=== PATIENT | female | born 1950 | race Caucasian/White ===

== ENCOUNTER → 2017-07-25 09:20 | Outpatient (CLI) | payer MEDICARE, SELFPAY ==
--- NOTE | 2017-07-25 | PATH_ITS ---
[facility] Accession Number: [id number] . 01 Material submitted: . LEFT BREAST . 01 Clinical history: . MASS 8 O'CLOCK 5CM FROM NIPPLE . 02 Diagnosis: Left Breast, Mass at 8 o'clock, 5 cm from Nipple, Core Needle Biopsies: Benign breast tissue with fibrocystic-type changes, including fibrosis, apocrine metaplasia, microcysts, and usual ductal hyperplasia. Microcalcifications not identified. Additional levels were examined. Negatived for atypical hyperplasia, in situ or invasive carcinoma. V/07/26/2017 . 02 Electronically signed: . Stephanie Buenrostro MD, Pathologist NPI- [id number] . 01 Gross description: . Received one formalin-filled container labeled with the patient's name and designated left breast mass 8 o'clock, 5 cm from nipple. The specimen is received with plastic filter in container, sample loose in container, and consists of multiple pieces of soft tissue and clotted blood, which aggregate to 1.0 x 1.0 x 0.3 cm. The specimen is filtered, wrapped and entirely submitted in one cassette. Collection date 07/25/2017. Collection time 10:25 a.m., per containers. Total fixation time 12 hours up to 24. ([id number]) /[facility] . 02 Pathologist provided ICD-10: N60.12 . 02 CPT . 263640 Performed at: 01 [facility] [address] [place] [address], [place], [place] [id number] MD Bernabe Goode MD Phone: [phone] [facility]formed [facility]: [facility] [place] [address] [address], [place] [id number] MD Henok Hickey MD Phone: [phone]
--- NOTE | 2017-07-25 | DI.MG.S_ITS ---
UNILATERAL LEFT DIGITAL DIAGNOSTIC MAMMOGRAM POST-NEEDLE BIOPSY: 07/25/2017 CLINICAL: Post clip placement. Comparison is made to exams dated: 12/24/2016 mammogram, 01/19/2016 mammogram, and 09/19/2014 mammogram - [facility]. The tissue of the left breast is heterogeneously dense. This may lower the sensitivity of mammography. There is a marker clip in the appropriate position in the left breast at 8 o'clock anterior depth. This marker clip placement is at biopsy site. IMPRESSION: POST PROCEDURE MAMMOGRAM FOR MARKER PLACEMENT There was a successful marker clip placement in the left breast anterior depth. This exam was interpreted at Station ID: [id number]. NOTE: For mammograms, a report in lay terms will be sent to the patient. Approximately 15% of breast malignancies will not be visualized mammographically. In the management of a palpable breast mass, a negative mammogram must not discourage biopsy of a clinically suspicious lesion. Electronically Signed By: Waylon wilkerson/:07/25/2017 12:15:58 ACR BI-RADS Category Post-procedure mammogram for marker placement
--- NOTE | 2017-07-25 09:26 | DI.US.S_ITS ---
ULTRASOUND GUIDED BIOPSY LEFT BREAST USING VACUUM DEVICE WITH MARKING DEVICE INSERTED AND POST DIGITAL MAMMOGRAPHIC AND ULTRASOUND IMAGIN07/25/2017 CLINICAL: Left breast mass. PATIENT CONSENT: Risks (minor bleeding, infection, vasovagal reaction and repeat procedure), benefits and alternatives were explained to the patient and written informed consent was obtained. Correlation is made to exams dated: 06/23/2017 ultrasound, [facility]24[facility]2016 [facility] An [facility] guided biopsy using real-time ultrasound was performed for the 6 mm lobulated mass located in the left breast at 8 o'clock anterior depth. This was described on the previous ultrasound report. The skin was prepped in the usual manner. Local anesthetic was administered to the access site. A skin kayla was made in the breast. The abnormality was approached from the lateral aspect. A 10 gauge biopsy needle was placed adjacent to the abnormality under ultrasound guidance. Once the needle was documented to be in the correct location, two specimens were obtained using the Mammotome biopsy system. The patient received additional local anesthetic during the procedure. A titanium clip was inserted into the biopsy cavity. Post procedure digital mammographic and ultrasound imaging demonstrates the clip at the targeted area and complete removal of the abnormality. The specimens were sent to the laboratory for pathological analysis. IMPRESSION: ULTRASOUND GUIDED BIOPSY BENIGN Ultrasound guided biopsy of the 6 mm mass in the left breast at 8 o'clock anterior depth was successful. Pathology indicates benign apocrine metaplasia (AM), usual ductal hyperplasia ([facility]), and fibrocystic changes (FC). Pathology results are concordant with mammography and ultrasound findings. Return to annual mammogram screening schedule is recommended. This exam was interpreted at Station ID: [id number]. Waylon wilkerson,ddp/:07/28/2017 11:31:23
== END ==
PROVIDERS: Family Provider Family Medicine; PCP Family Medicine; Visit Provider Family Medicine
DX: N63.20 Unspecified lump in the left breast, unspecified quadrant (principal)
CPT/HCPCS: 19083; 77065; 88305

== ENCOUNTER 2017-08-02 09:41 | Outpatient (CLI) | payer MEDICARE, SELFPAY ==
[2017-08-02] VITALS (12 sets, daily range): BP systolic 77–180; BP diastolic 48–96; PULSE 76–92; RESP 16–18; TEMP 36.8; O2SAT 95–100
--- NOTE | 2017-08-02 09:57 | DI.RAD.S_ITS ---
PROCEDURE: PAIN L/S TRANSFORAMINAL INJECT INDICATIONS: right L4-5 radiculopathy FINDINGS: Fluoroscopic spot filming was performed to verify placement of spinal needles at the right L4-L5 level(s), as labeled on the films. Appropriate location(s) of the needle tip(s) was confirmed by injection of iodinated contrast. Dictated by: Emmanuel Rosales M.D. on 08/02/2017 at 17:16 Approved by: Emmanuel Rosales M.D. on 08/02/2017 at 17:16
--- NOTE | 2017-08-02 10:06 | P.PCN_ITS ---
Procedures Date/Time Date of procedure: 08/02/17 Time of procedure: 10:07 General Procedure description: PREOP DIAGNOSIS 1. FORMAINAL STENOSIS WITH LE SYMPTOMS POST OP DIAGNOSIS 1. FORMAINAL STENOSIS WITH LE SYMPTOMS PROCEDURES 1. FLUOROSCOPICALLY GUIDED CONTRAST CONTROLLED TRANSFORAMINAL EPIDURAL STEROID INJECTION - RIGHT L4/5 TFESI PHYSICIAN: Reuben Guillory INDICATIONS: Moira is referred by Dr. Baig for treatment of Foraminal Stenosis with Right LE Symptoms FINDINGS Foraminal Nerve Root Compression secondary to disc disease and facet hypertrophy DESCRIPTION OF PROCEDURE: Following denial of allergy and review of potential side effects and complications, including, but not necessarily limited to, infection, allergic reaction, local tissue breakdown, stroke, temporary or permanent nerve injury, paralysis, and possible , the patient indicated that the patient understood and agreed to proceed. An informed consent document was signed by the patient, witnessed by a nurse, and placed in the patient's chart. Additionally, other treatment options including medications, modalities, and physical therapy were reviewed with the patient. Per the patient request, IV conscious sedation was administered via 5mg of Versed to patient comfort. The patient's vital signs were monitored throughout the procedure by both the nurse and the physician without significant fluctuation. The patient remained conversant throughout the procedure. In the prone position following sterile prep and drape of the lumbar region, the Right L4/5 posterior neuroforamen was identified fluoroscopically. The skin was anesthetized via a 25-gauge 1.5-inch needle with 1% lidocaine solution. At this point, a 25-gauge 3.5-inch spinal needle was atraumatically introduced and advanced under fluoroscopic guidance through the posterior right L4/5 neuroforamen to approximately the anterior aspect of the canal. Depth was confirmed on lateral view. Following negative aspiration, injection of approximately 1.5 cc of Isovue 200 under live fluoroscopy in the AP view confirmed excellent flow along the nerve root, into the epidural space without vascular or intrathecal uptake observed Radiological data, including multiple fluoroscopic views of the lumbosacral spine, reveal a spinal needle at the right L4/5 posterior neuroforamen. Subsequent views show flow of contrast material flowing superiorly and inferiorly along the nerve root confirming epidural flow. Subsequently, a test dose of 1.5 cc of 1% lidocaine solution was administered and patient was observed for two minutes for signs or symptoms of complications , including abdominal pain, shortness of breath, bilateral upper or lower extremity weakness, nausea and vomiting, prior to steroid injection. At this point, a total of 3 cc or 20 mg of dexamethasone and 80mg Depo Medrol was injected without incident. The patient was then transferred to the recovery area where they were observed for an appropriate time after the injection. The patient reported a VAS score of 7 prior to the procedure and a post-procedure VAS of 0. Total Fluoroscopy Time: 20.9 seconds Total Conscious Sedation Time: 24min POST OP INSTRUCTIONS The patient was provided a Pain Log to continue to record their response to the target-specific procedure prior to follow-up visit with their referring physician. Additionally, specific post-injection care instructions and a contact number to our office were provided if concerns arise regarding possible complications associated with the procedure are suspected. Reuben Guillory DO Complications: none
[2017-08-02] MEDS: MIDAZOLAM 5 MG/5 ML VIAL IV (10:28)
[2017-08-02] MEDS: DEXAMETHASONE 10 MG/ML VIAL 20 MG INJ (10:35)
[2017-08-02] MEDS: BUPIVACAINE 0.25% (PF) 30 ML VIAL INJ (10:35)
[2017-08-02] MEDS: methylPREDNISolone acetate 80 MG/ML VIAL INJ (10:35)
[2017-08-02] MEDS: IOPAMIDOL 15 ML VIAL INJ (10:35)
--- NOTE | 2017-08-02 11:05 | PC.NURSE ---
NOTIFIED OF BP
== END 2017-08-02 12:11 ==
LOC: RAD 09:43
PROVIDERS: PCP Family Medicine; Visit Provider Physical Medicine & Rehabilitation
DX: M47.26 Other spondylosis with radiculopathy, lumbar region (principal); M51.36 Other intervertebral disc degeneration, lumbar region
CPT/HCPCS: 64483; 99152; J1040; J1100; J2250

== ENCOUNTER → 2017-08-31 12:29 | Outpatient (CLI) | payer MEDICARE, SELFPAY ==
--- NOTE | 2017-08-31 12:31 | DI.RAD.S_ITS ---
PROCEDURE: XR ANKLE RT MIN 3V INDICATIONS: R ankle swelling and pain. TECHNIQUE: 3 views of the ankle were acquired. COMPARISON: None. FINDINGS: Bones: A nondisplaced fracture is present through the tip of the lateral malleolus. Ankle mortise is normally aligned. No suspicious bony lesions. Traction spurs are present at the base of the fifth metatarsal and at the Achilles insertion. Soft tissues: Diffuse soft tissue swelling. No tibiotalar joint effusion. Achilles tendon appears normal. IMPRESSION: Nondisplaced fracture lateral malleolus. Soft tissue swelling. Dictated by: Waylon Car M.D. on 08/31/2017 at 13:07 Approved by: Waylon Car M.D. on 08/31/2017 at 13:10
== END ==
PROVIDERS: PCP Family Medicine; Visit Provider Family Medicine
DX: S82.64XA Nondisplaced fracture of lateral malleolus of right fibula, initial encounter for closed fracture (principal); M25.571 Pain in right ankle and joints of right foot; M25.471 Effusion, right ankle
CPT/HCPCS: 73610

== ENCOUNTER 2017-09-28 09:32 | Outpatient (CLI) | payer MEDICARE, SELFPAY ==
[2017-09-28] VITALS (9 sets, daily range): BP systolic 139–183; BP diastolic 65–80; PULSE 77–92; RESP 12–18; TEMP 36.3; O2SAT 96–100
--- NOTE | 2017-09-28 09:35 | DI.RAD.S_ITS ---
PROCEDURE: PAIN L/S TRANSFORAMINAL INJECT INDICATIONS: R L4/5 transforaminal FINDINGS: Fluoroscopic spot filming was performed to verify placement of spinal needles at the L4-5 level(s), as labeled on the films. Appropriate location(s) of the needle tip(s) was confirmed by injection of iodinated contrast. IMPRESSION: Intraoperative imaging for confirmation of injection of the right L4-5 level Dictated by: Waylon Car M.D. on 09/28/2017 at 16:47 Approved by: Waylon Car M.D. on 09/28/2017 at 16:48
--- NOTE | 2017-09-28 10:34 | P.PCN_ITS ---
Procedures Date/Time Date of procedure: 09/28/17 Time of procedure: 10:33 General Procedure description: PREOP DIAGNOSIS 1. FORMAINAL STENOSIS WITH LE SYMPTOMS POST OP DIAGNOSIS 1. FORMAINAL STENOSIS WITH LE SYMPTOMS PROCEDURES 1. FLUOROSCOPICALLY GUIDED CONTRAST CONTROLLED TRANSFORAMINAL EPIDURAL STEROID INJECTION - RIGHT L4/5 TFESI PHYSICIAN: Reuben Guillory DO INDICATIONS: Moira is referred by Dr. Baig for treatment of Foraminal Stenosis with Right LE Symptoms FINDINGS Foraminal Nerve Root Compression secondary to disc disease and facet hypertrophy DESCRIPTION OF PROCEDURE: Following denial of allergy and review of potential side effects and complications, including, but not necessarily limited to, infection, allergic reaction, local tissue breakdown, stroke, temporary or permanent nerve injury, paralysis, and possible , the patient indicated that the patient understood and agreed to proceed. An informed consent document was signed by the patient, witnessed by a nurse, and placed in the patient's chart. Additionally, other treatment options including medications, modalities, and physical therapy were reviewed with the patient. After review of previous anaesthesic history and IV conscious sedation the patient was deemed safe to proceed with todays procedure with IV conscious sedation as ASA class II designation. Safety time-out was performed to confirm patient ID, procedure to be performed and site of procedure. IV sedation was accomplished with a combination of 5mg of Versed was administered by the RN after DO order, titrated to patient comfort during the course of the procedure while the patient remained responsive to all verbal commands In the prone position following sterile prep and drape of the lumbar region, the Right L4/5 posterior neuroforamen was identified fluoroscopically. The skin was anesthetized via a 25-gauge 1.5-inch needle with 1% lidocaine solution. At this point, a 25-gauge 3.5-inch spinal needle was atraumatically introduced and advanced under fluoroscopic guidance through the posterior Right L4/5 neuroforamen to approximately the anterior aspect of the canal. Depth was confirmed on lateral view. Following negative aspiration, injection of approximately 1.5 cc of Isovue 200 under live fluoroscopy in the AP view confirmed excellent flow along the nerve root, into the epidural space without vascular or intrathecal uptake observed Radiological data, including multiple fluoroscopic views of the lumbosacral spine, reveal a spinal needle at the right L4/5 posterior neuroforamen. Subsequent views show flow of contrast material flowing superiorly and inferiorly along the nerve root confirming epidural flow. Subsequently, a test dose of 1.5 cc of 1% lidocaine solution was administered and patient was observed for two minutes for signs or symptoms of complications , including abdominal pain, shortness of breath, bilateral upper or lower extremity weakness, nausea and vomiting, prior to steroid injection. At this point, a total of 4cc or 10mg of dexamethasone and 18mg Betamethasone was injected without incident. The procedure tolerated the procedure well without signs or symptoms of complications prior to transfer to the recovery area continued monitoring without incident.The patient was then transferred to the recovery area where they were observed for an appropriate time after the injection. The patient reported a VAS score of 7 prior to the procedure and a post- procedure VAS of 0. Total Fluoroscopy Time: 20.9 seconds Total Conscious Sedation Time: 24min POST OP INSTRUCTIONS The patient was provided a Pain Log to continue to record their response to the target-specific procedure prior to follow-up visit with their referring physician. Additionally, specific post-injection care instructions and a contact number to our office were provided if concerns arise regarding possible complications associated with the procedure are suspected. Reuben Guillory DO Complications: none
[2017-09-28] MEDS: DEXAMETHASONE 10 MG/ML VIAL 20 MG INJ (10:56)
[2017-09-28] MEDS: BETAMETHASONE 30 MG/5 ML MDV 12 MG INJ (10:56)
[2017-09-28] MEDS: BUPIVACAINE 0.25% (PF) VIAL 2 ML INJ (10:56)
[2017-09-28] MEDS: IOPAMIDOL 15 ML VIAL 3 ML INJ (10:57)
[2017-09-28] MEDS: MIDAZOLAM 5 MG/5 ML VIAL IV (10:57)
== END 2017-09-28 11:57 | disposition home or self-care (01) ==
LOC: RAD 09:35
PROVIDERS: PCP Family Medicine; Visit Provider Physical Medicine & Rehabilitation
DX: M48.061 Spinal stenosis, lumbar region without neurogenic claudication (principal); M51.16 Intervertebral disc disorders with radiculopathy, lumbar region
CPT/HCPCS: 64483; 99152; J0702; J1100; J2250

== ENCOUNTER 2017-10-25 11:15 | Outpatient (CLI) | payer MEDICARE, SELFPAY ==
[2017-10-25] VITALS (13 sets, daily range): BP systolic 114–158; BP diastolic 51–85; PULSE 64–92; RESP 16–20; TEMP 37.1; O2SAT 95–100
--- NOTE | 2017-10-25 | DI.RAD.S_ITS ---
PROCEDURE: PAIN L INTERLAMINAR/CAUDAL INJ INDICATIONS: LUMBAR REGION INTERVERTEBRAL DISC DISPLACEMENT FINDINGS: Fluoroscopic spot filming was performed to verify placement of spinal needles at the L4-5 level(s), as labeled on the films. Appropriate location(s) of the needle tip(s) was confirmed by injection of iodinated contrast. IMPRESSION: Successful posterior interlaminar L4-5 localization for epidural steroid injection. Dictated by: De Celestin M.D. on 10/25/2017 at 14:26 Approved by: De Celestin M.D. on 10/25/2017 at 14:26
[2017-10-25] MEDS: MIDAZOLAM 5 MG/5 ML VIAL IV (12:21)
[2017-10-25] MEDS: BUPIVACAINE 0.25% (PF) VIAL 2 ML INJ (12:31)
[2017-10-25] MEDS: IOPAMIDOL 15 ML VIAL 3 ML INJ (12:31)
[2017-10-25] MEDS: DEXAMETHASONE 10 MG/ML VIAL 20 MG INJ (12:32)
[2017-10-25] MEDS: methylPREDNISolone acetate 80 MG/ML VIAL INJ (12:32)
--- NOTE | 2017-10-25 12:37 | P.PCN_ITS ---
Procedures Date/Time Date of procedure: 10/25/17 Time of procedure: 12:36 General Procedure description: PROVIDER: Reuben Guillory DO Operative Note PREOP DIAGNOSIS 1. HNP WITH RADICULAR FEATURES, 2. MULTILEVEL CENTRAL STENOSIS, POST OP DIAGNOSIS 1. HNP WITH RADICULAR FEATURES, 2. MULTILEVEL CENTRAL STENOSIS PROCEDURES 1. FLUORSCOPICALLY GUIDED CONTRAST CONTROLLED INTERLAMINAR EPIDURAL STEROID INJECTION -L4/5 PHYSICIAN: Reuben Guillory DO INDICATIONs: Moira is referred by for treatment of HNP with R>L LE symptoms. FINDINGS Multilevel Central Spinal Stenosis with Nerve Root Compression DESCRIPTION OF PROCEDURE Fluoroscopically guided, contrast-controlled L4/5 translaminar epidural steroid injection. Following denial of allergy and review of potential side effects and complications, including, but not necessarily limited to, infection, allergic reaction, local tissue breakdown, temporary as well as permanent nerve injury, paralysis, stroke and possible , the patient indicated that the patient understood and agreed to proceed. An informed consent document was signed by the patient, witnessed by a nurse, and placed in the patient's chart. Additionally, other treatment options including modalities, medications, and physical therapy were reviewed with the patient. After review of previous anaesthesic history and IV conscious sedation the patient was deemed safe to proceed with todays procedure with IV conscious sedation as ASA class II designation. Safety time-out was performed to confirm patient ID, procedure to be performed and site of procedure. IV sedation was accomplished with a combination of 3mg was administered by the RN after DO order , titrated to patient comfort during the course of the procedure while the patient remained responsive to all verbal commands In the prone position, following sterile prep and drape of the lumbar region, the L4/5 translaminar space was identified fluoroscopically. The skin was anesthetized via a 25-gauge, 1.5-inch needle with 1% lidocaine solution. At this point, a 22-gauge short bevel spinal needle was atraumatically introduced and advanced under fluoroscopic guidance into the region of the L4/5 translaminar space. Depth was confirmed on lateral view. Radiological data, including multiple fluoroscopic views of the lumbar spine, reveal a spinal needle at the L4/5 translaminar space. Lateral views then show placement of the needle in the epidural space. Subsequent views show contrast material flowing superiorly and inferiorly in the epidural space. No vascular or intrathecal uptake is observed. At this point, using loss of resistance technique with saline and air, the epidural space was entered. This was confirmed following negative aspiration with injection of approximately 1.5 cc of Isovue 200, showing excellent epidural flow without vascular or intrathecal uptake. At this point, 1 cc of 1 % lidocaine solution combined with 3 cc or 20 mg of dexamethasone and 80mg Depo medrol was injected without incident. The patient tolerated the procedure well without signs or symptoms of complications prior to transfer to the recovery area continued monitoring without incident. The patient was then transferred to the recovery area where they were observed for an appropriate period of time after the injection. The patient reported a VAS score of 6 prior to the procedure and a post- procedure VAS of 0. Total Fluoroscopy Time: 11.8 seconds, 8.99 mGy Total Conscious Sedation Time: 24min POST OP INSTRUCTIONS The patient was provided a Pain Log to continue to record their response to the target-specific procedure prior to follow-up visit with their referring physician. Additionally, specific post-injection care instructions and a contact number to our office were provided if concerns arise regarding possible complications associated with the procedure are suspected. Reuben Guillory DO Complications: none
== END 2017-10-25 13:19 ==
LOC: RAD 11:17
PROVIDERS: PCP Family Medicine; Visit Provider Physical Medicine & Rehabilitation
DX: M51.16 Intervertebral disc disorders with radiculopathy, lumbar region (principal); M48.061 Spinal stenosis, lumbar region without neurogenic claudication
CPT/HCPCS: 62323; 99152; J1040; J1100; J2250

== ENCOUNTER → 2018-03-27 11:39 | Outpatient (CLI) | payer MEDICARE, SELFPAY ==
--- NOTE | 2018-03-27 | DI.MG.S_ITS ---
BILATERAL DIGITAL SCREENING MAMMOGRAM 3D/2D WITH CAD: 03/27/2018 CLINICAL: Family history of breast cancer. Comparison is made to exams dated: 07/25/2017 mammogram, 12/24/2016 mammogram, and 01/19/2016 mammogram - [facility]. The tissue of both breasts is heterogeneously dense. This may lower the sensitivity of mammography. Current study was also evaluated with a Computer Aided Detection (CAD) system. There are benign calcifications in both breasts. There also is a benign biopsy clip in the left breast. No significant masses, calcifications, or other findings are seen in either breast. There has been no significant interval change. IMPRESSION: There is no mammographic evidence of malignancy. A 1 year screening mammogram is recommended. This exam was interpreted at Station ID: [id number]. NOTE: For mammograms, a report in lay terms will be sent to the patient. Approximately 15% of breast malignancies will not be visualized mammographically. In the management of a palpable breast mass, a negative mammogram must not discourage biopsy of a clinically suspicious lesion. Electronically Signed By: Rufino brooks/ashley:03/27/2018 12:59:14 letter sent: Normal Exam ACR BI-RADS Category 2: Benign Finding(s) 3342F
== END ==
PROVIDERS: PCP Family Medicine; Visit Provider Family Medicine
DX: Z12.31 Encounter for screening mammogram for malignant neoplasm of breast (principal); Z80.3 Family history of malignant neoplasm of breast
CPT/HCPCS: 77063; 77067

== ENCOUNTER → 2018-04-24 10:53 | Outpatient (CLI) | payer MEDICARE, SELFPAY ==
--- NOTE | 2018-04-24 10:56 | DI.RAD.S_ITS ---
PROCEDURE: XR KNEE RT 3V INDICATIONS: Status post arthroscopy with DJD RIGHT KNEE TECHNIQUE: 3 views of the knee were acquired. COMPARISON: None. FINDINGS: Bones: No fractures or dislocations. No suspicious bony lesions. Moderate patellofemoral compartment marginal spur formation and minor lateral compartment spurring. Moderate, asymmetric lateral compartment patellofemoral joint space loss. Other joint spaces are normally maintained. Soft tissues: No joint effusion. No suspicious soft tissue calcifications. IMPRESSION: Moderate patellofemoral osteoarthritic changes, and minor lateral compartment spurring. Dictated by: Paige Membreno M.D. on 04/24/2018 at 12:46 Approved by: Paige Membreno M.D. on 04/24/2018 at 12:48
--- NOTE | 2018-04-24 10:56 | DI.RAD.S_ITS ---
PROCEDURE: XR KNEE LT 3V INDICATIONS: Status post arthroscopy with DJD LEFT KNEE TECHNIQUE: 3 views of the knee were acquired. COMPARISON: None. FINDINGS: Bones: No fractures or dislocations. Mild to moderate patellofemoral compartment spurring and mild asymmetric lateral patellofemoral compartment joint space loss. Mild medial compartment joint space loss and marginal spur formation. Lateral compartment chondrocalcinosis visible. No suspicious bony lesions. Soft tissues: Trace, probable suprapatellar joint effusion. Dystrophic soft tissue calcification anterior to the intercondylar notch. IMPRESSION: 1. Mild to moderate patellofemoral and medial compartment osteoarthritic changes. 2. Lateral compartment chondrocalcinosis raising possibility of underlying CPPD/pseudogout. Dictated by: Paige Membreno M.D. on 04/24/2018 at 12:48 Approved by: Paige Membreno M.D. on 04/24/2018 at 12:51
== END ==
PROVIDERS: PCP Family Medicine; Visit Provider Physical Medicine & Rehabilitation
DX: M17.0 Bilateral primary osteoarthritis of knee (principal); M11.262 Other chondrocalcinosis, left knee
CPT/HCPCS: 73562

== ENCOUNTER → 2018-06-05 15:02 | Outpatient (CLI) | payer MEDICARE, SELFPAY ==
[2018-06-05 16:03] LABS: Alanine Aminotransferase 31 IU/L (9-52); Albumin 4.8 g/dL (3.5-5.0); Albumin Globulin Ratio 1.9 (1.0-2.8); Alkaline Phosphatase 77 U/L (38-126); Aspartate Aminotransferase 22 IU/L (14-36); BUN Creatinine Ratio 26.3 (6-22); Bilirubin Total 0.5 mg/dL (0.2-1.3); Blood Urea Nitrogen 21 mg/dL (7-17); Calcium 9.6 mg/dL (8.4-10.2); Carbon Dioxide 27 mmol/L (22-32); Chloride 101 mmol/L (98-107); Cholesterol 183 mg/dL (140-199); Estimated Glomerular Filt Rate > 60.0 mL/min (>60); Globulin 2.5 g/dL (1.7-4.1); Glucose 93 mg/dL (80-110); HDL Cholesterol 44 mg/dL (40-60); HEMOLYSIS < 15 (0-50); LDL Cholesterol Calculated 118 mg/dL (<100); Potassium 4.5 mmol/L (3.4-5.1); Sodium 138 mmol/L (137-145); Total Protein 7.3 g/dL (6.3-8.2); Triglycerides 105 mg/dL (35-150)
[2018-06-05 16:16] LABS: Add Manual Diff / Slide Review NO; Basophils Absolute Auto 0 /uL (0-100); Basophils Percent Auto 0.7 % (0-2); Eosinophils Absolute Auto 100 /uL (0-450); Hematocrit 40.1 % (36-46); Hemoglobin 13.3 g/dL (12.0-16.0); Lymphocytes Absolute Auto 1700 /uL (1100-4500); Lymphocytes Percent Auto 33.9 % (25-40); Mean Corpuscular HGB Conc 33.1 % (30-36); Mean Corpuscular Hemoglobin 29.9 PG (26-34); Mean Corpuscular Volume 90.2 fL (80-100); Monocytes Absolute Auto 400 /uL (0-900); Monocytes Percent Auto 8.5 % (3-14); Neutrophils Absolute Auto 2800 /uL (1500-7000); Neutrophils Percent Auto 54.9 % (50-75); Platelet Count 229 X10^3/uL (150-400); Red Blood Cell Count 4.45 X10^6/uL (4.0-5.2); Red Cell Distribution Width 12.9 % (11.6-14.8)
[2018-06-05 16:19] LABS: Free T3, Triiodothyronine Free 3.43 pg/mL (2.77-5.27); Free T4, Direct Thyroxine 1.36 ng/dL (0.78-2.19)
[2018-06-05 16:33] LABS: Thyroid Stimulating Hormone 0.98 uIU/mL (0.47-4.68)
[2018-06-05 16:51] LABS: Vitamin B12 279 pg/mL (239-931)
== END ==
PROVIDERS: PCP Family Medicine; Visit Provider Family Medicine
DX: E03.9 Hypothyroidism, unspecified (principal); F32.9 Major depressive disorder, single episode, unspecified; I10 Essential (primary) hypertension; Z51.81 Encounter for therapeutic drug level monitoring
CPT/HCPCS: 36415; 80053; 80061; 82607; 84439; 84443; 84481; 85025

== ENCOUNTER → 2018-06-16 09:02 | Outpatient (CLI) | payer MEDICARE, SELFPAY ==
--- NOTE | 2018-06-16 09:04 | DI.US.S_ITS ---
PROCEDURE: US THYROID INDICATIONS: HYPOTHYROIDISM TECHNIQUE: Real-time scanning was performed of the thyroid gland, with image documentation. COMPARISON: None. FINDINGS: Right: Thyroid lobe measures 4.6 x 1.3 x 1.4 cm, and is homogeneous in echotexture. Left: Thyroid lobe measures 3.7 x 1.2 x 0.8 cm, and is homogenous in echotexture. Isthmus: 2.0 mm thick. Nodule number: 1 Location: Right mid Size: 0.5 x 0.4 x 0.5 cm. Composition: Solid Echogenicity: Hyperechoic Shape: wider than tall. Margins: Smooth Echogenic foci: None Total points: 3 ACR TI-RADS category: Mildly suspicious IMPRESSION: Mildly suspicious finding on the right thyroid nodule. Recommend continued followup ultrasound as detailed below. ACR TI-RADS definitions and recommendations: TI-RADS 1 (benign): 0 points. FNA not needed. TI-RADS 2 (not suspicious): 2 points. FNA not needed. TI-RADS 3 (mildly suspicious): 3 points. * FNA if 2.5 cm or larger, follow up if 1.5 cm or larger (at 1, 3, and 5 years). TI-RADS 4 (moderately suspicious): 4-6 points. * FNA if 1.5 cm or larger, follow up if 1 cm or larger (at 1, 2, 3, and 5 years). TI-RADS 5 (highly suspicious): 7 points or more. * FNA if 1 cm or larger, follow up if 0.5 cm or larger (every year for 5 years). Dictated by: Jimbo LONG Interpreted: Sarah Tellez MD on 06/16/2018 at 12:58 Approved by: Sarah Tellez M.D. on 06/16/2018 at 16:59
== END ==
PROVIDERS: PCP Family Medicine; Visit Provider Family Medicine
DX: E03.9 Hypothyroidism, unspecified (principal); E04.1 Nontoxic single thyroid nodule
CPT/HCPCS: 76536

== ENCOUNTER → 2019-09-06 09:37 | Outpatient (CLI) | payer MEDICARE, SELFPAY ==
--- NOTE | 2019-09-06 09:39 | DI.MRI.S_ITS ---
PROCEDURE: MR LUMBAR SPINE WO CON INDICATIONS: Low back pain with lower extremity symptoms TECHNIQUE: Noncontrast sagittal T1 spin echo and T2 fast echo, sagittal STIR, axial T1 and T2 fast spin echo through the lumbar spine. In cases with scoliosis, additional coronal T2 fast spin echo may be performed. COMPARISON: [facility], MR, L-SPINE WITHOUT CONTRAST, 02/10/2017, 8:23. [facility], CR, XR LUMBAR SPINE MIN 4V, 09/06/2019, 9:33. FINDINGS: Image quality: Excellent. Alignment and Curvature: There is normal bony alignment. Bone Marrow: Marrow is of normal overall signal. No acute vertebral body compression fractures. Spinal Cord: Conus medullaris terminates at the mid L1 level. Visualized cord demonstrates normal signal and size. Paraspinous Soft Tissues: No paravertebral masses. Multiple calculi within the gallbladder lumen are present. L1-L2: Mild disc height loss and desiccation. Mild diffuse disc bulge. Mild facet and ligamentum flavum hypertrophy. Mild canal stenosis. Mild bilateral foraminal stenosis. No change. L2-L3: Mild disc desiccation and diffuse disc bulge. Mild facet and ligament flavum hypertrophy. Mild canal stenosis. Mild bilateral foraminal stenosis. L3-L4: Mild disc height loss. Moderate disc desiccation. Moderate diffuse disc bulge with superimposed left paracentral protrusion. Mild facet and ligament flavum hypertrophy. Mild epidural lipomatosis. Moderate canal stenosis. Mild bilateral foraminal stenosis. No change. L4-L5: Moderate disc desiccation. Mild disc height loss. Moderate diffuse disc bulge with superimposed broad-based central protrusion. Mild facet and ligamentum flavum hypertrophy. Mild epidural lipomatosis. Moderate canal stenosis. Mild bilateral foraminal stenosis, left greater than right. No change. L5-S1: Moderate disc desiccation. Mild disc height loss. Mild diffuse disc bulge. Mild bilateral facet hypertrophy. Epidural lipomatosis. No significant canal stenosis. Moderate subarticular foraminal stenosis bilaterally. No change. IMPRESSION: 1. Multilevel degenerative disc and facet disease, as well as ligamentum flavum hypertrophy and epidural lipomatosis. 2. Multilevel canal stenoses, worst at L3-L4 and L4-L5, where there are moderate canal stenoses present. 3. Multilevel foraminal stenoses, worst at L5-S1 bilaterally where there are moderate foraminal stenoses present. Dictated by: Tiffany Fernando M.D. on 09/06/2019 at 10:37 Approved by: Tiffany Fernando M.D. on 09/06/2019 at 10:41
--- NOTE | 2019-09-06 09:39 | DI.RAD.S_ITS ---
PROCEDURE: XR LUMBAR SPINE MIN 4V INDICATIONS: Low back pain with lower extremity symptoms TECHNIQUE: 5 views of the lumbar spine were acquired. COMPARISON: None. FINDINGS: Bones: No fracture or focal osseous destruction. Multilevel degenerative endplate sclerosis and spurring. Diffuse facet arthropathy. Straightening of the normal lordotic curvature. Diffuse mild narrowing of all lumbar disc spaces. Trace retrolisthesis of L4-L5. Mild levocurvature noted bilateral hip degeneration. Poorly defined presumed degenerative sclerosis seen in both SI joints. Soft tissues: Overlying bowel gas pattern is normal. No suspicious soft tissue calcifications. Oblique images: No pars defects. IMPRESSION: Multilevel mild lumbar spondylosis and facet disease as detailed above Dictated by: Emmanuel Rosales M.D. on 09/06/2019 at 11:32 Approved by: Emmanuel Rosales M.D. on 09/06/2019 at 11:34
== END ==
PROVIDERS: PCP Family Medicine; Referring Provider Family Medicine; Visit Provider Physical Medicine & Rehabilitation
DX: M51.16 Intervertebral disc disorders with radiculopathy, lumbar region (principal); M51.17 Intervertebral disc disorders with radiculopathy, lumbosacral region; M48.061 Spinal stenosis, lumbar region without neurogenic claudication; M48.07 Spinal stenosis, lumbosacral region; M47.26 Other spondylosis with radiculopathy, lumbar region; M16.0 Bilateral primary osteoarthritis of hip; M21.371 Foot drop, right foot; M54.5 Low back pain; E88.2 Lipomatosis, not elsewhere classified
CPT/HCPCS: 72110; 72148

== ENCOUNTER → 2019-10-13 09:24 | Outpatient (CLI) | payer MEDICARE, SELFPAY ==
[2019-10-14 16:55] LABS: COVID19 Sendout Not Detected (Not Detect)
== END ==
PROVIDERS: PCP Family Medicine; Visit Provider Physician Assistant
DX: Z11.59 Encounter for screening for other viral diseases (principal)
CPT/HCPCS: 87635

== ENCOUNTER 2019-10-16 09:23 | Outpatient (CLI) | payer MEDICARE, SELFPAY ==
[2019-10-16] VITALS (10 sets, daily range): BP systolic 121–183; BP diastolic 67–90; PULSE 81–93; RESP 15–18; TEMP 36.7; O2SAT 96–100
--- NOTE | 2019-10-16 09:27 | DI.RAD.S_ITS ---
PROCEDURE: PAIN L INTERLAMINAR/CAUDAL INJ INDICATIONS: LOW BACK PAIN COMPARISON: [facility], XA, PAIN L INTERLAMINAR/CAUDAL INJ, 10/25/2017, 11:33. FINDINGS: Fluoroscopic spot filming was performed to verify placement of spinal needles at the right L4-L5 transluminal level(s), as labeled on the films. Appropriate location(s) of the needle tip(s) was confirmed by injection of iodinated contrast. IMPRESSION: Access needle the level of the right L4-L5 lamina. Dictated by: Re Madsen MD, PhD on 10/16/2019 at 13:37 Approved by: Re Madsen MD, PhD on 10/16/2019 at 13:38
--- NOTE | 2019-10-16 10:02 | PC.NURSE ---
Patient is A&O able to make needs known. Reviewed green pain log with post injection instructions. Has no other questions or concerns at this time.
[2019-10-16] MEDS: MIDAZOLAM 5 MG/5 ML VIAL IV (10:13)
[2019-10-16] MEDS: fentaNYL 100 MCG/2 ML INJ 50 MCG IV (10:13)
[2019-10-16] MEDS: DEXAMETHASONE 10 MG/ML VIAL 20 MG INJ (10:17)
[2019-10-16] MEDS: IOPAMIDOL 15 ML VIAL 3 ML INJ (10:17)
[2019-10-16] MEDS: BUPIVACAINE 0.25% (PF) VIAL 2 ML INJ (10:17)
[2019-10-16] MEDS: BETAMETHASONE 30 MG/5 ML MDV 6 MG INJ (10:17)
--- NOTE | 2019-10-16 10:28 | P.PCN_ITS ---
Date/Time/Diagnoses Date of procedure: 10/16/19 Time of procedure: 10:28 Pre-procedure diagnosis: 1. HNP WITH RADICULAR FEATURES, 2. MULTILEVEL CENTRAL STENOSIS, Post-procedure diagnosis: same Procedure Notes Procedure: 1. FLUOROSCOPICALLY GUIDED CONTRAST CONTROLLED INTERLAMINAR EPIDURAL STEROID INJECTION -Para Right L4/5 Indications: Moira is referred by Dr. Daly for treatment of Bilateral Foraminal Stenosis R>L LE symptoms. Physician: Reuben Guillory Total Fluoroscopy time (seconds): 5 Total sedation minutes: 10 Complications: none Procedure in detail & Post-procedure care: FINDINGS Multilevel Central Spinal Stenosis with Nerve Root Compression DESCRIPTION OF PROCEDURE Fluoroscopically guided, contrast-controlled L4/5 translaminar epidural steroid injection. Following review of allergy and review of potential side effects and complications, including, but not necessarily limited to, infection, allergic reaction, local tissue breakdown, temporary as well as permanent nerve injury, paralysis, stroke and possible , the patient indicated that the patient understood and agreed to proceed. An informed consent document was signed by the patient, witnessed by a nurse, and placed in the patient's chart. Additionally, other treatment options including modalities, medications, and physical therapy were reviewed with the patient. After review of previous anaesthesic history and IV conscious sedation the patient was deemed safe to proceed with today?s procedure with IV conscious sedation as ASA class II designation. Safety time-out was performed to confirm patient ID, procedure to be performed and site of procedure. IV sedation was accomplished with a combination of 2mg of Versed and 50mcg of Fentanyl was administered by the RN after DO order, titrated to patient comfort during the course of the procedure while the patient remained responsive to all verbal commands In the prone position, following sterile prep and drape of the lumbar region, the L4/5 translaminar space was identified fluoroscopically. The skin was anesthetized via a 25-gauge, 1.5-inch needle with 1% lidocaine solution. At this point, a 22-gauge short bevel spinal needle was atraumatically introduced and advanced under fluoroscopic guidance into the region of the L4/5 translaminar space. Depth was confirmed on lateral view. Radiological data, including multiple fluoroscopic views of the lumbar spine, reveal a spinal needle at the L4/5 translaminar space. Lateral views then show placement of the needle in the epidural space. Subsequent views show contrast material flowing superiorly and inferiorly in the epidural space. No vascular or intrathecal uptake is observed. At this point, using loss of resistance technique with saline and air, the epidural space was entered. This was confirmed following negative aspiration with injection of approximately 1.5cc of Isovue 200, showing excellent epidural flow without vascular or intrathecal uptake. At this point, 1cc of 1% lidocaine solution combined with 3cc or 20mg of dexamethasone and 6mg betamethasone was injected without incident. The patient tolerated the procedure well without signs or symptoms of complications prior to transfer to the recovery area continued monitoring without incident. The patient was then transferred to the recovery area where they were observed for an appropriate period of time after the injection. The patient reported a VAS score of 7 prior to the procedure and a post- procedure VAS of 0. POST OP INSTRUCTIONS The patient was provided a Pain Log to continue to record their response to the target-specific procedure prior to follow-up visit with their referring physician. Additionally, specific post-injection care instructions and a contact number to our office were provided if concerns arise regarding possible complications associated with the procedure are suspected.
--- NOTE | 2019-10-16 11:01 | PC.NURSE ---
Patient d/c steady on feet. Has no questions at this time. Green pain log with instructions sent home with patient.
--- NOTE | 2019-10-16 16:07 | PC.NURSE ---
Tolerated procedure well. Sedation administered by ALICIA Cowart. All other meds given by Dr Guillory. Vitals stable during and immediately post procedure. Report given to ALICIA Pettit for post procedure recovery.
== END 2019-10-16 10:55 | disposition home or self-care (01) ==
LOC: RAD 09:26
PROVIDERS: PCP Family Medicine; Referring Provider Physical Medicine & Rehabilitation; Visit Provider Physical Medicine & Rehabilitation
DX: M51.16 Intervertebral disc disorders with radiculopathy, lumbar region (principal); M48.061 Spinal stenosis, lumbar region without neurogenic claudication
CPT/HCPCS: 62323; 99152; J0702; J1100; J2250; J3010

== ENCOUNTER → 2019-10-26 13:42 | Outpatient (CLI) | payer MEDICARE, SELFPAY ==
--- NOTE | 2019-10-26 13:45 | DI.RAD.S_ITS ---
PROCEDURE: XR ELBOW LT MIN 3V INDICATIONS: Fall, pain/swelling/bruising, proximal forearm TECHNIQUE: 3 views of the elbow were acquired. COMPARISON: None. FINDINGS: Bones: No fractures or dislocations. No suspicious bony lesions. There is slight irregularity at the inferior aspect of the radial head laterally, and a subtle band of increased radiodensity across the radial head neck. The appearance raises concern for minimally impacted fracture. Soft tissues: Slight elbow joint effusion. No suspicious soft tissue calcifications. IMPRESSION: The presence of significant pain after trauma and what appears to be a slight elbow joint effusion is associated with subtle findings of possible radial head/neck junction fracture. The likelihood of fracture in this clinical circumstance is relatively high and for this reason in splinting and follow-up plain films in several days would be recommended versus obtaining MR scanning for most accurate immediate documentation of presence or absence of fracture.. Dictated by: De Celestin M.D. on 10/26/2019 at 14:15 Approved by: De Celestin M.D. on 10/26/2019 at 14:18
--- NOTE | 2019-10-26 13:45 | DI.RAD.S_ITS ---
PROCEDURE: XR KNEE RT 3V INDICATIONS: Fall, pain/swelling/bruising TECHNIQUE: 3 views of the knee were acquired. COMPARISON: [facility], CR, XR KNEE RT 3V, 04/24/2018, 10:59. FINDINGS: Bones: No fractures or dislocations but there is degenerative knee joint osteoarthritis that is minimal at the medial and lateral compartments but moderate at the lateral facet of the patellofemoral joint.. No suspicious bony lesions. Soft tissues: No joint effusion. No suspicious soft tissue calcifications. IMPRESSION: Knee joint osteoarthritis is most pronounced at the patellofemoral joint, lateral facet. Minimal such degeneration is seen at the medial and lateral compartments. No effusion or loose body found. Dictated by: De Celestin M.D. on 10/26/2019 at 14:38 Approved by: De Celestin M.D. on 10/26/2019 at 14:39
--- NOTE | 2019-10-26 13:45 | DI.RAD.S_ITS ---
PROCEDURE: XR FOREARM RT 2V INDICATIONS: Fall, pain/swelling/bruising, proximal forearm TECHNIQUE: 2 views of the forearm were acquired. COMPARISON: None. FINDINGS: Bones: No definite fractures or dislocations but a radial head fracture at the head/neck junction remains suspected. No suspicious bony lesions. Soft tissues: No suspicious soft tissue calcifications or masses. Small anterior elbow joint effusion noted. IMPRESSION: Based on the imaging findings of this study and of the elbow and presence of a small joint effusion anteriorly the likelihood of radial head fracture presence is considered high. MR scanning could accurately established presence or absence of fracture immediately. However, delayed plain films in 3-5 days also likely would suffice. Dictated by: De Celestin M.D. on 10/26/2019 at 14:18 Approved by: De Celestin M.D. on 10/26/2019 at 14:20
== END ==
PROVIDERS: PCP Family Medicine; Referring Provider Physician Assistant; Visit Provider Physician Assistant
DX: S50.12XA Contusion of left forearm, initial encounter (principal); S89.91XA Unspecified injury of right lower leg, initial encounter; M25.422 Effusion, left elbow; M17.11 Unilateral primary osteoarthritis, right knee; W19.XXXA Unspecified fall, initial encounter
CPT/HCPCS: 73080; 73090; 73562

== ENCOUNTER → 2019-12-15 09:14 | Outpatient (CLI) | payer MEDICARE, SELFPAY ==
[2019-12-17 07:52] LABS: COVID19 Sendout Not Detected (Not Detect)
== END ==
PROVIDERS: PCP Family Medicine; Visit Provider Physician Assistant
DX: Z01.812 Encounter for preprocedural laboratory examination (principal)
CPT/HCPCS: 87635

== ENCOUNTER 2019-12-18 07:34 | Outpatient (CLI) | payer MEDICARE, SELFPAY ==
[2019-12-18] VITALS (8 sets, daily range): BP systolic 118–165; BP diastolic 59–78; PULSE 71–81; RESP 11–17; TEMP 36.2; O2SAT 93–99
--- NOTE | 2019-12-18 07:37 | DI.RAD.S_ITS ---
PROCEDURE: PAIN L/S TRANSFORAMINAL INJECT INDICATIONS: SPONDYLOSIS COMPARISON: [facility], , PAIN L/S TRANSFORAMINAL INJECT, 09/28/2017, 10:45. FINDINGS: Fluoroscopic spot filming was performed to verify placement of a spinal needle at the L4-L5 level, as labeled on the films. Appropriate location of the needle tip was confirmed by injection of iodinated contrast. IMPRESSION: Intraprocedural examination within normal limits. Dictated by: Natalio Serrato M.D. on 12/18/2019 at 9:54 Approved by: Natalio Serrato M.D. on 12/18/2019 at 9:55
[2019-12-18] MEDS: MIDAZOLAM 5 MG/5 ML VIAL IV (08:29)
[2019-12-18] MEDS: fentaNYL 100 MCG/2 ML INJ 50 MCG IV (08:29)
[2019-12-18] MEDS: BUPIVACAINE 0.25% (PF) VIAL 2 ML INJ (08:36)
[2019-12-18] MEDS: BETAMETHASONE 30 MG/5 ML MDV 6 MG INJ (08:36)
[2019-12-18] MEDS: IOPAMIDOL 15 ML VIAL 3 ML INJ (08:36)
[2019-12-18] MEDS: DEXAMETHASONE 10 MG/ML VIAL 20 MG INJ (08:36)
--- NOTE | 2019-12-18 08:40 | P.PCN_ITS ---
Date/Time/Diagnoses Date of procedure: 12/18/19 Time of procedure: 08:40 Pre-procedure diagnosis: 1. FORAMINAL STENOSIS WITH LE SYMPTOMS Post-procedure diagnosis: same Procedure Notes Procedure: 1. FLUOROSCOPICALLY GUIDED CONTRAST CONTROLLED TRANSFORAMINAL EPIDURAL STEROID INJECTION - RIGHT L4/5 TFESI Indications: Moira is referred by Dr. Daly for treatment of Foraminal Stenosis with Right LE Symptoms Physician: Reuben Guillory Total Fluoroscopy time (seconds): 15 Total sedation minutes: 8 Complications: none Procedure in detail & Post-procedure care: FINDINGS Foraminal Nerve Root Compression secondary to disc disease and facet hypertrophy DESCRIPTION OF PROCEDURE Following review of allergy and review of potential side effects and complications, including, but not necessarily limited to, infection, allergic reaction, local tissue breakdown, stroke, temporary or permanent nerve injury, paralysis, and possible , the patient indicated that the patient understood and agreed to proceed. An informed consent document was signed by the patient, witnessed by a nurse, and placed in the patient's chart. Additionally, other treatment options including medications, modalities, and physical therapy were reviewed with the patient. After review of previous anaesthesic history and IV conscious sedation the patient was deemed safe to proceed with today?s procedure with IV conscious sedation as ASA class II designation. Safety time-out was performed to confirm patient ID, procedure to be performed and site of procedure. IV sedation was accomplished with a combination of 2mg of Versed and 50mcg of Fentanyl was administered by the RN after DO order, titrated to patient comfort during the course of the procedure while the patient remained responsive to all verbal commands In the prone position following sterile prep and drape of the lumbar region, the Right L4/5 posterior neuroforamen was identified fluoroscopically. The skin was anesthetized via a 25-gauge 1.5-inch needle with 1% lidocaine solution. At this point, a 25-gauge 3.5-inch spinal needle was atraumatically introduced and advanced under fluoroscopic guidance through the posterior Right L4/5 neuroforamen to approximately the anterior aspect of the canal. Depth was confirmed on lateral view. Following negative aspiration, injection of approximately 1.5cc of Isovue 200 under live fluoroscopy in the AP view confirmed excellent flow along the nerve root, into the epidural space without vascular or intrathecal uptake observed Radiological data, including multiple fluoroscopic views of the lumbosacral spine, reveal a spinal needle at the right L4/5 posterior neuroforamen. Subsequent views show flow of contrast material flowing superiorly and inferiorly along the nerve root confirming epidural flow. Subsequently, a test dose of 1.5 cc of 1% lidocaine solution was administered and patient was observed for two minutes for signs or symptoms of complications, including abdominal pain, shortness of breath, bilateral upper or lower extremity weakness, nausea and vomiting, prior to steroid injection. At this point, a total of 3cc or 20mg of dexamethasone and 6mg of betamethasone was injected without incident. The procedure tolerated the procedure well without signs or symptoms of complications prior to transfer to the recovery area continued monitoring without incident. The patient was then transferred to the recovery area where they were observed for an appropriate time after the injection. The patient reported a VAS score of 8 prior to the procedure and a post- procedure VAS of 0. POST OP INSTRUCTIONS The patient was provided a Pain Log to continue to record their response to the target-specific procedure prior to follow-up visit with their referring physician. Additionally, specific post-injection care instructions and a contact number to our office were provided if concerns arise regarding possible complications associated with the procedure are suspected.
== END 2019-12-18 09:21 | disposition home or self-care (01) ==
LOC: RAD 07:35
PROVIDERS: PCP Family Medicine; Referring Provider Physical Medicine & Rehabilitation; Visit Provider Physical Medicine & Rehabilitation
DX: M48.061 Spinal stenosis, lumbar region without neurogenic claudication (principal); M51.16 Intervertebral disc disorders with radiculopathy, lumbar region
CPT/HCPCS: 64483; J0702; J1100; J2250; J3010

== ENCOUNTER 2020-02-25 11:24 | Observation (INO) | payer MEDICARE, SELFPAY ==
[2020-02-25] VITALS (27 sets, daily range): BP systolic 110–159; BP diastolic 56–72; PULSE 77–95; RESP 14–22; TEMP 36.5–36.6; O2SAT 93–98; BMI 25.0
[2020-02-25 12:13] LABS: COVID19 -Nasal RAPID POSITIVE (Negative)
--- NOTE | 2020-02-25 12:22 | ED_ITS ---
HPI - Nausea/Vomiting/Diarrhea <Orly Deshpande PA-C - Last Filed: 02/25/20 17:46> General Chief complaint: Abdominal Pain Stated complaint: not eating,vomiting,not drinking,brown urine Time Seen by Provider: 02/25/20 12:21 Source: patient Mode of arrival: Ambulatory Limitations: no limitations History of Present Illness HPI Narrative: This is a fatigued-appearing 69-year-old woman with a history of chronic back pain, who presents complaining of of chills, nausea, vomiting, inability to keep down food or fluids for 5 days, also complaining of brown looking urine, and diarrhea 5 times a day for the last 5 days. Patient also states that she feels short of breath at times she says ?I really have not been moving around at all because I feel so poorly and my body aches everywhere?. She notes she really has not been anywhere a been around anyone that has been sick or had any exposure she did have a doctors appointment fairly recently. She has not been able to keep down her regular medications due to her severe nausea and vomiting. She says she has been vomiting about 10 times a day. Every time she tries to eat something she has not been able to keep it down. She has had a lot of chills for the last few days but does not thinks that she has had fevers although she has not been checking temperatures at home with an oral thermometer. She is also having much worse back pain than her normal with feels very different than her normal it is in her low back and she thinks is on both sides. Denies abdominal pain, chest pain, cough, fevers or any other symptoms. MD complaint: nausea, vomiting, diarrhea and other (chills, body aches) Onset (ago): day(s) (5) Description of Vomiting: watery Description of Diarrhea: watery Associated Abdominal Pain: No Location of pain: left flank and right flank Severity: moderate Severity scale (1-10): 8 Quality: aching and constant Pain Consistency: constant Relieving factors: none Exacerbating factors: none Associated symptoms: myalgias, fever/chills, headaches, nausea/vomiting and shortness of breath (feels a little short of breath) Related Data Home Medications Medication Instructions Recorded Confirmed [HOMA RED KRILL OIL] 1 cap PO QDAY #0 09/29/16 02/18/20 ascorbic acid (vitamin C) 500 mg PO BID #0 09/29/16 02/18/20 vit C,I-Ji-wrxbc-lutein-zeaxan 1 cap PO BID #0 09/29/16 02/18/20 [PreserVision AREDS-2] cholecalciferol (vitamin D3) 25 1,000 unit PO DAILY 03/22/18 02/18/20 mcg (1,000 unit) capsule biotin 2,500 mcg capsule 2,500 mcg PO DAILY 12/25/18 02/18/20 Previous Rx's Medication Instructions Recorded sertraline 50 mg tablet 75 mg PO QDAY #135 tab 09/12/19 levothyroxine 75 mcg tablet See Rx Instructions .ROUTE 11/14/19 .COMPLEX #90 tab estradiol 1 vaginalrin VAGINAL FOR THREE 11/19/19 MONTHS #1 each oxycodone-acetaminophen 5 mg-325 1 tab PO QID PRN #60 tab 01/25/20 mg tablet spironolactone 25 mg tablet 25 mg PO BID #180 tab 02/08/20 gabapentin 300 mg capsule 300 mg PO BID #180 cap 02/22/20 Allergies Allergy/AdvReac Type Severity Reaction Status Date / Time Sulfa (Sulfonamide Allergy Severe rash/itchin Verified 02/25/20 11:43 Antibiotics) g [SULFA (SULFONAMIDE ANTIBIOTICS)] hydrocodone [HYDROCODONE] AdvReac Intermediate vomiting Verified 02/25/20 11:43 Review of Systems <Orly Deshpande PA-C - Last Filed: 02/25/20 17:46> Review of Systems Narrative: GENERAL: Denies chills, positive for fatigue, negative for malaise, positive for fever, negative for sweats. Positive for generalized body aches HEENT: Denies sinus pain, ear pain, sore throat, difficulty swallowing, dizzines s. RESPIRATORY: Denies dyspnea but sometimes has been feeling short of breath, denies cough, wheezing, hemoptysis, sputum. CARDIOVASCULAR: Denies chest pain, palpitations, orthopnea, edema, GASTROINTESTINAL: Positive for severe nausea, vomiting, inability to keep anything down for for 5 days, negative for abdominal pain, positive for diarrhea 5 times a day for the last 5 days, negative for, constipation, melena. : Denies dysuria, frequency, incontinence, hematuria, urinary retention. MUSCULOSKELETAL: Positive for severe flank pain both sides different than her normal back pain worse on the left, denies weakness, joint pain, or bony pain SKIN: Denies rash, skin lesions, or other NEUROLOGIC: Positive for generalized weakness, intermittent headache, negative for numbness, change in speech, confusion, seizures, incoordination. PSYCHIATRIC: No concerning psychosocial issues. 12 point review of systems is negative except for those stated above ROS Unobtainable: All systems reviewed & are unremarkable except as noted in HPI and below Patient History <Orly Deshpande PA-C - Last Filed: 02/25/20 17:46> Medical History Allergic rhinitis (1955) Chickenpox (Unknown) Chronic back pain (2006) Fall Fibromyalgia (1995) Fractures (Unknown) Hemorrhoids (1974) Herniated nucleus pulposus, L3-4 right Hypertension (Unknown) Hypothyroidism (Unknown) Injury of left lower arm Injury of right knee Measles (Unknown) Mumps (Unknown) Postmenopausal HRT (hormone replacement therapy) Surgical History History of bladder surgery (~1972) Status post hysterectomy Status post knee surgery Family History Father Cancer Grandfather Cancer Grandmother Heart disease Mother Age: 96 Endometrium cancer Colon cancer Heart disease Social History Smoking Status: Never smoker alcohol intake: never Smoking Status: Never smoker alcohol intake frequency: other Substance Use Type: does not use Exam <Orly Deshpande PA-C - Last Filed: 02/25/20 17:46> Narrative Exam Narrative: GENERAL: 69 year old patient appears stated age. Very tired appearing. Well-nourished, well-developed patient, in moderate distress. HEAD: Atraumatic. Normocephalic. EYES: Pupils equal round and reactive. Extraocular motions intact. No scleral icterus. No injection or drainage. ENT: Nose without bleeding, purulent drainage. Throat without erythema, tonsillar hypertrophy or exudate. Airway patent. NECK: Trachea midline. Non tender CARDIOVASCULAR: Regular rate and rhythm without murmurs, gallops, or rubs. RESPIRATORY: Clear to auscultation. Breath sounds equal bilaterally. No wheezes, rales, or rhonchi. GASTROINTESTINAL: Abdomen soft, non-tender, nondistended. EXTREMITIES: No edema or joint tenderness. BACK: She is extremely tender over the left flank. Otherwise Nontender without deformity or crepitance. NEURO: AOx3. SKIN: There is a non edematous macular skin change of her entire posterior flanks over the lumbar region both right and left consistent with livedo reticularis/reticular skin change brown in color. This is not present elsewhere on her body. No other rash or erythema of visible areas Initial Vital Signs Initial Vital Signs: Vital Signs Temperature 97.7 F 02/25/20 11:44 Pulse Rate 95 H 02/25/20 11:44 Respiratory Rate 16 02/25/20 11:44 Blood Pressure 110/56 L 02/25/20 11:44 Pulse Oximetry 95 02/25/20 11:44 <Pedro Jones DO - Last Filed: 02/25/20 19:58> Initial Vital Signs Initial Vital Signs: Vital Signs Temperature 97.7 F 02/25/20 11:44 Pulse Rate 95 H 02/25/20 11:44 Respiratory Rate 16 02/25/20 11:44 Blood Pressure 110/56 L 02/25/20 11:44 Pulse Oximetry 95 02/25/20 11:44 Scores <Orly Deshpande PA-C - Last Filed: 02/25/20 17:46> GCS Ernesto coma scale eye opening: Spontaneous [place] coma scale verbal response: Orientated [place] coma scale motor response: Obey commands [place] coma scale total score: 15 Course <Orly Deshpande PA-C - Last Filed: 02/25/20 17:46> Course Course Narrative: Patient really has not kept any food down for 5 days and fluids have also been a problem for her with her severe nausea and vomiting and with diarrhea. I am concerned that she is severely dehydrated, also concerned that she has a bruising pattern of her low back that is new for her consistent with a livedo reticularis. RN noted this and did discuss this with the attending ordered coags, will wait and see what her labs show at this point however definite concern for severe dehydration although muscle worried about possible organ failure. Treating her with fluids, Zofran and pain medicine. Her biggest complaint is her low back pain. 1252 After discussion with attending physician she does think it is appropriate to get CT chest abdomen pelvis on this patient with a x-ray concerning for pneumonia and severe flank pain with livedo reticularis present. We need to better evaluate what is going on internally. Also advising additional labs, which are ordered based on ED COVID severity algorithm. 1304 Patient's labs are actually returning looking fairly good she does have some slight abnormalities with her coags and her blood counts, slight bump in lipase however at this time and no evidence of organ failure she does have a good kidney function. Still awaiting some labs. 1314 Checked on patient who is back from CT. She is not feeling a whole lot better her back pain is still pretty bad. I have ordered additional pain meds for her and asked that she be back on her fluids. 14:15 Speaking with hospitalist about this patient given lung changes on CT in setting of COVID + inabilty to tolerate PO [address] santiago about this patient she does not feel she meets admission criteria due to her COVID positive status and her lung findings however she notes that she is unable to keep anything down after fluids and antiemetics is this may be another matter. Will work on p.o. challenging the patient, keeping her hydrated and see how she does with food and fluids with additional antiemetics. Will re-consult hospitalist if this she feels these. 1604 Patient has been working on trying to keep fluids down so far she has not vomited although she is only taking small sips. We are going to ambulate her with a pulse ox to evaluate she really has not been up moving around so we really do not know how she does with her oxygen saturations with movement. Handing off care to Dr. Jones who remains on shift in the emergency department. 1740 Orders Ordered: ED Orders 02/25/20 11:00 COVID19 Stat 02/25/20 12:27 XR chest 1V Stat 02/25/20 12:30 Alanine Aminotransferase Stat C-Reactive Protein Quant Stat Complete Blood Count AUTO DIFF Stat Comprehensive Metabolic Panel Stat Ferritin Stat HIV 1 & 2 Ab/Ag 4th Gen Combo Stat Hep C Virus Ab w/Reflex Quant Stat Lactate (Lactic Acid) Stat Lipase Stat Procalcitonin Stat Troponin I Stat 02/25/20 12:42 Urinalysis and Microscopic Stat Urine Culture Stat 02/25/20 12:44 Partial Thromboplastin Time Stat Prothrombin Time INR Stat 02/25/20 13:05 CT chest abd pel w con Stat EKG-12 Lead Stat 02/25/20 13:35 Blood Culture Stat Discontinued Medications Fentanyl (Fentanyl 100 Mcg/2 Ml Inj) 75 mcg 1 mcg/kg (75 mcg) IV NOW ONE Stop: 02/25/20 12:58 Last Admin: 02/25/20 13:12 Dose: 75 mcg Documented by: RUPESH Hydromorphone HCl (Hydromorphone 1 Mg Inj) 1 mg IV NOW ONE Stop: 02/25/20 14:17 Last Admin: 02/25/20 14:22 Dose: 1 mg Documented by: RUPESH Hydromorphone HCl (Hydromorphone 1 Mg Inj) 1 mg IV NOW ONE Stop: 02/25/20 19:30 Last Admin: 02/25/20 19:37 Dose: 1 mg Documented by: RUPESH Sodium Chloride (Normal Saline 0.9%) 1,000 mls @ 1,000 mls/hr IV BOLUS ONE Stop: 02/25/20 13:21 Last Infusion: 02/25/20 16:43 Dose: 0 mls/hr Documented by: Admin: 02/25/20 13:12 Dose: 1,000 mls/hr Documented by: RUPESH Sodium Chloride (Normal Saline 0.9%) 500 mls @ 1,000 mls/hr IV BOLUS ONE Stop: 02/25/20 16:34 Last Infusion: 02/25/20 17:11 Dose: 0 mls/hr Documented by: Admin: 02/25/20 16:35 Dose: 1,000 mls/hr Documented by: RUPESH Ondansetron HCl (Ondansetron 4 Mg/2 Ml Inj) 4 mg IV NOW ONE Stop: 02/25/20 12:23 Last Admin: 02/25/20 13:12 Dose: 4 mg Documented by: RUPESH Ondansetron HCl (Ondansetron 4 Mg/2 Ml Inj) 4 mg IV NOW ONE Stop: 02/25/20 16:05 Last Admin: 02/25/20 16:35 Dose: 4 mg Documented by: RUPESH Ondansetron HCl (Ondansetron 4 Mg/2 Ml Inj) 4 mg IV NOW ONE Stop: 02/25/20 19:30 Last Admin: 02/25/20 19:37 Dose: 4 mg Documented by: RUPESH Vital Signs Vital signs: Vital Signs - 8 hr 02/25/20 13:50 02/25/20 14:01 02/25/20 14:02 Pulse Rate 92 H 89 84 Pulse Rate [Orthostatic Lying] Pulse Rate [Orthostatic Sitting] Pulse Rate [Orthostatic Standing] Respiratory Rate Blood Pressure 152/68 H Blood Pressure [Orthostatic Lying] Blood Pressure [Orthostatic Sitting] Blood Pressure [Orthostatic Standing] Pulse Oximetry 96 98 98 02/25/20 14:30 02/25/20 15:00 02/25/20 15:30 Pulse Rate 83 86 80 Pulse Rate [Orthostatic Lying] Pulse Rate [Orthostatic Sitting] Pulse Rate [Orthostatic Standing] Respiratory Rate Blood Pressure 136/62 146/65 H 134/61 Blood Pressure [Orthostatic Lying] Blood Pressure [Orthostatic Sitting] Blood Pressure [Orthostatic Standing] Pulse Oximetry 95 97 94 02/25/20 16:00 02/25/20 16:30 02/25/20 17:00 Pulse Rate 81 79 78 Pulse Rate [Orthostatic Lying] Pulse Rate [Orthostatic Sitting] Pulse Rate [Orthostatic Standing] Respiratory Rate Blood Pressure 135/64 135/62 147/63 H Blood Pressure [Orthostatic Lying] Blood Pressure [Orthostatic Sitting] Blood Pressure [Orthostatic Standing] Pulse Oximetry 95 96 97 02/25/20 17:30 02/25/20 18:00 02/25/20 18:45 Pulse Rate 82 80 77 Pulse Rate [Orthostatic Lying] Pulse Rate [Orthostatic Sitting] Pulse Rate [Orthostatic Standing] Respiratory Rate 14 14 16 Blood Pressure 151/67 H 149/65 H 136/62 Blood Pressure [Orthostatic Lying] Blood Pressure [Orthostatic Sitting] Blood Pressure [Orthostatic Standing] Pulse Oximetry 98 97 97 02/25/20 18:47 02/25/20 18:48 02/25/20 18:49 Pulse Rate 83 86 93 H Pulse Rate [Orthostatic Lying] Pulse Rate [Orthostatic Sitting] Pulse Rate [Orthostatic Standing] Respiratory Rate 22 22 14 Blood Pressure 124/59 L 123/56 L 113/56 L Blood Pressure [Orthostatic Lying] Blood Pressure [Orthostatic Sitting] Blood Pressure [Orthostatic Standing] Pulse Oximetry 96 98 97 02/25/20 18:54 02/25/20 19:00 02/25/20 19:01 Pulse Rate 89 83 83 Pulse Rate [Orthostatic Lying] Pulse Rate [Orthostatic Sitting] Pulse Rate [Orthostatic Standing] Respiratory Rate 22 17 14 Blood Pressure 138/64 151/67 H Blood Pressure [Orthostatic Lying] Blood Pressure [Orthostatic Sitting] Blood Pressure [Orthostatic Standing] Pulse Oximetry 94 95 97 02/25/20 19:33 Pulse Rate 94 H Pulse Rate [Orthostatic Lying] 78 Pulse Rate [Orthostatic Sitting] 83 Pulse Rate [Orthostatic Standing] 94 H Respiratory Rate 21 Blood Pressure Blood Pressure [Orthostatic Lying] 136/62 Blood Pressure [Orthostatic Sitting] 124/59 L Blood Pressure [Orthostatic Standing] 113/56 L Pulse Oximetry 93 <Pedro Jones, - Last Filed: 02/25/20 19:58> Orders Ordered: ED Orders 02/25/20 11:00 COVID19 Stat 02/25/20 12:27 XR chest 1V Stat 02/25/20 12:30 Alanine Aminotransferase Stat C-Reactive Protein Quant Stat Complete Blood Count AUTO DIFF Stat Comprehensive Metabolic Panel Stat Ferritin Stat HIV 1 & 2 Ab/Ag 4th Gen Combo Stat Hep C Virus Ab w/Reflex Quant Stat Lactate (Lactic Acid) Stat Lipase Stat Procalcitonin Stat Troponin I Stat 02/25/20 12:42 Urinalysis and Microscopic Stat Urine Culture Stat 02/25/20 12:44 Partial Thromboplastin Time Stat Prothrombin Time INR Stat 02/25/20 13:05 CT chest abd pel w con Stat EKG-12 Lead Stat 02/25/20 13:35 Blood Culture Stat Discontinued Medications Fentanyl (Fentanyl 100 Mcg/2 Ml Inj) 75 mcg 1 mcg/kg (75 mcg) IV NOW ONE Stop: 02/25/20 12:58 Last Admin: 02/25/20 13:12 Dose: 75 mcg Documented by: RUPESH Hydromorphone HCl (Hydromorphone 1 Mg Inj) 1 mg IV NOW ONE Stop: 02/25/20 14:17 Last Admin: 02/25/20 14:22 Dose: 1 mg Documented by: ZGELEYN Hydromorphone HCl (Hydromorphone 1 Mg Inj) 1 mg IV NOW ONE Stop: 02/25/20 19:30 Last Admin: 02/25/20 19:37 Dose: 1 mg Documented by: RUPESH Sodium Chloride (Normal Saline 0.9%) 1,000 mls @ 1,000 mls/hr IV BOLUS ONE Stop: 02/25/20 13:21 Last Infusion: 02/25/20 16:43 Dose: 0 mls/hr Documented by: Admin: 02/25/20 13:12 Dose: 1,000 mls/hr Documented by: RUPESH Sodium Chloride (Normal Saline 0.9%) 500 mls @ 1,000 mls/hr IV BOLUS ONE Stop: 02/25/20 16:34 Last Infusion: 02/25/20 17:11 Dose: 0 mls/hr Documented by: Admin: 02/25/20 16:35 Dose: 1,000 mls/hr Documented by: RUPESH Ondansetron HCl (Ondansetron 4 Mg/2 Ml Inj) 4 mg IV NOW ONE Stop: 02/25/20 12:23 Last Admin: 02/25/20 13:12 Dose: 4 mg Documented by: RUPESH Ondansetron HCl (Ondansetron 4 Mg/2 Ml Inj) 4 mg IV NOW ONE Stop: 02/25/20 16:05 Last Admin: 02/25/20 16:35 Dose: 4 mg Documented by: RUPESH Ondansetron HCl (Ondansetron 4 Mg/2 Ml Inj) 4 mg IV NOW ONE Stop: 02/25/20 19:30 Last Admin: 02/25/20 19:37 Dose: 4 mg Documented by: RUPESH Vital Signs Vital signs: Vital Signs - 8 hr 02/25/20 13:50 02/25/20 14:01 02/25/20 14:02 Pulse Rate 92 H 89 84 Pulse Rate [Orthostatic Lying] Pulse Rate [Orthostatic Sitting] Pulse Rate [Orthostatic Standing] Respiratory Rate Blood Pressure 152/68 H Blood Pressure [Orthostatic Lying] Blood Pressure [Orthostatic Sitting] Blood Pressure [Orthostatic Standing] Pulse Oximetry 96 98 98 02/25/20 14:30 02/25/20 15:00 02/25/20 15:30 Pulse Rate 83 86 80 Pulse Rate [Orthostatic Lying] Pulse Rate [Orthostatic Sitting] Pulse Rate [Orthostatic Standing] Respiratory Rate Blood Pressure 136/62 146/65 H 134/61 Blood Pressure [Orthostatic Lying] Blood Pressure [Orthostatic Sitting] Blood Pressure [Orthostatic Standing] Pulse Oximetry 95 97 94 02/25/20 16:00 02/25/20 16:30 02/25/20 17:00 Pulse Rate 81 79 78 Pulse Rate [Orthostatic Lying] Pulse Rate [Orthostatic Sitting] Pulse Rate [Orthostatic Standing] Respiratory Rate Blood Pressure 135/64 135/62 147/63 H Blood Pressure [Orthostatic Lying] Blood Pressure [Orthostatic Sitting] Blood Pressure [Orthostatic Standing] Pulse Oximetry 95 96 97 02/25/20 17:30 02/25/20 18:00 02/25/20 18:45 Pulse Rate 82 80 77 Pulse Rate [Orthostatic Lying] Pulse Rate [Orthostatic Sitting] Pulse Rate [Orthostatic Standing] Respiratory Rate 14 14 16 Blood Pressure 151/67 H 149/65 H 136/62 Blood Pressure [Orthostatic Lying] Blood Pressure [Orthostatic Sitting] Blood Pressure [Orthostatic Standing] Pulse Oximetry 98 97 97 02/25/20 18:47 02/25/20 18:48 02/25/20 18:49 Pulse Rate 83 86 93 H Pulse Rate [Orthostatic Lying] Pulse Rate [Orthostatic Sitting] Pulse Rate [Orthostatic Standing] Respiratory Rate 22 22 14 Blood Pressure 124/59 L 123/56 L 113/56 L Blood Pressure [Orthostatic Lying] Blood Pressure [Orthostatic Sitting] Blood Pressure [Orthostatic Standing] Pulse Oximetry 96 98 97 02/25/20 18:54 02/25/20 19:00 02/25/20 19:01 Pulse Rate 89 83 83 Pulse Rate [Orthostatic Lying] Pulse Rate [Orthostatic Sitting] Pulse Rate [Orthostatic Standing] Respiratory Rate 22 17 14 Blood Pressure 138/64 151/67 H Blood Pressure [Orthostatic Lying] Blood Pressure [Orthostatic Sitting] Blood Pressure [Orthostatic Standing] Pulse Oximetry 94 95 97 02/25/20 19:33 Pulse Rate 94 H Pulse Rate [Orthostatic Lying] 78 Pulse Rate [Orthostatic Sitting] 83 Pulse Rate [Orthostatic Standing] 94 H Respiratory Rate 21 Blood Pressure Blood Pressure [Orthostatic Lying] 136/62 Blood Pressure [Orthostatic Sitting] 124/59 L Blood Pressure [Orthostatic Standing] 113/56 L Pulse Oximetry 93 MDM - Nausea/Vomiting/Diarrhea <Orly Deshpande PA-C - Last Filed: 02/25/20 17:46> Differential Diagnosis Differential diagnosis: Likely dehydration and other (COVID pneumonia, nausea, vomiting, diarrhea, livedo reticularis, back pain, flank pain) Medical Records Attestation: I reviewed the patient's medical records. Lab Data Attestation: I reviewed the patient's lab results. Result diagrams: 02/25/20 12:30 02/25/20 12:30 Labs: Lab Results 02/25/20 02/25/20 02/25/20 Range/Units 11:00 12:30 12:30 WBC 6.3 (4.5-11.0) X10^3/uL RBC 4.31 (4.0-5.2) X10^6/uL Hgb 12.8 (12.0-16.0) g/dL Hct 37.9 (36-46) % MCV 87.9 (80-100) fL MCH 29.8 (26-34) PG MCHC 33.9 (30-36) % RDW 12.7 (11.6-14.8) % Plt Count 257 (150-400) X10^3/uL Neut % (Auto) 65.3 (50-75) % Lymph % (Auto) 19.6 L (25-40) % Dougherty % (Auto) 14.5 H (3-14) % Eos % (Auto) 0.3 L (2-4) % Baso % (Auto) 0.3 (0-2) % Neut # (Auto) 4100 (8457-2897) /uL Lymph # (Auto) 1200 (4187-0801) /uL Dougherty # (Auto) 900 (0-900) /uL Eos # (Auto) 0 (0-450) /uL Baso # (Auto) 0 (0-100) /uL PT (10.1-12.7) SECONDS INR (0.9-1.3) APTT (26.4-36.2) SECONDS Sodium 136 L (137-145) mmol/L Potassium 3.9 (3.4-5.1) mmol/L Chloride 100 (98-107) mmol/L Carbon Dioxide 28 (22-32) mmol/L BUN 18 H (7-17) mg/dL Creatinine 0.68 (0.52-1.04) mg/dL Estimated GFR > 60.0 (>60) mL/min BUN/Creatinine Ratio 26.5 H (6-22) Glucose 125 H (80-110) mg/dL Lactate (0.7-2.1) mmol/L Calcium 9.2 (8.4-10.2) mg/dL Ferritin (11-264) ng/mL Total Bilirubin 0.6 (0.2-1.3) mg/dL AST 25 (14-36) IU/L ALT 22 (<35) IU/L Alkaline Phosphatase 73 (38-126) U/L Troponin I (0.01-0.034) ng/mL C-Reactive Protein (<1.0) mg/dL Total Protein 7.3 (6.3-8.2) g/dL Albumin 4.2 (3.5-5.0) g/dL Globulin 3.1 (1.7-4.1) g/dL Albumin/Globulin Ratio 1.4 (1.0-2.8) Lipase 310 H (23-300) U/L Procalcitonin (<0.5) ng/mL Urine Color Urine Appearance Urine pH (4.5-8.0) Ur Specific [place] (1.000-1.035) Urine Protein (Negative) Urine Glucose (UA) (Negative) g/dL Urine Ketones (NEGATIVE) Urine Occult Blood (Negative) Urine Nitrate (Negative) Urine Bilirubin (NEGATIVE) Urine Urobilinogen (0.2) E.U./dL Ur Leukocyte Esterase (NEGATIVE) Urine RBC (0-5/HPF) Urine WBC (0-5/HPF) Ur Squamous Epith Cells (0-5/HPF) Amorphous Sediment Urine Bacteria (None) Urine Mucus (Negative) Ur Culture Indicated? COVID-19 PCR Positive H (Negative) Hepatitis C Antibody (NEGATIVE) s/c HIV 1&2 Ab/P24 Ag 4thGn (NEGATIVE) 02/25/20 02/25/20 02/25/20 Range/Units 12:30 12:30 12:30 WBC (4.5-11.0) X10^3/uL RBC (4.0-5.2) X10^6/uL Hgb (12.0-16.0) g/dL Hct (36-46) % MCV (80-100) fL MCH (26-34) PG MCHC (30-36) % RDW (11.6-14.8) % Plt Count (150-400) X10^3/uL Neut % (Auto) (50-75) % Lymph % (Auto) (25-40) % Dougherty % (Auto) (3-14) % Eos % (Auto) (2-4) % Baso % (Auto) (0-2) % Neut # (Auto) (6671-5484) /uL Lymph # (Auto) (2398-8247) /uL Dougherty # (Auto) (0-900) /uL Eos # (Auto) (0-450) /uL Baso # (Auto) (0-100) /uL PT (10.1-12.7) SECONDS INR (0.9-1.3) APTT (26.4-36.2) SECONDS Sodium (137-145) mmol/L Potassium (3.4-5.1) mmol/L Chloride (98-107) mmol/L Carbon Dioxide (22-32) mmol/L BUN (7-17) mg/dL Creatinine (0.52-1.04) mg/dL Estimated GFR (>60) mL/min BUN/Creatinine Ratio (6-22) Glucose (80-110) mg/dL Lactate 1.1 (0.7-2.1) mmol/L Calcium (8.4-10.2) mg/dL Ferritin (11-264) ng/mL Total Bilirubin (0.2-1.3) mg/dL AST (14-36) IU/L ALT (<35) IU/L Alkaline Phosphatase (38-126) U/L Troponin I (0.01-0.034) ng/mL C-Reactive Protein 6.9 H (<1.0) mg/dL Total Protein (6.3-8.2) g/dL Albumin (3.5-5.0) g/dL Globulin (1.7-4.1) g/dL Albumin/Globulin Ratio (1.0-2.8) Lipase (23-300) U/L Procalcitonin 0.05 (<0.5) ng/mL Urine Color Urine Appearance Urine pH (4.5-8.0) Ur Specific [place] (1.000-1.035) Urine Protein (Negative) Urine Glucose (UA) (Negative) g/dL Urine Ketones (NEGATIVE) Urine Occult Blood (Negative) Urine Nitrate (Negative) Urine Bilirubin (NEGATIVE) Urine Urobilinogen (0.2) E.U./dL Ur Leukocyte Esterase (NEGATIVE) Urine RBC (0-5/HPF) Urine WBC (0-5/HPF) Ur Squamous Epith Cells (0-5/HPF) Amorphous Sediment Urine Bacteria (None) Urine Mucus (Negative) Ur Culture Indicated? COVID-19 PCR (Negative) Hepatitis C Antibody (NEGATIVE) s/c HIV 1&2 Ab/P24 Ag 4thGn (NEGATIVE) 02/25/20 02/25/20 02/25/20 Range/Units 12:30 12:30 12:30 WBC (4.5-11.0) X10^3/uL RBC (4.0-5.2) X10^6/uL Hgb (12.0-16.0) g/dL Hct (36-46) % MCV (80-100) fL MCH (26-34) PG MCHC (30-36) % RDW (11.6-14.8) % Plt Count (150-400) X10^3/uL Neut % (Auto) (50-75) % Lymph % (Auto) (25-40) % Dougherty % (Auto) (3-14) % Eos % (Auto) (2-4) % Baso % (Auto) (0-2) % Neut # (Auto) (2817-9906) /uL Lymph # (Auto) (4992-3307) /uL Dougherty # (Auto) (0-900) /uL Eos # (Auto) (0-450) /uL Baso # (Auto) (0-100) /uL PT (10.1-12.7) SECONDS INR (0.9-1.3) APTT (26.4-36.2) SECONDS Sodium (137-145) mmol/L Potassium (3.4-5.1) mmol/L Chloride (98-107) mmol/L Carbon Dioxide (22-32) mmol/L BUN (7-17) mg/dL Creatinine (0.52-1.04) mg/dL Estimated GFR (>60) mL/min BUN/Creatinine Ratio (6-22) Glucose (80-110) mg/dL Lactate (0.7-2.1) mmol/L Calcium (8.4-10.2) mg/dL Ferritin 351 H (11-264) ng/mL Total Bilirubin (0.2-1.3) mg/dL AST (14-36) IU/L ALT 23 (<35) IU/L Alkaline Phosphatase (38-126) U/L Troponin I < 0.012 (0.01-0.034) ng/mL C-Reactive Protein (<1.0) mg/dL Total Protein (6.3-8.2) g/dL Albumin (3.5-5.0) g/dL Globulin (1.7-4.1) g/dL Albumin/Globulin Ratio (1.0-2.8) Lipase (23-300) U/L Procalcitonin (<0.5) ng/mL Urine Color Urine Appearance Urine pH (4.5-8.0) Ur Specific [place] (1.000-1.035) Urine Protein (Negative) Urine Glucose (UA) (Negative) g/dL Urine Ketones (NEGATIVE) Urine Occult Blood (Negative) Urine Nitrate (Negative) Urine Bilirubin (NEGATIVE) Urine Urobilinogen (0.2) E.U./dL Ur Leukocyte Esterase (NEGATIVE) Urine RBC (0-5/HPF) Urine WBC (0-5/HPF) Ur Squamous Epith Cells (0-5/HPF) Amorphous Sediment Urine Bacteria (None) Urine Mucus (Negative) Ur Culture Indicated? COVID-19 PCR (Negative) Hepatitis C Antibody Negative (NEGATIVE) s/c HIV 1&2 Ab/P24 Ag 4thGn Negative (NEGATIVE) 02/25/20 02/25/20 Range/Units 12:42 12:44 WBC (4.5-11.0) X10^3/uL RBC (4.0-5.2) X10^6/uL Hgb (12.0-16.0) g/dL Hct (36-46) % MCV (80-100) fL MCH (26-34) PG MCHC (30-36) % RDW (11.6-14.8) % Plt Count (150-400) X10^3/uL Neut % (Auto) (50-75) % Lymph % (Auto) (25-40) % Dougherty % (Auto) (3-14) % Eos % (Auto) (2-4) % Baso % (Auto) (0-2) % Neut # (Auto) (5654-4474) /uL Lymph # (Auto) (6122-0270) /uL Dougherty # (Auto) (0-900) /uL Eos # (Auto) (0-450) /uL Baso # (Auto) (0-100) /uL PT 13.8 H (10.1-12.7) SECONDS INR 1.2 (0.9-1.3) APTT 36 (26.4-36.2) SECONDS Sodium (137-145) mmol/L Potassium (3.4-5.1) mmol/L Chloride (98-107) mmol/L Carbon Dioxide (22-32) mmol/L BUN (7-17) mg/dL Creatinine (0.52-1.04) mg/dL Estimated GFR (>60) mL/min BUN/Creatinine Ratio (6-22) Glucose (80-110) mg/dL Lactate (0.7-2.1) mmol/L Calcium (8.4-10.2) mg/dL Ferritin (11-264) ng/mL Total Bilirubin (0.2-1.3) mg/dL AST (14-36) IU/L ALT (<35) IU/L Alkaline Phosphatase (38-126) U/L Troponin I (0.01-0.034) ng/mL C-Reactive Protein (<1.0) mg/dL Total Protein (6.3-8.2) g/dL Albumin (3.5-5.0) g/dL Globulin (1.7-4.1) g/dL Albumin/Globulin Ratio (1.0-2.8) Lipase (23-300) U/L Procalcitonin (<0.5) ng/mL Urine Color Yellow Urine Appearance Clear Urine pH 5.5 (4.5-8.0) Ur Specific [place] 1.025 (1.000-1.035) Urine Protein 1+ H (Negative) Urine Glucose (UA) Negative (Negative) g/dL Urine Ketones Negative (NEGATIVE) Urine Occult Blood 1+ H (Negative) Urine Nitrate Negative (Negative) Urine Bilirubin Negative (NEGATIVE) Urine Urobilinogen 0.2 (0.2) E.U./dL Ur Leukocyte Esterase Negative (NEGATIVE) Urine RBC 1-5/hpf (0-5/HPF) Urine WBC 5-10/hpf H (0-5/HPF) Ur Squamous Epith Cells 1-5 /hpf (0-5/HPF) Amorphous Sediment 1+ Urine Bacteria Many (>30) H (None) Urine Mucus 1+ H (Negative) Ur Culture Indicated? Specimen cultured COVID-19 PCR (Negative) Hepatitis C Antibody (NEGATIVE) s/c HIV 1&2 Ab/P24 Ag 4thGn (NEGATIVE) Urine Dip Bedside Urine Glucose Negative Bedside Urine Bilirubin - Negative Bedside Urine Ketone - Negative Urine Specific [place] 1.030 Bedside Urine Occult Blood +/- Bedside Urine pH 6.0 Bedside Urine Protein + 30 Bedside Urine Urobilinogen - Negative Bedside Urine Nitrite - Negative Bedside Urine Leukocytes - Negative Esterase Imaging Data Chest x-ray: Attestation: I personally reviewed and interpreted this imaging study as follows: Radiologist's Impression: [address] [id number] ReportSigned Patient: Moira Mann EMR#: [id number]: 1950cct:[id number]/Sex: 69 / FDate of Service: 02/25/20Loc: EDAccession Number: [id number] Procedure: XR chest 1V Ordering Provider: Orly Deshpande P.A-C PROCEDURE: XR CHEST 1V INDICATIONS: COVID + TECHNIQUE: One view of the chest was acquired. COMPARISON: [facility], , XR CHEST 2VW, 11/22/2016, 15:11. FINDINGS: Surgical changes and devices: None. Lungs and pleura: Subtle patchy opacities noted in the left lung base which could represent pneumonia or atelectasis No pleural effusions or pneumothorax. Mediastinum: Mediastinal contours appear normal. Heart size is normal. Bones and chest wall: No suspicious bony lesions. Overlying soft tissues appear unremarkable. IMPRESSION: Left basilar pneumonia versus atelectasis. Dictated by: Re Madsen MD, PhD on 02/25/2020 at 12:53 Approved by: Re Madsen MD, PhD on 02/25/2020 at 12:54 <Pedro Jones, DO - Last Filed: 02/25/20 19:58> Lab Data Labs: Lab Results 02/25/20 02/25/20 02/25/20 Range/Units 11:00 12:30 12:30 WBC 6.3 (4.5-11.0) X10^3/uL RBC 4.31 (4.0-5.2) X10^6/uL Hgb 12.8 (12.0-16.0) g/dL Hct 37.9 (36-46) % MCV 87.9 (80-100) fL MCH 29.8 (26-34) PG MCHC 33.9 (30-36) % RDW 12.7 (11.6-14.8) % Plt Count 257 (150-400) X10^3/uL Neut % (Auto) 65.3 (50-75) % Lymph % (Auto) 19.6 L (25-40) % Dougherty % (Auto) 14.5 H (3-14) % Eos % (Auto) 0.3 L (2-4) % Baso % (Auto) 0.3 (0-2) % Neut # (Auto) 4100 (3396-9758) /uL Lymph # (Auto) 1200 (5731-1949) /uL Dougherty # (Auto) 900 (0-900) /uL Eos # (Auto) 0 (0-450) /uL Baso # (Auto) 0 (0-100) /uL PT (10.1-12.7) SECONDS INR (0.9-1.3) APTT (26.4-36.2) SECONDS Sodium 136 L (137-145) mmol/L Potassium 3.9 (3.4-5.1) mmol/L Chloride 100 (98-107) mmol/L Carbon Dioxide 28 (22-32) mmol/L BUN 18 H (7-17) mg/dL Creatinine 0.68 (0.52-1.04) mg/dL Estimated GFR > 60.0 (>60) mL/min BUN/Creatinine Ratio 26.5 H (6-22) Glucose 125 H (80-110) mg/dL Lactate (0.7-2.1) mmol/L Calcium 9.2 (8.4-10.2) mg/dL Ferritin (11-264) ng/mL Total Bilirubin 0.6 (0.2-1.3) mg/dL AST 25 (14-36) IU/L ALT 22 (<35) IU/L Alkaline Phosphatase 73 (38-126) U/L Troponin I (0.01-0.034) ng/mL C-Reactive Protein (<1.0) mg/dL Total Protein 7.3 (6.3-8.2) g/dL Albumin 4.2 (3.5-5.0) g/dL Globulin 3.1 (1.7-4.1) g/dL Albumin/Globulin Ratio 1.4 (1.0-2.8) Lipase 310 H (23-300) U/L Procalcitonin (<0.5) ng/mL Urine Color Urine Appearance Urine pH (4.5-8.0) Ur Specific [place] (1.000-1.035) Urine Protein (Negative) Urine Glucose (UA) (Negative) g/dL Urine Ketones (NEGATIVE) Urine Occult Blood (Negative) Urine Nitrate (Negative) Urine Bilirubin (NEGATIVE) Urine Urobilinogen (0.2) E.U./dL Ur Leukocyte Esterase (NEGATIVE) Urine RBC (0-5/HPF) Urine WBC (0-5/HPF) Ur Squamous Epith Cells (0-5/HPF) Amorphous Sediment Urine Bacteria (None) Urine Mucus (Negative) Ur Culture Indicated? COVID-19 PCR Positive H (Negative) Hepatitis C Antibody (NEGATIVE) s/c HIV 1&2 Ab/P24 Ag 4thGn (NEGATIVE) 02/25/20 02/25/20 02/25/20 Range/Units 12:30 12:30 12:30 WBC (4.5-11.0) X10^3/uL RBC (4.0-5.2) X10^6/uL Hgb (12.0-16.0) g/dL Hct (36-46) % MCV (80-100) fL MCH (26-34) PG MCHC (30-36) % RDW (11.6-14.8) % Plt Count (150-400) X10^3/uL Neut % (Auto) (50-75) % Lymph % (Auto) (25-40) % [place] % (Auto) (3-14) % Eos % (Auto) (2-4) % Baso % (Auto) (0-2) % Neut # (Auto) (2764-6424) /uL Lymph # (Auto) (8346-9660) /uL [place] # (Auto) (0-900) /uL Eos # (Auto) (0-450) /uL Baso # (Auto) (0-100) /uL PT (10.1-12.7) SECONDS INR (0.9-1.3) APTT (26.4-36.2) SECONDS Sodium (137-145) mmol/L Potassium (3.4-5.1) mmol/L Chloride (98-107) mmol/L Carbon Dioxide (22-32) mmol/L BUN (7-17) mg/dL Creatinine (0.52-1.04) mg/dL Estimated GFR (>60) mL/min BUN/Creatinine Ratio (6-22) Glucose (80-110) mg/dL Lactate 1.1 (0.7-2.1) mmol/L Calcium (8.4-10.2) mg/dL Ferritin (11-264) ng/mL Total Bilirubin (0.2-1.3) mg/dL AST (14-36) IU/L ALT (<35) IU/L Alkaline Phosphatase (38-126) U/L Troponin I (0.01-0.034) ng/mL C-Reactive Protein 6.9 H (<1.0) mg/dL Total Protein (6.3-8.2) g/dL Albumin (3.5-5.0) g/dL Globulin (1.7-4.1) g/dL Albumin/Globulin Ratio (1.0-2.8) Lipase (23-300) U/L Procalcitonin 0.05 (<0.5) ng/mL Urine Color Urine Appearance Urine pH (4.5-8.0) Ur Specific [place] (1.000-1.035) Urine Protein (Negative) Urine Glucose (UA) (Negative) g/dL Urine Ketones (NEGATIVE) Urine Occult Blood (Negative) Urine Nitrate (Negative) Urine Bilirubin (NEGATIVE) Urine Urobilinogen (0.2) E.U./dL Ur Leukocyte Esterase (NEGATIVE) Urine RBC (0-5/HPF) Urine WBC (0-5/HPF) Ur Squamous Epith Cells (0-5/HPF) Amorphous Sediment Urine Bacteria (None) Urine Mucus (Negative) Ur Culture Indicated? COVID-19 PCR (Negative) Hepatitis C Antibody (NEGATIVE) s/c HIV 1&2 Ab/P24 Ag 4thGn (NEGATIVE) 02/25/20 02/25/20 02/25/20 Range/Units 12:30 12:30 12:30 WBC (4.5-11.0) X10^3/uL RBC (4.0-5.2) X10^6/uL Hgb (12.0-16.0) g/dL Hct (36-46) % MCV (80-100) fL MCH (26-34) PG MCHC (30-36) % RDW (11.6-14.8) % Plt Count (150-400) X10^3/uL Neut % (Auto) (50-75) % Lymph % (Auto) (25-40) % Dougherty % (Auto) (3-14) % Eos % (Auto) (2-4) % Baso % (Auto) (0-2) % Neut # (Auto) (2373-7007) /uL Lymph # (Auto) (9019-5337) /uL Dougherty # (Auto) (0-900) /uL Eos # (Auto) (0-450) /uL Baso # (Auto) (0-100) /uL PT (10.1-12.7) SECONDS INR (0.9-1.3) APTT (26.4-36.2) SECONDS Sodium (137-145) mmol/L Potassium (3.4-5.1) mmol/L Chloride (98-107) mmol/L Carbon Dioxide (22-32) mmol/L BUN (7-17) mg/dL Creatinine (0.52-1.04) mg/dL Estimated GFR (>60) mL/min BUN/Creatinine Ratio (6-22) Glucose (80-110) mg/dL Lactate (0.7-2.1) mmol/L Calcium (8.4-10.2) mg/dL Ferritin 351 H (11-264) ng/mL Total Bilirubin (0.2-1.3) mg/dL AST (14-36) IU/L ALT 23 (<35) IU/L Alkaline Phosphatase (38-126) U/L Troponin I < 0.012 (0.01-0.034) ng/mL C-Reactive Protein (<1.0) mg/dL Total Protein (6.3-8.2) g/dL Albumin (3.5-5.0) g/dL Globulin (1.7-4.1) g/dL Albumin/Globulin Ratio (1.0-2.8) Lipase (23-300) U/L Procalcitonin (<0.5) ng/mL Urine Color Urine Appearance Urine pH (4.5-8.0) Ur Specific [place] (1.000-1.035) Urine Protein (Negative) Urine Glucose (UA) (Negative) g/dL Urine Ketones (NEGATIVE) Urine Occult Blood (Negative) Urine Nitrate (Negative) Urine Bilirubin (NEGATIVE) Urine Urobilinogen (0.2) E.U./dL Ur Leukocyte Esterase (NEGATIVE) Urine RBC (0-5/HPF) Urine WBC (0-5/HPF) Ur Squamous Epith Cells (0-5/HPF) Amorphous Sediment Urine Bacteria (None) Urine Mucus (Negative) Ur Culture Indicated? COVID-19 PCR (Negative) Hepatitis C Antibody Negative (NEGATIVE) s/c HIV 1&2 Ab/P24 Ag 4thGn Negative (NEGATIVE) 02/25/20 02/25/20 Range/Units 12:42 12:44 WBC (4.5-11.0) X10^3/uL RBC (4.0-5.2) X10^6/uL Hgb (12.0-16.0) g/dL Hct (36-46) % MCV (80-100) fL MCH (26-34) PG MCHC (30-36) % RDW (11.6-14.8) % Plt Count (150-400) X10^3/uL Neut % (Auto) (50-75) % Lymph % (Auto) (25-40) % [place] % (Auto) (3-14) % Eos % (Auto) (2-4) % Baso % (Auto) (0-2) % Neut # (Auto) (5835-0016) /uL Lymph # (Auto) (1829-2475) /uL [place] # (Auto) (0-900) /uL Eos # (Auto) (0-450) /uL Baso # (Auto) (0-100) /uL PT 13.8 H (10.1-12.7) SECONDS INR 1.2 (0.9-1.3) APTT 36 (26.4-36.2) SECONDS Sodium (137-145) mmol/L Potassium (3.4-5.1) mmol/L Chloride (98-107) mmol/L Carbon Dioxide (22-32) mmol/L BUN (7-17) mg/dL Creatinine (0.52-1.04) mg/dL Estimated GFR (>60) mL/min BUN/Creatinine Ratio (6-22) Glucose (80-110) mg/dL Lactate (0.7-2.1) mmol/L Calcium (8.4-10.2) mg/dL Ferritin (11-264) ng/mL Total Bilirubin (0.2-1.3) mg/dL AST (14-36) IU/L ALT (<35) IU/L Alkaline Phosphatase (38-126) U/L Troponin I (0.01-0.034) ng/mL C-Reactive Protein (<1.0) mg/dL Total Protein (6.3-8.2) g/dL Albumin (3.5-5.0) g/dL Globulin (1.7-4.1) g/dL Albumin/Globulin Ratio (1.0-2.8) Lipase (23-300) U/L Procalcitonin (<0.5) ng/mL Urine Color Yellow Urine Appearance Clear Urine pH 5.5 (4.5-8.0) Ur Specific [place] 1.025 (1.000-1.035) Urine Protein 1+ H (Negative) Urine Glucose (UA) Negative (Negative) g/dL Urine Ketones Negative (NEGATIVE) Urine Occult Blood 1+ H (Negative) Urine Nitrate Negative (Negative) Urine Bilirubin Negative (NEGATIVE) Urine Urobilinogen 0.2 (0.2) E.U./dL Ur Leukocyte Esterase Negative (NEGATIVE) Urine RBC 1-5/hpf (0-5/HPF) Urine WBC 5-10/hpf H (0-5/HPF) Ur Squamous Epith Cells 1-5 /hpf (0-5/HPF) Amorphous Sediment 1+ Urine Bacteria Many (>30) H (None) Urine Mucus 1+ H (Negative) Ur Culture Indicated? Specimen cultured COVID-19 PCR (Negative) Hepatitis C Antibody (NEGATIVE) s/c HIV 1&2 Ab/P24 Ag 4thGn (NEGATIVE) Urine Dip Bedside Urine Glucose Negative Bedside Urine Bilirubin - Negative Bedside Urine Ketone - Negative Urine Specific [place] 1.030 Bedside Urine Occult Blood +/- Bedside Urine pH 6.0 Bedside Urine Protein + 30 Bedside Urine Urobilinogen - Negative Bedside Urine Nitrite - Negative Bedside Urine Leukocytes - Negative Esterase MDM Narrative Medical decision making narrative: Patient feeling ill for the past 5 days. N ewly diagnosed COVID, significant nausea, vomiting, fatigue and increasingly short of breath with exertion. She has not yet requiring supplemental oxygen, however imaging demonstrates ground-glass opacities in her bilateral lungs. She has been given multiple antiemetics and attempts at oral challenge have failed. She will require hospitalization for further evaluation, stabilization of her illness. Discharge Plan Departure Patient Disposition: Admitted as Observation Clinical Impression: COVID-19, Acute dehydration Vomiting Qualifiers: Vomiting type: unspecified Vomiting Intractability: non-intractable Nausea presence: with nausea Qualified Code(s): R11.2 - Nausea with vomiting, unspecified
--- NOTE | 2020-02-25 12:27 | DI.RAD.S_ITS ---
PROCEDURE: XR CHEST 1V INDICATIONS: COVID + TECHNIQUE: One view of the chest was acquired. COMPARISON: [facility], CR, XR CHEST 2VW, 11/22/2016, 15:11. FINDINGS: Surgical changes and devices: None. Lungs and pleura: Subtle patchy opacities noted in the left lung base which could represent pneumonia or atelectasis No pleural effusions or pneumothorax. Mediastinum: Mediastinal contours appear normal. Heart size is normal. Bones and chest wall: No suspicious bony lesions. Overlying soft tissues appear unremarkable. IMPRESSION: Left basilar pneumonia versus atelectasis. Dictated by: Re Madsen MD, PhD on 02/25/2020 at 12:53 Approved by: Re Madsen MD, PhD on 02/25/2020 at 12:54
[2020-02-25 12:44] LABS: Add Manual Diff / Slide Review NO; Basophils Absolute Auto 0 /uL (0-100); Basophils Percent Auto 0.3 % (0-2); Eosinophils Absolute Auto 0 /uL (0-450); Eosinophils Percent Auto 0.3 % (2-4); Hematocrit 37.9 % (36-46); Hemoglobin 12.8 g/dL (12.0-16.0); Lymphocytes Absolute Auto 1200 /uL (1100-4500); Lymphocytes Percent Auto 19.6 % (25-40); Mean Corpuscular HGB Conc 33.9 % (30-36); Mean Corpuscular Hemoglobin 29.8 PG (26-34); Mean Corpuscular Volume 87.9 fL (80-100); Monocytes Absolute Auto 900 /uL (0-900); Monocytes Percent Auto 14.5 % (3-14); Neutrophils Absolute Auto 4100 /uL (1500-7000); Neutrophils Percent Auto 65.3 % (50-75); Platelet Count 257 X10^3/uL (150-400); Red Blood Cell Count 4.31 X10^6/uL (4.0-5.2); Red Cell Distribution Width 12.7 % (11.6-14.8); White Blood Cell Count 6.3 X10^3/uL (4.5-11.0)
[2020-02-25 12:48] LABS: INR 1.2 (0.9-1.3); Prothrombin Time 13.8 SECONDS (10.1-12.7)
[2020-02-25 12:49] LABS: Alanine Aminotransferase 22 IU/L (<35); Albumin 4.2 g/dL (3.5-5.0); Albumin Globulin Ratio 1.4 (1.0-2.8); Alkaline Phosphatase 73 U/L (38-126); Aspartate Aminotransferase 25 IU/L (14-36); BUN Creatinine Ratio 26.5 (6-22); Bilirubin Total 0.6 mg/dL (0.2-1.3); Blood Urea Nitrogen 18 mg/dL (7-17); Calcium 9.2 mg/dL (8.4-10.2); Carbon Dioxide 28 mmol/L (22-32); Chloride 100 mmol/L (98-107); Estimated Glomerular Filt Rate > 60.0 mL/min (>60); Globulin 3.1 g/dL (1.7-4.1); Glucose 125 mg/dL (80-110); HEMOLYSIS 20 (0-50); Lipase 310 U/L (23-300); Potassium 3.9 mmol/L (3.4-5.1); Sodium 136 mmol/L (137-145); Total Protein 7.3 g/dL (6.3-8.2)
[2020-02-25 12:51] LABS: PTT Partial Thromboplastin Tim 36 SECONDS (26.4-36.2)
--- NOTE | 2020-02-25 13:05 | DI.CT.S_ITS ---
PROCEDURE: CT CHEST ABD PEL W CON INDICATIONS: COVId + severe flank pain with livedo reticularis TECHNIQUE: After the administration of intravenous contrast, 5 mm thick sections acquired from the lung apices to the symphysis. 5 mm coronal and sagittal reformats were performed, with additional 7 mm MIP reformats through the lungs. For radiation dose reduction, the following was used: automated exposure control, adjustment of mA and/or kV according to patient size. COMPARISON: [facility], CT, ANGIO CHEST ABDOMEN PELVIS, 09/01/2016, 20:52. FINDINGS: Image quality: Excellent. CHEST: Lungs and pleura: Bilateral foci of nodular, consolidative as well as ground-glass opacities predominantly within the bases. Mediastinum: Heart size is normal. No pericardial effusion. No mediastinal or hilar adenopathy by size criteria. Thoracic aorta and central pulmonary arteries are normal in size. Esophagus is normal in caliber. No hiatal hernia. Chest wall: No axillary or supraclavicular adenopathy by size criteria. Thyroid gland is unremarkable . ABDOMEN: Solid organs: Liver is enlarged with steatosis. Gallbladder demonstrates small luminal stones versus sludge without wall thickening. Biliary system is non dilated. Pancreas enhances normally. Spleen is normal in size and enhancement. No adrenal nodules. Kidneys demonstrate normal size and enhancement, without hydronephrosis. Peritoneum and bowel: Bowel loops demonstrate normal wall thickness and caliber. No free air. Trace cul-de-sac fluid. Scattered mild diverticula without inflammatory change. Nodes and vessels: No retroperitoneal or mesenteric adenopathy by size criteria. Aorta and inferior vena cava are normal in size. Miscellaneous: Fat containing ventral hernia is present. Mild hiatal hernia. PELVIS: Genitourinary: Bladder wall thickness is normal. Miscellaneous: No inguinal hernias or adenopathy. Bones: No suspicious bony lesions. No vertebral body compression fractures. IMPRESSION: 1. Focal consolidative opacities within the lungs as above suggestive of infection or inflammation such as pneumonia. Recommend interval follow up after appropriate therapy to document resolution exclude presence of underlying mass lesion. 2. Diverticulosis. Dictated by: Sarah Tellez M.D. on 02/25/2020 at 14:17 Approved by: Sarah Tellez M.D. on 02/25/2020 at 14:24
[2020-02-25 13:07] LABS: Appearance Urine UA CLEAR; Bilirubin Urine UA NEGATIVE (NEGATIVE); Color Urine UA YELLOW; Glucose Urine UA NEGATIVE (Negative); Ketones Urine UA NEGATIVE (NEGATIVE); Leukocyte Esterase Urine UA NEGATIVE (NEGATIVE); Nitrite Urine UA NEGATIVE (Negative); Occult Blood Urine UA 1+ (Negative); Protein Urine UA 1+ (Negative); Specific Gravity Urine UA 1.025 (1.000-1.035); Urobilinogen Urine UA 0.2 E.U./dL (0.2)
[2020-02-25] MEDS: SODIUM CHLORIDE 0.9% 1,000 ML 1000 ML IV (13:12)
[2020-02-25] MEDS: fentaNYL 100 MCG/2 ML INJ 75 MCG IV (13:12)
[2020-02-25] MEDS: ONDANSETRON 4 MG/2 ML INJ IV ×3 (13:12→19:37)
[2020-02-25 13:15] LABS: pH Urine UA 5.5 (4.5-8.0)
[2020-02-25 13:16] LABS: Amorphous Sediment Urine 1+; Bacteria Urine Many (>30); Culture Indicated Urine Specimen Cultured; Mucus Urine 1+ (Negative); RBC Urine 1-5/HPF (0-5/HPF); Squamous Epithelial Cell Urine 1-5 /HPF (0-5/HPF); WBC Urine 5-10/HPF (0-5/HPF)
[2020-02-25 13:49] LABS: Lactate (Lactic Acid) 1.1 mmol/L (0.7-2.1)
[2020-02-25 13:55] LABS: C-Reactive Protein Quant 6.9 mg/dL (<1.0)
[2020-02-25 14:05] LABS: Troponin I < 0.012 ng/mL (0.01-0.034)
[2020-02-25 14:10] LABS: Procalcitonin 0.05 ng/mL (<0.5)
[2020-02-25] MEDS: HYDROMORPHONE 1 MG INJ IV ×2 (14:22→19:37)
[2020-02-25 14:28] LABS: Ferritin 351 ng/mL (11-264)
[2020-02-25 16:31] LABS: Alanine Aminotransferase 23 IU/L (<35)
[2020-02-25] MEDS: SODIUM CHLORIDE 0.9% 500 ML 1000 ML IV (16:35)
[2020-02-25 17:34] LABS: HIV 1 & 2 Ab/Ag 4th Gen Combo NEGATIVE (NEGATIVE); Hep C Virus Ab w/Reflex Quant NEGATIVE s/c (NEGATIVE)
--- NOTE | 2020-02-25 20:34 | P.HP_ITS ---
History of Present Illness History of Present Illness Date Patient Seen: 02/25/20 Time Patient Seen: 20:47 Chief complaint: not eating,vomiting,not drinking,brown urine Narrative: Ms. Moira Mann is a 69-year-old female with a past medical history significant for hypothyroidism, chronic low back pain with lumbar radiculopathy, footdrop and fibromyalgia who presents to the ER with intractable nausea and vomiting. The patient reports onset of symptoms 5 days ago with nausea vomiting approximately 10 times per day and has been unable to keep anything down since the onset of her symptoms. Additionally reports brown urine and diarrhea about 5 times per day. She reports an occasionally productive cough, subjective shortness of breath at times and body aches differing from her typical fibromyalgia pain and headache since the onset of her symptoms. The patient reports she has been careful with social distancing and using a mask reporting her only recent trip out of the house was to her physician's office last week. The patient otherwise denies subjective fevers chills, reports headache but denies visual changes nasal congestion or sore th roat. She reports no complaints chest pain or palpitations. She says she has been short of breath at times though is not been physically challenged and has had her cough since onset that has been occasionally productive for clear sputum. She denies complaints of abdominal pain and is no longer having diarrhea that she describes as thin and watery. She denies urinary symptoms. She has chronic body aches from fibromyalgia with lumbosacral radiculopathy. She had a versus a footdrop on the right that is chronic. Upon arrival to the ER the patient's temperature 97.7?, heart rate of 98, blood pressure 110/56, respirations 16 saturating 95% on room air. A chest x-ray finds left basilar consolidation versus atelectasis. A CT of the chest abdomen and pelvis finds bilateral focal consolidative opacities as well as ground-glass opacities primarily in the bases and diverticulosis. Twelve lead EKG finds a normal sinus rhythm a rate of 76 with a left axis shift without ectopy ST or T- wave changes. On laboratory analysis he has white count of 6.3 with decreased lymphocyte count at 19.6, hemoglobin 12.8, hematocrit of 37.9 and platelets of 207. She has a PT of 13.8, INR of 1.2 and a PTT of 36. Her lytes are all within normal limits she has a BUN of 18 and creatinine 0.68. Her liver functions reveal total bilirubin of 0.6, AST of 25, ALT of 23 and alkaline phosphatase of 73. She has lipase of 310. Lactate is 1.1, CRP is elevated at 6.9, ferritin mildly elevated at 3 151, troponin is negative at less than 0.012. On urinalysis she has consult treated urine with a specific gravity of 1.025, pH of 5.5, 1+ protein 1+ blood, wbc's and many bacteria. In the ER the patient received fentanyl which the patient has stated was of no benefit, Dilaudid 1 mg x 2 and Zofran 4 mg x 3 long with approximately 1.5 L of normal saline. The patient was ambulated within the emergency department and remained adequately oxygenated. Attempted fluid challenge which the patient immediately became nauseated and vomited. The patient is admitted to the medicine service for intractable nausea vomiting and COVID-19 infection. Patient History Medical History Allergic rhinitis (1955) Chickenpox (Unknown) Chronic back pain (2006) Fall Fibromyalgia (1995) Fractures (Unknown) Hemorrhoids (1974) Herniated nucleus pulposus, L3-4 right Hypertension (Unknown) Hypothyroidism (Unknown) Injury of left lower arm Injury of right knee Measles (Unknown) Mumps (Unknown) Postmenopausal HRT (hormone replacement therapy) Surgical History History of bladder surgery (~1972) Status post hysterectomy Status post knee surgery Family & Social History Family History Father Cancer Grandfather Cancer Grandmother Heart disease Mother Age: 96 Endometrium cancer Colon cancer Heart disease Safety & Behavioral: Feels Safe in Current Yes Environment Tobacco & Substance use: Smoking Status Never smoker alcohol intake never alcohol intake frequency other Substance Use Type does not use Meds Home Medications and Allergies Home Medications Medication Instructions Recorded Confirmed Type PreserVision AREDS-2 1 cap PO BID #0 09/29/16 02/25/20 History [HOMA RED KRILL OIL] 1 cap PO QDAY #0 09/29/16 02/25/20 History ascorbic acid (vitamin C) 500 mg PO BID #0 09/29/16 02/25/20 History cholecalciferol (vitamin D3) 25 1,000 unit PO DAILY 03/22/18 02/25/20 History mcg (1,000 unit) capsule biotin 2,500 mcg capsule 2,500 mcg PO DAILY 12/25/18 02/25/20 History sertraline 50 mg tablet 75 mg PO QDAY #135 tab 09/12/19 02/25/20 Rx levothyroxine 75 mcg tablet See Rx Instructions .ROUTE 11/14/19 02/25/20 Rx .COMPLEX #90 tab estradiol 1 vaginalrin VAGINAL FOR THREE 11/19/19 02/25/20 Rx MONTHS #1 each oxycodone-acetaminophen 5 mg-325 1 tab PO QID PRN #60 tab 01/25/20 02/25/20 Rx mg tablet spironolactone 25 mg tablet 25 mg PO BID #180 tab 02/08/20 02/25/20 Rx gabapentin 300 mg capsule 300 mg PO BID #180 cap 02/22/20 02/25/20 Rx Allergies Allergy/AdvReac Type Severity Reaction Status Date / Time Sulfa (Sulfonamide Allergy Severe rash/itchin Verified 02/25/20 11:43 Antibiotics) g [SULFA (SULFONAMIDE ANTIBIOTICS)] hydrocodone [HYDROCODONE] AdvReac Intermediate vomiting Verified 02/25/20 11:43 Review of Systems Review of Systems ROS: Yes All systems reviewed with the patient and are negative except as otherwise documented Exam Vital Signs (past 8 hours): - 02/25/20 13:50 02/25/20 14:01 02/25/20 14:02 Pulse Rate 92 H 89 84 Pulse Rate [Orthostatic Lying] Pulse Rate [Orthostatic Sitting] Pulse Rate [Orthostatic Standing] Respiratory Rate Blood Pressure 152/68 H Blood Pressure [Orthostatic Lying] Blood Pressure [Orthostatic Sitting] Blood Pressure [Orthostatic Standing] Pulse Oximetry 96 98 98 02/25/20 14:30 02/25/20 15:00 02/25/20 15:30 Pulse Rate 83 86 80 Pulse Rate [Orthostatic Lying] Pulse Rate [Orthostatic Sitting] Pulse Rate [Orthostatic Standing] Respiratory Rate Blood Pressure 136/62 146/65 H 134/61 Blood Pressure [Orthostatic Lying] Blood Pressure [Orthostatic Sitting] Blood Pressure [Orthostatic Standing] Pulse Oximetry 95 97 94 02/25/20 16:00 02/25/20 16:30 02/25/20 17:00 Pulse Rate 81 79 78 Pulse Rate [Orthostatic Lying] Pulse Rate [Orthostatic Sitting] Pulse Rate [Orthostatic Standing] Respiratory Rate Blood Pressure 135/64 135/62 147/63 H Blood Pressure [Orthostatic Lying] Blood Pressure [Orthostatic Sitting] Blood Pressure [Orthostatic Standing] Pulse Oximetry 95 96 97 02/25/20 17:30 02/25/20 18:00 02/25/20 18:45 Pulse Rate 82 80 77 Pulse Rate [Orthostatic Lying] Pulse Rate [Orthostatic Sitting] Pulse Rate [Orthostatic Standing] Respiratory Rate 14 14 16 Blood Pressure 151/67 H 149/65 H 136/62 Blood Pressure [Orthostatic Lying] Blood Pressure [Orthostatic Sitting] Blood Pressure [Orthostatic Standing] Pulse Oximetry 98 97 97 02/25/20 18:47 02/25/20 18:48 02/25/20 18:49 Pulse Rate 83 86 93 H Pulse Rate [Orthostatic Lying] Pulse Rate [Orthostatic Sitting] Pulse Rate [Orthostatic Standing] Respiratory Rate 22 22 14 Blood Pressure 124/59 L 123/56 L 113/56 L Blood Pressure [Orthostatic Lying] Blood Pressure [Orthostatic Sitting] Blood Pressure [Orthostatic Standing] Pulse Oximetry 96 98 97 02/25/20 18:54 02/25/20 19:00 02/25/20 19:01 Pulse Rate 89 83 83 Pulse Rate [Orthostatic Lying] Pulse Rate [Orthostatic Sitting] Pulse Rate [Orthostatic Standing] Respiratory Rate 22 17 14 Blood Pressure 138/64 151/67 H Blood Pressure [Orthostatic Lying] Blood Pressure [Orthostatic Sitting] Blood Pressure [Orthostatic Standing] Pulse Oximetry 94 95 97 02/25/20 19:30 02/25/20 19:33 02/25/20 20:00 Pulse Rate 84 94 H 90 Pulse Rate [Orthostatic Lying] 78 Pulse Rate [Orthostatic Sitting] 83 Pulse Rate [Orthostatic Standing] 94 H Respiratory Rate 18 21 19 Blood Pressure 153/70 H 159/67 H Blood Pressure [Orthostatic Lying] 136/62 Blood Pressure [Orthostatic Sitting] 124/59 L Blood Pressure [Orthostatic Standing] 113/56 L Pulse Oximetry 98 93 95 Oxygen Delivery Method Room Air Narrative Exam Narrative: GENERAL APPEARANCE: well developed, well nourished and ill-appearing. HEENT: Normocephalic, PERRLA, conjunctiva clear, EOMs intact without nystagmus, no rhinorrhea, mucous membranes are moist and pink without lesions or exudate. NECK/THYROID: neck supple, nontender to palpation, no JVD, no carotid bruit, no thyromegaly, trachea midline. LYMPH NODES: no cervical or supraclavicular lymphadenopathy. SKIN: [place], warm and dry, patchy flat reddish brown rash tender to palpation over bilateral low back without blistering. HEART: regular rate and rhythm, S1-S2, no murmur, no rubs or gallops, brisk capillary refill, no edema LUNGS: Breath sounds with scattered fine crackles bilateral bases, no central coarseness, nonproductive dry cough present CHEST: Symmetrical movement, no accessory muscle use, good tidal volume. ABDOMEN: Soft, no distention, no abdominal tenderness, no guarding or perito mayra signs, no organomegaly, no flank or suprapubic tenderness, active bowel tones. BACK: Normal curvature, nontender to palpation, no CVA tenderness on percussion EXTREMITIES: moves all extremities, strength is 5/5 and symmetrical, strong plantar flexion bilaterally week dorsal flexion on the right. NEUROLOGIC: AAO x4, no focal neurologic deficits, cranial nerves II-XII grossly intact, sensation intact to light touch, hearing grossly normal to speech. PSYCH: Good eye contact, linear thought process, cooperative, appropriate with stable behavior Objective Labs Result Diagrams: 02/25/20 12:30 02/25/20 12:30 Labs: Laboratory Results - last 24 hr 02/25/20 02/25/20 02/25/20 11:00 12:30 12:30 WBC 6.3 RBC 4.31 Hgb 12.8 Hct 37.9 MCV 87.9 MCH 29.8 MCHC 33.9 RDW 12.7 Plt Count 257 Neut % (Auto) 65.3 Lymph % (Auto) 19.6 L [place] % (Auto) 14.5 H Eos % (Auto) 0.3 L Baso % (Auto) 0.3 Neut # (Auto) 4100 Lymph # (Auto) 1200 [place] # (Auto) 900 Eos # (Auto) 0 Baso # (Auto) 0 PT INR APTT Sodium 136 L Potassium 3.9 Chloride 100 Carbon Dioxide 28 BUN 18 H Creatinine 0.68 Estimated GFR > 60.0 BUN/Creatinine Ratio 26.5 H Glucose 125 H Lactate Calcium 9.2 Ferritin Total Bilirubin 0.6 AST 25 ALT 22 Alkaline Phosphatase 73 Troponin I C-Reactive Protein Total Protein 7.3 Albumin 4.2 Globulin 3.1 Albumin/Globulin Ratio 1.4 Lipase 310 H Procalcitonin Urine Color Urine Appearance Urine pH Ur Specific [place] Urine Protein Urine Glucose (UA) Urine Ketones Urine Occult Blood Urine Nitrate Urine Bilirubin Urine Urobilinogen Ur Leukocyte Esterase Urine RBC Urine WBC Ur Squamous Epith Cells Amorphous Sediment Urine Bacteria Urine Mucus Ur Culture Indicated? COVID-19 PCR Positive H Hepatitis C Antibody HIV 1&2 Ab/P24 Ag 4thGn 02/25/20 02/25/20 02/25/20 12:30 12:30 12:30 WBC RBC Hgb Hct MCV MCH MCHC RDW Plt Count Neut % (Auto) Lymph % (Auto) [place] % (Auto) Eos % (Auto) Baso % (Auto) Neut # (Auto) Lymph # (Auto) [place] # (Auto) Eos # (Auto) Baso # (Auto) PT INR APTT Sodium Potassium Chloride Carbon Dioxide BUN Creatinine Estimated GFR BUN/Creatinine Ratio Glucose Lactate 1.1 Calcium Ferritin Total Bilirubin AST ALT Alkaline Phosphatase Troponin I C-Reactive Protein 6.9 H Total Protein Albumin Globulin Albumin/Globulin Ratio Lipase Procalcitonin 0.05 Urine Color Urine Appearance Urine pH Ur Specific [place] Urine Protein Urine Glucose (UA) Urine Ketones Urine Occult Blood Urine Nitrate Urine Bilirubin Urine Urobilinogen Ur Leukocyte Esterase Urine RBC Urine WBC Ur Squamous Epith Cells Amorphous Sediment Urine Bacteria Urine Mucus Ur Culture Indicated? COVID-19 PCR Hepatitis C Antibody HIV 1&2 Ab/P24 Ag 4thGn 02/25/20 02/25/20 02/25/20 12:30 12:30 12:30 WBC RBC Hgb Hct MCV MCH MCHC RDW Plt Count Neut % (Auto) Lymph % (Auto) [place] % (Auto) Eos % (Auto) Baso % (Auto) Neut # (Auto) Lymph # (Auto) [place] # (Auto) Eos # (Auto) Baso # (Auto) PT INR APTT Sodium Potassium Chloride Carbon Dioxide BUN Creatinine Estimated GFR BUN/Creatinine Ratio Glucose Lactate Calcium Ferritin 351 H Total Bilirubin AST ALT 23 Alkaline Phosphatase Troponin I < 0.012 C-Reactive Protein Total Protein Albumin Globulin Albumin/Globulin Ratio Lipase Procalcitonin Urine Color Urine Appearance Urine pH Ur Specific [place] Urine Protein Urine Glucose (UA) Urine Ketones Urine Occult Blood Urine Nitrate Urine Bilirubin Urine Urobilinogen Ur Leukocyte Esterase Urine RBC Urine WBC Ur Squamous Epith Cells Amorphous Sediment Urine Bacteria Urine Mucus Ur Culture Indicated? COVID-19 PCR Hepatitis C Antibody Negative HIV 1&2 Ab/P24 Ag 4thGn Negative 02/25/20 02/25/20 12:42 12:44 WBC RBC Hgb Hct MCV MCH MCHC RDW Plt Count Neut % (Auto) Lymph % (Auto) [place] % (Auto) Eos % (Auto) Baso % (Auto) Neut # (Auto) Lymph # (Auto) [place] # (Auto) Eos # (Auto) Baso # (Auto) PT 13.8 H INR 1.2 APTT 36 Sodium Potassium Chloride Carbon Dioxide BUN Creatinine Estimated GFR BUN/Creatinine Ratio Glucose Lactate Calcium Ferritin Total Bilirubin AST ALT Alkaline Phosphatase Troponin I C-Reactive Protein Total Protein Albumin Globulin Albumin/Globulin Ratio Lipase Procalcitonin Urine Color Yellow Urine Appearance Clear Urine pH 5.5 Ur Specific [place] 1.025 Urine Protein 1+ H Urine Glucose (UA) Negative Urine Ketones Negative Urine Occult Blood 1+ H Urine Nitrate Negative Urine Bilirubin Negative Urine Urobilinogen 0.2 Ur Leukocyte Esterase Negative Urine RBC 1-5/hpf Urine WBC 5-10/hpf H Ur Squamous Epith Cells 1-5 /hpf Amorphous Sediment 1+ Urine Bacteria Many (>30) H Urine Mucus 1+ H Ur Culture Indicated? Specimen cultured COVID-19 PCR Hepatitis C Antibody HIV 1&2 Ab/P24 Ag 4thGn Assessment & Plan Assessment & Plan narrative: This is a 69-year-old female patient who presents to the hospital with 5 days of intractable nausea and vomiting and diarrhea. She has had associated headaches body aches and cough over the same period and has tested positive for COVID-19 today. 1. Intractable nausea and vomiting, acute, present on admission, active. -the patient will be NPO except for meds. Depending on patient's symptomology may consider advancing diet to clear liquids tomorrow. -the patient received 3 doses of Zofran 4 mg in 6 hours in the emergency department with continued nausea. A oral fluid challenge was provided in the emergency service with abated nausea vomiting. -Ordered Compazine 10 mg IV every 6 hours as needed. -ordered magnesium level. 2. Acute dehydration, present on admission, active. -the patient does not appear significantly dehydrated with good skin turgor moist mucous membranes. -BUN and creatinine ratio is 26.5. Urine is concentrated at 1.025. -the patient received approximate 1.5 L of IV fluid in the emergency department. Will continue gentle rehydration at 100 cc/hour with normal saline in the setting COVID-19. -patient has been taking spironolactone 25 mg twice daily which is held. 3. COVID-19 infection without hypoxemia or tachypnea, moderate, acute, present on admission, active. -patient reports symptoms consistent with COVID-19 infection with GI symptoms, cough and headache. No wheezing appreciated. -the patient has positive imaging findings of bilateral focal consolidative opa citie, ground-glass opacities predominantly in the bases. She has a mild reduction in lymphocytes at 19.6%, elevation of ferritin at 351 and elevation of CRP at 6.9. -the patient maintains adequate oxygenation common 95% on room air in the emergency department, 96% on room air on admission to the acute care floor. -patient is placed in droplet isolation. -ordered an LDH level and respiratory panel. -requested respiratory therapy to consult. -ordered aspirin 81 mg daily. 4. Chronic lumbar sacral spine pain, chronic, stable -patient with continued chronic pain with radiculopathy and associated footdrop right foot. -will continue gabapentin 300 mg twice daily. Will continue sertraline 50 mg daily. -patient has been taking oxycodone with acetaminophen 5/325 1 tablet every 6 hours as needed. Patient will be NPO and has received Dilaudid with improvement in pain will continue Dilaudid 0.5 to 1 mg IV every 4 hours as needed for pain. -on further investigation the patient has been using a heating pad on her low back and the rash on her back is consistent with a non confluent burn from the device. 5. Hypothyroidism, chronic, stable -Will continue patient's home regimen of levothyroxine 75 mcg daily. VTE prophylaxis: Lovenox IV fluid: Normal saline 100 cc/hour. Diet: NPO. Code status: Full code, the patient designates her Shayan to be her surrogate decision maker. The patient is admitted to the hospital due to the severity of her symptoms, risk for deterioration and adverse events and complexity of treatment plan. The patient is admitted as observation with expected length of stay to be less than 2 midnights. Will re-evaluate in the morning. COVID-19 COVID-19 status: Positive Result date/Date tested (Pos, Neg/Pending): 02/25/20 Scores GCS [place] coma scale eye opening: Spontaneous [place] coma scale verbal response: Orientated [place] coma scale motor response: Obey commands [place] coma scale total score: 15 SOFA PaO2/FIO2: < 400 mmHg Platelets: >= 150 Bilirubin: < 1.2 mg/dL Hypotension: MAP >= 70 mmHg Ernesto Coma Scale: 15 Renal: < 1.2 mg/dL SOFA Score: 1
[2020-02-25 20:47] LABS: Magnesium 2.1 mg/dL (1.6-2.3)
[2020-02-25] MEDS: CEFTRIAXONE 1 GM/50 ML FROZ.PIGGY IV (21:04)
[2020-02-25] MEDS: SODIUM CHLORIDE 0.9% 1,000 ML 100 ML IV (21:04)
[2020-02-25] MEDS: PROCHLORPERAZINE 10 MG/2 ML VIAL IV (21:16)
[2020-02-25 21:57] LABS: Lactate Dehydrogenase 726 U/L (313-618)
[2020-02-25 23:06] LABS: Adenovirus Not Detected (Not Detect); Coronavirus 229E Not Detected (Not Detect); Coronavirus HKU1 Not Detected (Not Detect); Coronavirus NL 63 Not Detected (Not Detect); SARS- CoV-2 Detected (Not Detecte)
[2020-02-25 23:08] LABS: Bordetella pertussis Not Detected (Not Detect); Chlamydophila pneumoniae Not Detected (Not Detect); Coronavirus OC43 Not Detected (Not Detect); Human Metapneumovirus Not Detected (Not Detect); Human Rhinovirus/Enterovirus Not Detected (Not Detect); Influenza A Not Detected (Not Detect); Influenza B Not Detected (Not Detect); Parainfluenza Virus 1 Not Detected (Not Detect); Parainfluenza Virus 2 Not Detected (Not Detect); Parainfluenza Virus 3 Not Detected (Not Detect); Parainfluenza Virus 4 Not Detected (Not Detect); Respiratory Syncytial Virus Not Detected (Not Detect)
--- NOTE | 2020-02-25 23:09 | PC.NURSE ---
Patient admitted from home via ER. Complaints of n/v for multiple days. Says she hasn't taken her meds in about 5 days. COVID positive- droplet precautions as patient is room air, afebrile. A/O x4, spO2 mid 90s on RA. Abrasions on legs from scratching, oddly patterned redness/brown coloring on lower back- possibly due to a heating pad. Able to make needs known, call light at bedside, bed alarm on.
[2020-02-25 23:11] LABS: Mycoplasma pneumoniae Not Detected (Not Detect)
[2020-02-25] MEDS: HYDROMORPHONE 0.5 MG INJ IV (23:46)
[2020-02-26] VITALS (8 sets, daily range): BP systolic 110–144; BP diastolic 61–76; PULSE 88–92; RESP 16–19; TEMP 36.9–37.3; O2SAT 93–97
[2020-02-26] MEDS: PROCHLORPERAZINE 10 MG/2 ML VIAL IV (05:50)
[2020-02-26] MEDS: HYDROMORPHONE 0.5 MG INJ IV (05:50)
[2020-02-26] MEDS: LEVOTHYROXINE 75 MCG TABLET PO (05:50)
[2020-02-26 06:19] LABS: BUN Creatinine Ratio 17.2 (6-22); Blood Urea Nitrogen 10 mg/dL (7-17); Calcium 8.6 mg/dL (8.4-10.2); Carbon Dioxide 32 mmol/L (22-32); Chloride 103 mmol/L (98-107); Estimated Glomerular Filt Rate > 60.0 mL/min (>60); Glucose 101 mg/dL (80-110); HEMOLYSIS < 15 (0-50); Potassium 3.8 mmol/L (3.4-5.1); Sodium 137 mmol/L (137-145)
[2020-02-26 06:22] LABS: Add Manual Diff / Slide Review NO; Basophils Absolute Auto 0 /uL (0-100); Basophils Percent Auto 0.2 % (0-2); Eosinophils Absolute Auto 100 /uL (0-450); Eosinophils Percent Auto 1.6 % (2-4); Hematocrit 36.6 % (36-46); Hemoglobin 12.4 g/dL (12.0-16.0); Lymphocytes Absolute Auto 1200 /uL (1100-4500); Lymphocytes Percent Auto 21.5 % (25-40); Mean Corpuscular HGB Conc 33.8 % (30-36); Mean Corpuscular Hemoglobin 29.8 PG (26-34); Mean Corpuscular Volume 88.1 fL (80-100); Monocytes Absolute Auto 800 /uL (0-900); Monocytes Percent Auto 13.9 % (3-14); Neutrophils Absolute Auto 3700 /uL (1500-7000); Neutrophils Percent Auto 62.8 % (50-75); Platelet Count 251 X10^3/uL (150-400); Red Blood Cell Count 4.15 X10^6/uL (4.0-5.2); Red Cell Distribution Width 12.9 % (11.6-14.8); White Blood Cell Count 5.8 X10^3/uL (4.5-11.0)
[2020-02-26] MEDS: SODIUM CHLORIDE 0.9% 1,000 ML 100 ML IV (08:38)
[2020-02-26] MEDS: ENOXAPARIN 40 MG/0.4 ML SYRINGE SUBCUT (08:38)
--- NOTE | 2020-02-26 10:06 | PC.NURSE ---
Addendum entered by Maritza Estrada R.N. 02/26/20 12:53: Patient up to bathroom, she was able to void. She remains npo as she has been nauseated, except for this shift. She seems to be feeling a bit better with this. She refused all of her po medications as she is affraid that she will throw up. Tried to give them to her twice. She refused. Lying in bed now and comfortable. Original Note: Assess- Patient is quiet and does have some nausea periodically and pain. She was given iv pain medication and anti nausea medication, which has seemed to help patient. Her lung sounds are clear, she has refused her po medications at this time and is resting. She has ivf infusing at 100cc/hr.
[2020-02-26] MEDS: HYDROMORPHONE 1 MG INJ IV (13:13)
[2020-02-26 14:17] LABS: Magnesium 2.1 mg/dL (1.6-2.3)
--- NOTE | 2020-02-26 16:10 | PM.PN.1 ---
Subjective Subjective Date Patient Seen: 02/26/20 Interval history: Moira Mann is a 69-year-old female with a past medical history significant for hypertension, hypothyroidism, chronic low back pain with lumbar radiculopathy and right footdrop with opiate dependence and fibromyalgia who presented to the ED with intractable nausea and vomiting. Patient is resting in bed and appears comfortable. She reports that she feels better than she did last night. She continues to have intermittent nausea but now without vomiting and improved on antiemetics. She also endorses extreme fatigue, dry nonproductive cough, intermittent mild headache and diarrhea that is now resolved. She is somewhat intimidated to try to eat food but have encouraged her to take small infrequent bites of food and slowly advance diet as tolerated. Her smell and taste are intact. She currently denies headache, shortness of breath, chest pain, abdominal pain, nausea, vomiting, fever, chills, dysuria or constipation. She is voiding and eliminating without difficulty. She is up ambulating without assistance. Exam Vital Signs (past 8 hours): - 02/26/20 08:35 02/26/20 11:15 02/26/20 12:05 Temperature 98.9 F 98.8 F Pulse Rate 89 89 88 Respiratory Rate 16 18 16 Blood Pressure 110/61 120/65 Pulse Oximetry 93 93 96 Oxygen Delivery Method Room Air Oxygen Flow Rate 0 Narrative Exam Narrative: General: Older female lying in bed and in no acute distress, appears acutely ill, well-developed, well-nourished, mildly anxious but appropriately interactive. HEENT: Normocephalic, atraumatic. External ears without defect. Pupils equal, round, and reactive to light. Anicteric sclerae, moist conjunctivae, and no lid lag. Oropharynx free of erythema and cobble stoning with moist mucosa. Neck: Supple with full range of motion. No jugular venous distension. No bruits. No lymphadenopathy or thyromegaly. Cardiovascular: Regular rate and rhythm without murmurs, rubs, or gallops appreciated. Pulmonary: Diminished throughout but clear to auscultation bilaterally without crackles, wheezes, or rhonchi. Normal respiratory effort with no use of accessory muscles. Abdomen: Soft, bowel sounds present, nontender, nondistended. No hepatosplenomegaly or masses appreciated. Extremities: No clubbing, cyanosis, or edema. Skin: Normal temperature, turgor, and texture; no rash, ulcers, or subcutaneous nodules appreciated. Neurological: Cranial nerves grossly intact. Psychiatric: Mildly anxious mood and normal affect. Alert and oriented to person, place, and time. Objective Labs Result Diagrams: 02/27/20 06:10 02/27/20 06:10 Labs: Laboratory Results - last 24 hr 02/25/20 02/25/20 02/25/20 12:30 12:30 12:30 WBC RBC Hgb Hct MCV MCH MCHC RDW Plt Count Neut % (Auto) Lymph % (Auto) [place] % (Auto) Eos % (Auto) Baso % (Auto) Neut # (Auto) Lymph # (Auto) [place] # (Auto) Eos # (Auto) Baso # (Auto) Sodium Potassium Chloride Carbon Dioxide BUN Creatinine Estimated GFR BUN/Creatinine Ratio Glucose Calcium Magnesium 2.1 ALT 23 Lactate Dehydrogenase Chlamy pneumoniae PCR Adenovirus (PCR) B.parapertussis DNA PCR Coronavirus OC43 (PCR) Coronavirus HKU1 (PCR) Coronavirus 229E (PCR) COVID-19 PCR Coronavirus NL63 (PCR) Hepatitis C Antibody Negative HIV 1&2 Ab/P24 Ag 4thGn Negative Human Metapneumovir PCR Influenza Type A (PCR) Influenza Type B (PCR) M. pneumoniae (PCR) Parainfluenza 1 (PCR) Parainfluenza 2 (PCR) Parainfluenza 3 (PCR) Parainfluenza 4 (PCR) RSV (PCR) Entero/Rhino (PCR) 02/25/20 02/25/20 02/26/20 12:30 21:46 05:55 WBC 5.8 RBC 4.15 Hgb 12.4 Hct 36.6 MCV 88.1 MCH 29.8 MCHC 33.8 RDW 12.9 Plt Count 251 Neut % (Auto) 62.8 Lymph % (Auto) 21.5 L [place] % (Auto) 13.9 Eos % (Auto) 1.6 L Baso % (Auto) 0.2 Neut # (Auto) 3700 Lymph # (Auto) 1200 [place] # (Auto) 800 Eos # (Auto) 100 Baso # (Auto) 0 Sodium Potassium Chloride Carbon Dioxide BUN Creatinine Estimated GFR BUN/Creatinine Ratio Glucose Calcium Magnesium ALT Lactate Dehydrogenase 726 H Chlamy pneumoniae PCR Not detected Adenovirus (PCR) Not detected B.parapertussis DNA PCR Not detected Coronavirus OC43 (PCR) Not detected Coronavirus HKU1 (PCR) Not detected Coronavirus 229E (PCR) Not detected COVID-19 PCR Detected H Coronavirus NL63 (PCR) Not detected Hepatitis C Antibody HIV 1&2 Ab/P24 Ag 4thGn Human Metapneumovir PCR Not detected Influenza Type A (PCR) Not detected Influenza Type B (PCR) Not detected M. pneumoniae (PCR) Not detected Parainfluenza 1 (PCR) Not detected Parainfluenza 2 (PCR) Not detected Parainfluenza 3 (PCR) Not detected Parainfluenza 4 (PCR) Not detected RSV (PCR) Not detected Entero/Rhino (PCR) Not detected 02/26/20 02/26/20 05:55 05:55 WBC RBC Hgb Hct MCV MCH MCHC RDW Plt Count Neut % (Auto) Lymph % (Auto) [place] % (Auto) Eos % (Auto) Baso % (Auto) Neut # (Auto) Lymph # (Auto) [place] # (Auto) Eos # (Auto) Baso # (Auto) Sodium 137 Potassium 3.8 Chloride 103 Carbon Dioxide 32 BUN 10 Creatinine 0.58 Estimated GFR > 60.0 BUN/Creatinine Ratio 17.2 Glucose 101 Calcium 8.6 Magnesium 2.1 ALT Lactate Dehydrogenase Chlamy pneumoniae PCR Adenovirus (PCR) B.parapertussis DNA PCR Coronavirus OC43 (PCR) Coronavirus HKU1 (PCR) Coronavirus 229E (PCR) COVID-19 PCR Coronavirus NL63 (PCR) Hepatitis C Antibody HIV 1&2 Ab/P24 Ag 4thGn Human Metapneumovir PCR Influenza Type A (PCR) Influenza Type B (PCR) M. pneumoniae (PCR) Parainfluenza 1 (PCR) Parainfluenza 2 (PCR) Parainfluenza 3 (PCR) Parainfluenza 4 (PCR) RSV (PCR) Entero/Rhino (PCR) [facility] Medical History Allergic rhinitis (6) Chickenpox (Unknown) Chronic back pain (2006) Fall Fibromyalgia (1995) Fractures (Unknown) Hemorrhoids (1974) Herniated nucleus pulposus, L3-4 right Hypertension (Unknown) Hypothyroidism (Unknown) Injury of left lower arm Injury of right knee Measles (Unknown) Mumps (Unknown) Postmenopausal HRT (hormone replacement therapy) Surgical History History of bladder surgery (~1972) Status post hysterectomy Status post knee surgery Family History Father Cancer Grandfather Cancer Grandmother Heart disease Mother Age: 96 Endometrium cancer Colon cancer Heart disease Social History household members: spouse Smoking Status: Never smoker alcohol intake: never Assessment & Plan Assessment & Plan narrative: Moira Mann is a 69-year-old female with a past medical history significant for hypertension, hypothyroidism, chronic low back pain with lumbar radiculopathy and right footdrop with opiate dependence and fibromyalgia who presented to the ED with intractable nausea and vomiting. 1. Acute intractable nausea and vomiting with dehydration, present on admission. Improving. -Patient with intractable nausea, vomiting and dehydration x5 days. Patient previously had diarrhea which is now resolved. -Continue symptomatic treatment with Zofran 4 mg in 6 hours and Compazine 10 mg IV every 6 hours as needed for nausea vomiting. -Continued IV fluid hydration till adequately hydrated then discontinued as do not want to precipitate hypoxemic respiratory failure in setting of COVID-19 viral pneumonia as below. -Patient has been NPO. Plan to start advancing diet as tolerated and encourage PO intake of fluids and food. 2. Acute COVID-19 viral pneumonia, present on admission. Active. -Patient reports symptoms consistent with COVID-19 viral pneumonia with GI symptoms as above, dry nonproductive cough, intermittent headache, and extreme fatigue. -COVID-19 positive. Respiratory PCR negative. -CT chest demonstrated bilateral ground-glass opacities predominantly at bases. She has a mild reduction in lymphocytes at 19.6%, -Inflammatory markers elevated with: LDH 726, ferritin 351, and CRP 6.9. -Continue respiratory therapy evaluation and treatment. May use supplemental oxygen as necessary to maintain oxygen saturations 88-92%. Patient not requiring oxygen with SpO2 mid to high 90s on room air. -Continue pulmonary toilet with Acapella and incentive spirometer. Encourage prone positioning. -Continue negative pressure isolation and droplet precautions. 3. Chronic lumbar sacral spine pain with opiate dependence, present on admission. Stable. -Patient with continued chronic low back pain with radiculopathy and associated foot drop of right foot. -Continue home gabapentin 300 mg twice daily and sertraline 75 mg daily. -Continue home oxycodone with acetaminophen 5/325 mg every 6 hours as needed if PO intake tolerated and hydromorphone 0.5 to 1 mg IV every 4 hours as needed for pain if unable to take in PO intake. 4. Hypothyroidism, chronic, present on admission. Stable. -TSH normal at 1.26 -Continue home levothyroxine 75 mcg daily. 5. Hypertension, chronic, present on admission. Stable. -Continue spironolactone 25 mg twice daily. Code status: Full code, the patient designates her Shayan to be her surrogate decision maker. VTE prophylaxis: Lovenox, SCDs Disposition: Patient likely to discharge home the next 1-2 days once able to tolerate PO intake.
--- NOTE | 2020-02-26 16:12 | CM.DANOTE ---
Discharge Planning/Care Management DCP: assessment: brief EMR review. Case received at 1130, EMR reviewed: COVID +/specialized precautions: noted. Pt admitted last night to care of hospitalist team. Payer: Medicare and [employer]. PCP: Jean Claude Daly. Designated advocate: spouse Shayan Mann. DCP team will follow as POC unfolds and assist with d/c issues and options as these become clearer. Admission status: OBS: confirmed by UR ALICIA Kidd. CM Discharge Assessment Start: 02/26/20 16:11 Freq: Status: Active Protocol: Document 02/26/20 16:11 ITV (Rec: 02/26/20 16:12 ITV [id number]) Discharge Planning Assessment Advance Directives? No History Provided By Medical Record Prior Living Arrangements House Household Members spouse Review Status In Process
[2020-02-26] MEDS: KETOROLAC 30 MG/ML VIAL 15 MG IV (16:48)
[2020-02-26] MEDS: ONDANSETRON 4 MG/2 ML INJ IV (17:59)
[2020-02-27] MEDS: SODIUM CHLORIDE 0.9% FLUSH 10 ML IV ×3 (00:10→09:44)
[2020-02-27] MEDS: ONDANSETRON 4 MG/2 ML INJ IV ×2 (00:10→06:33)
[2020-02-27 00:14] VITALS: BP 143/70; PULSE 88; RESP 18; TEMP 36.8; O2SAT 96
[2020-02-27 05:54] VITALS: BP 137/65; PULSE 88; RESP 16; TEMP 36.9; O2SAT 96
[2020-02-27] MEDS: LEVOTHYROXINE 75 MCG TABLET PO (06:33)
[2020-02-27 07:19] LABS: Add Manual Diff / Slide Review NO; Basophils Absolute Auto 0 /uL (0-100); Basophils Percent Auto 0.3 % (0-2); Eosinophils Absolute Auto 100 /uL (0-450); Eosinophils Percent Auto 1.9 % (2-4); Hematocrit 35.3 % (36-46); Hemoglobin 11.8 g/dL (12.0-16.0); Lymphocytes Absolute Auto 1200 /uL (1100-4500); Lymphocytes Percent Auto 27.3 % (25-40); Mean Corpuscular HGB Conc 33.4 % (30-36); Mean Corpuscular Hemoglobin 29.3 PG (26-34); Mean Corpuscular Volume 87.7 fL (80-100); Monocytes Absolute Auto 700 /uL (0-900); Monocytes Percent Auto 16.3 % (3-14); Neutrophils Absolute Auto 2300 /uL (1500-7000); Neutrophils Percent Auto 54.2 % (50-75); Platelet Count 278 X10^3/uL (150-400); Red Blood Cell Count 4.03 X10^6/uL (4.0-5.2); Red Cell Distribution Width 12.6 % (11.6-14.8); White Blood Cell Count 4.3 X10^3/uL (4.5-11.0)
[2020-02-27 07:20] LABS: Alanine Aminotransferase 17 IU/L (<35); Albumin 3.4 g/dL (3.5-5.0); Albumin Globulin Ratio 1.3 (1.0-2.8); Alkaline Phosphatase 70 U/L (38-126); Aspartate Aminotransferase 22 IU/L (14-36); BUN Creatinine Ratio 22.2 (6-22); Bilirubin Total 0.4 mg/dL (0.2-1.3); Blood Urea Nitrogen 12 mg/dL (7-17); Calcium 8.7 mg/dL (8.4-10.2); Carbon Dioxide 32 mmol/L (22-32); Chloride 104 mmol/L (98-107); Estimated Glomerular Filt Rate > 60.0 mL/min (>60); Globulin 2.7 g/dL (1.7-4.1); Glucose 94 mg/dL (80-110); HEMOLYSIS < 15 (0-50); Magnesium 2.1 mg/dL (1.6-2.3); Potassium 3.3 mmol/L (3.4-5.1); Sodium 140 mmol/L (137-145); Total Protein 6.1 g/dL (6.3-8.2)
[2020-02-27 07:30] LABS: Hemoglobin A1C% w Est Avg Glu 5.9 % (4.0-6.0)
[2020-02-27 07:48] LABS: TSH w/ Reflex to FT4 1.26 uIU/mL (0.47-4.68)
[2020-02-27 07:51] VITALS: RESP 16; O2SAT 97
[2020-02-27 08:39] VITALS: BP 139/90; PULSE 84; RESP 16; TEMP 37.2; O2SAT 96
[2020-02-27] MEDS: ENOXAPARIN 40 MG/0.4 ML SYRINGE SUBCUT (09:41)
[2020-02-27] MEDS: ASCORBIC ACID 500 MG TABLET PO (09:42)
[2020-02-27] MEDS: ASPIRIN EC 81 MG TABLET PO (09:42)
[2020-02-27] MEDS: KETOROLAC 30 MG/ML VIAL 15 MG IV (09:42)
[2020-02-27] MEDS: CHOLECALCIFEROL (VITAMIN D3) 1,000 UNIT TABLET 1000 UNIT PO (09:43)
[2020-02-27] MEDS: guaiFENesin ER 600 MG TAB 1200 MG PO (09:43)
[2020-02-27] MEDS: SERTRALINE 50 MG TABLET 75 MG PO (09:44)
[2020-02-27] MEDS: GABAPENTIN 300 MG CAPSULE PO (09:44)
[2020-02-27] MEDS: PROCHLORPERAZINE 10 MG/2 ML VIAL IV (09:50)
--- NOTE | 2020-02-27 11:57 | PM.DS.1 ---
History of Present Illness History of Present Illness Date Patient Seen: 02/25/20 Chief complaint: not eating,vomiting,not drinking,brown urine Narrative: Written by Leo LOPES: Ms. Moira Mann is a 69-year-old female with a past medical history significant for hypothyroidism, chronic low back pain with lumbar radiculopathy, footdrop and fibromyalgia who presents to the ER with intractable nausea and vomiting. The patient reports onset of symptoms 5 days ago with nausea vomiting approximately 10 times per day and has been unable to keep anything down since the onset of her symptoms. Additionally reports brown urine and diarrhea about 5 times per day. She reports an occasionally productive cough, subjective shortness of breath at times and body aches differing from her typical fibromyalgia pain and headache since the onset of her symptoms. The patient reports she has been careful with social distancing and using a mask reporting her only recent trip out of the house was to her physician's office last week. The patient otherwise denies subjective fevers chills, reports headache but denies visual changes nasal congestion or sore throat. She reports no complaints chest pain or palpitations. She says she has been short of breath at times though is not been physically challenged and has had her cough since onset that has been occasionally productive for clear sputum. She denies complaints of abdominal pain and is no longer having diarrhea that she describes as thin and watery. She denies urinary symptoms. She has chronic body aches from fibromyalgia with lumbosacral radiculopathy. She had a versus a footdrop on the right that is chronic. Upon arrival to the ER the patient's temperature 97.7?, heart rate of 98, blood pressure 110/56, respirations 16 saturating 95% on room air. A chest x-ray finds left basilar consolidation versus atelectasis. A CT of the chest abdomen and pelvis finds bilateral focal consolidative opacities as well as ground-glass opacities primarily in the bases and diverticulosis. Twelve lead EKG finds a normal sinus rhythm a rate of 76 with a left axis shift without ectopy ST or T-wave changes. On laboratory analysis he has white count of 6.3 with decreased lymphocyte count at 19.6, hemoglobin 12.8, hematocrit of 37.9 and platelets of 207. She has a PT of 13.8, INR of 1.2 and a PTT of 36. Her lytes are all within normal limits she has a BUN of 18 and creatinine 0.68. Her liver functions reveal total bilirubin of 0.6, AST of 25, ALT of 23 and alkaline phosphatase of 73. She has lipase of 310. Lactate is 1.1, CRP is elevated at 6.9, ferritin mildly elevated at 3 151, troponin is negative at less than 0.012. On urinalysis she has consult treated urine with a specific gravity of 1.025, pH of 5.5, 1+ protein 1+ blood, wbc's and many bacteria. In the ER the patient received fentanyl which the patient has stated was of no benefit, Dilaudid 1 mg x 2 and Zofran 4 mg x 3 long with approximately 1.5 L of normal saline. The patient was ambulated within the emergency department and remained adequately oxygenated. Attempted fluid challenge which the patient immediately became nauseated and vomited. The patient is admitted to the medicine service for intractable nausea vomiting and COVID-19 infection. Discharge Providers Provider Date of admission: 02/25/20 20:00 Discharge Date: 02/27/20 Primary care physician: Jean Claude Daly DO Consults: 02/25/20 20:26 Consult to Discharge Planning Routine Comment: 02/25/20 22:02 Consult to Respiratory Therapy Evaluate & Treat Comment: COVID-19 positive Physician Instructions: Evaluate and treat Discharge provider: Neha Zimmerman DO Summary Hospital Course Discharge Diagnosis: 1. Acute intractable nausea and vomiting with dehydration, present on admission. Resolved. 2. Acute COVID-19 viral pneumonia, present on admission. Improving. 3. Chronic lumbar sacral spine pain with opiate dependence, present on admission. Stable. 4. Hypothyroidism, chronic, present on admission. Stable. 5. Hypertension, chronic, present on admission. Stable. Hospital Course: Moira Mann is a 69-year-old female with a past medical history significant for hypertension, hypothyroidism, chronic low back pain with lumbar radiculopathy and right footdrop with opiate dependence and fibromyalgia who presented to the ED with intractable nausea and vomiting. 1. Acute intractable nausea and vomiting with dehydration, present on admission. Resolved. -Patient with intractable nausea, vomiting and dehydration x5 days. Patient previously had diarrhea which is now resolved. -Continued symptomatic treatment with Zofran 4 mg in 6 hours and Compazine 10 mg IV every 6 hours as needed for nausea vomiting. Patient discharged home with oral Zofran and Compazine. -Continued IV fluid hydration until adequately hydrated then discontinued as did not want to precipitate hypoxemic respiratory failure in setting of COVID-19 viral pneumonia as below. -Patient slowly advanced diet as tolerated and tolerated small sips and bites of food. Continued to encourage intake. 2. Acute COVID-19 viral pneumonia, present on admission. Improving. -Patient reports symptoms consistent with COVID-19 viral pneumonia with GI symptoms as above, dry nonproductive cough, intermittent headache, and extreme fatigue. -COVID-19 positive. Respiratory PCR negative. -CT chest demonstrated bilateral ground-glass opacities predominantly at bases. -Inflammatory markers elevated with: LDH 726, ferritin 351, and CRP 6.9. -Continued respiratory therapy evaluation and treatment. Patient did not require oxygen maintained oxygen saturations mid to high 90s on room air. -Continued pulmonary toilet with Acapella and incentive spirometer. Encouraged prone positioning, however, due to lumbar back pain did not tolerate lying prone much. -Continued negative pressure isolation and droplet precautions. Patient discharged home with instructions self quarantine for 21 days and until symptoms completely resolved. 3. Chronic lumbar sacral spine pain with opiate dependence, present on admission. Stable. -Patient with continued chronic low back pain with radiculopathy and associated foot drop of right foot. -Continued home gabapentin 300 mg twice daily and sertraline 75 mg daily. -Continued home oxycodone with acetaminophen 5/325 mg every 6 hours as needed once tolerated PO intake. 4. Hypothyroidism, chronic, present on admission. Stable. -TSH normal at 1.26 -Continued home levothyroxine 75 mcg daily. 5. Hypertension, chronic, present on admission. Stable. -Continued home spironolactone 25 mg twice daily. Exam Vital Signs (past 8 hours): - 02/27/20 05:54 02/27/20 07:51 02/27/20 08:39 Temperature 98.5 F 98.9 F Pulse Rate 88 84 Respiratory Rate 16 16 16 Blood Pressure 137/65 139/90 Pulse Oximetry 96 97 96 Oxygen Delivery Method Room Air Oxygen Flow Rate 0 Narrative Exam Narrative: General: Older female lying in bed and in no acute distress, appears acutely ill, well-developed, well-nourished, mildly anxious but appropriately interactive. HEENT: Normocephalic, atraumatic. External ears without defect. Pupils equal, round, and reactive to light. Anicteric sclerae, moist conjunctivae, and no lid lag. Oropharynx free of erythema and cobble stoning with moist mucosa. Neck: Supple with full range of motion. No jugular venous distension. No bruits. No lymphadenopathy or thyromegaly. Cardiovascular: Regular rate and rhythm without murmurs, rubs, or gallops appreciated. Pulmonary: Diminished throughout but clear to auscultation bilaterally without crackles, wheezes, or rhonchi. Normal respiratory effort with no use of accessory muscles. Abdomen: Soft, bowel sounds present, nontender, nondistended. No hepatosplenomegaly or masses appreciated. Extremities: No clubbing, cyanosis, or edema. Skin: Normal temperature, turgor, and texture; no rash, ulcers, or subcutaneous nodules appreciated. Neurological: Cranial nerves grossly intact. Psychiatric: Mildly anxious mood and normal affect. Alert and oriented to person, place, and time. Objective Labs Result Diagrams: 02/27/20 06:10 02/27/20 06:10 Labs: Laboratory Results - last 24 hr 02/26/20 02/27/20 02/27/20 05:55 05:00 06:10 WBC RBC Hgb Hct MCV MCH MCHC RDW Plt Count Neut % (Auto) Lymph % (Auto) [place] % (Auto) Eos % (Auto) Baso % (Auto) Neut # (Auto) Lymph # (Auto) [place] # (Auto) Eos # (Auto) Baso # (Auto) Sodium Potassium Chloride Carbon Dioxide BUN Creatinine Estimated GFR BUN/Creatinine Ratio Glucose Hemoglobin A1c 5.9 Calcium Magnesium 2.1 Total Bilirubin AST ALT Alkaline Phosphatase Total Protein Albumin Globulin Albumin/Globulin Ratio TSH 1.26 02/27/20 02/27/20 06:10 06:10 WBC 4.3 L RBC 4.03 Hgb 11.8 L Hct 35.3 L MCV 87.7 MCH 29.3 MCHC 33.4 RDW 12.6 Plt Count 278 Neut % (Auto) 54.2 Lymph % (Auto) 27.3 [place] % (Auto) 16.3 H Eos % (Auto) 1.9 L Baso % (Auto) 0.3 Neut # (Auto) 2300 Lymph # (Auto) 1200 [place] # (Auto) 700 Eos # (Auto) 100 Baso # (Auto) 0 Sodium 140 Potassium 3.3 L Chloride 104 Carbon Dioxide 32 BUN 12 Creatinine 0.54 Estimated GFR > 60.0 BUN/Creatinine Ratio 22.2 H Glucose 94 Hemoglobin A1c Calcium 8.7 Magnesium 2.1 Total Bilirubin 0.4 AST 22 ALT 17 Alkaline Phosphatase 70 Total Protein 6.1 L Albumin 3.4 L Globulin 2.7 Albumin/Globulin Ratio 1.3 TSH [facility] Medical History Allergic rhinitis (1955) Chickenpox (Unknown) Chronic back pain (2006) Fall Fibromyalgia (1995) Fractures (Unknown) Hemorrhoids (1974) Herniated nucleus pulposus, L3-4 right Hypertension (Unknown) Hypothyroidism (Unknown) Injury of left lower arm Injury of right knee Measles (Unknown) Mumps (Unknown) Postmenopausal HRT (hormone replacement therapy) Surgical History History of bladder surgery (~1972) Status post hysterectomy Status post knee surgery Family History Father Cancer Grandfather Cancer Grandmother Heart disease Mother Age: 96 Endometrium cancer Colon cancer Heart disease Social History household members: spouse Smoking Status: Never smoker alcohol intake: never Discharge Plan Discharge Plan Patient Disposition: Home Provider Discharge Comment: You are being discharged home. You have COVID 19 viral pneumonia and GI symptoms associated with nausea, vomiting and diarrhea. You have been prescribed Zofran 4 mg every 4-6 hours and Compazine 10 mg every 8 hours as needed for nausea and vomiting. Try to take small sips of fluid and small bites of food frequently throughout the day. Please take it easy and try to get plenty of rest and do not overdo activity. Please use good hygiene and wash hands frequently and cover cough. Please keep common areas sanitized and wiped down. Please wash bedding and clothing with detergent and hot water and dry on high heat. If you develop worsening shortness of breath or recurrent severe nausea, vomiting and diarrhea and cannot keep any food down for several days please seek medical attention immediately. You may visit www.CDC.gov for information regarding COVID-19. You should remain in self isolation/quarantine at home (you may isolate away from your if you want to be extra cautious) for 21 days from onset of symptoms 02/19-03/12 and until symptoms completely resolved. Discharge orders & Medications Prescriptions: New ondansetron 4 mg tablet,disintegrating 4 mg PO Q4-6H PRN (Reason: nausea and vomiting) Qty: 10 RF: 0 prochlorperazine maleate [Compazine] 10 mg tablet 10 mg PO Q8H PRN (Reason: nausea and vomiting) Qty: 10 RF: 0 Continued cholecalciferol (vitamin D3) 1,000 unit capsule 1,000 unit PO DAILY RF: 0 ascorbic acid (vitamin C) 500 MG tablet 500 mg PO BID Qty: 0 RF: 0 PreserVision AREDS-2 1 EACH capsule 1 cap PO BID Qty: 0 RF: 0 [[place] KRILL OIL] 1 cap PO QDAY Qty: 0 RF: 0 sertraline [Zoloft] 50 mg tablet 75 mg PO QDAY Qty: 135 RF: 1 levothyroxine 75 mcg tablet See Rx Instructions .ROUTE .COMPLEX Qty: 90 RF: 1 spironolactone [Aldactone] 25 mg tablet 25 mg PO BID Qty: 180 RF: 2 gabapentin 300 mg capsule 300 mg PO BID Qty: 180 RF: 1 biotin 2,500 mcg capsule 2,500 mcg PO DAILY RF: 0 Estring 2 mg (7.5 mcg /24 hour) ring 1 vaginalrin Vaginal FOR THREE MONTHS Qty: 1 RF: 3 oxycodone-acetaminophen [Percocet] 5-325 mg tablet 1 tab PO QID PRN (Reason: pain) Qty: 60 RF: 0 Follow up/Referrals: Jean Claude Daly, [Primary Care Provider] - Diet/Activity/Treatments Diet: Diet as Tolerated Activity: Activity as tolerated Visit Report/Discharge Packet Instructions: DI for Dehydration -- Adult, DI for COVID-19 (Suspected or Confirmed ), Coronavirus Disease 2019, How to Care for Someone with COVID-19 Discharge Data Primary Care Provider: Jean Claude Daly Attending Provider: Leo Kc
[2020-02-27 12:39] VITALS: BP 130/70; PULSE 83; RESP 16; TEMP 37; O2SAT 93
--- NOTE | 2020-02-27 14:11 | CM.IDA ---
69 yo female admitted observation w/worsening symptoms of COVID-19; DC today according to Dr Zimmerman, home w/spouse and self quarantine. Patient states she is nervous about spouse getting COVID.. otherwise states n oconcerns re: DC. No CONTOUR SANDER need identified. Will remain available in case DC needs or concerns arise. JW
--- NOTE | 2020-02-27 14:34 | PC.NURSE ---
Discharge: Pt feels ready to d/c home. Feels better today, stronger on her feet. No use of O2 and sat is 94% on RA, denies any sob. Only concern for her has been the nausea, she does think part of this might be due to not eating, and she did get a general tray for lunch and tolerated the food w/out problems. Rx has been esent and she is aware. Reviewed d/c packet. Questions answered. Pt d/c home via auto w/family.
--- NOTE | 2020-03-04 19:10 | PC.NURSE ---
Late Entry; Rocephin infusion initiated 21:04, complete at 21:35.
== END 2020-02-27 14:05 | disposition home or self-care (01) ==
LOC: ED 19:53 → AC 20:02
PROVIDERS: Emergency Medicine; Internal Medicine; Student in an Organized Health Care Education/Training Program; Admitting Provider Nurse Practitioner Adult Health; Emergency Provider Emergency Medicine; PCP Family Medicine; Referring Provider Emergency Medicine; Visit Provider Nurse Practitioner Adult Health
DX: U07.1 COVID-19 (principal); R19.7 Diarrhea, unspecified; R11.2 Nausea with vomiting, unspecified; E86.0 Dehydration; E03.9 Hypothyroidism, unspecified; I10 Essential (primary) hypertension; G89.29 Other chronic pain; M54.5 Low back pain; M54.16 Radiculopathy, lumbar region; F11.20 Opioid dependence, uncomplicated; M21.371 Foot drop, right foot; M79.7 Fibromyalgia
CPT/HCPCS: 36415; 71045; 71260; 74177; 80048; 80053; 81001; 81003; 82728; 83036; 83605; 83615; 83690; 83735; 84145; 84443; 84460; 84484; 85025; 85610; 85730; 86140; 86803; 87040; 87086; 87389; 87633; 87635; 93005; 94668; 94762; 96361; 96365; 96372; 96375; 96376; 99283; 99284; G0378; J0780; J1170; J1650; J1885; J2405; J3010

== ENCOUNTER → 2020-05-20 10:07 | Outpatient (CLI) | payer MEDICARE, SELFPAY ==
[2020-02-25 20:34] VITALS: BMI 25.0
[2020-05-20 10:43] LABS: Add Manual Diff / Slide Review NO; Basophils Absolute Auto 0 /uL (0-100); Basophils Percent Auto 0.7 % (0-2); Eosinophils Absolute Auto 200 /uL (0-450); Eosinophils Percent Auto 3.9 % (2-4); Hematocrit 42.7 % (36-46); Hemoglobin 14.2 g/dL (12.0-16.0); Lymphocytes Absolute Auto 2000 /uL (1100-4500); Lymphocytes Percent Auto 34.9 % (25-40); Mean Corpuscular HGB Conc 33.1 % (30-36); Mean Corpuscular Hemoglobin 29.5 PG (26-34); Monocytes Absolute Auto 600 /uL (0-900); Monocytes Percent Auto 10.6 % (3-14); Neutrophils Absolute Auto 2900 /uL (1500-7000); Neutrophils Percent Auto 49.9 % (50-75); Platelet Count 256 X10^3/uL (150-400); Red Blood Cell Count 4.81 X10^6/uL (4.0-5.2); Red Cell Distribution Width 14.3 % (11.6-14.8); White Blood Cell Count 5.7 X10^3/uL (4.5-11.0)
[2020-05-20 11:04] LABS: Alanine Aminotransferase 19 IU/L (<35); Albumin 4.8 g/dL (3.5-5.0); Albumin Globulin Ratio 1.7 (1.0-2.8); Alkaline Phosphatase 99 U/L (38-126); Aspartate Aminotransferase 24 IU/L (14-36); BUN Creatinine Ratio 22.2 (6-22); Bilirubin Total 0.4 mg/dL (0.2-1.3); Blood Urea Nitrogen 20 mg/dL (7-17); Calcium 9.9 mg/dL (8.4-10.2); Carbon Dioxide 31 mmol/L (22-32); Chloride 101 mmol/L (98-107); Estimated Glomerular Filt Rate > 60.0 mL/min (>60); Globulin 2.9 g/dL (1.7-4.1); Glucose 120 mg/dL (80-110); HEMOLYSIS < 15 (0-50); Potassium 4.4 mmol/L (3.4-5.1); Sodium 140 mmol/L (137-145); Total Protein 7.7 g/dL (6.3-8.2)
[2020-05-20 11:32] LABS: TSH w/ Reflex to FT4 0.25 uIU/mL (0.47-4.68)
[2020-05-20 11:58] LABS: Free T4, Direct Thyroxine 1.24 ng/dL (0.78-2.19)
== END ==
PROVIDERS: PCP Family Medicine; Referring Provider Family Medicine; Visit Provider Family Medicine
DX: E03.9 Hypothyroidism, unspecified (principal); I10 Essential (primary) hypertension
CPT/HCPCS: 36415; 80053; 84439; 84443; 85025

== ENCOUNTER 2020-09-01 12:00 | Outpatient (RCR) | payer MEDICARE, SELFPAY ==
[2020-02-25 20:34] VITALS: BMI 25.0
--- NOTE | 2020-07-03 12:45 | PT.OPPOC ---
Physical, Occupational & Speech Therapy At [facility] Current Diagnoses Foot drop, unspecified foot (07/03/20) Spinal stenosis, lumbar region with neurogenic claudication (07/03/20) Muscle weakness (generalized) (07/03/20) Postlaminectomy syndrome, not elsewhere classified (07/03/20) Visit Care Team Role Provider Type Jean Claude Daly DO Family Provider Physician Primary Care Provider Specialty: Family Practice Address: [address] [place] [address], [phone] Email: [email or web address] Archie Robertson MD Attending Provider Non-Staff Referring Provider Specialty: Neurosurgery Address: [address] [place] [address], [phone] Email: Plan Of Care PT-OP-T Assessment and Plan Start: 07/03/20 15:50 Freq: Status: Active Protocol: Document 07/03/20 12:00 DCW (Rec: 07/04/20 09:45 DCW [id number]) Physical Therapy Assessment Rehab Potential Rehabilitation Potential Good Evaluation Complexity Number of Personal Factors/Comorbidities 1-2 Number of Body Systems Impaired 3 Clinical Presentation at Evaluation Stable Impairments Impairments Activity Tolerance,Functional Activities,Functional Mobility ,Gait,ROM,Soft Tissue Mobility ,Strength Goals Three Impairment Pt core strength currently 4-/ 5 Intermediate Goal (LTG) Pt to demonstrate increased core strength to 4+/5 to improve lumbar stability LTG Duration 09/02/20 Two Impairment Pt ambulates with noticeable right foot slap 100% of the time Music Director Goal (LTG) Pt to demonstrate increased right ankle strength >4-/5 to limit foot slap and decrease falls risk related to catching her toes LTG Duration 09/02/20 One Impairment Pt does not have an appropriate home exercise program Short Term Goal (STG) Pt to be independent and compliant with an appropriate HEP STG Duration 08/02/20 Assessment Summary Assessment Pt presents with right ankle weakness, which affects her gait due to foot slap and, as she fatigues, foot drop. This creates an increased falls risk, as she will catch her foot while walking and when ascending stairs. Pt should benefit from skilled therapy focusing on improving her ankle strength, activity tolerance, and gait training to improve foot clearance. Additionally, since she is 2.5 months out from her laminectomy, pt will also benefit from core strengthening in order to help stabilize lumbar spine and improve trunk mobility. Physical Therapy Plan Frequency and Duration Frequency of Treatment 2x/Week Duration of Treatment Two months Plan of Care Start Date 07/03/20 Plan of Care End Date 09/02/20 Therapeutic Interventions Therapeutic Interventions Balance Training,Gait Training ,Home Exercise Program,Manual Therapy,Neuromuscular Re- education,Patient/Caregiver Education,Self-Care/Home Management,Soft Tissue Mobilization,Therapeutic Activities,Therapeutic Exercises Modalities Cold Pack/Ice Massage,Electric Stimulation,Hot Packs, Ultrasound Next Visit Focus/Plan Next Note Type Treatment Note Next Visit Plan Ankle strengthening, core strengthening, gait training, balance training Plan of Care Dates Plan of Care Start Date 07/03/20 Plan of Care End Date 09/02/20 Electronically Signed by: Mauro Rivera, PT 07/04/20 2745 Please Sign and Return: I have reviewed this Plan of Care and certify that the skilled therapy services above are required to meet the patient?s needs. Physician Signature Date Printed Name and Credentials Clinical Instructor Signature Printed Name and Credentials
--- NOTE | 2020-07-03 12:45 | PT.OIE ---
Current Diagnoses Foot drop, unspecified foot (07/03/20) Spinal stenosis, lumbar region with neurogenic claudication (07/03/20) Muscle weakness (generalized) (07/03/20) Postlaminectomy syndrome, not elsewhere classified (07/03/20) Past Medical History (Last Updated 05/20/20 @ 10:09 by Jean Claude Daly DO) Allergic rhinitis (1955) Chickenpox (Unknown) Chronic back pain (2006) Fall Fibromyalgia (1995) Fractures (Unknown) Hemorrhoids (1974) Herniated nucleus pulposus, L3-4 right Hypertension (Unknown) Hypertension Hypothyroidism (Unknown) Injury of left lower arm Injury of right knee Measles (Unknown) Mumps (Unknown) Postmenopausal HRT (hormone replacement therapy) Past Surgical History (Last Reviewed 03/24/20 @ 09:28 by Reuben Guillory DO) History of bladder surgery (~1972) Status post hysterectomy Status post knee surgery Visit Care Team Role Provider Type Jean Claude Daly DO Family Provider Physician Primary Care Provider Specialty: Family Practice Address: [address] [place] [address], [phone] Email: [email or web address] Archie Robertson MD Attending Provider Non-Staff Referring Provider Specialty: Neurosurgery Address: [address] [place] [address], [phone] Email: Physical Therapy Initial Evaluation PT-OP-A Visit Information Start: 07/03/20 15:50 Freq: Status: Active Protocol: Document 07/03/20 12:00 DCW (Rec: 07/03/20 15:59 DCW [id number]) Out-Patient Physical Therapy Visit Information Visit Information Visit Type Initial Evaluation Visit Start Time 12:00 Visit Stop Time 12:45 Total Visit Minutes 45 Visit Number 1 Number of ORNITHOLOGY TEACHER Visits 0 Evaluation Information Evaluation Date 07/03/20 PT-OP-B Current Condition Start: 07/03/20 15:50 Freq: Status: Active Protocol: Document 07/03/20 12:00 DCW (Rec: 07/03/20 15:59 DCW [id number]) Current Condition History of Current Condition Onset Date Three years Current Complaints Foot drop, low back pain History of Current Condition Pt is a 69 year old female presenting s/p L4-5 Laminectomy on 04/17/20. Pt notes when I don't do much, my back feels great, all the sciatic pain I was having in my left side before surgery is completely gone. Pt's biggest complaint is her right foot drop, which has actually been an issue for her for three years, following my most recent ruptured disc. Pt notes it doesn't seem to have gotten better since surgery, but it also hasn't gotten worse. Pt does admit that she fractured her right ankle one year ago when she stepped in a hole, but feels that if she had not had the ankle weakness /foot drop, she probably would have been able to stabilize herself and not broken any bones. Pt notes she has frequently caught her foot on stairs. Pt's back also bothers her when she does any lifting, or grooming, feeding, or agility training her dogs. Treatment Goals Patient/Caregiver Goals I want to make my foot drop go away, and also get my core strength better to help protect my back. PT-OP-C Subjective Start: 07/03/20 15:50 Freq: Status: Active Protocol: Document 07/03/20 12:00 DCW (Rec: 07/03/20 17:43 DCW [id number]) OP-PT Subjective Patient Comments Patient Comments I have one of those fancy leg braces to help with the drop foot, I hate it, I don't wear it. Patient Questionnaires Oswestry Low Back Index Oswestry Score 22% Oswestry Impairment 20 to 39% Impaired (Score 20- 39) OP-PT Pain Assessment Pain Assessment Grid Paper Pain Assessment Grid Completed Yes Location Bilateral Lower Back Intensity 2 Scale Used Numeric (0 - 10) PT-OP-F Manual Assessment Start: 07/03/20 15:50 Freq: Status: Active Protocol: Document 07/03/20 12:00 DCW (Rec: 07/03/20 17:43 DCW [id number]) Manual Assessments Soft Tissue Assessment Soft Tissue Mobility Assessment Limited paraspinal hypertonia along low back, surgical incision healed well, good scar tissue mobility PT-OP-G Mobility & Gait Start: 07/03/20 15:50 Freq: Status: Active Protocol: Document 07/03/20 12:00 DCW (Rec: 07/03/20 17:50 DCW [id number]) OP Gait Assessment Gait Gait Assistance Required: Independent Able to Maintain Weight Bearing Status Yes During Gait Assistive Devices Assistive Device None Orthotic/Prosthetic Devices or Brace: No Gait Deviations General Gait Pattern Decreased Feet Clearance Factors Limiting Gait Function Factors Limiting Gait Function Decreased Strength Comments Gait Comments Pt ambulated with right foot slap, occasional foot drop, mild external rotation of foot . Pt able to job, no noted toe drag, still noticeable foot slap. Stair Climbing Evaluation Evaluation Level of Assist On Stairs Independent Devices Stair Climbing Assistive Devices None Technique/Endurance Stair Climbing Direction Ascend and Descend Stair Climbing Technique Step Over Step Number of Steps Climbed 4 Stair Climbing Set # Repetitions (reps) 4 PT-OP-M Strength Start: 07/03/20 15:50 Freq: Status: Active Protocol: Document 07/03/20 12:00 DCW (Rec: 07/03/20 17:50 DCW [id number]) Trunk Strength Trunk Manual Muscle Testing Core Stabilization Able to contract TrA on request, unable to hold for extended time, difficulty holding position Hip Strength Hip Manual Muscle Testing Right Flexion (L2) 4+ Good+ Extension (S1) 4+ Good+ Abduction 4 Good Adduction 4 Good External Rotation 5 Normal Internal Rotation 5 Normal Left Flexion (L2) 4 Good Extension (S1) 4+ Good+ Abduction 4 Good Adduction 4 Good External Rotation 5 Normal Internal Rotation 5 Normal Knee Strength Knee Manual Muscle Testing Right Flexion (S2) 5 Normal Extension (L3) 5 Normal Left Flexion (S2) 5 Normal Extension (L3) 5 Normal Ankle/Foot Strength Ankle and Foot Manual Muscle Testing Right Dorsiflexion (L4) 3 Fair Plantarflexion (S1) 5 Normal Inversion 3+ Fair+ Eversion (S1) 3+ Fair+ Left Dorsiflexion (L4) 5 Normal Plantarflexion (S1) 5 Normal Inversion 5 Normal Eversion (S1) 5 Normal PT-OP-Q Treatments Start: 07/03/20 15:50 Freq: Status: Active Protocol: Document 07/03/20 12:00 DCW (Rec: 07/03/20 17:50 DCW [id number]) Therapeutic Exercises Sitting Exercises 1 Sitting Exercise Name Ankle Dorsiflexion Side right Resistance Lv 1 Equipment Used T-band PT-OP-T Assessment and Plan Start: 07/03/20 15:50 Freq: Status: Active Protocol: Document 07/03/20 12:00 DCW (Rec: 07/04/20 09:45 DCW [id number]) Physical Therapy Assessment Rehab Potential Rehabilitation Potential Good Evaluation Complexity Number of Personal Factors/Comorbidities 1-2 Number of Body Systems Impaired 3 Clinical Presentation at Evaluation Stable Impairments Impairments Activity Tolerance,Functional Activities,Functional Mobility ,Gait,ROM,Soft Tissue Mobility ,Strength Goals Three Impairment Pt core strength currently 4-/ 5 Home Appliance Tech Goal (LTG) Pt to demonstrate increased core strength to 4+/5 to improve lumbar stability LTG Duration 09/02/20 Two Impairment Pt ambulates with noticeable right foot slap 100% of the time Penitentiary Goal (LTG) Pt to demonstrate increased right ankle strength >4-/5 to limit foot slap and decrease falls risk related to catching her toes LTG Duration 09/02/20 One Impairment Pt does not have an appropriate home exercise program Short Term Goal (STG) Pt to be independent and compliant with an appropriate HEP STG Duration 08/02/20 Assessment Summary Assessment Pt presents with right ankle weakness, which affects her gait due to foot slap and, as she fatigues, foot drop. This creates an increased falls risk, as she will catch her foot while walking and when ascending stairs. Pt should benefit from skilled therapy focusing on improving her ankle strength, activity tolerance, and gait training to improve foot clearance. Additionally, since she is 2.5 months out from her laminectomy, pt will also benefit from core strengthening in order to help stabilize lumbar spine and improve trunk mobility. Physical Therapy Plan Frequency and Duration Frequency of Treatment 2x/Week Duration of Treatment Two months Plan of Care Start Date 07/03/20 Plan of Care End Date 09/02/20 Therapeutic Interventions Therapeutic Interventions Balance Training,Gait Training ,Home Exercise Program,Manual Therapy,Neuromuscular Re- education,Patient/Caregiver Education,Self-Care/Home Management,Soft Tissue Mobilization,Therapeutic Activities,Therapeutic Exercises Modalities Cold Pack/Ice Massage,Electric Stimulation,Hot Packs, Ultrasound Next Visit Focus/Plan Next Note Type Treatment Note Next Visit Plan Ankle strengthening, core strengthening, gait training, balance training
--- NOTE | 2020-07-11 11:25 | PT.OTN ---
Current Diagnoses Foot drop, unspecified foot (07/11/20) Spinal stenosis, lumbar region with neurogenic claudication (07/11/20) Muscle weakness (generalized) (07/11/20) Postlaminectomy syndrome, not elsewhere classified (07/11/20) Physical Therapy Treatment Note PT-OP-A Visit Information Start: 07/03/20 15:50 Freq: Status: Active Protocol: Document 07/11/20 10:30 SP (Rec: 07/11/20 11:46 SP [id number]) Out-Patient Physical Therapy Visit Information Visit Information Visit Type Treatment Note Visit Start Time 10:30 Visit Stop Time 11:25 Total Visit Minutes 55 Visit Number 2 Number of SHUTTLE SPOTTER Visits 1 Evaluation Information Evaluation Date 07/03/20 PT-OP-B Current Condition Start: 07/03/20 15:50 Freq: Status: Active Protocol: Document 07/03/20 12:00 DCW (Rec: 07/03/20 15:59 DCW [id number]) Current Condition History of Current Condition Onset Date Three years Current Complaints Foot drop, low back pain History of Current Condition Pt is a 69 year old female presenting s/p L4-5 Laminectomy on 04/17/20. Pt notes when I don't do much, my back feels great, all the sciatic pain I was having in my left side before surgery is completely gone. Pt's biggest complaint is her right foot drop, which has actually been an issue for her for three years, following my most recent ruptured disc. Pt notes it doesn't seem to have gotten better since surgery, but it also hasn't gotten worse. Pt does admit that she fractured her right ankle one year ago when she stepped in a hole, but feels that if she had not had the ankle weakness /foot drop, she probably would have been able to stabilize herself and not broken any bones. Pt notes she has frequently caught her foot on stairs. Pt's back also bothers her when she does any lifting , or grooming, feeding, or agility training her dogs. Treatment Goals Patient/Caregiver Goals I want to make my foot drop go away, and also get my core strength better to help protect my back. PT-OP-C Subjective Start: 07/03/20 15:50 Freq: Status: Active Protocol: Document 07/11/20 10:30 SP (Rec: 07/11/20 11:46 SP [id number]) OP-PT Subjective Patient Comments Patient Comments Pt stated in LBP is the worst it has been 7/10 pain today, reported did some sprinting on grass yesterday for dog agility training but maybe why her back is worse today. She said the doctor stated is cleared to do some walk and light jog as tolerated. PT-OP-F Manual Assessment Start: 07/03/20 15:50 Freq: Status: Active Protocol: Document 07/03/20 12:00 DCW (Rec: 07/03/20 17:43 DCW [id number]) Manual Assessments Soft Tissue Assessment Soft Tissue Mobility Assessment Limited paraspinal hypertonia along low back, surgical incision healed well, good scar tissue mobility PT-OP-G Mobility & Gait Start: 07/03/20 15:50 Freq: Status: Active Protocol: Document 07/03/20 12:00 DCW (Rec: 07/03/20 17:50 DCW [id number]) OP Gait Assessment Gait Gait Assistance Required: Independent Able to Maintain Weight Bearing Status Yes During Gait Assistive Devices Assistive Device None Orthotic/Prosthetic Devices or Brace: No Gait Deviations General Gait Pattern Decreased Feet Clearance Factors Limiting Gait Function Factors Limiting Gait Function Decreased Strength Comments Gait Comments Pt ambulated with right foot slap, occasional foot drop, mild external rotation of foot . Pt able to job, no noted toe drag, still noticeable foot slap. Stair Climbing Evaluation Evaluation Level of Assist On Stairs Independent Devices Stair Climbing Assistive Devices None Technique/Endurance Stair Climbing Direction Ascend and Descend Stair Climbing Technique Step Over Step Number of Steps Climbed 4 Stair Climbing Set # Repetitions (reps) 4 PT-OP-M Strength Start: 07/03/20 15:50 Freq: Status: Active Protocol: Document 07/03/20 12:00 DCW (Rec: 07/03/20 17:50 DCW [id number]) Trunk Strength Trunk Manual Muscle Testing Core Stabilization Able to contract TrA on request, unable to hold for extended time, difficulty holding position Hip Strength Hip Manual Muscle Testing Right Flexion (L2) 4+ Good+ Extension (S1) 4+ Good+ Abduction 4 Good Adduction 4 Good External Rotation 5 Normal Internal Rotation 5 Normal Left Flexion (L2) 4 Good Extension (S1) 4+ Good+ Abduction 4 Good Adduction 4 Good External Rotation 5 Normal Internal Rotation 5 Normal Knee Strength Knee Manual Muscle Testing Right Flexion (S2) 5 Normal Extension (L3) 5 Normal Left Flexion (S2) 5 Normal Extension (L3) 5 Normal Ankle/Foot Strength Ankle and Foot Manual Muscle Testing Right Dorsiflexion (L4) 3 Fair Plantarflexion (S1) 5 Normal Inversion 3+ Fair+ Eversion (S1) 3+ Fair+ Left Dorsiflexion (L4) 5 Normal Plantarflexion (S1) 5 Normal Inversion 5 Normal Eversion (S1) 5 Normal PT-OP-Q Treatments Start: 07/03/20 15:50 Freq: Status: Active Protocol: Document 07/11/20 10:30 SP (Rec: 07/11/20 11:46 SP [id number]) Therapeutic Exercises Supine Exercises SKTC Supine Exercise Name opposite LE straight ( added to HEP) Side bilateral Reps/Minutes 30 x2 core march Side bilateral Reps/Minutes x2, ok on R but increased intolerated pain L Comments hold for now posture press Supine Exercise Name BUE press posterior into table (added to HEP) Reps/Minutes 5 sec hold x5 Comments good core facilitation and cues as needed for maintain TA - no pain TA, pelvic tilt trng Supine Exercise Name TA 5 sec hold x10, posterior pelvic tilt pain free range Comments added to HEP Sitting Exercises glut stretch/ Fig 4 Sitting Exercise Name added to HEP Side bilateral Reps/Minutes 30 x3 1 Sitting Exercise Name Ankle Dorsiflexion (review HEP ) Side right Resistance Lv 1 Equipment Used T-band Reps/Minutes 2x10 Other Exercises self STMs Other Exercise Name gluts, paraspinals Equipment Used racquetball on wall Reps/Minutes time to tolerance PT-OP-R Modalities Start: 07/03/20 15:50 Freq: Status: Active Protocol: Document 07/11/20 10:30 SP (Rec: 07/11/20 11:46 SP [id number]) Electric Stimulation Electric Stimulation Colombian stim Body Location R tibialis anterior Duration (Minutes) 10 Frequency 5 on/ 5 off Pulse Rate 50 bps Patient Position Sitting Comments AROM DF PT-OP-T Assessment and Plan Start: 07/03/20 15:50 Freq: Status: Active Protocol: Document 07/11/20 10:30 SP (Rec: 07/11/20 11:46 SP [id number]) Physical Therapy Assessment Goals Three Impairment Pt core strength currently 4-/ 5 Machine Sprayer Goal (LTG) Pt to demonstrate increased core strength to 4+/5 to improve lumbar stability LTG Duration 09/02/20 Two Impairment Pt ambulates with noticeable right foot slap 100% of the time Long-Term Goal (LTG) Pt to demonstrate increased right ankle strength >4-/5 to limit foot slap and decrease falls risk related to catching her toes LTG Duration 09/02/20 One Impairment Pt does not have an appropriate home exercise program Short Term Goal (STG) Pt to be independent and compliant with an appropriate HEP STG Duration 08/02/20 Assessment Summary Assessment Pt tolerated core facilitation trng with initiated TA engagement, pelvic tilts, SKTC stretch supine, seated pirf stretch and review DF Tb. Incorportated Colombian stim to R tibialis anterior muscle facilitation with good tolerance, pt reported muscle tiring, noted improved AROM DF when walking out. Provided hand outs for new HEP initiated today with good understanding. Sent message to schedulers for additional appts to current 2 for further progression. Pt stated my back feels alot better then when came in. SHUTTLE SPOTTER recommended jogging may be to much on the back and as noticed R DF tires quickly and possible compensating in LB to perform activity with verbal understanding. Physical Therapy Plan Frequency and Duration Frequency of Treatment 2x/Week Duration of Treatment Two months Plan of Care Start Date 07/03/20 Plan of Care End Date 09/02/20 Therapeutic Interventions Therapeutic Interventions Balance Training,Gait Training ,Home Exercise Program,Manual Therapy,Neuromuscular Re- education,Patient/Caregiver Education,Self-Care/Home Management,Soft Tissue Mobilization,Therapeutic Activities,Therapeutic Exercises Modalities Cold Pack/Ice Massage,Electric Stimulation,Hot Packs, Ultrasound Next Visit Focus/Plan Next Note Type Treatment Note Next Visit Plan Assess response to HEP initiated see assessment. Next tx: manual if needed for LBP, improved with core facilitation/stretching today. Continue Ankle strengthening, core strengthening, gait training, balance training
--- NOTE | 2020-07-14 15:20 | PT.OTN ---
Current Diagnoses Foot drop, unspecified foot (07/14/20) Spinal stenosis, lumbar region with neurogenic claudication (07/14/20) Muscle weakness (generalized) (07/14/20) Postlaminectomy syndrome, not elsewhere classified (07/14/20) Physical Therapy Treatment Note PT-OP-A Visit Information Start: 07/03/20 15:50 Freq: Status: Active Protocol: Document 07/14/20 14:34 SP (Rec: 07/14/20 15:36 SP [id number]) Out-Patient Physical Therapy Visit Information Visit Information Visit Type Treatment Note Visit Start Time 14:34 Visit Stop Time 15:20 Total Visit Minutes 46 Visit Number 3 Number of PARTICLEBOARD FACTORY WORKER Visits 2 Evaluation Information Evaluation Date 07/03/20 PT-OP-B Current Condition Start: 07/03/20 15:50 Freq: Status: Active Protocol: Document 07/03/20 12:00 DCW (Rec: 07/03/20 15:59 DCW [id number]) Current Condition History of Current Condition Onset Date Three years Current Complaints Foot drop, low back pain History of Current Condition Pt is a 69 year old female presenting s/p L4-5 Laminectomy on 04/17/20. Pt notes when I don't do much, my back feels great, all the sciatic pain I was having in my left side before surgery is completely gone. Pt's biggest complaint is her right foot drop, which has actually been an issue for her for three years, following my most recent ruptured disc. Pt notes it doesn't seem to have gotten better since surgery, but it also hasn't gotten worse. Pt does admit that she fractured her right ankle one year ago when she stepped in a hole, but feels that if she had not had the ankle weakness /foot drop, she probably would have been able to stabilize herself and not broken any bones. Pt notes she has frequently caught her foot on stairs. Pt's back also bothers her when she does any lifting , or grooming, feeding, or agility training her dogs. Treatment Goals Patient/Caregiver Goals I want to make my foot drop go away, and also get my core strength better to help protect my back. PT-OP-C Subjective Start: 07/03/20 15:50 Freq: Status: Active Protocol: Document 07/14/20 14:34 SP (Rec: 07/14/20 15:36 SP [id number]) OP-PT Subjective Patient Comments Patient Comments Pt stated the stretches helped alot last tx and compliant with stretches and ankle strengthening w/ TB. Was able to sit in stadium chairs for 4 hrs yesterday and walked every hr with not much back pain. PT-OP-F Manual Assessment Start: 07/03/20 15:50 Freq: Status: Active Protocol: Document 07/03/20 12:00 DCW (Rec: 07/03/20 17:43 DCW [id number]) Manual Assessments Soft Tissue Assessment Soft Tissue Mobility Assessment Limited paraspinal hypertonia along low back, surgical incision healed well, good scar tissue mobility PT-OP-G Mobility & Gait Start: 07/03/20 15:50 Freq: Status: Active Protocol: Document 07/03/20 12:00 DCW (Rec: 07/03/20 17:50 DCW [id number]) OP Gait Assessment Gait Gait Assistance Required: Independent Able to Maintain Weight Bearing Status Yes During Gait Assistive Devices Assistive Device None Orthotic/Prosthetic Devices or Brace: No Gait Deviations General Gait Pattern Decreased Feet Clearance Factors Limiting Gait Function Factors Limiting Gait Function Decreased Strength Comments Gait Comments Pt ambulated with right foot slap, occasional foot drop, mild external rotation of foot . Pt able to job, no noted toe drag, still noticeable foot slap. Stair Climbing Evaluation Evaluation Level of Assist On Stairs Independent Devices Stair Climbing Assistive Devices None Technique/Endurance Stair Climbing Direction Ascend and Descend Stair Climbing Technique Step Over Step Number of Steps Climbed 4 Stair Climbing Set # Repetitions (reps) 4 PT-OP-M Strength Start: 07/03/20 15:50 Freq: Status: Active Protocol: Document 07/03/20 12:00 DCW (Rec: 07/03/20 17:50 DCW [id number]) Trunk Strength Trunk Manual Muscle Testing Core Stabilization Able to contract TrA on request, unable to hold for extended time, difficulty holding position Hip Strength Hip Manual Muscle Testing Right Flexion (L2) 4+ Good+ Extension (S1) 4+ Good+ Abduction 4 Good Adduction 4 Good External Rotation 5 Normal Internal Rotation 5 Normal Left Flexion (L2) 4 Good Extension (S1) 4+ Good+ Abduction 4 Good Adduction 4 Good External Rotation 5 Normal Internal Rotation 5 Normal Knee Strength Knee Manual Muscle Testing Right Flexion (S2) 5 Normal Extension (L3) 5 Normal Left Flexion (S2) 5 Normal Extension (L3) 5 Normal Ankle/Foot Strength Ankle and Foot Manual Muscle Testing Right Dorsiflexion (L4) 3 Fair Plantarflexion (S1) 5 Normal Inversion 3+ Fair+ Eversion (S1) 3+ Fair+ Left Dorsiflexion (L4) 5 Normal Plantarflexion (S1) 5 Normal Inversion 5 Normal Eversion (S1) 5 Normal PT-OP-Q Treatments Start: 07/03/20 15:50 Freq: Status: Active Protocol: Document 07/14/20 14:34 SP (Rec: 07/14/20 15:36 SP [id number]) Gym Equipment Shuttle Balance red Details WBOS, NBOS Comments 1. wt shift 2. stationary head turns 3. EC- unable Therapeutic Exercises Supine Exercises SKTC Supine Exercise Name opposite LE straight (review HEP) Side bilateral Reps/Minutes 30 x3 posture press Supine Exercise Name BUE press posterior into table (added to HEP) Reps/Minutes 5 sec hold x5 Comments had pain in LS so stopped today, DC continue TA TA, pelvic tilt trng Supine Exercise Name TA 5 sec hold x10, posterior pelvic tilt pain free range Comments review HEP Standing Exercises Eccentric heel toe walking Standing Exercise Name heel toe forward, toe heel backward Reps/Minutes 20 ft x2 laps Comments improved stabilitiy and DF ROM . Neuro Re-Education Treatment Balance Activities araseli stepping Details forward/ side stepping Equipment 6 hurdles Comments CG- 5% A> sBA Cued glut/core facilitation COG over LIMA, space between LEs. PT-OP-R Modalities Start: 07/03/20 15:50 Freq: Status: Active Protocol: Document 07/14/20 14:34 SP (Rec: 07/14/20 15:36 SP [id number]) Electric Stimulation Electric Stimulation Rwandan stim Body Location R tibialis anterior Duration (Minutes) 10 Frequency 5 on/ 5 off Pulse Rate 50 bps Patient Position Sitting Comments AROM DF (beginning of tx) PT-OP-T Assessment and Plan Start: 07/03/20 15:50 Freq: Status: Active Protocol: Document 07/14/20 14:34 SP (Rec: 07/14/20 15:36 SP [id number]) Physical Therapy Assessment Goals Three Impairment Pt core strength currently 4-/ 5 Prospect Manager Goal (LTG) Pt to demonstrate increased core strength to 4+/5 to improve lumbar stability LTG Duration 09/02/20 Two Impairment Pt ambulates with noticeable right foot slap 100% of the time Prospect Manager Goal (LTG) Pt to demonstrate increased right ankle strength >4-/5 to limit foot slap and decrease falls risk related to catching her toes LTG Duration 09/02/20 One Impairment Pt does not have an appropriate home exercise program Short Term Goal (STG) Pt to be independent and compliant with an appropriate HEP 07/14/20: TA engagement, SKTC, fig 4 stretching, ankle TB DF/ EV, heel to walking, hurdlestepping. STG Duration 08/02/20 Assessment Summary Assessment Pt responded well to stretching and TA trng with no LBP. Initiated heel toe/ toe heel walking f/b then carried over to araseli stepping f/side stepping with improved SL stance stability and DF ROM on RLE. Pt challenged with shuttle balance but improved self balance corrections Min> CGA, progress toward stagger and EC future tx's. Physical Therapy Plan Frequency and Duration Frequency of Treatment 2x/Week Duration of Treatment Two months Plan of Care Start Date 07/03/20 Plan of Care End Date 09/02/20 Therapeutic Interventions Therapeutic Interventions Balance Training,Gait Training ,Home Exercise Program,Manual Therapy,Neuromuscular Re- education,Patient/Caregiver Education,Self-Care/Home Management,Soft Tissue Mobilization,Therapeutic Activities,Therapeutic Exercises Modalities Cold Pack/Ice Massage,Electric Stimulation,Hot Packs, Ultrasound Next Visit Focus/Plan Next Note Type Treatment Note Next Visit Plan Assess response to Rw[place]an stim, HEP flexibility, heel toe/ toe heel walking and stepping over objects. Next tx : initiated corner balance NBOS, stagger, tandem for HEP. POC: manual if needed, Ankle strengthening, core strengthening, gait training, balance training
--- NOTE | 2020-07-17 15:16 | PT.OTN ---
Current Diagnoses Foot drop, unspecified foot (07/17/20) Spinal stenosis, lumbar region with neurogenic claudication (07/17/20) Muscle weakness (generalized) (07/17/20) Postlaminectomy syndrome, not elsewhere classified (07/17/20) Physical Therapy Treatment Note PT-OP-A Visit Information Start: 07/03/20 15:50 Freq: Status: Active Protocol: Document 07/17/20 14:30 DCW (Rec: 07/17/20 15:15 DCW [id number]) Out-Patient Physical Therapy Visit Information Visit Information Visit Type Treatment Note Visit Start Time 14:30 Visit Stop Time 15:15 Total Visit Minutes 45 Visit Number 4 Number of SOFT IRON INSPECTOR Visits 0 Evaluation Information Evaluation Date 07/03/20 PT-OP-B Current Condition Start: 07/03/20 15:50 Freq: Status: Active Protocol: Document 07/03/20 12:00 DCW (Rec: 07/03/20 15:59 DCW [id number]) Current Condition History of Current Condition Onset Date Three years Current Complaints Foot drop, low back pain History of Current Condition Pt is a 69 year old female presenting s/p L4-5 Laminectomy on 04/17/20. Pt notes when I don't do much, my back feels great, all the sciatic pain I was having in my left side before surgery is completely gone. Pt's biggest complaint is her right foot drop, which has actually been an issue for her for three years, following my most recent ruptured disc. Pt notes it doesn't seem to have gotten better since surgery, but it also hasn't gotten worse. Pt does admit that she fractured her right ankle one year ago when she stepped in a hole, but feels that if she had not had the ankle weakness /foot drop, she probably would have been able to stabilize herself and not broken any bones. Pt notes she has frequently caught her foot on stairs. Pt's back also bothers her when she does any lifting , or grooming, feeding, or agility training her dogs. Treatment Goals Patient/Caregiver Goals I want to make my foot drop go away, and also get my core strength better to help protect my back. PT-OP-C Subjective Start: 07/03/20 15:50 Freq: Status: Active Protocol: Document 07/17/20 14:30 DCW (Rec: 07/17/20 15:16 DCW [id number]) OP-PT Subjective Patient Comments Patient Comments I was doing my agility class with my dog earlier today, and it seems to be going pretty well. Patient Reported Progress Improving PT-OP-F Manual Assessment Start: 07/03/20 15:50 Freq: Status: Active Protocol: Document 07/03/20 12:00 DCW (Rec: 07/03/20 17:43 DCW [id number]) Manual Assessments Soft Tissue Assessment Soft Tissue Mobility Assessment Limited paraspinal hypertonia along low back, surgical incision healed well, good scar tissue mobility PT-OP-G Mobility & Gait Start: 07/03/20 15:50 Freq: Status: Active Protocol: Document 07/03/20 12:00 DCW (Rec: 07/03/20 17:50 DCW [id number]) OP Gait Assessment Gait Gait Assistance Required: Independent Able to Maintain Weight Bearing Status Yes During Gait Assistive Devices Assistive Device None Orthotic/Prosthetic Devices or Brace: No Gait Deviations General Gait Pattern Decreased Feet Clearance Factors Limiting Gait Function Factors Limiting Gait Function Decreased Strength Comments Gait Comments Pt ambulated with right foot slap, occasional foot drop, mild external rotation of foot . Pt able to job, no noted toe drag, still noticeable foot slap. Stair Climbing Evaluation Evaluation Level of Assist On Stairs Independent Devices Stair Climbing Assistive Devices None Technique/Endurance Stair Climbing Direction Ascend and Descend Stair Climbing Technique Step Over Step Number of Steps Climbed 4 Stair Climbing Set # Repetitions (reps) 4 PT-OP-M Strength Start: 07/03/20 15:50 Freq: Status: Active Protocol: Document 07/03/20 12:00 DCW (Rec: 07/03/20 17:50 DCW [id number]) Trunk Strength Trunk Manual Muscle Testing Core Stabilization Able to contract TrA on request, unable to hold for extended time, difficulty holding position Hip Strength Hip Manual Muscle Testing Right Flexion (L2) 4+ Good+ Extension (S1) 4+ Good+ Abduction 4 Good Adduction 4 Good External Rotation 5 Normal Internal Rotation 5 Normal Left Flexion (L2) 4 Good Extension (S1) 4+ Good+ Abduction 4 Good Adduction 4 Good External Rotation 5 Normal Internal Rotation 5 Normal Knee Strength Knee Manual Muscle Testing Right Flexion (S2) 5 Normal Extension (L3) 5 Normal Left Flexion (S2) 5 Normal Extension (L3) 5 Normal Ankle/Foot Strength Ankle and Foot Manual Muscle Testing Right Dorsiflexion (L4) 3 Fair Plantarflexion (S1) 5 Normal Inversion 3+ Fair+ Eversion (S1) 3+ Fair+ Left Dorsiflexion (L4) 5 Normal Plantarflexion (S1) 5 Normal Inversion 5 Normal Eversion (S1) 5 Normal PT-OP-Q Treatments Start: 07/03/20 15:50 Freq: Status: Active Protocol: Document 07/17/20 14:30 DCW (Rec: 07/17/20 15:15 DCW [id number]) Gym Equipment Shuttle Balance red Details Staggered, NBOS Comments 1. staggered fwd wt shift 2. EO/EC Therapeutic Exercises Supine Exercises core march Supine Exercise Name TA /c Marching Side bilateral Reps/Minutes x10 TA, pelvic tilt trng Supine Exercise Name TA 5 sec hold x10, posterior pelvic tilt pain free range Standing Exercises Calf stretch Standing Exercise Name Gastroc stretch Side bilateral Equipment Used FRANKIE Manual Therapy Treatment Joint Mobilizations 1 Joint R TF Direction Post Grade III Body Position Sitting PT-OP-R Modalities Start: 07/03/20 15:50 Freq: Status: Active Protocol: Document 07/17/20 14:30 DCW (Rec: 07/17/20 15:15 DCW [id number]) Electric Stimulation Electric Stimulation Guinean stim Body Location R tibialis anterior Duration (Minutes) 10 Intensity 43 Frequency 5 on/ 5 off Pulse Rate 50 bps Patient Position Sitting Comments AROM DF PT-OP-T Assessment and Plan Start: 07/03/20 15:50 Freq: Status: Active Protocol: Document 07/17/20 14:30 DCW (Rec: 07/17/20 15:15 DCW [id number]) Physical Therapy Assessment Goals Three Impairment Pt core strength currently 4-/ 5 Rn Wound Care Goal (LTG) Pt to demonstrate increased core strength to 4+/5 to improve lumbar stability LTG Duration 09/02/20 Two Impairment Pt ambulates with noticeable right foot slap 100% of the time Rn Wound Care Goal (LTG) Pt to demonstrate increased right ankle strength >4-/5 to limit foot slap and decrease falls risk related to catching her toes LTG Duration 09/02/20 One Impairment Pt does not have an appropriate home exercise program Short Term Goal (STG) Pt to be independent and compliant with an appropriate HEP 07/14/20: TA engagement, SKTC, fig 4 stretching, ankle TB DF/ EV, heel to walking, hurdlestepping. STG Duration 08/02/20 Assessment Summary Assessment No c/o back pain with any of her therapy activities today, even after attending her agility classes with her dog this morning. Pt seems to respond well to stretching and has some increased R ankle mobility with [place]inean stim to Anterior tib. Physical Therapy Plan Frequency and Duration Frequency of Treatment 2x/Week Duration of Treatment Two months Plan of Care Start Date 07/03/20 Plan of Care End Date 09/02/20 Therapeutic Interventions Therapeutic Interventions Balance Training,Gait Training ,Home Exercise Program,Manual Therapy,Neuromuscular Re- education,Patient/Caregiver Education,Self-Care/Home Management,Soft Tissue Mobilization,Therapeutic Activities,Therapeutic Exercises Modalities Cold Pack/Ice Massage,Electric Stimulation,Hot Packs, Ultrasound Next Visit Focus/Plan Next Note Type Treatment Note Next Visit Plan Assess response to Guinean stim, HEP flexibility, heel toe/ toe heel walking and stepping over objects. Next tx : initiated corner balance NBOS, stagger, tandem for HEP. POC: manual if needed, Ankle strengthening, core strengthening, gait training, balance training
--- NOTE | 2020-07-21 11:47 | PT.OTN ---
Current Diagnoses Foot drop, unspecified foot (07/21/20) Spinal stenosis, lumbar region with neurogenic claudication (07/21/20) Muscle weakness (generalized) (07/21/20) Postlaminectomy syndrome, not elsewhere classified (07/21/20) Physical Therapy Treatment Note PT-OP-A Visit Information Start: 07/03/20 15:50 Freq: Status: Active Protocol: Document 07/21/20 11:04 MA (Rec: 07/21/20 11:47 MA [id number]) Out-Patient Physical Therapy Visit Information Visit Information Visit Type Treatment Note Visit Start Time 11:00 Visit Stop Time 11:42 Total Visit Minutes 42 Visit Number 5 Number of LIFT BUILDER WHOLE Visits 1 PT-OP-B Current Condition Start: 07/03/20 15:50 Freq: Status: Active Protocol: Document 07/03/20 12:00 DCW (Rec: 07/03/20 15:59 DCW [id number]) Current Condition History of Current Condition Onset Date Three years Current Complaints Foot drop, low back pain History of Current Condition Pt is a 69 year old female presenting s/p L4-5 Laminectomy on 04/17/20. Pt notes when I don't do much, my back feels great, all the sciatic pain I was having in my left side before surgery is completely gone. Pt's biggest complaint is her right foot drop, which has actually been an issue for her for three years, following my most recent ruptured disc. Pt notes it doesn't seem to have gotten better since surgery, but it also hasn't gotten worse. Pt does admit that she fractured her right ankle one year ago when she stepped in a hole, but feels that if she had not had the ankle weakness /foot drop, she probably would have been able to stabilize herself and not broken any bones. Pt notes she has frequently caught her foot on stairs. Pt's back also bothers her when she does any lifting , or grooming, feeding, or agility training her dogs. Treatment Goals Patient/Caregiver Goals I want to make my foot drop go away, and also get my core strength better to help protect my back. PT-OP-C Subjective Start: 07/03/20 15:50 Freq: Status: Active Protocol: Document 07/21/20 11:04 MA (Rec: 07/21/20 11:47 MA [id number]) OP-PT Subjective Patient Comments Patient Comments I feel like I am walking better when I consciously think about stepping heel- toe PT-OP-F Manual Assessment Start: 07/03/20 15:50 Freq: Status: Active Protocol: Document 07/03/20 12:00 DCW (Rec: 07/03/20 17:43 DCW [id number]) Manual Assessments Soft Tissue Assessment Soft Tissue Mobility Assessment Limited paraspinal hypertonia along low back, surgical incision healed well, good scar tissue mobility PT-OP-G Mobility & Gait Start: 07/03/20 15:50 Freq: Status: Active Protocol: Document 07/03/20 12:00 DCW (Rec: 07/03/20 17:50 DCW [id number]) OP Gait Assessment Gait Gait Assistance Required: Independent Able to Maintain Weight Bearing Status Yes During Gait Assistive Devices Assistive Device None Orthotic/Prosthetic Devices or Brace: No Gait Deviations General Gait Pattern Decreased Feet Clearance Factors Limiting Gait Function Factors Limiting Gait Function Decreased Strength Comments Gait Comments Pt ambulated with right foot slap, occasional foot drop, mild external rotation of foot . Pt able to job, no noted toe drag, still noticeable foot slap. Stair Climbing Evaluation Evaluation Level of Assist On Stairs Independent Devices Stair Climbing Assistive Devices None Technique/Endurance Stair Climbing Direction Ascend and Descend Stair Climbing Technique Step Over Step Number of Steps Climbed 4 Stair Climbing Set # Repetitions (reps) 4 PT-OP-M Strength Start: 07/03/20 15:50 Freq: Status: Active Protocol: Document 07/03/20 12:00 DCW (Rec: 07/03/20 17:50 DCW [id number]) Trunk Strength Trunk Manual Muscle Testing Core Stabilization Able to contract TrA on request, unable to hold for extended time, difficulty holding position Hip Strength Hip Manual Muscle Testing Right Flexion (L2) 4+ Good+ Extension (S1) 4+ Good+ Abduction 4 Good Adduction 4 Good External Rotation 5 Normal Internal Rotation 5 Normal Left Flexion (L2) 4 Good Extension (S1) 4+ Good+ Abduction 4 Good Adduction 4 Good External Rotation 5 Normal Internal Rotation 5 Normal Knee Strength Knee Manual Muscle Testing Right Flexion (S2) 5 Normal Extension (L3) 5 Normal Left Flexion (S2) 5 Normal Extension (L3) 5 Normal Ankle/Foot Strength Ankle and Foot Manual Muscle Testing Right Dorsiflexion (L4) 3 Fair Plantarflexion (S1) 5 Normal Inversion 3+ Fair+ Eversion (S1) 3+ Fair+ Left Dorsiflexion (L4) 5 Normal Plantarflexion (S1) 5 Normal Inversion 5 Normal Eversion (S1) 5 Normal PT-OP-Q Treatments Start: 07/03/20 15:50 Freq: Status: Active Protocol: Document 07/21/20 11:04 MA (Rec: 07/21/20 11:47 MA [id number]) Gym Equipment Shuttle Balance red Details Staggered, NBOS Comments 1. staggered fwd wt shift 2. EO/EC Therapeutic Exercises Supine Exercises core march Supine Exercise Name TA /c Marching Side bilateral Reps/Minutes x10 TA, pelvic tilt trng Supine Exercise Name TA 5 sec hold x10, posterior pelvic tilt pain free range Standing Exercises Calf stretch Standing Exercise Name Gastroc stretch Side bilateral Equipment Used FRANKIE Comments on stair at end of session for HEP Eccentric heel toe walking Standing Exercise Name heel toe forward, toe heel backward Reps/Minutes 20 ft x2 laps Comments improved stabilitiy and DF ROM . Self-Care/Home Management Treatment Education Patient Education Home Exercise Program Other Education Added to HEP calf stretch on stair at home PT-OP-R Modalities Start: 07/03/20 15:50 Freq: Status: Active Protocol: Document 07/21/20 11:04 MA (Rec: 07/21/20 11:47 MA [id number]) Electric Stimulation Electric Stimulation Malaysian stim Body Location R tibialis anterior Duration (Minutes) 10 Intensity 55 Frequency 10 on/ 10 off Pulse Rate 50 bps Patient Position Sitting Comments AROM DF PT-OP-T Assessment and Plan Start: 07/03/20 15:50 Freq: Status: Active Protocol: Document 07/21/20 11:04 MA (Rec: 07/21/20 11:47 MA [id number]) Physical Therapy Assessment Goals Three Impairment Pt core strength currently 4-/ 5 Vacuum Repairer Goal (LTG) Pt to demonstrate increased core strength to 4+/5 to improve lumbar stability LTG Duration 09/02/20 Two Impairment Pt ambulates with noticeable right foot slap 100% of the time Mcc Goal (LTG) Pt to demonstrate increased right ankle strength >4-/5 to limit foot slap and decrease falls risk related to catching her toes LTG Duration 09/02/20 One Impairment Pt does not have an appropriate home exercise program Short Term Goal (STG) Pt to be independent and compliant with an appropriate HEP 07/14/20: TA engagement, SKTC, fig 4 stretching, ankle TB DF/ EV, heel to walking, hurdlestepping. STG Duration 08/02/20 Assessment Summary Assessment Moira has been having less LBP since starting therapy. She does well with her supine core exercises activating TrA but needs cues to keep using her core during balance work to avoid LBP. Once cued, pt has no pain on shuttle balance. Pt would like to focus on working on improving her DF. Added calf stretch on stair to HEP and continued DF AROM with e-stim. Physical Therapy Plan Frequency and Duration Frequency of Treatment 2x/Week Duration of Treatment Two months Plan of Care Start Date 07/03/20 Plan of Care End Date 09/02/20 Therapeutic Interventions Therapeutic Interventions Balance Training,Gait Training ,Home Exercise Program,Manual Therapy,Neuromuscular Re- education,Patient/Caregiver Education,Self-Care/Home Management,Soft Tissue Mobilization,Therapeutic Activities,Therapeutic Exercises Modalities Cold Pack/Ice Massage,Electric Stimulation,Hot Packs, Ultrasound Next Visit Focus/Plan Next Note Type Treatment Note Next Visit Plan Assess response to Malaysian stim, HEP flexibility, heel toe/ toe heel walking and stepping over objects. Next tx : initiated corner balance NBOS, stagger, tandem for HEP. POC: manual if needed, Ankle strengthening, core strengthening, gait training, balance training
--- NOTE | 2020-07-25 12:02 | PT.OTN ---
Current Diagnoses Foot drop, unspecified foot (07/25/20) Spinal stenosis, lumbar region with neurogenic claudication (07/25/20) Muscle weakness (generalized) (07/25/20) Postlaminectomy syndrome, not elsewhere classified (07/25/20) Physical Therapy Treatment Note PT-OP-A Visit Information Start: 07/03/20 15:50 Freq: Status: Active Protocol: Document 07/25/20 11:17 MA (Rec: 07/25/20 12:02 MA [id number]) Out-Patient Physical Therapy Visit Information Visit Information Visit Type Treatment Note Visit Start Time 11:15 Visit Stop Time 12:00 Total Visit Minutes 45 Visit Number 6 Number of CLOTHES DRIER ASSEMBLER Visits 2 PT-OP-B Current Condition Start: 07/03/20 15:50 Freq: Status: Active Protocol: Document 07/03/20 12:00 DCW (Rec: 07/03/20 15:59 DCW [id number]) Current Condition History of Current Condition Onset Date Three years Current Complaints Foot drop, low back pain History of Current Condition Pt is a 69 year old female presenting s/p L4-5 Laminectomy on 04/17/20. Pt notes when I don't do much, my back feels great, all the sciatic pain I was having in my left side before surgery is completely gone. Pt's biggest complaint is her right foot drop, which has actually been an issue for her for three years, following my most recent ruptured disc. Pt notes it doesn't seem to have gotten better since surgery, but it also hasn't gotten worse. Pt does admit that she fractured her right ankle one year ago when she stepped in a hole, but feels that if she had not had the ankle weakness /foot drop, she probably would have been able to stabilize herself and not broken any bones. Pt notes she has frequently caught her foot on stairs. Pt's back also bothers her when she does any lifting , or grooming, feeding, or agility training her dogs. Treatment Goals Patient/Caregiver Goals I want to make my foot drop go away, and also get my core strength better to help protect my back. PT-OP-C Subjective Start: 07/03/20 15:50 Freq: Status: Active Protocol: Document 07/25/20 11:17 MA (Rec: 07/25/20 12:02 MA [id number]) OP-PT Subjective Patient Comments Patient Comments Pt did a lot this week and her back is bothering her more and she feels like she is slapping her foot more due to fatigue. She feels her foot is getting more numb as well PT-OP-F Manual Assessment Start: 07/03/20 15:50 Freq: Status: Active Protocol: Document 07/03/20 12:00 DCW (Rec: 07/03/20 17:43 DCW [id number]) Manual Assessments Soft Tissue Assessment Soft Tissue Mobility Assessment Limited paraspinal hypertonia along low back, surgical incision healed well, good scar tissue mobility PT-OP-G Mobility & Gait Start: 07/03/20 15:50 Freq: Status: Active Protocol: Document 07/03/20 12:00 DCW (Rec: 07/03/20 17:50 DCW [id number]) OP Gait Assessment Gait Gait Assistance Required: Independent Able to Maintain Weight Bearing Status Yes During Gait Assistive Devices Assistive Device None Orthotic/Prosthetic Devices or Brace: No Gait Deviations General Gait Pattern Decreased Feet Clearance Factors Limiting Gait Function Factors Limiting Gait Function Decreased Strength Comments Gait Comments Pt ambulated with right foot slap, occasional foot drop, mild external rotation of foot . Pt able to job, no noted toe drag, still noticeable foot slap. Stair Climbing Evaluation Evaluation Level of Assist On Stairs Independent Devices Stair Climbing Assistive Devices None Technique/Endurance Stair Climbing Direction Ascend and Descend Stair Climbing Technique Step Over Step Number of Steps Climbed 4 Stair Climbing Set # Repetitions (reps) 4 PT-OP-M Strength Start: 07/03/20 15:50 Freq: Status: Active Protocol: Document 07/03/20 12:00 DCW (Rec: 07/03/20 17:50 DCW [id number]) Trunk Strength Trunk Manual Muscle Testing Core Stabilization Able to contract TrA on request, unable to hold for extended time, difficulty holding position Hip Strength Hip Manual Muscle Testing Right Flexion (L2) 4+ Good+ Extension (S1) 4+ Good+ Abduction 4 Good Adduction 4 Good External Rotation 5 Normal Internal Rotation 5 Normal Left Flexion (L2) 4 Good Extension (S1) 4+ Good+ Abduction 4 Good Adduction 4 Good External Rotation 5 Normal Internal Rotation 5 Normal Knee Strength Knee Manual Muscle Testing Right Flexion (S2) 5 Normal Extension (L3) 5 Normal Left Flexion (S2) 5 Normal Extension (L3) 5 Normal Ankle/Foot Strength Ankle and Foot Manual Muscle Testing Right Dorsiflexion (L4) 3 Fair Plantarflexion (S1) 5 Normal Inversion 3+ Fair+ Eversion (S1) 3+ Fair+ Left Dorsiflexion (L4) 5 Normal Plantarflexion (S1) 5 Normal Inversion 5 Normal Eversion (S1) 5 Normal PT-OP-Q Treatments Start: 07/03/20 15:50 Freq: Status: Active Protocol: Document 07/25/20 11:17 MA (Rec: 07/25/20 12:02 MA [id number]) Therapeutic Exercises Sitting Exercises Stool exercise Sitting Exercise Name rolling stool DF pulling fwd Side bilateral Resistance on carpet Reps/Minutes 2x25 ft Comments cues to keep toes pointing up Standing Exercises DF Side bilateral Reps/Minutes 10 Calf stretch Standing Exercise Name Gastroc stretch Side bilateral Equipment Used FRANKIE Comments on stair at end of session for HEP Eccentric heel toe walking Standing Exercise Name heel toe forward, toe heel backward Reps/Minutes 20 ft x2 laps Comments improved stabilitiy and DF ROM . Neuro Re-Education Treatment Balance Activities Corner balance Reps/Duration 5 min Comments WBOS, NBOS, tandem - Added to HEP PT-OP-R Modalities Start: 07/03/20 15:50 Freq: Status: Active Protocol: Document 07/25/20 11:17 MA (Rec: 07/25/20 12:02 MA [id number]) Electric Stimulation Electric Stimulation Ukrainian stim Body Location R tibialis anterior Duration (Minutes) 10 Intensity 64 Frequency 10 on/ 10 off Pulse Rate 50 bps Patient Position Sitting Comments AROM DF PT-OP-T Assessment and Plan Start: 07/03/20 15:50 Freq: Status: Active Protocol: Document 07/25/20 11:17 MA (Rec: 07/25/20 12:02 MA [id number]) Physical Therapy Assessment Goals Three Impairment Pt core strength currently 4-/ 5 Usp Goal (LTG) Pt to demonstrate increased core strength to 4+/5 to improve lumbar stability LTG Duration 09/02/20 Two Impairment Pt ambulates with noticeable right foot slap 100% of the time Drafter Cartographic Goal (LTG) Pt to demonstrate increased right ankle strength >4-/5 to limit foot slap and decrease falls risk related to catching her toes LTG Duration 09/02/20 One Impairment Pt does not have an appropriate home exercise program Short Term Goal (STG) Pt to be independent and compliant with an appropriate HEP 07/14/20: TA engagement, SKTC, fig 4 stretching, ankle TB DF/ EV, heel to walking, hurdlestepping. STG Duration 08/02/20 Assessment Summary Assessment Moira arrived with decreaesd DF ROM likely due to increased activity this week. Worked on DF pulling fwd while sitting on stool and heel-toe walking, emphasizing keeping toes up. Added DF with rolling chair at home, heel-toe walking, calf stretch on stair, and corner balance to HEP activities. Moira had increased DF ROM with e-stim and could tolerate increased intensity today to 64. Physical Therapy Plan Frequency and Duration Frequency of Treatment 2x/Week Duration of Treatment Two months Plan of Care Start Date 07/03/20 Plan of Care End Date 09/02/20 Therapeutic Interventions Therapeutic Interventions Balance Training,Gait Training ,Home Exercise Program,Manual Therapy,Neuromuscular Re- education,Patient/Caregiver Education,Self-Care/Home Management,Soft Tissue Mobilization,Therapeutic Activities,Therapeutic Exercises Modalities Cold Pack/Ice Massage,Electric Stimulation,Hot Packs, Ultrasound Next Visit Focus/Plan Next Note Type Treatment Note Next Visit Plan Assess response to new HEP- corner balance, heel-toe walking, DF rolling chair pull , and calf stretch. Ukrainian stim, HEP flexibility, heel toe/ toe heel walking and stepping over objects. POC: manual if needed, Ankle strengthening, core strengthening, gait training, balance training
--- NOTE | 2020-07-28 11:35 | PT.OTN ---
Current Diagnoses Foot drop, unspecified foot (07/28/20) Spinal stenosis, lumbar region with neurogenic claudication (07/28/20) Muscle weakness (generalized) (07/28/20) Postlaminectomy syndrome, not elsewhere classified (07/28/20) Physical Therapy Treatment Note PT-OP-A Visit Information Start: 07/03/20 15:50 Freq: Status: Active Protocol: Document 07/28/20 10:46 SP (Rec: 07/28/20 11:48 SP [id number]) Out-Patient Physical Therapy Visit Information Visit Information Visit Type Treatment Note Visit Start Time 10:35 Visit Stop Time 11:35 Total Visit Minutes 60 Visit Number 7 Number of FARM CONSULTANT Visits 3 Evaluation Information Evaluation Date 07/03/20 PT-OP-B Current Condition Start: 07/03/20 15:50 Freq: Status: Active Protocol: Document 07/03/20 12:00 DCW (Rec: 07/03/20 15:59 DCW [id number]) Current Condition History of Current Condition Onset Date Three years Current Complaints Foot drop, low back pain History of Current Condition Pt is a 69 year old female presenting s/p L4-5 Laminectomy on 04/17/20. Pt notes when I don't do much, my back feels great, all the sciatic pain I was having in my left side before surgery is completely gone. Pt's biggest complaint is her right foot drop, which has actually been an issue for her for three years, following my most recent ruptured disc. Pt notes it doesn't seem to have gotten better since surgery, but it also hasn't gotten worse. Pt does admit that she fractured her right ankle one year ago when she stepped in a hole, but feels that if she had not had the ankle weakness /foot drop, she probably would have been able to stabilize herself and not broken any bones. Pt notes she has frequently caught her foot on stairs. Pt's back also bothers her when she does any lifting , or grooming, feeding, or agility training her dogs. Treatment Goals Patient/Caregiver Goals I want to make my foot drop go away, and also get my core strength better to help protect my back. PT-OP-C Subjective Start: 07/03/20 15:50 Freq: Status: Active Protocol: Document 07/28/20 10:46 SP (Rec: 07/28/20 11:48 SP [id number]) OP-PT Subjective Patient Comments Patient Comments Pt stated LB 1-2/10 discomfort . Her DF improved and stated compliant with heel toe walking, is the most challenging ex does. PT-OP-F Manual Assessment Start: 07/03/20 15:50 Freq: Status: Active Protocol: Document 07/03/20 12:00 DCW (Rec: 07/03/20 17:43 DCW [id number]) Manual Assessments Soft Tissue Assessment Soft Tissue Mobility Assessment Limited paraspinal hypertonia along low back, surgical incision healed well, good scar tissue mobility PT-OP-G Mobility & Gait Start: 07/03/20 15:50 Freq: Status: Active Protocol: Document 07/03/20 12:00 DCW (Rec: 07/03/20 17:50 DCW [id number]) OP Gait Assessment Gait Gait Assistance Required: Independent Able to Maintain Weight Bearing Status Yes During Gait Assistive Devices Assistive Device None Orthotic/Prosthetic Devices or Brace: No Gait Deviations General Gait Pattern Decreased Feet Clearance Factors Limiting Gait Function Factors Limiting Gait Function Decreased Strength Comments Gait Comments Pt ambulated with right foot slap, occasional foot drop, mild external rotation of foot . Pt able to job, no noted toe drag, still noticeable foot slap. Stair Climbing Evaluation Evaluation Level of Assist On Stairs Independent Devices Stair Climbing Assistive Devices None Technique/Endurance Stair Climbing Direction Ascend and Descend Stair Climbing Technique Step Over Step Number of Steps Climbed 4 Stair Climbing Set # Repetitions (reps) 4 PT-OP-M Strength Start: 07/03/20 15:50 Freq: Status: Active Protocol: Document 07/03/20 12:00 DCW (Rec: 07/03/20 17:50 DCW [id number]) Trunk Strength Trunk Manual Muscle Testing Core Stabilization Able to contract TrA on request, unable to hold for extended time, difficulty holding position Hip Strength Hip Manual Muscle Testing Right Flexion (L2) 4+ Good+ Extension (S1) 4+ Good+ Abduction 4 Good Adduction 4 Good External Rotation 5 Normal Internal Rotation 5 Normal Left Flexion (L2) 4 Good Extension (S1) 4+ Good+ Abduction 4 Good Adduction 4 Good External Rotation 5 Normal Internal Rotation 5 Normal Knee Strength Knee Manual Muscle Testing Right Flexion (S2) 5 Normal Extension (L3) 5 Normal Left Flexion (S2) 5 Normal Extension (L3) 5 Normal Ankle/Foot Strength Ankle and Foot Manual Muscle Testing Right Dorsiflexion (L4) 3 Fair Plantarflexion (S1) 5 Normal Inversion 3+ Fair+ Eversion (S1) 3+ Fair+ Left Dorsiflexion (L4) 5 Normal Plantarflexion (S1) 5 Normal Inversion 5 Normal Eversion (S1) 5 Normal PT-OP-Q Treatments Start: 07/03/20 15:50 Freq: Status: Active Protocol: Document 07/28/20 10:46 SP (Rec: 07/28/20 11:48 SP [id number]) Gym Equipment Shuttle Balance red Details Staggered, NBOS Comments 1. NBOS & staggered fwd/bkwd wt shift 2. head turns 3.EO/EC Sport Cord green Exercise Details f/b/side stepping Reps/Duration x3-5 reps each direction Comments cued TA facil and COG over [place] slow eccentric control Therapeutic Exercises Supine Exercises core march Supine Exercise Name TA x5 reps single> sequencial DL lift/ lower Side bilateral Reps/Minutes x5 reps sequencial lead each LE Comments occasional cues for slow con/ eccentric lift w/ TA fac TA, pelvic tilt trng Supine Exercise Name TA 5 sec hold x10, posterior pelvic tilt pain free range Standing Exercises Calf stretch Standing Exercise Name Gastroc stretch double leg Side bilateral Equipment Used off 4 step Comments cued COG over [place] not having to told on at firm Eccentric heel toe walking Standing Exercise Name heel toe forward, toe heel backward Reps/Minutes 20 ft x2 laps Comments improved stabilitiy and DF ROM , cued TA soft knee flexion. Neuro Re-Education Treatment Balance Activities Corner balance Details HEP review Reps/Duration 8 min Comments NBOS, Stagger, Tandem 1. stationary balance 2. head turns 3. EC (NBOS and stagger 30 only) araseli stepping Details side stepping Reps/Duration x3 laps Comments cued upright posture, high knee forward w/ DF plantarsurface parallel with floor PT-OP-R Modalities Start: 07/03/20 15:50 Freq: Status: Active Protocol: Document 07/28/20 10:46 SP (Rec: 07/28/20 11:48 SP [id number]) Electric Stimulation Electric Stimulation [place]er stim Body Location R tibialis anterior, peroneus longus Duration (Minutes) 8 Intensity 50 Frequency 5 on/ 5 off Pulse Rate 50 bps Patient Position Sitting Comments AROM DF PT-OP-T Assessment and Plan Start: 07/03/20 15:50 Freq: Status: Active Protocol: Document 07/28/20 10:46 SP (Rec: 07/28/20 11:48 SP [id number]) Physical Therapy Assessment Goals Three Impairment Pt core strength currently 4-/ 5 Retirement Goal (LTG) Pt to demonstrate increased core strength to 4+/5 to improve lumbar stability LTG Duration 09/02/20 Two Impairment Pt ambulates with noticeable right foot slap 100% of the time Retirement Goal (LTG) Pt to demonstrate increased right ankle strength >4-/5 to limit foot slap and decrease falls risk related to catching her toes LTG Duration 09/02/20 One Impairment Pt does not have an appropriate home exercise program Short Term Goal (STG) Pt to be independent and compliant with an appropriate HEP 07/14/20: TA engagement, SKTC, fig 4 stretching, ankle TB DF/ EV, heel to walking, hurdlestepping. STG Duration 08/02/20 Assessment Summary Assessment Tx focused on HEp review while initiating TA facilitation and DF ROM during functional strengthening and balance activities, pt felt and demonstrated more aware of DF motion and ankle stabilitiy post hurdles and sport cord activities. Physical Therapy Plan Frequency and Duration Frequency of Treatment 2x/Week Duration of Treatment Two months Plan of Care Start Date 07/03/20 Plan of Care End Date 09/02/20 Therapeutic Interventions Therapeutic Interventions Balance Training,Gait Training ,Home Exercise Program,Manual Therapy,Neuromuscular Re- education,Patient/Caregiver Education,Self-Care/Home Management,Soft Tissue Mobilization,Therapeutic Activities,Therapeutic Exercises Modalities Cold Pack/Ice Massage,Electric Stimulation,Hot Packs, Ultrasound Next Visit Focus/Plan Next Note Type Treatment Note Next Visit Plan Assess response to HEP review- shuttle bal, corner balance, heel-toe walking, initiated araseli & sport cord LE and TA strengthening, calf stretch and [place]er stim. ended tx POC: manual if needed, Ankle strengthening, core strengthening, gait training, balance training
--- NOTE | 2020-07-28 11:35 | PT.OTN ---
Current Diagnoses Foot drop, unspecified foot (07/28/20) Spinal stenosis, lumbar region with neurogenic claudication (07/28/20) Muscle weakness (generalized) (07/28/20) Postlaminectomy syndrome, not elsewhere classified (07/28/20) Physical Therapy Treatment Note PT-OP-A Visit Information Start: 07/03/20 15:50 Freq: Status: Active Protocol: Document 07/28/20 10:46 SP (Rec: 07/28/20 11:48 SP [id number]) Out-Patient Physical Therapy Visit Information Visit Information Visit Type Treatment Note Visit Start Time 10:35 Visit Stop Time 11:35 Total Visit Minutes 60 Visit Number 7 Number of PREANALYTICS TEAM LEAD Visits 3 Evaluation Information Evaluation Date 07/03/20 PT-OP-B Current Condition Start: 07/03/20 15:50 Freq: Status: Active Protocol: Document 07/03/20 12:00 DCW (Rec: 07/03/20 15:59 DCW [id number]) Current Condition History of Current Condition Onset Date Three years Current Complaints Foot drop, low back pain History of Current Condition Pt is a 69 year old female presenting s/p L4-5 Laminectomy on 04/17/20. Pt notes when I don't do much, my back feels great, all the sciatic pain I was having in my left side before surgery is completely gone. Pt's biggest complaint is her right foot drop, which has actually been an issue for her for three years, following my most recent ruptured disc. Pt notes it doesn't seem to have gotten better since surgery, but it also hasn't gotten worse. Pt does admit that she fractured her right ankle one year ago when she stepped in a hole, but feels that if she had not had the ankle weakness /foot drop, she probably would have been able to stabilize herself and not broken any bones. Pt notes she has frequently caught her foot on stairs. Pt's back also bothers her when she does any lifting , or grooming, feeding, or agility training her dogs. Treatment Goals Patient/Caregiver Goals I want to make my foot drop go away, and also get my core strength better to help protect my back. PT-OP-C Subjective Start: 07/03/20 15:50 Freq: Status: Active Protocol: Document 07/28/20 10:46 SP (Rec: 07/28/20 11:48 SP [id number]) OP-PT Subjective Patient Comments Patient Comments Pt stated LB 1-2/10 discomfort . Her DF improved and stated compliant with heel toe walking, is the most challenging ex does. PT-OP-F Manual Assessment Start: 07/03/20 15:50 Freq: Status: Active Protocol: Document 07/03/20 12:00 DCW (Rec: 07/03/20 17:43 DCW [id number]) Manual Assessments Soft Tissue Assessment Soft Tissue Mobility Assessment Limited paraspinal hypertonia along low back, surgical incision healed well, good scar tissue mobility PT-OP-G Mobility & Gait Start: 07/03/20 15:50 Freq: Status: Active Protocol: Document 07/03/20 12:00 DCW (Rec: 07/03/20 17:50 DCW [id number]) OP Gait Assessment Gait Gait Assistance Required: Independent Able to Maintain Weight Bearing Status Yes During Gait Assistive Devices Assistive Device None Orthotic/Prosthetic Devices or Brace: No Gait Deviations General Gait Pattern Decreased Feet Clearance Factors Limiting Gait Function Factors Limiting Gait Function Decreased Strength Comments Gait Comments Pt ambulated with right foot slap, occasional foot drop, mild external rotation of foot . Pt able to job, no noted toe drag, still noticeable foot slap. Stair Climbing Evaluation Evaluation Level of Assist On Stairs Independent Devices Stair Climbing Assistive Devices None Technique/Endurance Stair Climbing Direction Ascend and Descend Stair Climbing Technique Step Over Step Number of Steps Climbed 4 Stair Climbing Set # Repetitions (reps) 4 PT-OP-M Strength Start: 07/03/20 15:50 Freq: Status: Active Protocol: Document 07/03/20 12:00 DCW (Rec: 07/03/20 17:50 DCW [id number]) Trunk Strength Trunk Manual Muscle Testing Core Stabilization Able to contract TrA on request, unable to hold for extended time, difficulty holding position Hip Strength Hip Manual Muscle Testing Right Flexion (L2) 4+ Good+ Extension (S1) 4+ Good+ Abduction 4 Good Adduction 4 Good External Rotation 5 Normal Internal Rotation 5 Normal Left Flexion (L2) 4 Good Extension (S1) 4+ Good+ Abduction 4 Good Adduction 4 Good External Rotation 5 Normal Internal Rotation 5 Normal Knee Strength Knee Manual Muscle Testing Right Flexion (S2) 5 Normal Extension (L3) 5 Normal Left Flexion (S2) 5 Normal Extension (L3) 5 Normal Ankle/Foot Strength Ankle and Foot Manual Muscle Testing Right Dorsiflexion (L4) 3 Fair Plantarflexion (S1) 5 Normal Inversion 3+ Fair+ Eversion (S1) 3+ Fair+ Left Dorsiflexion (L4) 5 Normal Plantarflexion (S1) 5 Normal Inversion 5 Normal Eversion (S1) 5 Normal PT-OP-Q Treatments Start: 07/03/20 15:50 Freq: Status: Active Protocol: Document 07/28/20 10:46 SP (Rec: 07/28/20 11:48 SP [id number]) Gym Equipment Shuttle Balance red Details Staggered, NBOS Comments 1. NBOS & staggered fwd/bkwd wt shift 2. head turns 3.EO/EC Sport Cord green Exercise Details f/b/side stepping Reps/Duration x3-5 reps each direction Comments cued TA facil and COG over [place] slow eccentric control Therapeutic Exercises Supine Exercises core march Supine Exercise Name TA x5 reps single> sequencial DL lift/ lower Side bilateral Reps/Minutes x5 reps sequencial lead each LE Comments occasional cues for slow con/ eccentric lift w/ TA fac TA, pelvic tilt trng Supine Exercise Name TA 5 sec hold x10, posterior pelvic tilt pain free range Standing Exercises Calf stretch Standing Exercise Name Gastroc stretch double leg Side bilateral Equipment Used off 4 step Comments cued COG over [place] not having to told on at firm Eccentric heel toe walking Standing Exercise Name heel toe forward, toe heel backward Reps/Minutes 20 ft x2 laps Comments improved stabilitiy and DF ROM , cued TA soft knee flexion. Neuro Re-Education Treatment Balance Activities SLS Comments LLE: 8, 23 RLE: 6, 4 Corner balance Details HEP review Reps/Duration 8 min Comments NBOS, Stagger, Tandem 1. stationary balance 2. head turns 3. EC (NBOS and stagger 30 only) araseli stepping Details side stepping Reps/Duration x3 laps Comments cued upright posture, high knee forward w/ DF plantarsurface parallel with floor PT-OP-R Modalities Start: 07/03/20 15:50 Freq: Status: Active Protocol: Document 07/28/20 10:46 SP (Rec: 07/28/20 11:48 SP [id number]) Electric Stimulation Electric Stimulation [place] stim Body Location R tibialis anterior, peroneus longus Duration (Minutes) 8 Intensity 50 Frequency 5 on/ 5 off Pulse Rate 50 bps Patient Position Sitting Comments AROM DF PT-OP-T Assessment and Plan Start: 07/03/20 15:50 Freq: Status: Active Protocol: Document 07/28/20 10:46 SP (Rec: 07/28/20 11:48 SP [id number]) Physical Therapy Assessment Goals Three Impairment Pt core strength currently 4-/ 5 Educational Guidance Counselor Goal (LTG) Pt to demonstrate increased core strength to 4+/5 to improve lumbar stability LTG Duration 09/02/20 Two Impairment Pt ambulates with noticeable right foot slap 100% of the time Jail Goal (LTG) Pt to demonstrate increased right ankle strength >4-/5 to limit foot slap and decrease falls risk related to catching her toes LTG Duration 09/02/20 One Impairment Pt does not have an appropriate home exercise program Short Term Goal (STG) Pt to be independent and compliant with an appropriate HEP 07/14/20: TA engagement, SKTC, fig 4 stretching, ankle TB DF/ EV, heel to walking, hurdlestepping. STG Duration 08/02/20 Assessment Summary Assessment Tx focused on HEp review while initiating TA facilitation and DF ROM during functional strengthening and balance activities, pt felt and demonstrated more aware of DF motion and ankle stabilitiy post hurdles and sport cord activities. Physical Therapy Plan Frequency and Duration Frequency of Treatment 2x/Week Duration of Treatment Two months Plan of Care Start Date 07/03/20 Plan of Care End Date 09/02/20 Therapeutic Interventions Therapeutic Interventions Balance Training,Gait Training ,Home Exercise Program,Manual Therapy,Neuromuscular Re- education,Patient/Caregiver Education,Self-Care/Home Management,Soft Tissue Mobilization,Therapeutic Activities,Therapeutic Exercises Modalities Cold Pack/Ice Massage,Electric Stimulation,Hot Packs, Ultrasound Next Visit Focus/Plan Next Note Type Treatment Note Next Visit Plan Assess response to HEP review- shuttle bal, corner balance, heel-toe walking, initiated araseli & sport cord LE and TA strengthening, calf stretch and [place] stim. ended tx POC: manual if needed, Ankle strengthening, core strengthening, gait training, balance training
--- NOTE | 2020-08-01 12:45 | PT.OTN ---
Current Diagnoses Foot drop, unspecified foot (08/01/20) Spinal stenosis, lumbar region with neurogenic claudication (08/01/20) Muscle weakness (generalized) (08/01/20) Postlaminectomy syndrome, not elsewhere classified (08/01/20) Physical Therapy Treatment Note PT-OP-A Visit Information Start: 07/03/20 15:50 Freq: Status: Active Protocol: Document 08/01/20 12:00 DCW (Rec: 08/01/20 12:45 DCW [id number]) Out-Patient Physical Therapy Visit Information Visit Information Visit Type Treatment Note Visit Start Time 12:00 Visit Stop Time 12:45 Total Visit Minutes 45 Visit Number 8 Number of CHART COMPUTER Visits 0 Evaluation Information Evaluation Date 07/03/20 PT-OP-B Current Condition Start: 07/03/20 15:50 Freq: Status: Active Protocol: Document 07/03/20 12:00 DCW (Rec: 07/03/20 15:59 DCW [id number]) Current Condition History of Current Condition Onset Date Three years Current Complaints Foot drop, low back pain History of Current Condition Pt is a 69 year old female presenting s/p L4-5 Laminectomy on 04/17/20. Pt notes when I don't do much, my back feels great, all the sciatic pain I was having in my left side before surgery is completely gone. Pt's biggest complaint is her right foot drop, which has actually been an issue for her for three years, following my most recent ruptured disc. Pt notes it doesn't seem to have gotten better since surgery, but it also hasn't gotten worse. Pt does admit that she fractured her right ankle one year ago when she stepped in a hole, but feels that if she had not had the ankle weakness /foot drop, she probably would have been able to stabilize herself and not broken any bones. Pt notes she has frequently caught her foot on stairs. Pt's back also bothers her when she does any lifting , or grooming, feeding, or agility training her dogs. Treatment Goals Patient/Caregiver Goals I want to make my foot drop go away, and also get my core strength better to help protect my back. PT-OP-C Subjective Start: 07/03/20 15:50 Freq: Status: Active Protocol: Document 08/01/20 12:00 DCW (Rec: 08/01/20 12:45 DCW [id number]) OP-PT Subjective Patient Comments Patient Comments It's not a good day, my back has been really sore since Tuesday night. PT-OP-F Manual Assessment Start: 07/03/20 15:50 Freq: Status: Active Protocol: Document 07/03/20 12:00 DCW (Rec: 07/03/20 17:43 DCW [id number]) Manual Assessments Soft Tissue Assessment Soft Tissue Mobility Assessment Limited paraspinal hypertonia along low back, surgical incision healed well, good scar tissue mobility PT-OP-G Mobility & Gait Start: 07/03/20 15:50 Freq: Status: Active Protocol: Document 07/03/20 12:00 DCW (Rec: 07/03/20 17:50 DCW [id number]) OP Gait Assessment Gait Gait Assistance Required: Independent Able to Maintain Weight Bearing Status Yes During Gait Assistive Devices Assistive Device None Orthotic/Prosthetic Devices or Brace: No Gait Deviations General Gait Pattern Decreased Feet Clearance Factors Limiting Gait Function Factors Limiting Gait Function Decreased Strength Comments Gait Comments Pt ambulated with right foot slap, occasional foot drop, mild external rotation of foot . Pt able to job, no noted toe drag, still noticeable foot slap. Stair Climbing Evaluation Evaluation Level of Assist On Stairs Independent Devices Stair Climbing Assistive Devices None Technique/Endurance Stair Climbing Direction Ascend and Descend Stair Climbing Technique Step Over Step Number of Steps Climbed 4 Stair Climbing Set # Repetitions (reps) 4 PT-OP-M Strength Start: 07/03/20 15:50 Freq: Status: Active Protocol: Document 07/03/20 12:00 DCW (Rec: 07/03/20 17:50 DCW [id number]) Trunk Strength Trunk Manual Muscle Testing Core Stabilization Able to contract TrA on request, unable to hold for extended time, difficulty holding position Hip Strength Hip Manual Muscle Testing Right Flexion (L2) 4+ Good+ Extension (S1) 4+ Good+ Abduction 4 Good Adduction 4 Good External Rotation 5 Normal Internal Rotation 5 Normal Left Flexion (L2) 4 Good Extension (S1) 4+ Good+ Abduction 4 Good Adduction 4 Good External Rotation 5 Normal Internal Rotation 5 Normal Knee Strength Knee Manual Muscle Testing Right Flexion (S2) 5 Normal Extension (L3) 5 Normal Left Flexion (S2) 5 Normal Extension (L3) 5 Normal Ankle/Foot Strength Ankle and Foot Manual Muscle Testing Right Dorsiflexion (L4) 3 Fair Plantarflexion (S1) 5 Normal Inversion 3+ Fair+ Eversion (S1) 3+ Fair+ Left Dorsiflexion (L4) 5 Normal Plantarflexion (S1) 5 Normal Inversion 5 Normal Eversion (S1) 5 Normal PT-OP-Q Treatments Start: 07/03/20 15:50 Freq: Status: Active Protocol: Document 08/01/20 12:00 DCW (Rec: 08/01/20 12:45 DCW [id number]) Gym Equipment Therapeutic Ball 1 Exercise Details Low Trunk Rotation Ball Size/Color Red - 55 cm Body Position Supine Therapeutic Exercises Supine Exercises TA, pelvic tilt trng Supine Exercise Name TA 5 sec hold x10, posterior pelvic tilt pain free range Sitting Exercises 1 Sitting Exercise Name Ankle Dorsiflexion, Inv, Ev Side right Resistance Lv 2 Equipment Used T-band Reps/Minutes 2x10 Standing Exercises Calf stretch Standing Exercise Name Gastroc stretch Side bilateral Equipment Used FRANKIE Manual Therapy Treatment Joint Mobilizations 1 Joint R TF Direction Post Grade III Body Position Sitting PT-OP-R Modalities Start: 07/03/20 15:50 Freq: Status: Active Protocol: Document 08/01/20 12:00 DCW (Rec: 08/01/20 12:45 DCW [id number]) Electric Stimulation Electric Stimulation [place] stim Body Location R tibialis anterior Duration (Minutes) 10 Intensity 42 Frequency 5 on/5 off Pulse Rate 50 bps Patient Position Sitting Comments AROM DF PT-OP-T Assessment and Plan Start: 07/03/20 15:50 Freq: Status: Active Protocol: Document 08/01/20 12:00 DCW (Rec: 08/01/20 12:45 DCW [id number]) Physical Therapy Assessment Goals Three Impairment Pt core strength currently 4-/ 5 Care Home Goal (LTG) Pt to demonstrate increased core strength to 4+/5 to improve lumbar stability LTG Duration 09/02/20 Two Impairment Pt ambulates with noticeable right foot slap 100% of the time Care Home Goal (LTG) Pt to demonstrate increased right ankle strength >4-/5 to limit foot slap and decrease falls risk related to catching her toes LTG Duration 09/02/20 One Impairment Pt does not have an appropriate home exercise program Short Term Goal (STG) Pt to be independent and compliant with an appropriate HEP 07/14/20: TA engagement, SKTC, fig 4 stretching, ankle TB DF/ EV, heel to walking, hurdlestepping. STG Duration 08/02/20 Assessment Summary Assessment ghter tx session today due to pt's flare-up of low back pain . Pt moving much more gingerly than usual, but tolerated treatment well today. PT is showing improvement in R ankle strength/mobility. Physical Therapy Plan Frequency and Duration Frequency of Treatment 2x/Week Duration of Treatment Two months Plan of Care Start Date 07/03/20 Plan of Care End Date 09/02/20 Therapeutic Interventions Therapeutic Interventions Balance Training,Gait Training ,Home Exercise Program,Manual Therapy,Neuromuscular Re- education,Patient/Caregiver Education,Self-Care/Home Management,Soft Tissue Mobilization,Therapeutic Activities,Therapeutic Exercises Modalities Cold Pack/Ice Massage,Electric Stimulation,Hot Packs, Ultrasound Next Visit Focus/Plan Next Note Type Treatment Note Next Visit Plan Assess response to lightened session d/t LBP- shuttle bal, corner balance, heel-toe walking, initiated araseli & sport cord LE and TA strengthening, calf stretch and [place] stim. ended tx POC: manual if needed, Ankle strengthening, core strengthening, gait training, balance training
--- NOTE | 2020-08-05 08:27 | PT.OTN ---
Current Diagnoses Foot drop, unspecified foot (08/05/20) Spinal stenosis, lumbar region with neurogenic claudication (08/05/20) Muscle weakness (generalized) (08/05/20) Postlaminectomy syndrome, not elsewhere classified (08/05/20) Physical Therapy Treatment Note PT-OP-A Visit Information Start: 07/03/20 15:50 Freq: Status: Active Protocol: Document 08/05/20 07:30 SP (Rec: 08/05/20 09:37 SP [id number]) Out-Patient Physical Therapy Visit Information Visit Information Visit Type Treatment Note Visit Start Time 07:30 Visit Stop Time 08:27 Total Visit Minutes 57 Visit Number 9 Number of BOX CUTTER Visits 1 Evaluation Information Evaluation Date 07/03/20 PT-OP-B Current Condition Start: 07/03/20 15:50 Freq: Status: Active Protocol: Document 07/03/20 12:00 DCW (Rec: 07/03/20 15:59 DCW [id number]) Current Condition History of Current Condition Onset Date Three years Current Complaints Foot drop, low back pain History of Current Condition Pt is a 69 year old female presenting s/p L4-5 Laminectomy on 04/17/20. Pt notes when I don't do much, my back feels great, all the sciatic pain I was having in my left side before surgery is completely gone. Pt's biggest complaint is her right foot drop, which has actually been an issue for her for three years, following my most recent ruptured disc. Pt notes it doesn't seem to have gotten better since surgery, but it also hasn't gotten worse. Pt does admit that she fractured her right ankle one year ago when she stepped in a hole, but feels that if she had not had the ankle weakness /foot drop, she probably would have been able to stabilize herself and not broken any bones. Pt notes she has frequently caught her foot on stairs. Pt's back also bothers her when she does any lifting , or grooming, feeding, or agility training her dogs. Treatment Goals Patient/Caregiver Goals I want to make my foot drop go away, and also get my core strength better to help protect my back. PT-OP-C Subjective Start: 07/03/20 15:50 Freq: Status: Active Protocol: Document 08/05/20 07:30 SP (Rec: 08/05/20 09:37 SP [id number]) OP-PT Subjective Patient Comments Patient Comments It took me through the weekend to recover from back hurting so didn't do my exercises but did do my stretches. PT-OP-F Manual Assessment Start: 07/03/20 15:50 Freq: Status: Active Protocol: Document 07/03/20 12:00 DCW (Rec: 07/03/20 17:43 DCW [id number]) Manual Assessments Soft Tissue Assessment Soft Tissue Mobility Assessment Limited paraspinal hypertonia along low back, surgical incision healed well, good scar tissue mobility PT-OP-G Mobility & Gait Start: 07/03/20 15:50 Freq: Status: Active Protocol: Document 07/03/20 12:00 DCW (Rec: 07/03/20 17:50 DCW [id number]) OP Gait Assessment Gait Gait Assistance Required: Independent Able to Maintain Weight Bearing Status Yes During Gait Assistive Devices Assistive Device None Orthotic/Prosthetic Devices or Brace: No Gait Deviations General Gait Pattern Decreased Feet Clearance Factors Limiting Gait Function Factors Limiting Gait Function Decreased Strength Comments Gait Comments Pt ambulated with right foot slap, occasional foot drop, mild external rotation of foot . Pt able to job, no noted toe drag, still noticeable foot slap. Stair Climbing Evaluation Evaluation Level of Assist On Stairs Independent Devices Stair Climbing Assistive Devices None Technique/Endurance Stair Climbing Direction Ascend and Descend Stair Climbing Technique Step Over Step Number of Steps Climbed 4 Stair Climbing Set # Repetitions (reps) 4 PT-OP-M Strength Start: 07/03/20 15:50 Freq: Status: Active Protocol: Document 07/03/20 12:00 DCW (Rec: 07/03/20 17:50 DCW [id number]) Trunk Strength Trunk Manual Muscle Testing Core Stabilization Able to contract TrA on request, unable to hold for extended time, difficulty holding position Hip Strength Hip Manual Muscle Testing Right Flexion (L2) 4+ Good+ Extension (S1) 4+ Good+ Abduction 4 Good Adduction 4 Good External Rotation 5 Normal Internal Rotation 5 Normal Left Flexion (L2) 4 Good Extension (S1) 4+ Good+ Abduction 4 Good Adduction 4 Good External Rotation 5 Normal Internal Rotation 5 Normal Knee Strength Knee Manual Muscle Testing Right Flexion (S2) 5 Normal Extension (L3) 5 Normal Left Flexion (S2) 5 Normal Extension (L3) 5 Normal Ankle/Foot Strength Ankle and Foot Manual Muscle Testing Right Dorsiflexion (L4) 3 Fair Plantarflexion (S1) 5 Normal Inversion 3+ Fair+ Eversion (S1) 3+ Fair+ Left Dorsiflexion (L4) 5 Normal Plantarflexion (S1) 5 Normal Inversion 5 Normal Eversion (S1) 5 Normal PT-OP-Q Treatments Start: 07/03/20 15:50 Freq: Status: Active Protocol: Document 08/05/20 07:30 SP (Rec: 08/05/20 09:37 SP [id number]) Gym Equipment Therapeutic Ball 1 Exercise Details Low Trunk Rotation Ball Size/Color Red - 55 cm Body Position Supine Comments LEs on tball Therapeutic Exercises Supine Exercises core may Supine Exercise Name modified to single leg lift today due to sequencing DL hurting LB Side bilateral Reps/Minutes 3x5 reps each Comments occasional cues for slow con/ eccentric lift w/ TA fac TA, pelvic tilt trng Supine Exercise Name TA 5 sec hold x10, posterior pelvic tilt pain free range Sitting Exercises glut stretch/ Fig 4 Sitting Exercise Name review HEP Side bilateral Reps/Minutes 30 x3 1 Sitting Exercise Name Ankle Dorsiflexion, Inv, Ev Side right Resistance Lv 2 (leven 3 next tx) Equipment Used T-band Reps/Minutes 2x10 Standing Exercises single leg eccentric calf raise Standing Exercise Name alterate single leg (added to HEP) Resistance AROM Equipment Used bottom step (BHR>1 HR) Reps/Minutes 6 reps R, L x10 Calf stretch Standing Exercise Name Gastroc stretch Side bilateral Equipment Used FRANKIE Eccentric heel toe walking Standing Exercise Name heel toe forward, toe heel backward Reps/Minutes 20 ft x2 laps Comments improved stabilitiy and DF ROM Other Exercises self STMs Other Exercise Name gluts, paraspinals Equipment Used racquetball on wall Reps/Minutes time to tolerance Manual Therapy Treatment Soft Tissue Mobilization STMs Body Location L >R Glut, paraspinals Mobilization Type Strumming Intensity/Depth Moderate Body Position Sidelying Comments manual and instruction self STMs racquetball and or tennis ball at wall with good response. PT-OP-R Modalities Start: 07/03/20 15:50 Freq: Status: Active Protocol: Document 08/05/20 07:30 SP (Rec: 08/05/20 09:37 SP [id number]) Electric Stimulation Electric Stimulation Beninese stim Body Location R tibialis anterior, peroneals Duration (Minutes) 10 Intensity 50 Frequency 5 on/5 off Pulse Rate 50 bps Patient Position Sitting Comments AROM DF PT-OP-T Assessment and Plan Start: 07/03/20 15:50 Freq: Status: Active Protocol: Document 08/05/20 07:30 SP (Rec: 08/05/20 09:37 SP [id number]) Physical Therapy Assessment Goals Three Impairment Pt core strength currently 4-/ 5 Payroll Master Goal (LTG) Pt to demonstrate increased core strength to 4+/5 to improve lumbar stability LTG Duration 09/02/20 Two Impairment Pt ambulates with noticeable right foot slap 100% of the time Payroll Master Goal (LTG) Pt to demonstrate increased right ankle strength >4-/5 to limit foot slap and decrease falls risk related to catching her toes LTG Duration 09/02/20 One Impairment Pt does not have an appropriate home exercise program Short Term Goal (STG) Pt to be independent and compliant with an appropriate HEP 07/14/20: TA engagement, SKTC, fig 4 stretching, ankle TB DF/ EV, heel to walking, hurdlestepping. STG Duration 08/02/20 Assessment Summary Assessment Pt responded well to ther ex, and added eccentric calf raise then carry over to heel toe walking with noted tiring after 10 ft, cued for slow eccentri control. Pt discussed wanting to get a stim unit, suggested if states NMES for muscle reeducation would be more beneficial but can still be used for LBP comfort. Pt demonstrates does have more DF AROM since starting PT although she discussed with physician may not get back full function but wants to try . Pt able to increase resistance to DF/EV/IV today, next tx increase to #3 Tb. Physical Therapy Plan Frequency and Duration Frequency of Treatment 2x/Week Duration of Treatment Two months Plan of Care Start Date 07/03/20 Plan of Care End Date 09/02/20 Therapeutic Interventions Therapeutic Interventions Balance Training,Gait Training ,Home Exercise Program,Manual Therapy,Neuromuscular Re- education,Patient/Caregiver Education,Self-Care/Home Management,Soft Tissue Mobilization,Therapeutic Activities,Therapeutic Exercises Modalities Cold Pack/Ice Massage,Electric Stimulation,Hot Packs, Ultrasound Next Visit Focus/Plan Next Note Type Treatment Note Next Visit Plan Continue POC: Ankle strengthening, core strengthening, gait training, balance training. Beninese stim end tx to DFs.
--- NOTE | 2020-08-07 17:23 | PT.OTN ---
Current Diagnoses Foot drop, unspecified foot (08/07/20) Spinal stenosis, lumbar region with neurogenic claudication (08/07/20) Muscle weakness (generalized) (08/07/20) Postlaminectomy syndrome, not elsewhere classified (08/07/20) Physical Therapy Treatment Note PT-OP-A Visit Information Start: 07/03/20 15:50 Freq: Status: Active Protocol: Document 08/07/20 16:45 DCW (Rec: 08/07/20 17:23 DCW [id number]) Out-Patient Physical Therapy Visit Information Visit Information Visit Type Treatment Note Visit Start Time 16:45 Visit Stop Time 17:30 Total Visit Minutes 10 Visit Number 0 Number of DATA CONVERSION DEVELOPER Visits 0 Evaluation Information Evaluation Date 07/03/20 PT-OP-B Current Condition Start: 07/03/20 15:50 Freq: Status: Active Protocol: Document 07/03/20 12:00 DCW (Rec: 07/03/20 15:59 DCW [id number]) Current Condition History of Current Condition Onset Date Three years Current Complaints Foot drop, low back pain History of Current Condition Pt is a 69 year old female presenting s/p L4-5 Laminectomy on 04/17/20. Pt notes when I don't do much, my back feels great, all the sciatic pain I was having in my left side before surgery is completely gone. Pt's biggest complaint is her right foot drop, which has actually been an issue for her for three years, following my most recent ruptured disc. Pt notes it doesn't seem to have gotten better since surgery, but it also hasn't gotten worse. Pt does admit that she fractured her right ankle one year ago when she stepped in a hole, but feels that if she had not had the ankle weakness /foot drop, she probably would have been able to stabilize herself and not broken any bones. Pt notes she has frequently caught her foot on stairs. Pt's back also bothers her when she does any lifting , or grooming, feeding, or agility training her dogs. Treatment Goals Patient/Caregiver Goals I want to make my foot drop go away, and also get my core strength better to help protect my back. PT-OP-C Subjective Start: 07/03/20 15:50 Freq: Status: Active Protocol: Document 08/07/20 16:45 DCW (Rec: 08/07/20 17:23 DCW [id number]) OP-PT Subjective Patient Comments Patient Comments Pt feeling good today, no continuing back pain. PT-OP-F Manual Assessment Start: 07/03/20 15:50 Freq: Status: Active Protocol: Document 07/03/20 12:00 DCW (Rec: 07/03/20 17:43 DCW [id number]) Manual Assessments Soft Tissue Assessment Soft Tissue Mobility Assessment Limited paraspinal hypertonia along low back, surgical incision healed well, good scar tissue mobility PT-OP-G Mobility & Gait Start: 07/03/20 15:50 Freq: Status: Active Protocol: Document 07/03/20 12:00 DCW (Rec: 07/03/20 17:50 DCW [id number]) OP Gait Assessment Gait Gait Assistance Required: Independent Able to Maintain Weight Bearing Status Yes During Gait Assistive Devices Assistive Device None Orthotic/Prosthetic Devices or Brace: No Gait Deviations General Gait Pattern Decreased Feet Clearance Factors Limiting Gait Function Factors Limiting Gait Function Decreased Strength Comments Gait Comments Pt ambulated with right foot slap, occasional foot drop, mild external rotation of foot . Pt able to job, no noted toe drag, still noticeable foot slap. Stair Climbing Evaluation Evaluation Level of Assist On Stairs Independent Devices Stair Climbing Assistive Devices None Technique/Endurance Stair Climbing Direction Ascend and Descend Stair Climbing Technique Step Over Step Number of Steps Climbed 4 Stair Climbing Set # Repetitions (reps) 4 PT-OP-M Strength Start: 07/03/20 15:50 Freq: Status: Active Protocol: Document 07/03/20 12:00 DCW (Rec: 07/03/20 17:50 DCW [id number]) Trunk Strength Trunk Manual Muscle Testing Core Stabilization Able to contract TrA on request, unable to hold for extended time, difficulty holding position Hip Strength Hip Manual Muscle Testing Right Flexion (L2) 4+ Good+ Extension (S1) 4+ Good+ Abduction 4 Good Adduction 4 Good External Rotation 5 Normal Internal Rotation 5 Normal Left Flexion (L2) 4 Good Extension (S1) 4+ Good+ Abduction 4 Good Adduction 4 Good External Rotation 5 Normal Internal Rotation 5 Normal Knee Strength Knee Manual Muscle Testing Right Flexion (S2) 5 Normal Extension (L3) 5 Normal Left Flexion (S2) 5 Normal Extension (L3) 5 Normal Ankle/Foot Strength Ankle and Foot Manual Muscle Testing Right Dorsiflexion (L4) 3 Fair Plantarflexion (S1) 5 Normal Inversion 3+ Fair+ Eversion (S1) 3+ Fair+ Left Dorsiflexion (L4) 5 Normal Plantarflexion (S1) 5 Normal Inversion 5 Normal Eversion (S1) 5 Normal PT-OP-Q Treatments Start: 07/03/20 15:50 Freq: Status: Active Protocol: Document 08/07/20 16:45 DCW (Rec: 08/07/20 17:23 DCW [id number]) Gym Equipment Shuttle Recovery Bilateral Heel Raises Resistance 50# Shuttle Balance red Details Staggered, NBOS Comments 1. DF/PF Therapeutic Ball 1 Exercise Details Low Trunk Rotation Ball Size/Color Red - 55 cm Body Position Supine Therapeutic Exercises Sitting Exercises 1 Sitting Exercise Name Ankle Dorsiflexion, Inv, Ev Side bilateral Resistance Lv 3 Equipment Used T-band Reps/Minutes 2x10 Standing Exercises Calf stretch Standing Exercise Name Gastroc stretch Side bilateral Equipment Used FRANKIE Manual Therapy Treatment Joint Mobilizations 1 Joint R TF Direction Post Grade III Body Position Sitting PT-OP-R Modalities Start: 07/03/20 15:50 Freq: Status: Active Protocol: Document 08/07/20 16:45 DCW (Rec: 08/07/20 17:23 DCW [id number]) Electric Stimulation Electric Stimulation Libyan stim Body Location R tibialis anterior, peroneals Duration (Minutes) 10 Intensity 46 Frequency 5 on/5 off Pulse Rate 50 bps Patient Position Sitting Comments AROM DF PT-OP-T Assessment and Plan Start: 07/03/20 15:50 Freq: Status: Active Protocol: Document 08/07/20 16:45 DCW (Rec: 08/07/20 17:23 DCW [id number]) Physical Therapy Assessment Goals Three Impairment Pt core strength currently 4-/ 5 Hide Tanner Goal (LTG) Pt to demonstrate increased core strength to 4+/5 to improve lumbar stability LTG Duration 09/02/20 Two Impairment Pt ambulates with noticeable right foot slap 100% of the time Hide Tanner Goal (LTG) Pt to demonstrate increased right ankle strength >4-/5 to limit foot slap and decrease falls risk related to catching her toes LTG Duration 09/02/20 One Impairment Pt does not have an appropriate home exercise program Short Term Goal (STG) Pt to be independent and compliant with an appropriate HEP 07/14/20: TA engagement, SKTC, fig 4 stretching, ankle TB DF/ EV, heel to walking, araseli stepping. STG Duration 08/02/20 Assessment Summary Assessment Pt progressing well overall, feels like she is ready to try an agility trial with her dog for the first time since her surgery Physical Therapy Plan Frequency and Duration Frequency of Treatment 2x/Week Duration of Treatment Two months Plan of Care Start Date 07/03/20 Plan of Care End Date 09/02/20 Therapeutic Interventions Therapeutic Interventions Balance Training,Gait Training ,Home Exercise Program,Manual Therapy,Neuromuscular Re- education,Patient/Caregiver Education,Self-Care/Home Management,Soft Tissue Mobilization,Therapeutic Activities,Therapeutic Exercises Modalities Cold Pack/Ice Massage,Electric Stimulation,Hot Packs, Ultrasound Next Visit Focus/Plan Next Note Type Treatment Note Next Visit Plan Continue POC: Ankle strengthening, core strengthening, gait training, balance training. Libyan stim end tx to DFs.
--- NOTE | 2020-08-11 11:57 | PT.OTN ---
Current Diagnoses Foot drop, unspecified foot (08/11/20) Spinal stenosis, lumbar region with neurogenic claudication (08/11/20) Muscle weakness (generalized) (08/11/20) Postlaminectomy syndrome, not elsewhere classified (08/11/20) Physical Therapy Treatment Note PT-OP-A Visit Information Start: 07/03/20 15:50 Freq: Status: Active Protocol: Document 08/11/20 11:15 DCW (Rec: 08/11/20 11:57 DCW [id number]) Out-Patient Physical Therapy Visit Information Visit Information Visit Type Treatment Note Visit Start Time 11:15 Visit Stop Time 12:00 Total Visit Minutes 45 Visit Number 11 Number of MEDICAL SERVICES COORDINATOR Visits 0 Evaluation Information Evaluation Date 07/03/20 PT-OP-B Current Condition Start: 07/03/20 15:50 Freq: Status: Active Protocol: Document 07/03/20 12:00 DCW (Rec: 07/03/20 15:59 DCW [id number]) Current Condition History of Current Condition Onset Date Three years Current Complaints Foot drop, low back pain History of Current Condition Pt is a 69 year old female presenting s/p L4-5 Laminectomy on 04/17/20. Pt notes when I don't do much, my back feels great, all the sciatic pain I was having in my left side before surgery is completely gone. Pt's biggest complaint is her right foot drop, which has actually been an issue for her for three years, following my most recent ruptured disc. Pt notes it doesn't seem to have gotten better since surgery, but it also hasn't gotten worse. Pt does admit that she fractured her right ankle one year ago when she stepped in a hole, but feels that if she had not had the ankle weakness /foot drop, she probably would have been able to stabilize herself and not broken any bones. Pt notes she has frequently caught her foot on stairs. Pt's back also bothers her when she does any lifting , or grooming, feeding, or agility training her dogs. Treatment Goals Patient/Caregiver Goals I want to make my foot drop go away, and also get my core strength better to help protect my back. PT-OP-C Subjective Start: 07/03/20 15:50 Freq: Status: Active Protocol: Document 08/11/20 11:15 DCW (Rec: 08/11/20 11:57 DCW [id number]) OP-PT Subjective Patient Comments Patient Comments Pt doing well today. PT-OP-F Manual Assessment Start: 07/03/20 15:50 Freq: Status: Active Protocol: Document 07/03/20 12:00 DCW (Rec: 07/03/20 17:43 DCW [id number]) Manual Assessments Soft Tissue Assessment Soft Tissue Mobility Assessment Limited paraspinal hypertonia along low back, surgical incision healed well, good scar tissue mobility PT-OP-G Mobility & Gait Start: 07/03/20 15:50 Freq: Status: Active Protocol: Document 07/03/20 12:00 DCW (Rec: 07/03/20 17:50 DCW [id number]) OP Gait Assessment Gait Gait Assistance Required: Independent Able to Maintain Weight Bearing Status Yes During Gait Assistive Devices Assistive Device None Orthotic/Prosthetic Devices or Brace: No Gait Deviations General Gait Pattern Decreased Feet Clearance Factors Limiting Gait Function Factors Limiting Gait Function Decreased Strength Comments Gait Comments Pt ambulated with right foot slap, occasional foot drop, mild external rotation of foot . Pt able to job, no noted toe drag, still noticeable foot slap. Stair Climbing Evaluation Evaluation Level of Assist On Stairs Independent Devices Stair Climbing Assistive Devices None Technique/Endurance Stair Climbing Direction Ascend and Descend Stair Climbing Technique Step Over Step Number of Steps Climbed 4 Stair Climbing Set # Repetitions (reps) 4 PT-OP-M Strength Start: 07/03/20 15:50 Freq: Status: Active Protocol: Document 07/03/20 12:00 DCW (Rec: 07/03/20 17:50 DCW [id number]) Trunk Strength Trunk Manual Muscle Testing Core Stabilization Able to contract TrA on request, unable to hold for extended time, difficulty holding position Hip Strength Hip Manual Muscle Testing Right Flexion (L2) 4+ Good+ Extension (S1) 4+ Good+ Abduction 4 Good Adduction 4 Good External Rotation 5 Normal Internal Rotation 5 Normal Left Flexion (L2) 4 Good Extension (S1) 4+ Good+ Abduction 4 Good Adduction 4 Good External Rotation 5 Normal Internal Rotation 5 Normal Knee Strength Knee Manual Muscle Testing Right Flexion (S2) 5 Normal Extension (L3) 5 Normal Left Flexion (S2) 5 Normal Extension (L3) 5 Normal Ankle/Foot Strength Ankle and Foot Manual Muscle Testing Right Dorsiflexion (L4) 3 Fair Plantarflexion (S1) 5 Normal Inversion 3+ Fair+ Eversion (S1) 3+ Fair+ Left Dorsiflexion (L4) 5 Normal Plantarflexion (S1) 5 Normal Inversion 5 Normal Eversion (S1) 5 Normal PT-OP-Q Treatments Start: 07/03/20 15:50 Freq: Status: Active Protocol: Document 08/11/20 11:15 DCW (Rec: 08/11/20 11:57 DCW [id number]) Gym Equipment Shuttle Recovery Bilateral Heel Raises Resistance 75# Shuttle Balance red Details DF/PF, Lat Weight shift Therapeutic Ball 1 Exercise Details Low Trunk Rotation Ball Size/Color Blue - 45 cm Body Position Supine Therapeutic Exercises Sitting Exercises 1 Sitting Exercise Name Ankle Dorsiflexion, Inv, Ev Side bilateral Resistance Lv 3 Equipment Used T-band Reps/Minutes 2x10 Standing Exercises Calf stretch Standing Exercise Name Gastroc stretch Side bilateral Equipment Used FRANKIE Manual Therapy Treatment Joint Mobilizations 1 Joint R TF Direction Post Grade III Body Position Sitting PT-OP-R Modalities Start: 07/03/20 15:50 Freq: Status: Active Protocol: Document 08/11/20 11:15 DCW (Rec: 08/11/20 11:57 DCW [id number]) Electric Stimulation Electric Stimulation Zambian stim Body Location R tibialis anterior, peroneals Duration (Minutes) 10 Intensity 53 Frequency 5 on/5 off Pulse Rate 50 bps Patient Position Sitting Comments AROM DF PT-OP-T Assessment and Plan Start: 07/03/20 15:50 Freq: Status: Active Protocol: Document 08/11/20 11:15 DCW (Rec: 08/11/20 11:57 DCW [id number]) Physical Therapy Assessment Goals Three Impairment Pt core strength currently 4-/ 5 Mcc Goal (LTG) Pt to demonstrate increased core strength to 4+/5 to improve lumbar stability LTG Duration 09/02/20 Two Impairment Pt ambulates with noticeable right foot slap 100% of the time Mcc Goal (LTG) Pt to demonstrate increased right ankle strength >4-/5 to limit foot slap and decrease falls risk related to catching her toes LTG Duration 09/02/20 One Impairment Pt does not have an appropriate home exercise program Short Term Goal (STG) Pt to be independent and compliant with an appropriate HEP 5/10/21: TA engagement, SKTC, fig 4 stretching, ankle TB DF/ EV, heel to walking, hurdlestepping. STG Duration 08/02/20 Assessment Summary Assessment Pt tolerated increased resistance well today, showing some increased DF during e- stim. Physical Therapy Plan Frequency and Duration Frequency of Treatment 2x/Week Duration of Treatment Two months Plan of Care Start Date 07/03/20 Plan of Care End Date 09/02/20 Therapeutic Interventions Therapeutic Interventions Balance Training,Gait Training ,Home Exercise Program,Manual Therapy,Neuromuscular Re- education,Patient/Caregiver Education,Self-Care/Home Management,Soft Tissue Mobilization,Therapeutic Activities,Therapeutic Exercises Modalities Cold Pack/Ice Massage,Electric Stimulation,Hot Packs, Ultrasound Next Visit Focus/Plan Next Note Type Treatment Note Next Visit Plan Continue POC: Ankle strengthening, core strengthening, gait training, balance training. [place]ambian stim end tx to DFs.
--- NOTE | 2020-08-14 17:32 | PT.OTN ---
Current Diagnoses Foot drop, unspecified foot (08/14/20) Spinal stenosis, lumbar region with neurogenic claudication (08/14/20) Muscle weakness (generalized) (08/14/20) Postlaminectomy syndrome, not elsewhere classified (08/14/20) Physical Therapy Treatment Note PT-OP-A Visit Information Start: 07/03/20 15:50 Freq: Status: Active Protocol: Document 08/14/20 16:45 DCW (Rec: 08/14/20 17:31 DCW [id number]) Out-Patient Physical Therapy Visit Information Visit Information Visit Type Treatment Note Visit Start Time 16:45 Visit Stop Time 17:30 Total Visit Minutes 45 Visit Number 12 Number of SUPERVISOR OF GUIDANCE AND TESTING Visits 0 Evaluation Information Evaluation Date 07/03/20 PT-OP-B Current Condition Start: 07/03/20 15:50 Freq: Status: Active Protocol: Document 07/03/20 12:00 DCW (Rec: 07/03/20 15:59 DCW [id number]) Current Condition History of Current Condition Onset Date Three years Current Complaints Foot drop, low back pain History of Current Condition Pt is a 69 year old female presenting s/p L4-5 Laminectomy on 04/17/20. Pt notes when I don't do much, my back feels great, all the sciatic pain I was having in my left side before surgery is completely gone. Pt's biggest complaint is her right foot drop, which has actually been an issue for her for three years, following my most recent ruptured disc. Pt notes it doesn't seem to have gotten better since surgery, but it also hasn't gotten worse. Pt does admit that she fractured her right ankle one year ago when she stepped in a hole, but feels that if she had not had the ankle weakness /foot drop, she probably would have been able to stabilize herself and not broken any bones. Pt notes she has frequently caught her foot on stairs. Pt's back also bothers her when she does any lifting , or grooming, feeding, or agility training her dogs. Treatment Goals Patient/Caregiver Goals I want to make my foot drop go away, and also get my core strength better to help protect my back. PT-OP-C Subjective Start: 07/03/20 15:50 Freq: Status: Active Protocol: Document 08/14/20 16:45 DCW (Rec: 08/14/20 17:31 DCW [id number]) OP-PT Subjective Patient Comments Patient Comments Pt reports she was practicing agility drills with her dog earlier today, and sure felt a lot better. PT-OP-F Manual Assessment Start: 07/03/20 15:50 Freq: Status: Active Protocol: Document 07/03/20 12:00 DCW (Rec: 07/03/20 17:43 DCW [id number]) Manual Assessments Soft Tissue Assessment Soft Tissue Mobility Assessment Limited paraspinal hypertonia along low back, surgical incision healed well, good scar tissue mobility PT-OP-G Mobility & Gait Start: 07/03/20 15:50 Freq: Status: Active Protocol: Document 07/03/20 12:00 DCW (Rec: 07/03/20 17:50 DCW [id number]) OP Gait Assessment Gait Gait Assistance Required: Independent Able to Maintain Weight Bearing Status Yes During Gait Assistive Devices Assistive Device None Orthotic/Prosthetic Devices or Brace: No Gait Deviations General Gait Pattern Decreased Feet Clearance Factors Limiting Gait Function Factors Limiting Gait Function Decreased Strength Comments Gait Comments Pt ambulated with right foot slap, occasional foot drop, mild external rotation of foot . Pt able to job, no noted toe drag, still noticeable foot slap. Stair Climbing Evaluation Evaluation Level of Assist On Stairs Independent Devices Stair Climbing Assistive Devices None Technique/Endurance Stair Climbing Direction Ascend and Descend Stair Climbing Technique Step Over Step Number of Steps Climbed 4 Stair Climbing Set # Repetitions (reps) 4 PT-OP-M Strength Start: 07/03/20 15:50 Freq: Status: Active Protocol: Document 07/03/20 12:00 DCW (Rec: 07/03/20 17:50 DCW [id number]) Trunk Strength Trunk Manual Muscle Testing Core Stabilization Able to contract TrA on request, unable to hold for extended time, difficulty holding position Hip Strength Hip Manual Muscle Testing Right Flexion (L2) 4+ Good+ Extension (S1) 4+ Good+ Abduction 4 Good Adduction 4 Good External Rotation 5 Normal Internal Rotation 5 Normal Left Flexion (L2) 4 Good Extension (S1) 4+ Good+ Abduction 4 Good Adduction 4 Good External Rotation 5 Normal Internal Rotation 5 Normal Knee Strength Knee Manual Muscle Testing Right Flexion (S2) 5 Normal Extension (L3) 5 Normal Left Flexion (S2) 5 Normal Extension (L3) 5 Normal Ankle/Foot Strength Ankle and Foot Manual Muscle Testing Right Dorsiflexion (L4) 3 Fair Plantarflexion (S1) 5 Normal Inversion 3+ Fair+ Eversion (S1) 3+ Fair+ Left Dorsiflexion (L4) 5 Normal Plantarflexion (S1) 5 Normal Inversion 5 Normal Eversion (S1) 5 Normal PT-OP-Q Treatments Start: 07/03/20 15:50 Freq: Status: Active Protocol: Document 08/14/20 16:45 DCW (Rec: 08/14/20 17:31 DCW [id number]) Gym Equipment Shuttle Recovery Bilateral Heel Raises Resistance 75# Shuttle Balance red Details DF/PF, Lat Weight shift Therapeutic Ball 1 Exercise Details Low Trunk Rotation Ball Size/Color Blue - 45 cm Body Position Supine Therapeutic Exercises Sitting Exercises 1 Sitting Exercise Name Ankle Dorsiflexion, Inv, Ev Side bilateral Resistance Lv 3 Equipment Used T-band Reps/Minutes 2x10 Standing Exercises Calf stretch Standing Exercise Name Gastroc stretch Side bilateral Equipment Used FRANKIE Manual Therapy Treatment Soft Tissue Mobilization STMs Body Location L >R Glut, paraspinals Mobilization Type Strumming Intensity/Depth Moderate Body Position Sidelying Comments manual and instruction self STMs racquetball and or tennis ball at wall with good response. Joint Mobilizations 1 Joint R TF Direction Post Grade III Body Position Sitting PT-OP-R Modalities Start: 07/03/20 15:50 Freq: Status: Active Protocol: Document 08/11/20 11:15 DCW (Rec: 08/11/20 11:57 DCW [id number]) Electric Stimulation Electric Stimulation Congolese stim Body Location R tibialis anterior, peroneals Duration (Minutes) 10 Intensity 53 Frequency 5 on/5 off Pulse Rate 50 bps Patient Position Sitting Comments AROM DF PT-OP-T Assessment and Plan Start: 07/03/20 15:50 Freq: Status: Active Protocol: Document 08/14/20 16:45 DCW (Rec: 08/14/20 17:31 DCW [id number]) Physical Therapy Assessment Goals Three Impairment Pt core strength currently 4-/ 5 Instrumentation Technician Goal (LTG) Pt to demonstrate increased core strength to 4+/5 to improve lumbar stability LTG Duration 09/02/20 Two Impairment Pt ambulates with noticeable right foot slap 100% of the time Instrumentation Technician Goal (LTG) Pt to demonstrate increased right ankle strength >4-/5 to limit foot slap and decrease falls risk related to catching her toes LTG Duration 09/02/20 One Impairment Pt does not have an appropriate home exercise program Short Term Goal (STG) Pt to be independent and compliant with an appropriate HEP 07/14/20: TA engagement, SKTC, fig 4 stretching, ankle TB DF/ EV, heel to walking, hurdlestepping. STG Duration 08/02/20 Assessment Summary Assessment Pt did well during treatment today, felt significantly looser following STM to left paraspinals. Physical Therapy Plan Frequency and Duration Frequency of Treatment 2x/Week Duration of Treatment Two months Plan of Care Start Date 07/03/20 Plan of Care End Date 09/02/20 Therapeutic Interventions Therapeutic Interventions Balance Training,Gait Training ,Home Exercise Program,Manual Therapy,Neuromuscular Re- education,Patient/Caregiver Education,Self-Care/Home Management,Soft Tissue Mobilization,Therapeutic Activities,Therapeutic Exercises Modalities Cold Pack/Ice Massage,Electric Stimulation,Hot Packs, Ultrasound Next Visit Focus/Plan Next Note Type Treatment Note Next Visit Plan Continue POC: Ankle strengthening, core strengthening, gait training, balance training. Congolese stim end tx to DFs.
--- NOTE | 2020-08-18 12:45 | PT.OTN ---
Current Diagnoses Foot drop, unspecified foot (08/18/20) Spinal stenosis, lumbar region with neurogenic claudication (08/18/20) Muscle weakness (generalized) (08/18/20) Postlaminectomy syndrome, not elsewhere classified (08/18/20) Physical Therapy Treatment Note PT-OP-A Visit Information Start: 07/03/20 15:50 Freq: Status: Active Protocol: Document 08/18/20 11:56 OF (Rec: 08/18/20 12:45 OF [id number]) Out-Patient Physical Therapy Visit Information Visit Information Visit Type Treatment Note Visit Start Time 11:15 Visit Stop Time 11:56 Total Visit Minutes 41 Visit Number 13 Evaluation Information Evaluation Date 07/03/20 PT-OP-B Current Condition Start: 07/03/20 15:50 Freq: Status: Active Protocol: Document 07/03/20 12:00 DCW (Rec: 07/03/20 15:59 DCW [id number]) Current Condition History of Current Condition Onset Date Three years Current Complaints Foot drop, low back pain History of Current Condition Pt is a 69 year old female presenting s/p L4-5 Laminectomy on 04/17/20. Pt notes when I don't do much, my back feels great, all the sciatic pain I was having in my left side before surgery is completely gone. Pt's biggest complaint is her right foot drop, which has actually been an issue for her for three years, following my most recent ruptured disc. Pt notes it doesn't seem to have gotten better since surgery, but it also hasn't gotten worse. Pt does admit that she fractured her right ankle one year ago when she stepped in a hole, but feels that if she had not had the ankle weakness /foot drop, she probably would have been able to stabilize herself and not broken any bones. Pt notes she has frequently caught her foot on stairs. Pt's back also bothers her when she does any lifting , or grooming, feeding, or agility training her dogs. Treatment Goals Patient/Caregiver Goals I want to make my foot drop go away, and also get my core strength better to help protect my back. PT-OP-C Subjective Start: 07/03/20 15:50 Freq: Status: Active Protocol: Document 08/18/20 11:56 OF (Rec: 08/18/20 12:45 OF [id number]) OP-PT Subjective Patient Comments Patient Comments Pt reports she was competing in dog agility this weekend. felt better, but I took an oxy afterwards Patient Reported Progress Improving OP-PT Pain Assessment Pain Assessment Grid Paper Pain Assessment Grid Completed pt denies pain during session PT-OP-F Manual Assessment Start: 07/03/20 15:50 Freq: Status: Active Protocol: Document 07/03/20 12:00 DCW (Rec: 07/03/20 17:43 DCW [id number]) Manual Assessments Soft Tissue Assessment Soft Tissue Mobility Assessment Limited paraspinal hypertonia along low back, surgical incision healed well, good scar tissue mobility PT-OP-G Mobility & Gait Start: 07/03/20 15:50 Freq: Status: Active Protocol: Document 07/03/20 12:00 DCW (Rec: 07/03/20 17:50 DCW [id number]) OP Gait Assessment Gait Gait Assistance Required: Independent Able to Maintain Weight Bearing Status Yes During Gait Assistive Devices Assistive Device None Orthotic/Prosthetic Devices or Brace: No Gait Deviations General Gait Pattern Decreased Feet Clearance Factors Limiting Gait Function Factors Limiting Gait Function Decreased Strength Comments Gait Comments Pt ambulated with right foot slap, occasional foot drop, mild external rotation of foot . Pt able to job, no noted toe drag, still noticeable foot slap. Stair Climbing Evaluation Evaluation Level of Assist On Stairs Independent Devices Stair Climbing Assistive Devices None Technique/Endurance Stair Climbing Direction Ascend and Descend Stair Climbing Technique Step Over Step Number of Steps Climbed 4 Stair Climbing Set # Repetitions (reps) 4 PT-OP-M Strength Start: 07/03/20 15:50 Freq: Status: Active Protocol: Document 07/03/20 12:00 DCW (Rec: 07/03/20 17:50 DCW [id number]) Trunk Strength Trunk Manual Muscle Testing Core Stabilization Able to contract TrA on request, unable to hold for extended time, difficulty holding position Hip Strength Hip Manual Muscle Testing Right Flexion (L2) 4+ Good+ Extension (S1) 4+ Good+ Abduction 4 Good Adduction 4 Good External Rotation 5 Normal Internal Rotation 5 Normal Left Flexion (L2) 4 Good Extension (S1) 4+ Good+ Abduction 4 Good Adduction 4 Good External Rotation 5 Normal Internal Rotation 5 Normal Knee Strength Knee Manual Muscle Testing Right Flexion (S2) 5 Normal Extension (L3) 5 Normal Left Flexion (S2) 5 Normal Extension (L3) 5 Normal Ankle/Foot Strength Ankle and Foot Manual Muscle Testing Right Dorsiflexion (L4) 3 Fair Plantarflexion (S1) 5 Normal Inversion 3+ Fair+ Eversion (S1) 3+ Fair+ Left Dorsiflexion (L4) 5 Normal Plantarflexion (S1) 5 Normal Inversion 5 Normal Eversion (S1) 5 Normal PT-OP-Q Treatments Start: 07/03/20 15:50 Freq: Status: Active Protocol: Document 08/18/20 11:56 OF (Rec: 08/18/20 12:45 OF [id number]) Gym Equipment Shuttle Balance red Details DF/PF, Lat Weight shift Reps/Duration [id number] Therapeutic Ball 1 Exercise Details Low Trunk Rotation Ball Size/Color Blue - 45 cm Body Position Supine Comments cues for keeping hips even Therapeutic Exercises Supine Exercises SKTC Supine Exercise Name opposite LE straight (review HEP) Side bilateral Reps/Minutes 30 x3 TA, pelvic tilt trng Supine Exercise Name TA 5 sec hold x10, posterior pelvic tilt pain free range Reps/Minutes [id number] Sitting Exercises glut stretch/ Fig 4 Sitting Exercise Name review HEP Side bilateral Reps/Minutes 30 x3 Standing Exercises single leg eccentric calf raise Standing Exercise Name alterate single leg (added to HEP) Resistance AROM Equipment Used bottom step (BHR>1 HR) Reps/Minutes 2x10 DF Side bilateral Reps/Minutes 2x10 Calf stretch Standing Exercise Name Gastroc stretch Side bilateral Equipment Used FRANKIE Reps/Minutes [id number] Eccentric heel toe walking Standing Exercise Name heel toe forward, toe heel backward Reps/Minutes 4x20ft Comments improved stabilitiy and DF ROM Neuro Re-Education Treatment Balance Activities SLS Comments LLE: 8, 23 RLE: 6, 4 Self-Care/Home Management Treatment Education Patient Education Body Mechanics,Home Exercise Program,Pain Management PT-OP-R Modalities Start: 07/03/20 15:50 Freq: Status: Active Protocol: Document 08/11/20 11:15 DCW (Rec: 08/11/20 11:57 DCW [id number]) Electric Stimulation Electric Stimulation Ukrainian stim Body Location R tibialis anterior, peroneals Duration (Minutes) 10 Intensity 53 Frequency 5 on/5 off Pulse Rate 50 bps Patient Position Sitting Comments AROM DF PT-OP-T Assessment and Plan Start: 07/03/20 15:50 Freq: Status: Active Protocol: Document 08/18/20 11:56 OF (Rec: 08/18/20 12:45 OF [id number]) Physical Therapy Assessment Rehab Potential Rehabilitation Potential Excellent Evaluation Complexity Number of Personal Factors/Comorbidities 1-2 Number of Body Systems Impaired 1-2 Clinical Presentation at Evaluation Evolving Impairments Impairments Pain,Strength Progress Towards Goals Progress Towards Goals Progressing Toward Goals Assessment Summary Assessment Pt did well during treatment today, felt more stable with standing balance training, cues for proper AAROM to increase L sided DF Physical Therapy Plan Next Visit Focus/Plan Next Note Type Treatment Note Next Visit Plan Continue POC: Ankle strengthening, core strengthening, gait training, balance training. Ukrainian stim end tx to DFs.
--- NOTE | 2020-08-20 16:38 | PT.OTN ---
Current Diagnoses Foot drop, unspecified foot (08/20/20) Spinal stenosis, lumbar region with neurogenic claudication (08/20/20) Muscle weakness (generalized) (08/20/20) Postlaminectomy syndrome, not elsewhere classified (08/20/20) Physical Therapy Treatment Note PT-OP-A Visit Information Start: 07/03/20 15:50 Freq: Status: Active Protocol: Document 08/20/20 16:31 OF (Rec: 08/20/20 16:38 OF [id number]) Out-Patient Physical Therapy Visit Information Visit Information Visit Type Treatment Note Visit Start Time 15:57 Visit Stop Time 16:30 Total Visit Minutes 33 Visit Number 14 Evaluation Information Evaluation Date 07/03/20 PT-OP-B Current Condition Start: 07/03/20 15:50 Freq: Status: Active Protocol: Document 07/03/20 12:00 DCW (Rec: 07/03/20 15:59 DCW [id number]) Current Condition History of Current Condition Onset Date Three years Current Complaints Foot drop, low back pain History of Current Condition Pt is a 69 year old female presenting s/p L4-5 Laminectomy on 04/17/20. Pt notes when I don't do much, my back feels great, all the sciatic pain I was having in my left side before surgery is completely gone. Pt's biggest complaint is her right foot drop, which has actually been an issue for her for three years, following my most recent ruptured disc. Pt notes it doesn't seem to have gotten better since surgery, but it also hasn't gotten worse. Pt does admit that she fractured her right ankle one year ago when she stepped in a hole, but feels that if she had not had the ankle weakness /foot drop, she probably would have been able to stabilize herself and not broken any bones. Pt notes she has frequently caught her foot on stairs. Pt's back also bothers her when she does any lifting , or grooming, feeding, or agility training her dogs. Treatment Goals Patient/Caregiver Goals I want to make my foot drop go away, and also get my core strength better to help protect my back. PT-OP-C Subjective Start: 07/03/20 15:50 Freq: Status: Active Protocol: Document 08/20/20 16:31 OF (Rec: 08/20/20 16:38 OF [id number]) OP-PT Subjective Patient Comments Patient Comments Pt states her back and glutes were sore after last tx Patient Reported Progress Improving OP-PT Pain Assessment Location Bilateral Lower Back Intensity 2 Scale Used Numeric (0 - 10) Description Aching Frequency Frequent Pain Aggravating Factors ADL's,Activity,Exercise Pain Alleviating Factors Exercise,Changing Position PT-OP-F Manual Assessment Start: 07/03/20 15:50 Freq: Status: Active Protocol: Document 07/03/20 12:00 DCW (Rec: 07/03/20 17:43 DCW [id number]) Manual Assessments Soft Tissue Assessment Soft Tissue Mobility Assessment Limited paraspinal hypertonia along low back, surgical incision healed well, good scar tissue mobility PT-OP-G Mobility & Gait Start: 07/03/20 15:50 Freq: Status: Active Protocol: Document 07/03/20 12:00 DCW (Rec: 07/03/20 17:50 DCW [id number]) OP Gait Assessment Gait Gait Assistance Required: Independent Able to Maintain Weight Bearing Status Yes During Gait Assistive Devices Assistive Device None Orthotic/Prosthetic Devices or Brace: No Gait Deviations General Gait Pattern Decreased Feet Clearance Factors Limiting Gait Function Factors Limiting Gait Function Decreased Strength Comments Gait Comments Pt ambulated with right foot slap, occasional foot drop, mild external rotation of foot . Pt able to job, no noted toe drag, still noticeable foot slap. Stair Climbing Evaluation Evaluation Level of Assist On Stairs Independent Devices Stair Climbing Assistive Devices None Technique/Endurance Stair Climbing Direction Ascend and Descend Stair Climbing Technique Step Over Step Number of Steps Climbed 4 Stair Climbing Set # Repetitions (reps) 4 PT-OP-M Strength Start: 07/03/20 15:50 Freq: Status: Active Protocol: Document 07/03/20 12:00 DCW (Rec: 07/03/20 17:50 DCW [id number]) Trunk Strength Trunk Manual Muscle Testing Core Stabilization Able to contract TrA on request, unable to hold for extended time, difficulty holding position Hip Strength Hip Manual Muscle Testing Right Flexion (L2) 4+ Good+ Extension (S1) 4+ Good+ Abduction 4 Good Adduction 4 Good External Rotation 5 Normal Internal Rotation 5 Normal Left Flexion (L2) 4 Good Extension (S1) 4+ Good+ Abduction 4 Good Adduction 4 Good External Rotation 5 Normal Internal Rotation 5 Normal Knee Strength Knee Manual Muscle Testing Right Flexion (S2) 5 Normal Extension (L3) 5 Normal Left Flexion (S2) 5 Normal Extension (L3) 5 Normal Ankle/Foot Strength Ankle and Foot Manual Muscle Testing Right Dorsiflexion (L4) 3 Fair Plantarflexion (S1) 5 Normal Inversion 3+ Fair+ Eversion (S1) 3+ Fair+ Left Dorsiflexion (L4) 5 Normal Plantarflexion (S1) 5 Normal Inversion 5 Normal Eversion (S1) 5 Normal PT-OP-Q Treatments Start: 07/03/20 15:50 Freq: Status: Active Protocol: Document 08/20/20 16:31 OF (Rec: 08/20/20 16:38 OF [id number]) Therapeutic Exercises Sitting Exercises glut stretch/ Fig 4 Sitting Exercise Name review HEP Side bilateral Reps/Minutes 30 x3 1 Sitting Exercise Name Ankle Dorsiflexion, Inv, Ev Side bilateral Resistance bodyweight Equipment Used standing Reps/Minutes 2x10 Standing Exercises single leg eccentric calf raise Standing Exercise Name alterate single leg (added to HEP), dual for steps Resistance AROM Equipment Used bottom step (BHR>1 HR) Reps/Minutes 2x10 DF Side bilateral Reps/Minutes 2x10 Calf stretch Standing Exercise Name Gastroc stretch Side bilateral Equipment Used FRANKIE Reps/Minutes [id number] Gait Training Gait Activity level+steps Description pt requires demo for step through gait, cues for increased pushoff Level of Assistance sba Distance/Duration 150 Comments 4 steps x5 reps, rail, improved foot clearance. 150ft over level surfaces x5 bouts, cues for increased control of foot flat PT-OP-R Modalities Start: 07/03/20 15:50 Freq: Status: Active Protocol: Document 08/11/20 11:15 DCW (Rec: 08/11/20 11:57 DCW [id number]) Electric Stimulation Electric Stimulation Mongolian stim Body Location R tibialis anterior, peroneals Duration (Minutes) 10 Intensity 53 Frequency 5 on/5 off Pulse Rate 50 bps Patient Position Sitting Comments AROM DF PT-OP-T Assessment and Plan Start: 07/03/20 15:50 Freq: Status: Active Protocol: Document 08/20/20 16:31 OF (Rec: 08/20/20 16:38 OF [id number]) Physical Therapy Assessment Rehab Potential Rehabilitation Potential Excellent Evaluation Complexity Number of Personal Factors/Comorbidities 1-2 Number of Body Systems Impaired 1-2 Clinical Presentation at Evaluation Stable Impairments Impairments Gait,Pain,ROM,Strength Progress Towards Goals Progress Towards Goals Progressing Toward Goals Assessment Summary Assessment Pt demonstrates improved control of R LE with balance training and SLS for therex. She has impaired gait pattern and difficulty with stairs. She is improving HEP performance and has less frequent pain despite pain after last visit Physical Therapy Plan Next Visit Focus/Plan Next Note Type Treatment Note Next Visit Plan assess for HEP with dual or single heel lifts/eccentric control, sit to stands for glutes. Pt aware of resting during HEP if back pain returns
--- NOTE | 2020-08-25 13:57 | PT.OTN ---
Current Diagnoses Foot drop, unspecified foot (08/25/20) Spinal stenosis, lumbar region with neurogenic claudication (08/25/20) Muscle weakness (generalized) (08/25/20) Postlaminectomy syndrome, not elsewhere classified (08/25/20) Physical Therapy Treatment Note PT-OP-A Visit Information Start: 07/03/20 15:50 Freq: Status: Active Protocol: Document 08/25/20 13:01 SP (Rec: 08/25/20 15:35 SP [id number]) Out-Patient Physical Therapy Visit Information Visit Information Visit Type Treatment Note Visit Note POC expires 09/02/20, needs PN. Visit Start Time 13:01 Visit Stop Time 13:57 Total Visit Minutes 56 Visit Number 15 Number of BREAKFAST SERVER Visits 1 Evaluation Information Evaluation Date 07/03/20 PT-OP-B Current Condition Start: 07/03/20 15:50 Freq: Status: Active Protocol: Document 07/03/20 12:00 DCW (Rec: 07/03/20 15:59 DCW [id number]) Current Condition History of Current Condition Onset Date Three years Current Complaints Foot drop, low back pain History of Current Condition Pt is a 69 year old female presenting s/p L4-5 Laminectomy on 04/17/20. Pt notes when I don't do much, my back feels great, all the sciatic pain I was having in my left side before surgery is completely gone. Pt's biggest complaint is her right foot drop, which has actually been an issue for her for three years, following my most recent ruptured disc. Pt notes it doesn't seem to have gotten better since surgery, but it also hasn't gotten worse. Pt does admit that she fractured her right ankle one year ago when she stepped in a hole, but feels that if she had not had the ankle weakness /foot drop, she probably would have been able to stabilize herself and not broken any bones. Pt notes she has frequently caught her foot on stairs. Pt's back also bothers her when she does any lifting , or grooming, feeding, or agility training her dogs. Treatment Goals Patient/Caregiver Goals I want to make my foot drop go away, and also get my core strength better to help protect my back. PT-OP-C Subjective Start: 07/03/20 15:50 Freq: Status: Active Protocol: Document 08/25/20 13:01 SP (Rec: 08/25/20 15:35 SP [id number]) OP-PT Subjective Patient Comments Patient Comments Pt stated did fine after last tx and doing well today, nothing to report. Patient Reported Progress Improving PT-OP-F Manual Assessment Start: 07/03/20 15:50 Freq: Status: Active Protocol: Document 07/03/20 12:00 DCW (Rec: 07/03/20 17:43 DCW [id number]) Manual Assessments Soft Tissue Assessment Soft Tissue Mobility Assessment Limited paraspinal hypertonia along low back, surgical incision healed well, good scar tissue mobility PT-OP-G Mobility & Gait Start: 07/03/20 15:50 Freq: Status: Active Protocol: Document 07/03/20 12:00 DCW (Rec: 07/03/20 17:50 DCW [id number]) OP Gait Assessment Gait Gait Assistance Required: Independent Able to Maintain Weight Bearing Status Yes During Gait Assistive Devices Assistive Device None Orthotic/Prosthetic Devices or Brace: No Gait Deviations General Gait Pattern Decreased Feet Clearance Factors Limiting Gait Function Factors Limiting Gait Function Decreased Strength Comments Gait Comments Pt ambulated with right foot slap, occasional foot drop, mild external rotation of foot . Pt able to job, no noted toe drag, still noticeable foot slap. Stair Climbing Evaluation Evaluation Level of Assist On Stairs Independent Devices Stair Climbing Assistive Devices None Technique/Endurance Stair Climbing Direction Ascend and Descend Stair Climbing Technique Step Over Step Number of Steps Climbed 4 Stair Climbing Set # Repetitions (reps) 4 PT-OP-M Strength Start: 07/03/20 15:50 Freq: Status: Active Protocol: Document 07/03/20 12:00 DCW (Rec: 07/03/20 17:50 DCW [id number]) Trunk Strength Trunk Manual Muscle Testing Core Stabilization Able to contract TrA on request, unable to hold for extended time, difficulty holding position Hip Strength Hip Manual Muscle Testing Right Flexion (L2) 4+ Good+ Extension (S1) 4+ Good+ Abduction 4 Good Adduction 4 Good External Rotation 5 Normal Internal Rotation 5 Normal Left Flexion (L2) 4 Good Extension (S1) 4+ Good+ Abduction 4 Good Adduction 4 Good External Rotation 5 Normal Internal Rotation 5 Normal Knee Strength Knee Manual Muscle Testing Right Flexion (S2) 5 Normal Extension (L3) 5 Normal Left Flexion (S2) 5 Normal Extension (L3) 5 Normal Ankle/Foot Strength Ankle and Foot Manual Muscle Testing Right Dorsiflexion (L4) 3 Fair Plantarflexion (S1) 5 Normal Inversion 3+ Fair+ Eversion (S1) 3+ Fair+ Left Dorsiflexion (L4) 5 Normal Plantarflexion (S1) 5 Normal Inversion 5 Normal Eversion (S1) 5 Normal PT-OP-Q Treatments Start: 07/03/20 15:50 Freq: Status: Active Protocol: Document 08/25/20 13:01 SP (Rec: 08/25/20 15:35 SP [id number]) Cardio Equipment Recumbent Bicycle Duration (Minutes) 6 Resistance 4 Seat Position 5 Other 2.41 miles Gym Equipment Shuttle Recovery double squats Resistance 75#>87# Shuttle Recovery Platform Unstable Reps/Time x12, single squats Resistance 2x15 Shuttle Recovery Platform Stable Reps/Time 50# Bilateral Heel Raises Resistance 75# Shuttle Recovery Platform Stable Reps/Time 10 reps Niall, 2x 10 reps SL alternate BLE Shuttle Balance red Details COG over [place]: WBOS, NBOS, stagger Reps/Duration 8 min Comments 1. wt shift 2. stationary 3. head turns 4. EC (8 sec each) Therapeutic Exercises Supine Exercises SKTC Supine Exercise Name opposite LE straight (review HEP) Side bilateral Reps/Minutes 30 x2 core may Supine Exercise Name modified to single leg lift today due to sequencing DL hurting LB Side bilateral Reps/Minutes x10 sequencial before started hurting,then 20 reps single reps eachpainfree Comments occasional cues for slow con/ eccentric lift w/ TA fac TA, pelvic tilt trng Supine Exercise Name TA 5 sec hold x10, posterior pelvic tilt pain free range Reps/Minutes [id number] Standing Exercises Eccentric heel toe walking Standing Exercise Name heel toe forward, toe heel backward Reps/Minutes 6x20ft Comments improved stabilitiy and DF ROM PT-OP-R Modalities Start: 07/03/20 15:50 Freq: Status: Active Protocol: Document 08/25/20 13:01 SP (Rec: 08/25/20 15:35 SP [id number]) Electric Stimulation Electric Stimulation Kitt[place] stim Body Location R tibialis anterior, peroneals Duration (Minutes) 10 Intensity 42 Frequency 5 on/5 off Pulse Rate 50 bps Patient Position Sitting Comments AROM DF PT-OP-T Assessment and Plan Start: 07/03/20 15:50 Freq: Status: Active Protocol: Document 08/25/20 13:01 SP (Rec: 08/25/20 15:35 SP [id number]) Physical Therapy Assessment Goals Three Impairment Pt core strength currently 4-/ 5 Jail Goal (LTG) Pt to demonstrate increased core strength to 4+/5 to improve lumbar stability LTG Duration 09/02/20 Two Impairment Pt ambulates with noticeable right foot slap 100% of the time Jail Goal (LTG) Pt to demonstrate increased right ankle strength >4-/5 to limit foot slap and decrease falls risk related to catching her toes LTG Duration 09/02/20 One Impairment Pt does not have an appropriate home exercise program Short Term Goal (STG) Pt to be independent and compliant with an appropriate HEP 07/14/20: TA engagement, SKTC, fig 4 stretching, ankle TB DF/ EV, heel to walking, hurdlestepping. STG Duration 08/02/20 Assessment Summary Assessment Tx focused on uneven ankle strengthening LEs and balance training. Improvement in SLS heel toe walking forward post ther ex. Pt requested to continue [place] Stim end of tx for DF facilitation. Pt's back pain improved post stretching, core HEP review. Physical Therapy Plan Frequency and Duration Frequency of Treatment 2x/Week Duration of Treatment Two months Plan of Care Start Date 07/03/20 Plan of Care End Date 09/02/20 Therapeutic Interventions Therapeutic Interventions Balance Training,Gait Training ,Home Exercise Program,Manual Therapy,Neuromuscular Re- education,Patient/Caregiver Education,Self-Care/Home Management,Soft Tissue Mobilization,Therapeutic Activities,Therapeutic Exercises Modalities Cold Pack/Ice Massage,Electric Stimulation,Hot Packs, Ultrasound Next Visit Focus/Plan Next Note Type Treatment Note Next Visit Plan Assess for HEP with dual uneven and firm single heel lifts/eccentric control on shuttle recovery. Pt aware of resting, stretching, self STMs using ball roll at wall during HEP if back pain returns
--- NOTE | 2020-08-27 16:40 | PT.OTN ---
Current Diagnoses Foot drop, unspecified foot (08/27/20) Spinal stenosis, lumbar region with neurogenic claudication (08/27/20) Muscle weakness (generalized) (08/27/20) Postlaminectomy syndrome, not elsewhere classified (08/27/20) Physical Therapy Treatment Note PT-OP-A Visit Information Start: 07/03/20 15:50 Freq: Status: Active Protocol: Document 08/27/20 16:00 DCW (Rec: 08/27/20 16:39 DCW [id number]) Out-Patient Physical Therapy Visit Information Visit Information Visit Type Treatment Note Visit Note POC expires 09/02/20, needs PN. Visit Start Time 16:00 Visit Stop Time 16:45 Total Visit Minutes 45 Visit Number 16 Number of RADIOLOGIST Visits 0 Evaluation Information Evaluation Date 07/03/20 PT-OP-B Current Condition Start: 07/03/20 15:50 Freq: Status: Active Protocol: Document 07/03/20 12:00 DCW (Rec: 07/03/20 15:59 DCW [id number]) Current Condition History of Current Condition Onset Date Three years Current Complaints Foot drop, low back pain History of Current Condition Pt is a 69 year old female presenting s/p L4-5 Laminectomy on 04/17/20. Pt notes when I don't do much, my back feels great, all the sciatic pain I was having in my left side before surgery is completely gone. Pt's biggest complaint is her right foot drop, which has actually been an issue for her for three years, following my most recent ruptured disc. Pt notes it doesn't seem to have gotten better since surgery, but it also hasn't gotten worse. Pt does admit that she fractured her right ankle one year ago when she stepped in a hole, but feels that if she had not had the ankle weakness /foot drop, she probably would have been able to stabilize herself and not broken any bones. Pt notes she has frequently caught her foot on stairs. Pt's back also bothers her when she does any lifting , or grooming, feeding, or agility training her dogs. Treatment Goals Patient/Caregiver Goals I want to make my foot drop go away, and also get my core strength better to help protect my back. PT-OP-C Subjective Start: 07/03/20 15:50 Freq: Status: Active Protocol: Document 08/27/20 16:00 DCW (Rec: 08/27/20 16:39 DCW [id number]) OP-PT Subjective Patient Comments Patient Comments I was at a wedding all day over the weekend, and I really didn't have any problems with anything. Patient Reported Progress Same PT-OP-F Manual Assessment Start: 07/03/20 15:50 Freq: Status: Active Protocol: Document 07/03/20 12:00 DCW (Rec: 07/03/20 17:43 DCW [id number]) Manual Assessments Soft Tissue Assessment Soft Tissue Mobility Assessment Limited paraspinal hypertonia along low back, surgical incision healed well, good scar tissue mobility PT-OP-G Mobility & Gait Start: 07/03/20 15:50 Freq: Status: Active Protocol: Document 07/03/20 12:00 DCW (Rec: 07/03/20 17:50 DCW [id number]) OP Gait Assessment Gait Gait Assistance Required: Independent Able to Maintain Weight Bearing Status Yes During Gait Assistive Devices Assistive Device None Orthotic/Prosthetic Devices or Brace: No Gait Deviations General Gait Pattern Decreased Feet Clearance Factors Limiting Gait Function Factors Limiting Gait Function Decreased Strength Comments Gait Comments Pt ambulated with right foot slap, occasional foot drop, mild external rotation of foot . Pt able to job, no noted toe drag, still noticeable foot slap. Stair Climbing Evaluation Evaluation Level of Assist On Stairs Independent Devices Stair Climbing Assistive Devices None Technique/Endurance Stair Climbing Direction Ascend and Descend Stair Climbing Technique Step Over Step Number of Steps Climbed 4 Stair Climbing Set # Repetitions (reps) 4 PT-OP-M Strength Start: 07/03/20 15:50 Freq: Status: Active Protocol: Document 07/03/20 12:00 DCW (Rec: 07/03/20 17:50 DCW [id number]) Trunk Strength Trunk Manual Muscle Testing Core Stabilization Able to contract TrA on request, unable to hold for extended time, difficulty holding position Hip Strength Hip Manual Muscle Testing Right Flexion (L2) 4+ Good+ Extension (S1) 4+ Good+ Abduction 4 Good Adduction 4 Good External Rotation 5 Normal Internal Rotation 5 Normal Left Flexion (L2) 4 Good Extension (S1) 4+ Good+ Abduction 4 Good Adduction 4 Good External Rotation 5 Normal Internal Rotation 5 Normal Knee Strength Knee Manual Muscle Testing Right Flexion (S2) 5 Normal Extension (L3) 5 Normal Left Flexion (S2) 5 Normal Extension (L3) 5 Normal Ankle/Foot Strength Ankle and Foot Manual Muscle Testing Right Dorsiflexion (L4) 3 Fair Plantarflexion (S1) 5 Normal Inversion 3+ Fair+ Eversion (S1) 3+ Fair+ Left Dorsiflexion (L4) 5 Normal Plantarflexion (S1) 5 Normal Inversion 5 Normal Eversion (S1) 5 Normal PT-OP-Q Treatments Start: 07/03/20 15:50 Freq: Status: Active Protocol: Document 08/27/20 16:00 DCW (Rec: 08/27/20 16:39 DCW [id number]) Gym Equipment Shuttle Recovery Bilateral Heel Raises Resistance 75# Shuttle Recovery Platform Stable Reps/Time 10 reps Niall, 2x 10 reps SL alternate BLE Therapeutic Exercises Standing Exercises Calf stretch Standing Exercise Name Gastroc stretch Side bilateral Equipment Used FRANKIE Reps/Minutes [id number] Manual Therapy Treatment Joint Mobilizations 1 Joint R TF Direction Post Grade III Body Position Sitting Neuro Re-Education Treatment Balance Activities Compliant surface Details WBOS Surface Large air disc Balance board Details Lateral, PF/DF PT-OP-R Modalities Start: 07/03/20 15:50 Freq: Status: Active Protocol: Document 08/27/20 16:00 DCW (Rec: 08/27/20 16:39 DCW [id number]) Electric Stimulation Electric Stimulation Maltese stim Body Location R tibialis anterior, peroneals Duration (Minutes) 10 Intensity 42 Frequency 5 on/5 off Pulse Rate 50 bps Patient Position Sitting Comments AROM DF PT-OP-T Assessment and Plan Start: 07/03/20 15:50 Freq: Status: Active Protocol: Document 08/27/20 16:00 DCW (Rec: 08/27/20 16:39 DCW [id number]) Physical Therapy Assessment Impairments Impairments Gait,Pain,ROM,Strength Goals Three Impairment Pt core strength currently 4-/ 5 Quilter Fixer Goal (LTG) Pt to demonstrate increased core strength to 4+/5 to improve lumbar stability LTG Duration 09/02/20 Two Impairment Pt ambulates with noticeable right foot slap 100% of the time Quilter Fixer Goal (LTG) Pt to demonstrate increased right ankle strength >4-/5 to limit foot slap and decrease falls risk related to catching her toes LTG Duration 09/02/20 One Impairment Pt does not have an appropriate home exercise program Short Term Goal (STG) Pt to be independent and compliant with an appropriate HEP 07/14/20: TA engagement, SKTC, fig 4 stretching, ankle TB DF/ EV, heel to walking, hurdlestepping. STG Duration 08/02/20 Assessment Summary Assessment Pt doing very well at the moment, able to return to nearly all usual activities. Reassess next visit for new POC, discuss d/c plan. Physical Therapy Plan Frequency and Duration Frequency of Treatment 2x/Week Duration of Treatment Two months Plan of Care Start Date 07/03/20 Plan of Care End Date 09/02/20 Therapeutic Interventions Therapeutic Interventions Balance Training,Gait Training ,Home Exercise Program,Manual Therapy,Neuromuscular Re- education,Patient/Caregiver Education,Self-Care/Home Management,Soft Tissue Mobilization,Therapeutic Activities,Therapeutic Exercises Modalities Cold Pack/Ice Massage,Electric Stimulation,Hot Packs, Ultrasound Next Visit Focus/Plan Next Note Type Progress Note Next Visit Plan Prog note
--- NOTE | 2020-09-01 12:31 | PT.OTN ---
Current Diagnoses Foot drop, unspecified foot (09/01/20) Spinal stenosis, lumbar region with neurogenic claudication (09/01/20) Muscle weakness (generalized) (09/01/20) Postlaminectomy syndrome, not elsewhere classified (09/01/20) Physical Therapy Treatment Note PT-OP-A Visit Information Start: 07/03/20 15:50 Freq: Status: Active Protocol: Document 09/01/20 12:00 DCW (Rec: 09/01/20 12:31 DCW [id number]) Out-Patient Physical Therapy Visit Information Visit Information Visit Type Discharge Summary Visit Start Time 12:00 Visit Stop Time 12:25 Total Visit Minutes 25 Visit Number 17 Number of FIELD MECHANICAL METER TESTER Visits 0 Evaluation Information Evaluation Date 07/03/20 PT-OP-B Current Condition Start: 07/03/20 15:50 Freq: Status: Active Protocol: Document 07/03/20 12:00 DCW (Rec: 07/03/20 15:59 DCW [id number]) Current Condition History of Current Condition Onset Date Three years Current Complaints Foot drop, low back pain History of Current Condition Pt is a 69 year old female presenting s/p L4-5 Laminectomy on 04/17/20. Pt notes when I don't do much, my back feels great, all the sciatic pain I was having in my left side before surgery is completely gone. Pt's biggest complaint is her right foot drop, which has actually been an issue for her for three years, following my most recent ruptured disc. Pt notes it doesn't seem to have gotten better since surgery, but it also hasn't gotten worse. Pt does admit that she fractured her right ankle one year ago when she stepped in a hole, but feels that if she had not had the ankle weakness /foot drop, she probably would have been able to stabilize herself and not broken any bones. Pt notes she has frequently caught her foot on stairs. Pt's back also bothers her when she does any lifting , or grooming, feeding, or agility training her dogs. Treatment Goals Patient/Caregiver Goals I want to make my foot drop go away, and also get my core strength better to help protect my back. PT-OP-C Subjective Start: 07/03/20 15:50 Freq: Status: Active Protocol: Document 09/01/20 12:00 DCW (Rec: 09/01/20 12:31 DCW [id number]) OP-PT Subjective Patient Comments Patient Comments I had a rough weekend for some reason, my back was just more sore than usual. PT-OP-F Manual Assessment Start: 07/03/20 15:50 Freq: Status: Active Protocol: Document 09/01/20 12:00 DCW (Rec: 09/01/20 12:23 DCW [id number]) Manual Assessments Soft Tissue Assessment Soft Tissue Mobility Assessment Mild lumbar paraspinal tone PT-OP-G Mobility & Gait Start: 07/03/20 15:50 Freq: Status: Active Protocol: Document 09/01/20 12:00 DCW (Rec: 09/01/20 12:23 DCW [id number]) OP Gait Assessment Gait Gait Assistance Required: Independent Able to Maintain Weight Bearing Status Yes During Gait Comments Gait Comments Pt ambulates with no noticeable foot slap or toe drag Stair Climbing Evaluation Evaluation Level of Assist On Stairs Independent Devices Stair Climbing Assistive Devices None Technique/Endurance Stair Climbing Direction Ascend and Descend Stair Climbing Technique Step Over Step Number of Steps Climbed 4 Stair Climbing Set # Repetitions (reps) 4 PT-OP-M Strength Start: 07/03/20 15:50 Freq: Status: Active Protocol: Document 09/01/20 12:00 DCW (Rec: 09/01/20 12:23 DCW [id number]) Hip Strength Hip Manual Muscle Testing Right Flexion (L2) 5 Normal Extension (S1) 5 Normal Abduction 5 Normal Adduction 5 Normal External Rotation 5 Normal Internal Rotation 5 Normal Left Flexion (L2) 5 Normal Extension (S1) 5 Normal Abduction 5 Normal Adduction 5 Normal External Rotation 5 Normal Internal Rotation 5 Normal Knee Strength Knee Manual Muscle Testing Right Flexion (S2) 5 Normal Extension (L3) 5 Normal Left Flexion (S2) 5 Normal Extension (L3) 5 Normal Ankle/Foot Strength Ankle and Foot Manual Muscle Testing Right Dorsiflexion (L4) 3 Fair Plantarflexion (S1) 5 Normal Inversion 4- Good- Eversion (S1) 4 Good Left Dorsiflexion (L4) 5 Normal Plantarflexion (S1) 5 Normal Inversion 5 Normal Eversion (S1) 5 Normal PT-OP-Q Treatments Start: 07/03/20 15:50 Freq: Status: Active Protocol: Document 09/01/20 12:00 DCW (Rec: 09/01/20 12:31 DCW [id number]) Manual Therapy Treatment Other Other Manual Treatments Testing PT-OP-R Modalities Start: 07/03/20 15:50 Freq: Status: Active Protocol: Document 08/27/20 16:00 DCW (Rec: 08/27/20 16:39 DCW [id number]) Electric Stimulation Electric Stimulation Tristanian stim Body Location R tibialis anterior, peroneals Duration (Minutes) 10 Intensity 42 Frequency 5 on/5 off Pulse Rate 50 bps Patient Position Sitting Comments AROM DF PT-OP-T Assessment and Plan Start: 07/03/20 15:50 Freq: Status: Active Protocol: Document 09/01/20 12:00 DCW (Rec: 09/01/20 12:31 DCW [id number]) Physical Therapy Assessment Impairments Impairments Gait,Pain,ROM,Strength Goals Three Impairment Pt core strength currently 4-/ 5 Prison Goal (LTG) Pt to demonstrate increased core strength to 4+/5 to improve lumbar stability LTG Duration Met Two Impairment Pt ambulates with noticeable right foot slap 100% of the time Counselling Psychologist Goal (LTG) Pt to demonstrate increased right ankle strength >4-/5 to limit foot slap and decrease falls risk related to catching her toes LTG Duration 09/02/20 One Impairment Pt does not have an appropriate home exercise program Short Term Goal (STG) Pt to be independent and compliant with an appropriate HEP 07/14/20: TA engagement, SKTC, fig 4 stretching, ankle TB DF/ EV, heel to walking, hurdlestepping. STG Duration Met Assessment Summary Assessment Pt continues to do well, will likely continue to improve with continuation of independent HEP. Pt no longer demonstrating any instances of foot slap or decreased toe clearance. Pt appropriate to discharge at this time, pt is in agreement with this plan. Physical Therapy Plan Frequency and Duration Frequency of Treatment 2x/Week Duration of Treatment Two months Plan of Care Start Date 07/03/20 Plan of Care End Date 09/02/20 Therapeutic Interventions Therapeutic Interventions Balance Training,Gait Training ,Home Exercise Program,Manual Therapy,Neuromuscular Re- education,Patient/Caregiver Education,Self-Care/Home Management,Soft Tissue Mobilization,Therapeutic Activities,Therapeutic Exercises Modalities Cold Pack/Ice Massage,Electric Stimulation,Hot Packs, Ultrasound Discharge Physical Therapy Discharge Reasons Goals Met Next Visit Focus/Plan Next Note Type Discharge Summary
== END 2020-09-01 12:38 | disposition home or self-care (01) ==
LOC: PHYS 12:00
PROVIDERS: Family Provider Family Medicine; PCP Family Medicine; Referring Provider Neurological Surgery; Visit Provider Neurological Surgery
DX: M96.1 Postlaminectomy syndrome, not elsewhere classified (principal); M21.379 Foot drop, unspecified foot; M48.062 Spinal stenosis, lumbar region with neurogenic claudication; M62.81 Muscle weakness (generalized)
CPT/HCPCS: 97014; 97032; 97110; 97112; 97116; 97140; 97161; G0283

== ENCOUNTER → 2020-09-16 13:47 | Outpatient (CLI) | payer MEDICARE, SELFPAY ==
[2020-02-25 20:34] VITALS: BMI 25.0
[2020-09-16 15:45] LABS: Hemoglobin A1C% w Est Avg Glu 5.7 % (4.0-6.0)
[2020-09-16 15:49] LABS: Alanine Aminotransferase 18 IU/L (<35); Albumin 4.5 g/dL (3.5-5.0); Alkaline Phosphatase 79 U/L (38-126); Aspartate Aminotransferase 28 IU/L (14-36); Bilirubin Total 0.5 mg/dL (0.2-1.3); Blood Urea Nitrogen 18 mg/dL (7-17); Calcium 9.7 mg/dL (8.4-10.2); Carbon Dioxide 28 mmol/L (22-32); Chloride 106 mmol/L (98-107); Estimated Glomerular Filt Rate > 60.0 mL/min (>60); Globulin 2.3 g/dL (1.7-4.1); Glucose 88 mg/dL (80-110); HEMOLYSIS < 15 (0-50); Potassium 4.3 mmol/L (3.4-5.1); Sodium 139 mmol/L (137-145); Total Protein 6.8 g/dL (6.3-8.2)
[2020-09-16 16:12] LABS: Thyroid Stimulating Hormone 0.255 uIU/mL (0.47-4.68)
== END ==
PROVIDERS: Family Provider Family Medicine; PCP Family Medicine; Referring Provider Family Medicine; Visit Provider Family Medicine
DX: E03.9 Hypothyroidism, unspecified (principal); R73.9 Hyperglycemia, unspecified; I10 Essential (primary) hypertension; M51.26 Other intervertebral disc displacement, lumbar region
CPT/HCPCS: 36415; 80053; 83036; 84439; 84443

== ENCOUNTER → 2020-12-15 11:51 | Outpatient (CLI) | payer MEDICARE, SELFPAY ==
[2020-02-25 20:34] VITALS: BMI 25.0
[2020-12-15 12:20] LABS: Add Manual Diff / Slide Review NO; Basophils Absolute Auto 0 /uL (0-100); Basophils Percent Auto 0.7 % (0-2); Eosinophils Absolute Auto 200 /uL (0-450); Eosinophils Percent Auto 3.5 % (2-4); Hemoglobin 13.7 g/dL (12.0-16.0); Lymphocytes Absolute Auto 1300 /uL (1100-4500); Lymphocytes Percent Auto 22.6 % (25-40); Mean Corpuscular HGB Conc 33.3 % (30-36); Mean Corpuscular Hemoglobin 29.8 PG (26-34); Mean Corpuscular Volume 89.3 fL (80-100); Monocytes Absolute Auto 500 /uL (0-900); Monocytes Percent Auto 8.9 % (3-14); Neutrophils Absolute Auto 3700 /uL (1500-7000); Neutrophils Percent Auto 64.3 % (50-75); Platelet Count 237 X10^3/uL (150-400); Red Blood Cell Count 4.59 X10^6/uL (4.0-5.2); Red Cell Distribution Width 12.6 % (11.6-14.8); White Blood Cell Count 5.8 X10^3/uL (4.5-11.0)
[2020-12-15 12:53] LABS: Alanine Aminotransferase 17 IU/L (<35); Albumin 4.7 g/dL (3.5-5.0); Albumin Globulin Ratio 1.7 (1.0-2.8); Alkaline Phosphatase 82 U/L (38-126); Aspartate Aminotransferase 27 IU/L (14-36); BUN Creatinine Ratio 19.3 (6-22); Bilirubin Total 0.6 mg/dL (0.2-1.3); Blood Urea Nitrogen 16 mg/dL (7-17); Calcium 9.7 mg/dL (8.4-10.2); Carbon Dioxide 31 mmol/L (22-32); Chloride 104 mmol/L (98-107); Cholesterol 204 mg/dL (140-199); Estimated Glomerular Filt Rate > 60.0 mL/min (>60); Globulin 2.8 g/dL (1.7-4.1); Glucose 103 mg/dL (80-110); HDL Cholesterol 53 mg/dL (40-60); HEMOLYSIS < 15 (0-50); LDL Cholesterol Calculated 113 mg/dL (<100); Potassium 4.8 mmol/L (3.4-5.1); Sodium 141 mmol/L (137-145); Total Protein 7.5 g/dL (6.3-8.2); Triglycerides 191 mg/dL (35-150)
[2020-12-15 13:09] LABS: Free T4, Direct Thyroxine 1.01 ng/dL (0.78-2.19)
[2020-12-15 13:23] LABS: Thyroid Stimulating Hormone 0.357 uIU/mL (0.47-4.68)
== END ==
PROVIDERS: Family Provider Family Medicine; PCP Family Medicine; Referring Provider Family Medicine; Visit Provider Family Medicine
DX: Z00.00 Encounter for general adult medical examination without abnormal findings (principal); E03.9 Hypothyroidism, unspecified
CPT/HCPCS: 36415; 80053; 80061; 84439; 84443; 85025

== ENCOUNTER → 2021-02-09 16:11 | Outpatient (CLI) | payer MEDICARE, SELFPAY ==
[2020-02-25 20:34] VITALS: BMI 25.0
--- NOTE | 2021-02-09 | DI.MG.S_ITS ---
BILATERAL DIGITAL SCREENING MAMMOGRAM 3D/2D WITH CAD: 02/09/2021 CLINICAL: Routine screening. Family history of breast cancer. Comparison is made to exams dated: 03/27/2018 mammogram, 07/25/2017 mammogram, and 12/24/2016 mammogram - [facility]. The tissue of both breasts is heterogeneously dense. This may lower the sensitivity of mammography. Current study was also evaluated with a Computer Aided Detection (CAD) system. There is a possible developing new asymmetry in the left breast middle depth medial region seen on the craniocaudal view only. No other significant masses, calcifications, or other findings are seen in either breast. IMPRESSION: INCOMPLETE: NEEDS ADDITIONAL IMAGING EVALUATION The possible developing new asymmetry in the left breast is indeterminate. Additional views with possible ultrasound are recommended. This exam was interpreted at Station ID: [id number]. NOTE: For mammograms, a report in lay terms will be sent to the patient. Approximately 15% of breast malignancies will not be visualized mammographically. In the management of a palpable breast mass, a negative mammogram must not discourage biopsy of a clinically suspicious lesion. Electronically Signed By: Laci Molina M.D., jr/ashley:02/09/2021 16:39:22 letter sent: Additional Imaging Needed ACR BI-RADS Category 0: Incomplete [id number]
== END ==
PROVIDERS: Family Provider Family Medicine; PCP Family Medicine; Referring Provider Family Medicine; Visit Provider Family Medicine
DX: Z12.31 Encounter for screening mammogram for malignant neoplasm of breast (principal); Z80.3 Family history of malignant neoplasm of breast
CPT/HCPCS: 77063; 77067

== ENCOUNTER → 2021-03-09 08:38 | Outpatient (CLI) | payer MEDICARE, SELFPAY ==
[2020-02-25 20:34] VITALS: BMI 25.0
--- NOTE | 2021-03-09 | DI.MG.S_ITS ---
UNILATERAL LEFT DIGITAL DIAGNOSTIC MAMMOGRAM 3D/2D WITH ADDITIONAL VIEWS: 03/09/2021 CLINICAL: Additional evaluation requested from prior study. Comparison is made to exams dated: 02/09/2021 mammogram, 03/27/2018 mammogram, and 07/25/2017 mammogram - [facility]. The tissue of left breast is heterogeneously dense. This may lower the sensitivity of mammography. There is a 4 mm oval low density focal asymmetry with a circumscribed margin in the left breast at 6 o'clock middle depth. This is confirmed with additional views. No other significant masses or calcifications are seen in the breast. IMPRESSION: INCOMPLETE: NEEDS ADDITIONAL IMAGING EVALUATION The 4 mm oval low density focal asymmetry in the left breast remains indeterminate. An ultrasound is recommended. This was performed immediately following this exam. This exam was interpreted at Station ID: [id number]. NOTE: For mammograms, a report in lay terms will be sent to the patient. Approximately 15% of breast malignancies will not be visualized mammographically. In the management of a palpable breast mass, a negative mammogram must not discourage biopsy of a clinically suspicious lesion. Electronically Signed By: Paige shelton/:03/09/2021 09:03:07 ACR BI-RADS Category 0: Incomplete [id number]
--- NOTE | 2021-03-09 | DI.US.S_ITS ---
LIMITED ULTRASOUND OF LEFT BREAST: 03/09/2021 CLINICAL: Patient returns today to evaluate an asymmetry in the left breast. Comparison is made to exams dated: 03/09/2021 mammogram, 02/09/2021 mammogram, 03/27/2018 mammogram, 07/25/2017 ultrasound biopsy, 07/25/2017 mammogram, and 06/23/2017 [facility]. Color flow and real-time ultrasound of the left breast 6 o'clock region were performed. Munson scale images of the real-time examination were reviewed. There is a 0.4 cm x 0.5 cm x 0.4 cm oval cyst in the left breast at 6 o'clock middle depth 6 cm from the nipple. This oval cyst is hypoechoic with an abrupt boundary, internal echoes, and posterior acoustic enhancement. This correlates with mammography findings. Color flow imaging demonstrates that there is no vascularity present. IMPRESSION: PROBABLY BENIGN The 0.4 cm cyst in the left breast most likely is a complicated cyst and is probably benign. A follow-up left ultrasound in 6 months is recommended to demonstrate stability. Findings and recommendations were conveyed to the patient at time of exam. This exam was interpreted at Station ID: [id number]. Electronically Signed By: Paige shelton/:03/09/2021 10:34:23 letter sent: Followup Recommended Ultrasound BI-RADS: 3 Probably benign
== END ==
PROVIDERS: Family Provider Family Medicine; PCP Family Medicine; Referring Provider Family Medicine; Visit Provider Family Medicine
DX: R92.8 Other abnormal and inconclusive findings on diagnostic imaging of breast (principal); N60.02 Solitary cyst of left breast
CPT/HCPCS: 76642; 77065; G0279

== ENCOUNTER → 2021-06-29 11:26 | Outpatient (CLI) | payer MEDICARE, SELFPAY ==
[2020-02-25 20:34] VITALS: BMI 25.0
== END ==
PROVIDERS: Family Provider Family Medicine; PCP Family Medicine; Visit Provider Physician Assistant
DX: R30.0 Dysuria (principal)
CPT/HCPCS: 87077; 87086; 87186

== ENCOUNTER → 2021-09-04 14:54 | Outpatient (CLI) | payer MEDICARE, SELFPAY ==
[2021-09-03 10:30] VITALS: BMI 25.0
--- NOTE | 2021-09-04 14:57 | DI.RAD.S_ITS ---
PROCEDURE: XR LUMBAR SPINE MIN 4V INDICATIONS: BACK PAIN TECHNIQUE: 5 views of the lumbar spine were acquired, including bilateral oblique views. COMPARISON: [facility], CR, XR LUMBAR SPINE MIN 4V, 09/06/2019, 9:33. FINDINGS: Bones: 5 nonrib-bearing vertebrae are present. 2 mm retrolisthesis L1-L2, L2-L3, L3-L4 and L4-L5. Multilevel disc narrowing with endplate sclerosis and spurring, moderate at the L5-S1 level. Moderate L4-L5 and L5-S1 facet joint arthropathy. No vertebral body compression fractures. No suspicious bony lesions. Soft tissues: Overlying bowel gas pattern is normal. No suspicious soft tissue calcifications. Oblique images: No pars defects. IMPRESSION: Multilevel spondylosis, most notably at the L5-S1 level. Dictated by: Jimbo Grace [facility] Interpreted: Wai Mendez MD on 09/04/2021 at 15:37 Transcribed by: JARRED on 09/04/2021 at 15:38 Approved by: Maicol Mendez M.D. on 09/15/2021 at 8:08
== END ==
PROVIDERS: Family Provider Family Medicine; PCP Family Medicine; Referring Provider Physical Medicine & Rehabilitation; Visit Provider Physical Medicine & Rehabilitation
DX: M47.26 Other spondylosis with radiculopathy, lumbar region (principal); M47.27 Other spondylosis with radiculopathy, lumbosacral region; M51.26 Other intervertebral disc displacement, lumbar region
CPT/HCPCS: 72110

== ENCOUNTER → 2021-09-09 09:46 | Outpatient (CLI) | payer MEDICARE, SELFPAY ==
[2021-09-03 10:30] VITALS: BMI 25.0
--- NOTE | 2021-09-09 09:47 | DI.US.S_ITS ---
LIMITED ULTRASOUND OF LEFT BREAST AND AXILLA: 09/09/2021 CLINICAL: 6 month follow-up of cyst. Comparison is made to exams dated: 03/09/2021 ultrasound, 03/09/2021 mammogram, 02/09/2021 mammogram, 03/27/2018 mammogram, and 07/25/2017 ultrasound [facility]. Color flow ultrasound of the left breast 5-6 o'clock, and axilla regions was performed. Munson scale images of the real-time examination were reviewed. There is a 0.4 cm x 0.5 cm x 0.4 cm oval cyst in the left breast at 6 o'clock middle depth 6 cm from the nipple. This oval cyst is hypoechoic with an abrupt boundary, internal echoes, and posterior acoustic enhancement. This abnormality is not significantly changed. Color flow imaging demonstrates that there is no vascularity present. There also is a possible 0.6 cm x 0.4 cm irregular area of fibroglandular tissue in the left breast at 5 o'clock middle depth 3 cm from the nipple. This irregular area of fibroglandular tissue is hypoechoic. This correlates as an incidental finding. Color flow imaging demonstrates that there is no vascularity present. No significant abnormalities were seen sonographically in the left axilla. IMPRESSION: PROBABLY BENIGN The 0.4 cm x 0.5 cm x 0.4 cm oval cyst in the left breast at 6 o'clock middle depth most likely is a complicated cyst and is probably benign. The possible 0.6 cm x 0.4 cm irregular area of fibroglandular tissue in the left breast at 5 o'clock middle depth has a differential diagnosis of a solid mass, a fat lobule, or fibrocystic change and is probably benign. A follow-up mammogram and an ultrasound in 6 months is recommended to demonstrate stability. This exam was interpreted at Station ID: [id number]. Electronically Signed By: Ivan islas:09/09/2021 16:33:43 letter sent: Followup Recommended Ultrasound BI-RADS: 3 Probably benign
== END ==
PROVIDERS: Family Provider Family Medicine; PCP Family Medicine; Referring Provider Family Medicine; Visit Provider Family Medicine
DX: R92.8 Other abnormal and inconclusive findings on diagnostic imaging of breast (principal); N60.02 Solitary cyst of left breast
CPT/HCPCS: 76642

== ENCOUNTER → 2021-09-11 06:32 | Outpatient (CLI) | payer MEDICARE, SELFPAY ==
[2021-09-03 10:30] VITALS: BMI 25.0
--- NOTE | 2021-09-11 06:34 | DI.MRI.S_ITS ---
PROCEDURE: MR LUMBAR SPINE WO CON INDICATIONS: Post laminectomy, severe axial low back pain TECHNIQUE: Noncontrast sagittal T1 spin echo and T2 fast echo, sagittal STIR, and T2 fast spin echo through the lumbar spine. In cases with scoliosis, additional coronal T2 fast spin echo may be performed. COMPARISON: [facility], MR, MR LUMBAR SPINE WO CON, 09/06/2019, 9:50. FINDINGS: Image quality: Excellent. Alignment and Curvature: 3 mm retrolisthesis of L3 on L4. Bone Marrow: Marrow is of normal overall signal. Schmorl's node is no long inferior endplate of L1. No acute vertebral body compression fractures. Spinal Cord: Conus medullaris terminates at the T12-L1 level. Visualized cord demonstrates normal signal and size. Paraspinous Soft Tissues: No paravertebral masses. Discs: [id number] desiccation is present throughout the lumbar spine most severe at L5-S1. L1-L2: Minimal disc bulge with mild spinal stenosis. There is trace left foraminal protrusion with mild bilateral foraminal narrowing. Facet and ligamentum flavum hypertrophy are present. No interval change. L2-L3: Minimal disc bulge with mild spinal stenosis. Mild bilateral foraminal narrowing. Prominent facet and ligamentum flavum hypertrophy are present. No interval change. L3-L4: Mild disc bulge with posterior left paracentral protrusion. Moderate spinal stenosis. Mild to moderate bilateral foraminal narrowing with facet and ligamentum flavum hypertrophy. No interval change. L4-L5: Mild disc bulge without spinal stenosis. Left interval hemilaminectomy is present. Moderate to severe right foraminal narrowing is present. There is moderate narrowing through the subarticular recess on the left with overall moderate bilateral foraminal narrowing. Previous spinal stenosis is markedly improved. L5-S1: Mild disc bulge without spinal stenosis. There is moderate narrowing through the subarticular recesses bilaterally with overall moderate to severe spinal stenosis. No significant of a change. Epidural lipomatosis. Facet and ligamentum flavum hypertrophy. IMPRESSION: Multilevel degenerative changes overall stable compared to prior exam. However, it is noted that there has been left hemilaminectomy at L4-5 with improvement of previous spinal stenosis. Dictated by: Sarah Tellez M.D. on 09/11/2021 at 11:55 Approved by: Sarah Tellez M.D. on 09/11/2021 at 12:13
== END ==
PROVIDERS: Family Provider Family Medicine; PCP Family Medicine; Referring Provider Physical Medicine & Rehabilitation; Visit Provider Physical Medicine & Rehabilitation
DX: M51.26 Other intervertebral disc displacement, lumbar region (principal); M47.816 Spondylosis without myelopathy or radiculopathy, lumbar region; M47.817 Spondylosis without myelopathy or radiculopathy, lumbosacral region
CPT/HCPCS: 72148

== ENCOUNTER → 2021-10-26 10:12 | Outpatient (CLI) | payer MEDICARE, SELFPAY ==
[2021-09-03 10:30] VITALS: BMI 25.0
[2021-10-26 11:10] LABS: COVID19 -Nasal RAPID Negative (Negative)
== END ==
PROVIDERS: Family Provider Family Medicine; PCP Family Medicine; Referring Provider Physical Medicine & Rehabilitation; Visit Provider Physical Medicine & Rehabilitation
DX: Z20.822 Contact with and (suspected) exposure to COVID-19 (principal)
CPT/HCPCS: 87635; C9803

== ENCOUNTER 2021-10-27 08:05 | Outpatient (CLI) | payer MEDICARE, SELFPAY ==
[2021-09-03 10:30] VITALS: BMI 25.0
[2021-10-27] VITALS (9 sets, daily range): BP systolic 136–192; BP diastolic 61–76; PULSE 65–80; RESP 13–26; TEMP 36.5; O2SAT 98–100
--- NOTE | 2021-10-27 08:07 | DI.RAD.S_ITS ---
PROCEDURE: PAIN L/S TRANSFORAMINAL INJECT INDICATIONS: SPONDYLOSIS COMPARISON: [facility], CR, XR LUMBAR SPINE MIN 4V, 09/04/2021, 14:57. [facility], MR, MR LUMBAR SPINE WO CON, 09/11/2021, 6:56. FINDINGS: Fluoroscopic spot filming was performed to verify placement of a spinal needle at the L4-L5 level, as labeled on the films. Appropriate location of the needle tip was confirmed by injection of iodinated contrast. IMPRESSION: Intraprocedural examination within normal limits. Dictated by: Natalio Serrato M.D. on 10/27/2021 at 13:03 Approved by: Natalio Serrato M.D. on 10/27/2021 at 13:03
[2021-10-27] MEDS: MIDAZOLAM 2 MG/2 ML VIAL IV (09:42)
[2021-10-27] MEDS: BUPIVACAINE 0.25% (PF) VIAL 2 ML INJ (09:47)
[2021-10-27] MEDS: BETAMETHASONE 30 MG/5 ML MDV 6 MG INJ (09:47)
[2021-10-27] MEDS: IOPAMIDOL 15 ML VIAL 3 ML INJ (09:47)
[2021-10-27] MEDS: DEXAMETHASONE 10 MG/ML VIAL 20 MG INJ (09:48)
--- NOTE | 2021-10-27 09:58 | P.PCN_ITS ---
Date/Time/Diagnoses Date of procedure: 10/27/21 Time of procedure: 09:58 Pre-procedure diagnosis: 1. FORAMINAL STENOSIS WITH LE SYMPTOMS Post-procedure diagnosis: same Procedure Notes Procedure: 1. FLUOROSCOPICALLY GUIDED CONTRAST CONTROLLED TRANSFORAMINAL EPIDURAL STEROID INJECTION - LEFT L4/5 Indications: Moira is referred by Dr. Daly for treatment of Foraminal Stenosis with Left LE Symptoms Physician: Reuben Guillory Total Fluoroscopy time (seconds): 6 Total sedation minutes: 11 Complications: none Procedure in detail & Post-procedure care: FINDINGS Foraminal Nerve Root Compression secondary to disc disease and facet hypertrophy DESCRIPTION OF PROCEDURE Following review of allergy and review of potential side effects and complications, including, but not necessarily limited to, infection, allergic reaction, local tissue breakdown, stroke, temporary or permanent nerve injury, paralysis, and possible , the patient indicated that the patient understood and agreed to proceed. An informed consent document was signed by the patient, witnessed by a nurse, and placed in the patient's chart. Additionally, other treatment options including medications, modalities, and physical therapy were reviewed with the patient. After review of previous anaesthesic history and IV conscious sedation the patient was deemed safe to proceed with today?s procedure with IV conscious sedation as ASA class II designation. Safety time-out was performed to confirm patient ID, procedure to be performed and site of procedure. IV sedation was accomplished with a combination of 2mg of Versed administered by the RN after DO order, titrated to patient comfort during the course of the procedure while the patient remained responsive to all verbal commands In the prone position following sterile prep and drape of the lumbar region, the left L4/5 posterior neuroforamen was identified fluoroscopically. The skin was anesthetized via a 25-gauge 1.5-inch needle with 1% lidocaine solution. At this point, a 25-gauge 3.5-inch spinal needle was atraumatically introduced and advanced under fluoroscopic guidance through the posterior left L4/5 neuroforamen to approximately the anterior aspect of the canal. Depth was confirmed on lateral view. Following negative aspiration, injection of approximately 1.5 cc of Isovue 200 under live fluoroscopy in the AP view confirmed excellent flow along the nerve root, into the epidural space without vascular or intrathecal uptake observed Radiological data, including multiple fluoroscopic views of the lumbosacral spine, reveal a spinal needle at the left L4/5 posterior neuroforamen. Subsequent views show flow of contrast material flowing superiorly and inferiorly along the nerve root confirming epidural flow. Subsequently, a test dose of 1.5 cc of 1% lidocaine solution was administered and patient was observed for two minutes for signs or symptoms of complications, including abdominal pain, shortness of breath, bilateral upper or lower extremity weakness, nausea and vomiting, prior to steroid injection. At this point, a total of 3cc or 20mg of dexamethasone and 6mg of betamethasone was injected without incident. The procedure tolerated the procedure well without signs or symptoms of complications prior to transfer to the recovery area continued monitoring without incident. The patient was then transferred to the recovery area where they were observed for an appropriate time after the injection. The patient reported a VAS score of 7 prior to the procedure and a post- procedure VAS of 0. POST OP INSTRUCTIONS The patient was provided a Pain Log to continue to record their response to the target-specific procedure prior to follow-up visit with their referring physician. Additionally, specific post-injection care instructions and a contact number to our office were provided if concerns arise regarding possible complications associated with the procedure are suspected.
== END 2021-10-27 10:17 | disposition home or self-care (01) ==
LOC: RAD 08:06
PROVIDERS: Family Provider Family Medicine; PCP Family Medicine; Referring Provider Physical Medicine & Rehabilitation; Visit Provider Physical Medicine & Rehabilitation
DX: M48.061 Spinal stenosis, lumbar region without neurogenic claudication (principal); M51.16 Intervertebral disc disorders with radiculopathy, lumbar region
CPT/HCPCS: 64483; 99152; J0702; J1100; J2250; J3490

== ENCOUNTER → 2022-01-08 11:33 | Outpatient (CLI) | payer MEDICARE, SELFPAY ==
[2021-09-03 10:30] VITALS: BMI 25.0
[2022-01-08 12:58] LABS: Alanine Aminotransferase 23 IU/L (<35); Albumin 4.4 g/dL (3.5-5.0); Albumin Globulin Ratio 1.8 (1.0-2.8); Alkaline Phosphatase 83 U/L (38-126); Aspartate Aminotransferase 25 IU/L (14-36); BUN Creatinine Ratio 32.9 (6-22); Bilirubin Total 0.4 mg/dL (0.2-1.3); Blood Urea Nitrogen 26 mg/dL (7-17); Calcium 9.4 mg/dL (8.4-10.2); Carbon Dioxide 29 mmol/L (22-32); Chloride 103 mmol/L (98-107); Cholesterol 183 mg/dL (140-199); Estimated Glomerular Filt Rate > 60 mL/min (>60); Globulin 2.4 g/dL (1.7-4.1); Glucose 102 mg/dL (80-110); HDL Cholesterol 60 mg/dL (40-60); HEMOLYSIS < 15 (0-50); LDL Cholesterol Calculated 110 mg/dL (<100); Potassium 4.6 mmol/L (3.4-5.1); Sodium 139 mmol/L (137-145); Total Protein 6.8 g/dL (6.3-8.2); Triglycerides 67 mg/dL (35-150)
[2022-01-08 13:09] LABS: Free T4, Direct Thyroxine 1.12 ng/dL (0.78-2.19)
[2022-01-08 13:23] LABS: Thyroid Stimulating Hormone 0.492 uIU/mL (0.47-4.68)
== END ==
PROVIDERS: Family Provider Family Medicine; PCP Family Medicine; Referring Provider Family Medicine; Visit Provider Family Medicine
DX: I10 Essential (primary) hypertension (principal)
CPT/HCPCS: 36415; 80053; 80061; 84439; 84443

== ENCOUNTER → 2022-01-18 | Outpatient (CLI) | payer MEDICARE, SELFPAY ==
[2021-09-03 10:30] VITALS: BMI 25.0
--- NOTE | 2022-01-18 15:11 | DI.RAD.S_ITS ---
PROCEDURE: XR KNEE LT 3V INDICATIONS: left knee djd TECHNIQUE: Three views of the knee were acquired. COMPARISON: [facility], CR, XR KNEE RT 3V, 10/26/2019, 13:48. FINDINGS: Bones: No fractures or dislocations. No suspicious bony lesions. Minor medial compartment joint space loss. Moderate osteoarthritic spurring in the medial and patellofemoral compartment. Soft tissues: Moderate lateral compartment chondrocalcinosis and trace chondrocalcinosis in the medial medial compartment. Small joint effusion. IMPRESSION: 1. Findings of medial and patellofemoral compartment osteoarthritis, as well as lateral compartment chondrocalcinosis. 2. Small joint effusion. Dictated by: Paige Membreno M.D. on 01/18/2022 at 17:06 Approved by: Paige Membreno M.D. on 01/18/2022 at 17:08
--- NOTE | 2022-01-18 15:11 | DI.RAD.S_ITS ---
PROCEDURE: XR KNEE RT 3V INDICATIONS: Right knee djd TECHNIQUE: Three views of the knee were acquired. COMPARISON: [facility], , XR KNEE RT 3V, 10/26/2019, 13:48. FINDINGS: Bones: There is slight lateral subluxation of the patella within the trochlear groove and joint space loss. Moderate patellofemoral compartment spurs. Fairly well maintained medial and lateral compartment joint spaces. No suspicious bone lesions. Soft tissues: Small joint effusion. No suspicious soft tissue calcifications. IMPRESSION: 1. Osteoarthritic change in the patellofemoral compartment and small reactive joint effusion. Minimal change compared to the prior study. Dictated by: Paige Membreno M.D. on 01/18/2022 at 17:09 Approved by: Paige Membreno M.D. on 01/18/2022 at 17:10
== END ==
PROVIDERS: Family Provider Family Medicine; PCP Family Medicine; Referring Provider Physical Medicine & Rehabilitation; Visit Provider Physical Medicine & Rehabilitation
DX: M17.0 Bilateral primary osteoarthritis of knee (principal); M11.262 Other chondrocalcinosis, left knee; M25.461 Effusion, right knee; M25.462 Effusion, left knee; M51.26 Other intervertebral disc displacement, lumbar region; M47.816 Spondylosis without myelopathy or radiculopathy, lumbar region; M96.1 Postlaminectomy syndrome, not elsewhere classified
CPT/HCPCS: 73562; 99211; 99214

== ENCOUNTER 2022-02-09 08:13 | Outpatient (CLI) | payer MEDICARE, SELFPAY ==
[2021-09-03 10:30] VITALS: BMI 25.0
[2022-02-09] VITALS (9 sets, daily range): BP systolic 116–162; BP diastolic 56–75; PULSE 71–83; RESP 9–20; TEMP 36.3; O2SAT 96–98
--- NOTE | 2022-02-09 08:15 | DI.RAD.S_ITS ---
PROCEDURE: PAIN L/S FACET INJ/BLK 1ST ANNABELLA COMPARISON: [facility], , PAIN L/S TRANSFORAMINAL INJECT, 10/27/2021, 9:47. INDICATIONS: SPONDYLOSIS FINDINGS: Fluoroscopic spot filming was performed to verify placement of spinal needles on both sides at the L4, L5, and S1 levels, as labeled on the films. Appropriate location of the needle tips was confirmed by injection of iodinated contrast. IMPRESSION: Intraprocedural examination demonstrating appropriate positions of the needles. Dictated by: Natalio Serrato M.D. on 02/09/2022 at 9:59 Approved by: Natalio Serrato M.D. on 02/09/2022 at 9:59
[2022-02-09] MEDS: MIDAZOLAM 2 MG/2 ML VIAL 4 MG IV (09:19)
[2022-02-09] MEDS: BUPIVACAINE 0.5% (PF) VIAL 5 ML INJ (09:21)
[2022-02-09] MEDS: IOPAMIDOL 15 ML VIAL 3 ML INJ (09:21)
[2022-02-09] MEDS: LIDOCAINE 1% (PF) 5 ML INJ (09:22)
--- NOTE | 2022-02-09 09:39 | PM.PROC.IR.1 ---
Date/Time/Diagnoses Date of procedure: 02/09/22 Time of procedure: 09:39 Pre-procedure diagnosis: 1. FACET ARTHROPATHY Post-procedure diagnosis: same Procedure Notes Procedure: 1. BILATERAL- L4, L5 and S1 DIAGNOSTIC MB BLOCKS with LA Anesthetic Indications: Moira is referred by Dr. Daly for treatment of Bilateral Axial LBP. Physician: Reuben Guillory Total Fluoroscopy time (seconds): 10 Total sedation minutes: 16 Complications: none Procedure in detail & Post-procedure care: DESCRIPTION OF PROCEDURE Fluoroscopically guided, contrast-controlled bilateral L4, L5 and S1 medial branch blocks with 0.5cc of 0.5% Marcaine. Following review of allergy and review of potential side effects and complications, including, but not necessarily limited to, infection, allergic reaction, local tissue breakdown, nerve injury, paralysis, stroke and possible , the patient indicated that the patient understood and agreed to proceed. An informed consent document was signed by the patient, witnessed by a nurse, and placed in the patient's chart. After review of previous anaesthesic history and IV conscious sedation the patient was deemed safe to proceed with today's procedure with IV conscious sedation as ASA class II designation. Safety time-out was performed to confirm patient ID, procedure to be performed and site of procedure. IV sedation was accomplished with a combination of 4mg of Versed was administered by the RN after DO order, titrated to patient comfort during the course of the procedure while the patient remained responsive to all verbal commands In the prone position, following sterile prep and drape of the lumbar region, the right L4, L5 and S1 anatomical location of the medial branch of the dorsal ramus was identified fluoroscopically. Subsequently an anesthetic skin wheal using 1% lidocaine solution was initiated at each of the anatomical spots. Subsequently then a 22-gauge 3.5-inch spinal needle was atraumatically introduced and advanced under fluoroscopic guidance at each of the corresponding sites at the right L4, L5 and S1 MB. After negative aspiration, 0.2cc of Isovue 200 was injected, confirming placement without vascular or intrathecal uptake. Subsequently then 0.5cc of 0.5% Marcaine solution was injected at each of the corresponding sites at the right L4, L5 and S1 medial branch locations. The identical procedure was replicated on the left. The patient tolerated the procedure well without signs or symptoms of complications prior to transfer to the recovery area continued monitoring without incident. Post-procedure, the patient was monitored initiating provocative activities to measure the amount of relief from block of the facetogenic pain. The patient reported a VAS of 7 prior to the procedure and a post-procedure VAS of 1. It has been a pleasure to assist in the diagnostic and therapeutic care of your patient. POST OP INSTRUCTIONS The patient was provided with a Pain Log to complete over the next several hours and subsequent days prior to the patient's follow up with the ordering physician. If the patient has mines safety engineer relief to the solution applied, then they may be a candidate for medial branch rhizotomy. The patient is aware, was provided, once again, with a Pain Log and will follow up with the referring physician for review and clinical correlation
--- NOTE | 2022-02-09 10:00 | PC.NURSE ---
Patient initially with BLE weakness post procedure. Up at chair side X 2 to test leg strength and stability. Given extra time with improvement. Patient able to stand and march in place without difficulty. Transferred to , steady gait. Ok to discharge.
== END 2022-02-09 10:01 | disposition home or self-care (01) ==
PROVIDERS: Family Provider Family Medicine; PCP Family Medicine; Referring Provider Physical Medicine & Rehabilitation; Visit Provider Physical Medicine & Rehabilitation
DX: M47.816 Spondylosis without myelopathy or radiculopathy, lumbar region (principal); M47.817 Spondylosis without myelopathy or radiculopathy, lumbosacral region
CPT/HCPCS: 64493; 64494; 99152; J2250

== ENCOUNTER 2022-05-18 14:06 | Outpatient (CLI) | payer MEDICARE, SELFPAY ==
[2022-05-04 15:13] VITALS: BMI 25.0
[2022-05-18] VITALS (9 sets, daily range): BP systolic 152–189; BP diastolic 68–86; PULSE 77–93; RESP 12–20; TEMP 36.3; O2SAT 99–100
--- NOTE | 2022-05-18 14:08 | DI.RAD.S_ITS ---
PROCEDURE: PAIN L/S FACET INJ/BLK 1ST ANNABELLA COMPARISON: [facility], XA, PAIN L/S FACET INJ/BLK 1ST ANNABELLA, 02/09/2022, 10:21. INDICATIONS: SPONDYLOSIS FINDINGS: Access needles adjacent to the bilateral L4, L5 and S1 pedicles for medial branch block. Injection of small amount of contrast material confirmed position of the needle tips in demonstrates extra thecal location. IMPRESSION: Access needles adjacent to the bilateral L4, L5 and S1 pedicles for medial branch block. Dictated by: Re Madsen MD, PhD on 05/18/2022 at 15:46 Approved by: Re Madsen MD, PhD on 05/18/2022 at 15:47
[2022-05-18] MEDS: LIDOCAINE 2% INJ MDV 20ML 5 ML INJ (15:02)
[2022-05-18] MEDS: LIDOCAINE 1% (PF) 5 ML INJ (15:02)
[2022-05-18] MEDS: IOPAMIDOL 15 ML VIAL 3 ML INJ (15:06)
[2022-05-18] MEDS: MIDAZOLAM 2 MG/2 ML VIAL 4 MG IV (15:06)
--- NOTE | 2022-05-18 15:19 | PM.PROC.IR.1 ---
Date/Time/Diagnoses Date of procedure: 05/18/22 Time of procedure: 15:19 Pre-procedure diagnosis: 1. FACET ARTHROPATHY Post-procedure diagnosis: same Procedure Notes Procedure: 1. BILATERAL- L4, L5 and S1 DIAGNOSTIC MB BLOCKS with SA Anesthetic Indications: Moira is referred by Dr. Daly for treatment of Bilateral Axial LBP. Physician: Reuben Guillory Total Fluoroscopy time (seconds): 11 Total sedation minutes: 16 Complications: none Procedure in detail & Post-procedure care: DESCRIPTION OF PROCEDURE Fluoroscopically guided, contrast-controlled bilateral L4, L5 and S1 medial branch blocks with 0.5cc of 2% Lidocaine. Following review of allergy and review of potential side effects and complications, including, but not necessarily limited to, infection, allergic reaction, local tissue breakdown, nerve injury, paralysis, stroke and possible , the patient indicated that the patient understood and agreed to proceed. An informed consent document was signed by the patient, witnessed by a nurse, and placed in the patient's chart. After review of previous anaesthesic history and IV conscious sedation the patient was deemed safe to proceed with today's procedure with IV conscious sedation as ASA class II designation. Safety time-out was performed to confirm patient ID, procedure to be performed and site of procedure. IV sedation was accomplished with a combination of 4mg of Versed was administered by the RN after DO order, titrated to patient comfort during the course of the procedure while the patient remained responsive to all verbal commands In the prone position, following sterile prep and drape of the lumbar region, the right L4, L5 and S1 anatomical location of the medial branch of the dorsal ramus was identified fluoroscopically. Subsequently an anesthetic skin wheal using 1% lidocaine solution was initiated at each of the anatomical spots. Subsequently then a 22-gauge 3.5-inch spinal needle was atraumatically introduced and advanced under fluoroscopic guidance at each of the corresponding sites at the right L4, L5 and S1 MB. After negative aspiration, 0.2cc of Isovue 200 was injected, confirming placement without vascular or intrathecal uptake. Subsequently then 0.5cc of 2% Lidocaine solution was injected at each of the corresponding sites at the right L4, L5 and S1 medial branch locations. The identical procedure was replicated on the left. The patient tolerated the procedure well without signs or symptoms of complications prior to transfer to the recovery area continued monitoring without incident. Post-procedure, the patient was monitored initiating provocative activities to measure the amount of relief from block of the facetogenic pain. The patient reported a VAS of 7 prior to the procedure and a post-procedure VAS of 1. It has been a pleasure to assist in the diagnostic and therapeutic care of your patient. POST OP INSTRUCTIONS The patient was provided with a Pain Log to complete over the next several hours and subsequent days prior to the patient's follow up with the ordering physician. If the patient has java application developer relief to the solution applied, then they may be a candidate for medial branch rhizotomy. The patient is aware, was provided, once again, with a Pain Log and will follow up with the referring physician for review and clinical correlation
== END 2022-05-18 15:33 | disposition home or self-care (01) ==
PROVIDERS: Family Provider Family Medicine; PCP Family Medicine; Referring Provider Physical Medicine & Rehabilitation; Visit Provider Physical Medicine & Rehabilitation
DX: M47.816 Spondylosis without myelopathy or radiculopathy, lumbar region (principal); M47.817 Spondylosis without myelopathy or radiculopathy, lumbosacral region
CPT/HCPCS: 64493; 64494; 99152; J2250

== ENCOUNTER → 2022-06-21 10:21 | Outpatient (CLI) | payer MEDICARE, SELFPAY ==
[2022-05-04 15:13] VITALS: BMI 25.0
--- NOTE | 2022-06-21 10:23 | DI.US.S_ITS ---
LIMITED ULTRASOUND OF LEFT BREAST: 06/21/2022 CLINICAL: 6 month follow-up of cysts. Comparison is made to exams dated: 06/21/2022 mammogram, 09/09/2021 ultrasound, 03/09/2021 ultrasound, and 03/09/2021 mammogram - [facility]. Color flow and real-time ultrasound of the left breast 5-6 o'clock region were performed. Munson scale images of the real-time examination were reviewed. There is a 0.6 cm simple cyst in the left breast at 6 o'clock middle depth 6 cm from the nipple. Color flow imaging demonstrates that there is no vascularity present. Complicated cyst at 5 o'clock is no longer present. IMPRESSION: BENIGN There is no sonographic evidence of malignancy. Left breast simple cyst at 6:00 measuring 0.6 cm is benign. Left breast complicated cyst at 5:00 is no longer seen and is benign. Exam findings were conveyed to the patient. A 1 year screening mammogram is recommended. This exam was interpreted at Station ID: [id number]. Electronically Signed By: Mohinder Mejia M.D. [facility] [place]/:06/21/2022 11:24:44 letter sent: Normal Exam Ultrasound BI-RADS: 2 Benign
--- NOTE | 2022-06-21 10:23 | DI.MG.S_ITS ---
BILATERAL DIGITAL DIAGNOSTIC MAMMOGRAM 3D/2D: 06/21/2022 CLINICAL: Short term follow up. Comparison is made to exams dated: 03/09/2021 mammogram, 02/09/2021 mammogram, 03/27/2018 mammogram, 09/09/2021 ultrasound, and 12/24/2016 mammogram - [facility]. Both breasts are heterogeneously dense, which may obscure small masses (category c / 51-75% glandular tissue). There is a stable oval low density focal asymmetry with a circumscribed margin in the left breast at 6 o'clock middle depth. Left breast biopsy clip noted. No other significant masses, calcifications, or other findings are seen in either breast. IMPRESSION: INCOMPLETE: NEEDS ADDITIONAL IMAGING EVALUATION The stable focal asymmetry in the left breast is indeterminate. A targeted ultrasound is recommended and will immediately follow. Based on the Tyrer Cuzick model (a risk assessment model) the patient's lifetime risk is 8.0% and her 10 year risk is 5.5%. According to the ACR, ACS, and NCCN guidelines, an annual breast MRI exam along with mammogram is recommended if the patient's lifetime risk is 20% or greater. This exam was interpreted at Station ID: [id number]. NOTE: For mammograms, a report in lay terms will be sent to the patient. Approximately 15% of breast malignancies will not be visualized mammographically. In the management of a palpable breast mass, a negative mammogram must not discourage biopsy of a clinically suspicious lesion. Electronically Signed By: Mohinder Mejia M.D. slc/:06/21/2022 11:07:36 ACR BI-RADS Category 0: Incomplete 3340F
== END ==
PROVIDERS: Family Provider Family Medicine; PCP Family Medicine; Referring Provider Family Medicine; Visit Provider Family Medicine
DX: N60.02 Solitary cyst of left breast (principal); R92.8 Other abnormal and inconclusive findings on diagnostic imaging of breast
CPT/HCPCS: 76642; 77066; G0279

== ENCOUNTER 2022-07-29 10:46 | Outpatient (CLI) | payer MEDICARE, SELFPAY ==
[2022-05-04 15:13] VITALS: BMI 25.0
[2022-07-29] VITALS (12 sets, daily range): BP systolic 137–160; BP diastolic 66–76; PULSE 77–86; RESP 12–20; TEMP 37.1; O2SAT 99–100
--- NOTE | 2022-07-29 10:48 | DI.RAD.S_ITS ---
PROCEDURE: PAIN L/S MED/LAT N RFA BILAT INDICATIONS: SPONDYLOSIS COMPARISON: None. FINDINGS: Fluoroscopic spot filming was performed to verify placement of spinal needles at the L4, L5 and S1 level(s), as labeled on the films. Appropriate location(s) of the needle tip(s) was confirmed by injection of iodinated contrast. IMPRESSION: Fluoroscopic guidance utilized for an L4 through S1 medial branch rhizotomy. Dictated by: Abram Wyatt M.D. on 07/29/2022 at 13:59 Approved by: Abram Wyatt M.D. on 07/29/2022 at 14:00
[2022-07-29] MEDS: MIDAZOLAM 2 MG/2 ML VIAL IV ×2 (12:06→12:28)
[2022-07-29] MEDS: MIDAZOLAM 2 MG/2 ML VIAL 1 MG IV ×2 (12:13→12:18)
[2022-07-29] MEDS: LIDOCAINE 1% 20 ML INJ (12:17)
[2022-07-29] MEDS: BUPIVACAINE 0.5% (PF) 10 ML VIAL 5 ML INJ (12:24)
--- NOTE | 2022-07-29 12:49 | P.PCN_ITS ---
Date/Time/Diagnoses Date of procedure: 07/29/22 Time of procedure: 12:49 Pre-procedure diagnosis: 1. RECALCITRANT FACET ARTHROPATHY Post-procedure diagnosis: same Procedure Notes Procedure: 1. BILATERAL L4 AND L5 MEDIAL BRANCH RADIOFREQUENCY NEUROTOMY AND S1 DORSAL RAMUS BRANCH RADIOFREQUENCY NEUROTOMY Indications: Moira is referred by Dr. Daly for treatment of facet arthropathy. Physician: Reuben Guillory Total Fluoroscopy time (seconds): 22 Total sedation minutes: 38 Complications: none Procedure in detail & Post-procedure care: DESCRIPTION OF PROCEDURE Bilateral L4 and L5 medial branch radiofrequency neurotomy and bilateral S1 dorsal ramus radiofrequency neurotomy under fluoroscopy with conscious sedation. The patient is well known to this clinic having undergone previous facet injections with good but temporary relief. The patient has experienced appropriate, concordant relief with previous facet and median branch blocks but the patient's pain has been recalcitrant to further conservative measures. Therefore, based upon the patient's relief and persistent symptoms, the patient is considered an appropriate candidate for facet rhizotomy. All of the patient's questions regarding the risks versus benefits of the procedure, including, but not limited to, bleeding, infection, temporary as well as lasting nerve injury, paralysis, stroke, and , as well treatment alternatives were answered to satisfaction. After obtaining informed consent, denial of pertinent drug allergies, as well as being made aware of the potential risks of bleeding, infection, spinal cord trauma, paralysis, temporary and permanent nerve damage, seizure, stroke, and possible , the patient was brought to the fluoroscopy suite and positioned prone on the fluoroscopy table. The lumbar region was prepped with Betadine and covered with a fenestrated drape in the usual sterile fashion. Appropriate monitors applied including pulse oximeter, pulse, and blood pressure for regular monitoring throughout the procedure. After review of previous anaesthesic history and IV conscious sedation the patient was deemed safe to proceed with today's procedure with IV conscious sedation as ASA class II designation. Safety time-out was performed to confirm patient ID, procedure to be performed and site of procedure. IV sedation was accomplished with a combination of 6mg of Versed administered by the RN after DO order, titrated to patient comfort during the course of the procedure while the patient remained responsive to all verbal commands. After local infiltration using 1% lidocaine, under fluoroscopic guidance, a 10- cm RF insulated needle with a 10-mm active tip was positioned parallel to the junction of the right sacral ala and the superior articulating process where the S1 dorsal ramus resides. Needle placement was confirmed with motor stimulation of .5v on the right which produced local stimulation without radicular component. The stimulation was then increased to 2v with, once again, only local multifidus stimulation without radicular component. The needle was then removed and the identical procedure was performed along the length of the right L5 medial branch with motor stimulation at .7v on the right. The identical procedure was once again performed along the length of the right L4 medial branch with motor stimulation of .5v on the right. The medial branches were then anesthetised with 0.5% Marcaine. This was then followed by two discreet lesions performed at 80 degrees Celsius for 90 seconds each. The identical procedure was repeated on the left. The patient tolerated the procedure well without signs or symptoms of complications prior to transfer to the recovery area continued monitoring without incident. The patient was then transferred to the recovery area where they were observed for an appropriate period of time after the injection. The patient reported a VAS score of 9 prior to the procedure and a post-procedure VAS of 0. POST OP INSTRUCTIONS The patient was provided a Pain Log to continue to record the patient's response to the target-specific procedure prior to the patient's follow-up visit with the referring physician. Additionally, specific post-injection care instructions and a contact number to our office were provided if concerns arise regarding possible complications associated with the procedure are suspected.
== END 2022-07-29 13:05 | disposition home or self-care (01) ==
LOC: RAD 10:47
PROVIDERS: Family Provider Family Medicine; PCP Family Medicine; Referring Provider Physical Medicine & Rehabilitation; Visit Provider Physical Medicine & Rehabilitation
DX: M47.816 Spondylosis without myelopathy or radiculopathy, lumbar region (principal); M47.817 Spondylosis without myelopathy or radiculopathy, lumbosacral region
CPT/HCPCS: 64635; 64636; 99152; 99153; J2250

== ENCOUNTER → 2022-08-16 10:37 | Outpatient (CLI) | payer MEDICARE, SELFPAY ==
[2022-05-04 15:13] VITALS: BMI 25.0
[2022-08-16 12:07] LABS: Add Manual Diff / Slide Review NO; Basophils Absolute Auto 100 /uL (0-100); Basophils Percent Auto 1.1 % (0-2); Eosinophils Absolute Auto 200 /uL (0-450); Eosinophils Percent Auto 4.1 % (2-4); Hematocrit 37.1 % (36-46); Hemoglobin 12.4 g/dL (12.0-16.0); Lymphocytes Absolute Auto 1300 /uL (1100-4500); Lymphocytes Percent Auto 24.6 % (25-40); Mean Corpuscular HGB Conc 33.3 % (30-36); Mean Corpuscular Hemoglobin 29.6 PG (26-34); Monocytes Absolute Auto 600 /uL (0-900); Monocytes Percent Auto 10.5 % (3-14); Neutrophils Absolute Auto 3100 /uL (1500-7000); Neutrophils Percent Auto 59.7 % (50-75); Platelet Count 226 X10^3/uL (150-400); Red Blood Cell Count 4.18 X10^6/uL (4.0-5.2); Red Cell Distribution Width 13.4 % (11.6-14.8); White Blood Cell Count 5.3 X10^3/uL (4.5-11.0)
[2022-08-16 12:20] LABS: Alanine Aminotransferase 25 IU/L (<35); Albumin 4.4 g/dL (3.5-5.0); Albumin Globulin Ratio 1.5 (1.0-2.8); Alkaline Phosphatase 91 U/L (38-126); Aspartate Aminotransferase 25 IU/L (14-36); BUN Creatinine Ratio 31.6 (6-22); Bilirubin Total 0.4 mg/dL (0.2-1.3); Blood Urea Nitrogen 24 mg/dL (7-17); Calcium 8.8 mg/dL (8.4-10.2); Carbon Dioxide 26 mmol/L (22-32); Chloride 104 mmol/L (98-107); Estimated Glomerular Filt Rate > 60 mL/min (>60); Globulin 2.9 g/dL (1.7-4.1); Glucose 106 mg/dL (80-110); HEMOLYSIS 20 (0-50); Potassium 4.4 mmol/L (3.4-5.1); Sodium 139 mmol/L (137-145); Total Protein 7.3 g/dL (6.3-8.2)
[2022-08-16 13:29] LABS: Thyroid Stimulating Hormone 0.043 uIU/mL (0.47-4.68)
== END ==
PROVIDERS: Family Provider Family Medicine; PCP Family Medicine; Referring Provider Family Medicine; Visit Provider Family Medicine
DX: M54.9 Dorsalgia, unspecified (principal); Z82.49 Family history of ischemic heart disease and other diseases of the circulatory system
CPT/HCPCS: 36415; 80053; 84439; 84443; 85025

== ENCOUNTER 2022-10-12 13:02 | Outpatient (CLI) | payer MEDICARE, SELFPAY ==
[2022-05-04 15:13] VITALS: BMI 25.0
[2022-10-12] VITALS (9 sets, daily range): BP systolic 140–176; BP diastolic 66–83; PULSE 84–89; RESP 12–20; TEMP 36.6; O2SAT 97–99
--- NOTE | 2022-10-12 13:03 | DI.RAD.S_ITS ---
PROCEDURE: PAIN L/S TRANSFORAMINAL INJECT INDICATIONS: SPONDYLOSIS COMPARISON: [facility], , PAIN L/S TRANSFORAMINAL INJECT, 10/27/2021, 9:47. FINDINGS: Fluoroscopic spot filming was performed to verify placement of spinal needles at the right L4-L5 neural foramen level(s), as labeled on the films. Appropriate location(s) of the needle tip(s) was confirmed by injection of iodinated contrast. IMPRESSION: Bantry needle at the right L4-L5 neural foramen for transforaminal epidural steroid injection. Dictated by: Re Madsen MD, PhD on 10/12/2022 at 15:10 Approved by: Re Madsen MD, PhD on 10/12/2022 at 15:10
[2022-10-12] MEDS: MIDAZOLAM 2 MG/2 ML VIAL 3 MG IV (14:32)
[2022-10-12] MEDS: BETAMETHASONE 30 MG/5 ML MDV 6 MG INJ (14:35)
[2022-10-12] MEDS: DEXAMETHASONE 10 MG/ML VIAL INJ (14:35)
[2022-10-12] MEDS: IOPAMIDOL 15 ML VIAL 3 ML INJ (14:35)
[2022-10-12] MEDS: BUPIVACAINE 0.25% (PF) VIAL 2 ML INJ (14:36)
--- NOTE | 2022-10-12 14:44 | P.PCN_ITS ---
Date/Time/Diagnoses Date of procedure: 10/12/22 Time of procedure: 14:44 Pre-procedure diagnosis: 1. FORAMINAL STENOSIS WITH LE SYMPTOMS Post-procedure diagnosis: same Procedure Notes Procedure: 1. FLUOROSCOPICALLY GUIDED CONTRAST CONTROLLED TRANSFORAMINAL EPIDURAL STEROID INJECTION - RIGHT L4/5 TFESI Indications: Moira is referred by Dr. Daly for treatment of Foraminal Stenosis with Right LE Symptoms Physician: Reuben Guillory Total Fluoroscopy time (seconds): 11 Total sedation minutes: 13 Complications: none Procedure in detail & Post-procedure care: FINDINGS Foraminal Nerve Root Compression secondary to disc disease and facet hypertrophy DESCRIPTION OF PROCEDURE Following review of allergy and review of potential side effects and complications, including, but not necessarily limited to, infection, allergic reaction, local tissue breakdown, stroke, temporary or permanent nerve injury, paralysis, and possible , the patient indicated that the patient understood and agreed to proceed. An informed consent document was signed by the patient, witnessed by a nurse, and placed in the patient's chart. Additionally, other treatment options including medications, modalities, and physical therapy were reviewed with the patient. After review of previous anaesthesic history and IV conscious sedation the patient was deemed safe to proceed with today?s procedure with IV conscious sedation as ASA class II designation. Safety time-out was performed to confirm patient ID, procedure to be performed and site of procedure. IV sedation was accomplished with a combination of 3mg of Versed was administered by the RN after DO order, titrated to patient comfort during the course of the procedure while the patient remained responsive to all verbal commands In the prone position following sterile prep and drape of the lumbar region, the right L4/5 posterior neuroforamen was identified fluoroscopically. The skin was anesthetized via a 25-gauge 1.5-inch needle with 1% lidocaine solution. At this point, a 25-gauge 3.5-inch spinal needle was atraumatically introduced and advanced under fluoroscopic guidance through the posterior right L4/5 neuroforamen to approximately the anterior aspect of the canal. Depth was confirmed on lateral view. Following negative aspiration, injection of approximately 1.5cc of Isovue 200 under live fluoroscopy in the AP view confirmed excellent flow along the nerve root, into the epidural space without vascular or intrathecal uptake observed Radiological data, including multiple fluoroscopic views of the lumbosacral sp ine, reveal a spinal needle at the right L4/5 posterior neuroforamen. Subsequent views show flow of contrast material flowing superiorly and inferiorly along the nerve root confirming epidural flow. Subsequently, a test dose of 1.5 cc of 1% lidocaine solution was administered and patient was observed for two minutes for signs or symptoms of complications, including abdominal pain, shortness of breath, bilateral upper or lower extremity weakness, nausea and vomiting, prior to steroid injection. At this point, a total of 2cc or 10mg of dexamethasone and 6mg of betamethasone was injected without incident. The procedure tolerated the procedure well without signs or symptoms of complications prior to transfer to the recovery area continued monitoring without incident. The patient was then transferred to the recovery area where they were observed for an appropriate time after the injection. The patient reported a VAS score of 7 prior to the procedure and a post- procedure VAS of 2. POST OP INSTRUCTIONS The patient was provided a Pain Log to continue to record their response to the target-specific procedure prior to follow-up visit with their referring physician. Additionally, specific post-injection care instructions and a contact number to our office were provided if concerns arise regarding possible complications associated with the procedure are suspected.
== END 2022-10-12 15:15 | disposition home or self-care (01) ==
LOC: RAD 13:03
PROVIDERS: Family Provider Family Medicine; PCP Family Medicine; Referring Provider Physical Medicine & Rehabilitation; Visit Provider Physical Medicine & Rehabilitation
DX: M48.061 Spinal stenosis, lumbar region without neurogenic claudication (principal); M51.16 Intervertebral disc disorders with radiculopathy, lumbar region; M47.26 Other spondylosis with radiculopathy, lumbar region
CPT/HCPCS: 64483; 99152; J0702; J1100; J2250; J3490

== ENCOUNTER 2022-11-02 10:46 | Emergency (ER) | payer MEDICARE, SELFPAY ==
[2022-05-04 15:13] VITALS: BMI 25.0
[2022-11-02] VITALS (12 sets, daily range): BP systolic 120–176; BP diastolic 58–75; PULSE 74–95; RESP 18; TEMP 36.4; O2SAT 95–100; BMI 29.7
--- NOTE | 2022-11-02 10:59 | ED.GENADULT ---
HPI - General Adult General Chief complaint: Back Pain/Injury Stated complaint: Back Lower L/pain, vomiting Time Seen by Provider: 11/02/22 10:54 Source: patient Mode of arrival: Ambulatory Limitations: no limitations History of Present Illness HPI narrative: Patient is a 71-year-old female. Has a history of low back pain but she is here for evaluation of left-sided flank pain and left lower quadrant abdominal pain. She states is different than her normal lower back pain. No vomiting. No change in bowel habits. No urinary symptoms. No prior abdominal surgeries. She did take an oxycodone that she has at home to try to help with symptoms however it has not helped. No skin rashes. Related Data Home Medications Medication Instructions Recorded Confirmed [HOMA RED KRILL OIL] 1 cap PO QDAY ##0 09/29/16 10/11/22 vit C 250 mg-vit E 90 mg-zinc 40 1 cap PO BID ##0 09/29/16 10/11/22 mg-copper 1 [id number] capsule (PreserVision AREDS-2) cholecalciferol (vitamin D3) 25 1,000 unit PO DAILY 03/22/18 10/11/22 mcg (1,000 unit) capsule biotin 2,500 mcg capsule 2,500 mcg PO DAILY 12/25/18 10/11/22 triamcinolone acetonide 0.1 % 1 applic topical DAILY 10/11/22 10/11/22 topical cream Previous Rx's Medication Instructions Recorded gabapentin 300 mg capsule See Rx Instructions .Route 12/17/21 .COMPLEX #90 caps levothyroxine 88 mcg tablet 88 mcg PO DAILY #90 tabs 01/22/22 losartan 25 mg tablet 25 mg PO BEDTIME #90 tabs 04/30/22 estradiol 2 mg (7.5 mcg/24 hour) See Rx Instructions .Route 06/04/22 vaginal ring (Estring) .COMPLEX ##1 cyclobenzaprine 10 mg tablet 10 mg PO TID PRN muscle spasm #60 08/03/22 tabs sertraline 50 mg tablet (Zoloft) 75 mg PO QDAY #135 tabs 09/13/22 spironolactone 25 mg tablet 25 mg PO DAILY #90 tabs 09/13/22 meloxicam 15 mg tablet 15 mg PO DAILY #90 tabs 10/07/22 oxycodone-acetaminophen 5 mg-325 1 tab PO BID PRN pain #60 tabs 10/11/22 mg tablet (Percocet) ondansetron 4 mg disintegrating 4 mg PO Q6H PRN nausea and 11/02/22 tablet vomiting #10 tabs oxycodone-acetaminophen 5 mg-325 1 tab PO Q4-6H PRN pain #10 tabs 11/02/22 mg tablet (Percocet) Allergies Allergy/AdvReac Type Severity Reaction Status Date / Time Sulfa (Sulfonamide Allergy Severe rash/itchin Verified 10/11/22 09:58 Antibiotics) g [SULFA (SULFONAMIDE ANTIBIOTICS)] hydrocodone [HYDROCODONE] AdvReac Intermediate vomiting Verified 10/11/22 09:58 Review of Systems Constitutional Constitutional: Reports system reviewed and no additional complaints, except as documented Gastrointestinal Gastrointestinal: Reports system reviewed and no additional complaints, except as documented Musculoskeletal Musculoskeletal: Reports system reviewed and no additional complaints, except as documented Integumentary/Breasts Skin/Breast: Reports system reviewed and no additional complaints, except as documented Neurologic Neurologic: Reports system reviewed and no additional complaints, except as documented Patient History Medical History Allergic rhinitis (1955) Breast mass, left Chickenpox (Unknown) Chronic back pain (2006) Depression Facet arthropathy, lumbar Fall Family history of colon cancer Family history of coronary artery disease Fibromyalgia (1995) Fractures (Unknown) Hemorrhoids (1974) Herniated nucleus pulposus, L3-4 right Hypertension (Unknown) Hypertension Hypothyroidism (Unknown) Injury of left lower arm Injury of right knee Lumbar post-laminectomy syndrome Measles (Unknown) Mumps (Unknown) Postmenopausal HRT (hormone replacement therapy) Seborrheic keratosis Well adult exam Surgical History History of bladder surgery (~1972) History of laminectomy Status post hysterectomy Status post knee surgery Family History Father Cancer Grandfather Cancer Grandmother Heart disease Mother Age: 99 Endometrium cancer Colon cancer Heart disease Social History household members: spouse Smoking Status: Never smoker alcohol intake: never Smoking Status: Never smoker alcohol intake frequency: other Substance Use Type: does not use Exam Initial Vital Signs Initial Vital Signs: Vital Signs Pulse Rate 82 11/02/22 10:59 Pulse Oximetry 100 11/02/22 10:59 HENMT Head: normal to inspection and normocephalic Resp Effort & Inspection: normal respiratory effort Auscultation: clear to auscultation bilaterally Cardio Rate: regular rate Rhythm: regular rhythm GI Inspection: normal to inspection and non-distended Palpation: tender (Left lower quadrant) Back/Spine/Pelvis Back: CVA tenderness left Skin General: no rashes or lesions noted Neuro General: patient alert, patient awake and moves all extremities Extrem General: normal to inspection Course Orders Ordered: ED Orders 11/02/22 11:00 CT abdomen pelvis w con Stat 11/02/22 11:07 Complete Blood Count AUTO DIFF Stat Comprehensive Metabolic Panel Stat Lipase Stat 11/02/22 11:11 Urine Culture Stat Urine Microscopic Stat Discontinued Medications Ketorolac Tromethamine (Ketorolac 30 Mg/Ml Vial) 30 mg IV NOW ONE Stop: 11/02/22 11:00 Last Admin: 11/02/22 11:08 Dose: 30 mg Documented By: CASTRO Morphine Sulfate (Morphine 4 Mg/Ml Inj) 4 mg IV NOW ONE Stop: 11/02/22 13:16 Last Admin: 11/02/22 13:23 Dose: 4 mg Documented By: JOSÉ Morphine Sulfate (Morphine 4 Mg/Ml Inj) 4 mg IV NOW ONE Stop: 11/02/22 13:52 Last Admin: 11/02/22 14:12 Dose: 4 mg Documented By: COLLEEN Ondansetron HCl (Ondansetron 4 Mg/2 Ml Inj) 4 mg IV NOW ONE Stop: 11/02/22 14:09 Last Admin: 11/02/22 14:10 Dose: 4 mg Documented By: COLLEEN Vital Signs Vital signs: Vital Signs - 8 hr 11/02/22 11:00 11/02/22 10:59 11/02/22 11:00 Temperature 97.6 F Pulse Rate 83 82 78 Respiratory Rate 18 Blood Pressure 165/71 H Pulse Oximetry 99 100 100 Oxygen Delivery Method Room Air 11/02/22 11:06 11/02/22 11:06 11/02/22 11:30 Temperature Pulse Rate 81 82 Respiratory Rate Blood Pressure 120/65 Pulse Oximetry 100 98 Oxygen Delivery Method 11/02/22 11:31 11/02/22 11:31 11/02/22 11:57 Temperature Pulse Rate 76 88 Respiratory Rate Blood Pressure 156/68 H Pulse Oximetry 96 98 Oxygen Delivery Method 11/02/22 11:57 11/02/22 12:00 11/02/22 12:00 Temperature Pulse Rate 82 Respiratory Rate Blood Pressure 167/73 H 152/58 H Pulse Oximetry 95 Oxygen Delivery Method 11/02/22 12:30 11/02/22 12:30 11/02/22 13:00 Temperature Pulse Rate 74 Respiratory Rate Blood Pressure 141/65 H 147/70 H Pulse Oximetry 96 Oxygen Delivery Method 11/02/22 13:00 11/02/22 13:30 11/02/22 13:30 Temperature Pulse Rate 90 79 Respiratory Rate Blood Pressure 159/71 H Pulse Oximetry 96 96 Oxygen Delivery Method Medical Decision Making Lab Data Lab results reviewed: Yes I reviewed the patient's lab results. 11/02/22 11:07 11/02/22 11:07 Labs: Lab Results 11/02/22 11/02/22 11/02/22 Range/Units 11:07 11:07 11:11 WBC 9.7 (4.5-11.0) X10^3/uL RBC 4.27 (4.0-5.2) X10^6/uL Hgb 12.6 (12.0-16.0) g/dL Hct 37.2 (36-46) % MCV 87.2 (80-100) fL MCH 29.6 (26-34) PG MCHC 33.9 (30-36) % RDW 13.7 (11.6-14.8) % Plt Count 233 (150-400) X10^3/uL Neut % (Auto) 87.1 H (50-75) % Lymph % (Auto) 6.9 L (25-40) % [place] % (Auto) 5.3 (3-14) % Eos % (Auto) 0.4 L (2-4) % Baso % (Auto) 0.3 (0-2) % Neut # (Auto) 8400 H (9228-9487) /uL Lymph # (Auto) 700 L (9003-6235) /uL [place] # (Auto) 500 (0-900) /uL Eos # (Auto) 0 (0-450) /uL Baso # (Auto) 0 (0-100) /uL Sodium 138 (137-145) mmol/L Potassium 4.0 (3.4-5.1) mmol/L Chloride 104 (98-107) mmol/L Carbon Dioxide 26 (22-32) mmol/L BUN 26 H (7-17) mg/dL Creatinine 1.13 H (0.52-1.04) mg/dL Estimated GFR 52 L (>60) mL/min BUN/Creatinine Ratio 23.0 H (6-22) Glucose 147 H (80-110) mg/dL Calcium 9.2 (8.4-10.2) mg/dL Total Bilirubin 0.6 (0.2-1.3) mg/dL AST 29 (14-36) IU/L ALT 25 (<35) IU/L Alkaline Phosphatase 80 (38-126) U/L Total Protein 7.6 (6.3-8.2) g/dL Albumin 4.8 (3.5-5.0) g/dL Globulin 2.8 (1.7-4.1) g/dL Albumin/Globulin Ratio 1.7 (1.0-2.8) Lipase 123 (23-300) U/L Urine RBC 1-5/hpf (0-5/HPF) Urine WBC 0-1/hpf (0-5/HPF) Ur Squamous Epith Cells 5-10 /hpf H (0-5/HPF) Urine Bacteria Few (2-10) H (None) Ur Culture Indicated? Specimen cultured Urine Dip Bedside Urine Glucose Negative Bedside Urine Bilirubin - Negative Bedside Urine Ketone + 15 Urine Specific [place] 1.020 Bedside Urine Occult Blood ++ Bedside Urine pH 6.0 Bedside Urine Protein +/- 15 Bedside Urine Urobilinogen - Negative Bedside Urine Nitrite - Negative Bedside Urine Leukocytes +/- 15 Esterase Point of care testing: Urine Dip Bedside Urine Glucose Negative Bedside Urine Bilirubin - Negative Bedside Urine Ketone + 15 Urine Specific [place] 1.020 Bedside Urine Occult Blood ++ Bedside Urine pH 6.0 Bedside Urine Protein +/- 15 Bedside Urine Urobilinogen - Negative Bedside Urine Nitrite - Negative Bedside Urine Leukocytes +/- [address] scan - abdomen/pelvis: Radiologist's Impression: PROCEDURE:? CT ABDOMEN PELVIS W CON ? INDICATIONS:? Left lower quadrant abdominal pain ? TECHNIQUE:? After the administration of oral and IV contrast, axial sections were acquired from the lung bases to the pubic symphysis.? Coronal and sagittal reformats were performed.? For radiation dose reduction, the following was used:? automated exposure control, adjustment of mA and/or kV according to patient size. ? COMPARISON:? None. ? FINDINGS:? Image quality:? Excellent.? ? Lung bases:? Unremarkable.? ? Heart:? No significant findings. ? ? ABDOMEN: Liver:? Elongated right hepatic lobe.? No solid enhancing lesions. Gallbladder:? Distended gallbladder without significant wall thickening or inflammation.? No visible calcifications. Biliary ducts:? Nondilated. Pancreas:? Normal. Spleen:? Normal size. Adrenal Glands:? No nodules. Kidneys and Ureters:? Mild left hydronephrosis and very slightly delayed left nephrogram. ?Moderate perinephric inflammation.? Nonobstructing left lower pole intrarenal calcification measuring 4 mm.? Moderate left hydronephrosis to the level of the UVJ.? A 3 mm calcification is present at the bladder wall, likely not quite into the urinary bladder. There is a small collection of nonobstructing right lower pole intrarenal calculi filling lower pole calyx with Hounsfield units of 886. ? Stomach and Bowel:? Stomach and small bowel loops are normal caliber.? There is mild wall thickening of the proximal sigmoid colon, but without significant pericolonic inflammation.? Occasional diverticula.? A normal appendix is seen. Peritoneum:? No abnormal intraperitoneal fluid.? No free air.? ? Ventral Wall: Tiny fat containing umbilical hernia.? Abdominal Nodes:? No retroperitoneal or mesenteric adenopathy by size criteria.? Vessels:? Aorta and inferior vena cava are normal in size.? ? PELVIS: Pelvic Organs:? The uterus is absent.? Pessary device is in place.? There are no suspicious adnexal masses. Bladder:? Unremarkable.? ? Pelvic Nodes:? Mostly decompressed with the left UVJ calcification as previously described.? No other stones. Miscellaneous: No inguinal hernias are seen. ? ? ? Bones:? Unremarkable.? IMPRESSION:? ? 1. 3 mm left ureterovesicular junction stone causing moderate left hydroureteronephrosis and subtle delayed left nephrogram. ? 2. Proximal sigmoid colon changes of chronic diverticulosis.? No acute inflammation. ? 3. Bilateral nonobstructing intrarenal calculi. ? 4. Post hysterectomy.? MDM Narrative Medical decision making narrative: CT scan today does show left-sided ureteral stone. She is tolerating oral intake. Pain is relatively controlled with medications. No fevers. Her urine culture is pending. Plan will be to discharge home with pain medication and nausea medication. She was given strict return precautions. She expressed understanding and agreement. Discharge Plan Departure Patient Disposition: Home Clinical Impression: Renal colic on left side Instructions: Kidney Stones -- Adult Activity Restrictions/Additional Instructions: Take the nausea medicine and the pain medication as directed. Contact your primary doctor for a follow-up. Return to the emergency department for new or worsening symptoms. Prescriptions: New oxycodone-acetaminophen [Percocet] 5-325 mg tablet 1 tab PO Q4-6H PRN (Reason: pain) Qty: 10 0RF ondansetron 4 mg tablet,disintegrating 4 mg PO Q6H PRN (Reason: nausea and vomiting) Qty: 10 0RF No Action cholecalciferol (vitamin D3) 1,000 unit capsule 1,000 unit PO DAILY PreserVision AREDS-2 1 EACH capsule 1 cap PO BID Qty: 0 [HOMA RED KRILL OIL] 1 cap PO QDAY Qty: 0 gabapentin 300 mg capsule See Rx Instructions .ROUTE .COMPLEX Qty: 90 0RF Hold Instructions: Home Medication placed on hold at Doctor's office Dose Instruction: TAKE 1 CAPSULE BY MOUTH TWICE DAILY Rx Instructions: TAKE 1 CAPSULE BY MOUTH TWICE DAILY levothyroxine 88 mcg tablet 88 mcg PO DAILY Qty: 90 3RF Rx Instructions: Take once daily losartan 25 mg tablet 25 mg PO BEDTIME Qty: 90 2RF Estring 2 mg (7.5 mcg /24 hour) ring See Rx Instructions .ROUTE .COMPLEX Qty: 1 1RF Dose Instruction: INSERT 1 RING IN THE VAGINA FOR 3 MONTHS Rx Instructions: INSERT 1 RING IN THE VAGINA FOR 3 MONTHS cyclobenzaprine 10 mg tablet 10 mg PO TID PRN (Reason: muscle spasm) Qty: 60 1RF sertraline [Zoloft] 50 mg tablet 75 mg PO QDAY Qty: 135 0RF spironolactone 25 mg tablet 25 mg PO DAILY Qty: 90 1RF meloxicam 15 mg tablet 15 mg PO DAILY Qty: 90 1RF Rx Instructions: TAKE WITH FOOD oxycodone-acetaminophen [Percocet] 5-325 mg tablet 1 tab PO BID PRN (Reason: pain) Qty: 60 0RF biotin 2,500 mcg capsule 2,500 mcg PO DAILY triamcinolone acetonide 0.1 % cream 1 applic topical DAILY Referrals: Jean Claude Daly DO [Primary Care Provider] - Stand Alone Forms: Patient Portal/API
--- NOTE | 2022-11-02 11:00 | DI.CT.S_ITS ---
PROCEDURE: CT ABDOMEN PELVIS W CON INDICATIONS: Left lower quadrant abdominal pain TECHNIQUE: After the administration of oral and IV contrast, axial sections were acquired from the lung bases to the pubic symphysis. Coronal and sagittal reformats were performed. For radiation dose reduction, the following was used: automated exposure control, adjustment of mA and/or kV according to patient size. COMPARISON: None. FINDINGS: Image quality: Excellent. Lung bases: Unremarkable. Heart: No significant findings. ABDOMEN: Liver: Elongated right hepatic lobe. No solid enhancing lesions. Gallbladder: Distended gallbladder without significant wall thickening or inflammation. No visible calcifications. Biliary ducts: Nondilated. Pancreas: Normal. Spleen: Normal size. Adrenal Glands: No nodules. Kidneys and Ureters: Mild left hydronephrosis and very slightly delayed left nephrogram. Moderate perinephric inflammation. Nonobstructing left lower pole intrarenal calcification measuring 4 mm. Moderate left hydronephrosis to the level of the UVJ. A 3 mm calcification is present at the bladder wall, likely not quite into the urinary bladder. There is a small collection of nonobstructing right lower pole intrarenal calculi filling lower pole calyx with Hounsfield units of 886. Stomach and Bowel: Stomach and small bowel loops are normal caliber. There is mild wall thickening of the proximal sigmoid colon, but without significant pericolonic inflammation. Occasional diverticula. A normal appendix is seen. Peritoneum: No abnormal intraperitoneal fluid. No free air. Ventral Wall: Tiny fat containing umbilical hernia. Abdominal Nodes: No retroperitoneal or mesenteric adenopathy by size criteria. Vessels: Aorta and inferior vena cava are normal in size. PELVIS: Pelvic Organs: The uterus is absent. Pessary device is in place. There are no suspicious adnexal masses. Bladder: Unremarkable. Pelvic Nodes: Mostly decompressed with the left UVJ calcification as previously described. No other stones. Miscellaneous: No inguinal hernias are seen. Bones: Unremarkable. IMPRESSION: 1. 3 mm left ureterovesicular junction stone causing moderate left hydroureteronephrosis and subtle delayed left nephrogram. 2. Proximal sigmoid colon changes of chronic diverticulosis. No acute inflammation. 3. Bilateral nonobstructing intrarenal calculi. 4. Post hysterectomy. Dictated by: Paige Membreno M.D. on 11/02/2022 at 13:10 Approved by: Paige Membreno M.D. on 11/02/2022 at 13:18
[2022-11-02] MEDS: KETOROLAC 30 MG/ML VIAL IV (11:08)
[2022-11-02 11:14] LABS: Add Manual Diff / Slide Review NO; Basophils Absolute Auto 0 /uL (0-100); Basophils Percent Auto 0.3 % (0-2); Eosinophils Absolute Auto 0 /uL (0-450); Eosinophils Percent Auto 0.4 % (2-4); Hematocrit 37.2 % (36-46); Hemoglobin 12.6 g/dL (12.0-16.0); Lymphocytes Absolute Auto 700 /uL (1100-4500); Lymphocytes Percent Auto 6.9 % (25-40); Mean Corpuscular HGB Conc 33.9 % (30-36); Mean Corpuscular Hemoglobin 29.6 PG (26-34); Mean Corpuscular Volume 87.2 fL (80-100); Monocytes Absolute Auto 500 /uL (0-900); Monocytes Percent Auto 5.3 % (3-14); Neutrophils Absolute Auto 8400 /uL (1500-7000); Neutrophils Percent Auto 87.1 % (50-75); Platelet Count 233 X10^3/uL (150-400); Red Blood Cell Count 4.27 X10^6/uL (4.0-5.2); Red Cell Distribution Width 13.7 % (11.6-14.8); White Blood Cell Count 9.7 X10^3/uL (4.5-11.0)
[2022-11-02 11:28] LABS: Alanine Aminotransferase 25 IU/L (<35); Albumin 4.8 g/dL (3.5-5.0); Albumin Globulin Ratio 1.7 (1.0-2.8); Alkaline Phosphatase 80 U/L (38-126); Aspartate Aminotransferase 29 IU/L (14-36); Bilirubin Total 0.6 mg/dL (0.2-1.3); Blood Urea Nitrogen 26 mg/dL (7-17); Calcium 9.2 mg/dL (8.4-10.2); Carbon Dioxide 26 mmol/L (22-32); Chloride 104 mmol/L (98-107); Estimated Glomerular Filt Rate 52 mL/min (>60); Globulin 2.8 g/dL (1.7-4.1); Glucose 147 mg/dL (80-110); HEMOLYSIS < 15 (0-50); Lipase 123 U/L (23-300); Sodium 138 mmol/L (137-145); Total Protein 7.6 g/dL (6.3-8.2)
[2022-11-02 11:39] LABS: Bacteria Urine Few (2-10); Culture Indicated Urine Specimen Cultured; RBC Urine 1-5/HPF (0-5/HPF); Squamous Epithelial Cell Urine 5-10 /HPF (0-5/HPF); WBC Urine 0-1/HPF (0-5/HPF)
[2022-11-02] MEDS: MORPHINE 4 MG/ML INJ IV ×2 (13:23→14:12)
[2022-11-02] MEDS: ONDANSETRON 4 MG/2 ML INJ IV (14:10)
== END 2022-11-02 14:56 | disposition home or self-care (01) ==
PROVIDERS: Emergency Provider Emergency Medicine; Family Provider Family Medicine; PCP Family Medicine
DX: N23 Unspecified renal colic (principal)
CPT/HCPCS: 74177; 80053; 81003; 81015; 83690; 85025; 87077; 87086; 87186; 96374; 96375; 96376; 99283; 99284; J1885; J2270; J2405; Q9967

== ENCOUNTER → 2022-11-15 11:43 | Outpatient (CLI) | payer MEDICARE, SELFPAY ==
[2022-05-04 15:13] VITALS: BMI 25.0
[2022-11-15 12:50] LABS: Alanine Aminotransferase 21 IU/L (<35); Albumin 4.6 g/dL (3.5-5.0); Albumin Globulin Ratio 1.9 (1.0-2.8); Alkaline Phosphatase 76 U/L (38-126); Aspartate Aminotransferase 24 IU/L (14-36); BUN Creatinine Ratio 29.4 (6-22); Bilirubin Total 0.6 mg/dL (0.2-1.3); Blood Urea Nitrogen 25 mg/dL (7-17); Calcium 9.5 mg/dL (8.4-10.2); Carbon Dioxide 22 mmol/L (22-32); Chloride 104 mmol/L (98-107); Estimated Glomerular Filt Rate > 60 mL/min (>60); Globulin 2.4 g/dL (1.7-4.1); Glucose 106 mg/dL (80-110); HEMOLYSIS 21 (0-50); Potassium 4.5 mmol/L (3.4-5.1); Sodium 138 mmol/L (137-145)
[2022-11-15 13:04] LABS: Free T4, Direct Thyroxine 1.46 ng/dL (0.78-2.19)
[2022-11-15 13:18] LABS: Thyroid Stimulating Hormone 0.169 uIU/mL (0.47-4.68)
[2022-11-15 13:21] LABS: Appearance Urine UA SL CLOUDY; Bilirubin Urine UA NEGATIVE (NEGATIVE); Color Urine UA YELLOW; Glucose Urine UA NEGATIVE (Negative); Ketones Urine UA NEGATIVE (NEGATIVE); Leukocyte Esterase Urine UA NEGATIVE (NEGATIVE); Nitrite Urine UA NEGATIVE (Negative); Occult Blood Urine UA NEGATIVE (Negative); Protein Urine UA NEGATIVE (Negative); Specific Gravity Urine UA >=1.030 (1.000-1.035)
[2022-11-16 03:16] LABS: Bacteria Urine None Seen; Calcium Oxalate Crystals Urine Few; RBC Urine None Seen (0-5/HPF); Squamous Epithelial Cell Urine 1-5 /HPF (0-5/HPF); WBC Urine None Seen (0-5/HPF)
[2022-11-16 03:17] LABS: Amorphous Sediment Urine 4+; Culture Indicated Urine Cult Not Indicated
== END ==
PROVIDERS: Family Provider Family Medicine; PCP Family Medicine; Referring Provider Family Medicine; Visit Provider Family Medicine
DX: E03.9 Hypothyroidism, unspecified (principal); F32.A Depression, unspecified; I10 Essential (primary) hypertension; M96.1 Postlaminectomy syndrome, not elsewhere classified; N23 Unspecified renal colic
CPT/HCPCS: 36415; 80053; 81001; 84439; 84443

== ENCOUNTER → 2023-01-14 15:03 | Outpatient (CLI) | payer MEDICARE, SELFPAY ==
[2023-01-03 09:58] VITALS: BMI 25.0
--- NOTE | 2023-01-14 15:05 | DI.MRI.S_ITS ---
PROCEDURE: MR LUMBAR SPINE WO CON INDICATIONS: Right LE radiculopathy TECHNIQUE: Noncontrast sagittal T1 spin echo and T2 fast echo, sagittal STIR, and T2 fast spin echo through the lumbar spine. In cases with scoliosis, additional coronal T2 fast spin echo may be performed. COMPARISON: [facility], MR, MR LUMBAR SPINE WO CON, 09/11/2021, 6:56. FINDINGS: Image quality: Excellent. Alignment and Curvature: Straightening of the normal lumbar lordosis. Bone Marrow: Marrow is of normal overall signal. No acute vertebral body compression fractures. Spinal Cord: Conus medullaris terminates at the T12-L1 level. Visualized cord demonstrates normal signal and size. Paraspinous Soft Tissues: No paravertebral masses. T12-L1: Disc desiccation and mild height loss. No central canal or neural foraminal stenosis. L1-L2: Disc desiccation, mild height loss and posterior disc bulge. Facet arthropathy. Epidural lipomatosis. Mild central canal stenosis is stable. No neural foraminal stenosis. L2-L3: Disc desiccation and mild disc bulge. Facet arthropathy. Epidural lipomatosis. Mild central canal stenosis. No neural foraminal stenosis. L3-L4: Disc desiccation and height loss with a posterior disc bulge. Facet arthropathy and thickening of the ligamentum flavum. Epidural lipomatosis. Moderate central canal stenosis is similar to prior. Mild bilateral neural foraminal stenosis. L4-L5: Disc desiccation and height loss. Diffuse disc bulge. New superimposed right subarticular disc protrusion resulting in severe narrowing of the right lateral recess and impingement of the descending right L5 nerve root. Laminectomy changes. Mild central canal stenosis. Severe left neural foraminal stenosis is progressed. Moderate right neural foraminal stenosis is stable. L5-S1: Disc desiccation and height loss. Mild posterior disc bulge. Facet arthropathy. Epidural lipomatosis resulting in moderate to severe narrowing of the central canal versus termination of the thecal sac. Mild bilateral neural foraminal stenosis is stable. IMPRESSION: 1. Multilevel degenerative changes of the lumbar spine are redemonstrated with progression at L4-L5. There is a new right subarticular disc protrusion resulting in severe narrowing of the right lateral recess and impingement the descending right L5 nerve root. Progression of now severe left neural foraminal stenosis. 2. Other levels are not significantly changed compared to prior exam as described above. Dictated by: Adelfo Silverio M.D. on 01/14/2023 at 16:38 Approved by: Adelfo Silverio M.D. on 01/14/2023 at 16:45
== END ==
PROVIDERS: Family Provider Family Medicine; PCP Family Medicine; Referring Provider Physical Medicine & Rehabilitation; Visit Provider Physical Medicine & Rehabilitation
DX: M51.26 Other intervertebral disc displacement, lumbar region (principal); M47.816 Spondylosis without myelopathy or radiculopathy, lumbar region; M48.061 Spinal stenosis, lumbar region without neurogenic claudication
CPT/HCPCS: 72148

== ENCOUNTER → 2023-02-12 13:56 | Outpatient (CLI) | payer MEDICARE, SELFPAY ==
[2023-01-03 09:58] VITALS: BMI 25.0
== END ==
PROVIDERS: Family Provider Family Medicine; PCP Family Medicine; Visit Provider Registered Nurse
DX: M54.9 Dorsalgia, unspecified (principal)
CPT/HCPCS: 87077; 87086; 87186

== ENCOUNTER 2023-04-19 12:29 | Outpatient (CLI) | payer MEDICARE, SELFPAY ==
[2023-01-03 09:58] VITALS: BMI 25.0
[2023-04-19] VITALS (8 sets, daily range): BP systolic 132–174; BP diastolic 63–73; PULSE 75–83; RESP 12–17; TEMP 36.8; O2SAT 97–100
--- NOTE | 2023-04-19 13:18 | DI.RAD.S_ITS ---
PROCEDURE: PAIN L INTERLAMINAR/CAUDAL INJ INDICATIONS: SPONDYLOSIS COMPARISON: [facility], XA, PAIN L INTERLAMINAR/CAUDAL INJ, 10/16/2019, 9:16. FINDINGS: Fluoroscopic spot filming was performed to verify placement of spinal needle at the L4-5 level, as labeled on the films. Appropriate location of the needle tip was confirmed by injection of iodinated contrast. IMPRESSION: Intraprocedural examination demonstrates appropriate needle positioning. Approved by: Ivan Verde M.D. on 04/19/2023 at 15:15
[2023-04-19] MEDS: MIDAZOLAM 2 MG/2 ML VIAL IV (13:27)
[2023-04-19] MEDS: DEXAMETHASONE 10 MG/ML VIAL INJ (13:35)
[2023-04-19] MEDS: BETAMETHASONE 30 MG/5 ML MDV 6 MG INJ (13:35)
[2023-04-19] MEDS: BUPIVACAINE 0.25% (PF) VIAL 2 ML INJ (13:35)
[2023-04-19] MEDS: iopamidoL 15 ML VIAL 3 ML INJ (13:36)
--- NOTE | 2023-04-19 13:48 | P.PCN_ITS ---
Date/Time/Diagnoses Date of procedure: 04/19/23 Time of procedure: 13:48 Pre-procedure diagnosis: 1. HNP WITH RADICULAR FEATURES, 2. MULTILEVEL CENTRAL STENOSIS, Post-procedure diagnosis: same Procedure Notes Procedure: 1. FLUOROSCOPICALLY GUIDED CONTRAST CONTROLLED INTERLAMINAR EPIDURAL STEROID INJECTION -L4/5 Indications: Moira is referred by Dr. Daly for treatment of Bilateral Foraminal Stenosis R>L LE symptoms. Physician: Reuben Guillory Total Fluoroscopy time (seconds): 6 Total sedation minutes: 16 Complications: none Procedure in detail & Post-procedure care: FINDINGS Multilevel Central Spinal Stenosis with Nerve Root Compression DESCRIPTION OF PROCEDURE Fluoroscopically guided, contrast-controlled L4/5 translaminar epidural steroid injection. Following review of allergy and review of potential side effects and complications, including, but not necessarily limited to, infection, allergic reaction, local tissue breakdown, temporary as well as permanent nerve injury, paralysis, stroke and possible , the patient indicated that the patient understood and agreed to proceed. An informed consent document was signed by the patient, witnessed by a nurse, and placed in the patient's chart. Additionally, other treatment options including modalities, medications, and physical therapy were reviewed with the patient. After review of previous anaesthesic history and IV conscious sedation the patient was deemed safe to proceed with today?s procedure with IV conscious sedation as ASA class II designation. Safety time-out was performed to confirm patient ID, procedure to be performed and site of procedure. IV sedation was accomplished with a combination of 2mg of Versed was administered by the RN after DO order, titrated to patient comfort during the course of the procedure while the patient remained responsive to all verbal commands In the prone position, following sterile prep and drape of the lumbar region, the L4/5 translaminar space was identified fluoroscopically. The skin was anesthetized via a 25-gauge, 1.5inch needle with 1% lidocaine solution. At this point, a 22-gauge short bevel spinal needle was atraumatically introduced and advanced under fluoroscopic guidance into the region of the L4/5 translaminar space. Depth was confirmed on lateral view. Radiological data, including multiple fluoroscopic views of the lumbar spine, reveal a spinal needle at the L4/5 translaminar space. Lateral views then show placement of the needle in the epidural space. Subsequent views show contrast material flowing superiorly and inferiorly in the epidural space. No vascular or intrathecal uptake is observed. At this point, using loss of resistance technique with saline and air, the epidural space was entered. This was confirmed following negative aspiration with injection of approximately 1.5cc of Isovue 200, showing excellent epidural flow without vascular or intrathecal uptake. At this point, 1cc of 1% lidocaine solution combined with 2cc or 10mg of dexamethasone and 6mg betamethasone was injected without incident. The patient tolerated the procedure well without signs or symptoms of complications prior to transfer to the recovery area continued monitoring without incident. The patient was then transferred to the recovery area where they were observed for an appropriate period of time after the injection. The patient reported a VAS score of 6 prior to the procedure and a post- procedure VAS of 0. POST OP INSTRUCTIONS The patient was provided a Pain Log to continue to record their response to the target-specific procedure prior to follow-up visit with their referring physician. Additionally, specific post-injection care instructions and a contact number to our office were provided if concerns arise regarding possible complications associated with the procedure are suspected.
--- NOTE | 2023-04-19 14:41 | PC.NURSE ---
At time of discharge patient c/o some numbness. Assisted to stand with 2 person assist, patient weak and unsteady. Dr. Guillory aware. Attempted to stand 45 minutes after initial complaint and patient remains weak and unsteady. Care ongoing.
--- NOTE | 2023-04-19 16:43 | PC.NURSE ---
Patient up with SBA, steady baseline gait. No further numbness or weakness. Able to use the bathroom independently. Safe for discharge home.
--- NOTE | 2023-04-21 14:21 | PC.NURSE ---
Patient called by this nurse to check in to see how she was doing since her lumbar injection on 04/19/23. No answer. This nurse left a message reminding her to call the clinic's phone number that is on the green discharge sheet if she has any questions or concerns.
== END 2023-04-19 16:43 | disposition home or self-care (01) ==
LOC: RAD 12:30
PROVIDERS: Family Provider Family Medicine; PCP Family Medicine; Referring Provider Physical Medicine & Rehabilitation; Visit Provider Physical Medicine & Rehabilitation
DX: M51.16 Intervertebral disc disorders with radiculopathy, lumbar region (principal); M48.061 Spinal stenosis, lumbar region without neurogenic claudication
CPT/HCPCS: 62323; 99152; J0702; J1100; J2250; J3490

== ENCOUNTER → 2023-07-05 15:14 | Outpatient (CLI) | payer MEDICARE, SELFPAY ==
[2023-01-03 09:58] VITALS: BMI 25.0
[2023-07-05 17:02] LABS: Alanine Aminotransferase 22 IU/L (<35); Albumin 5.1 g/dL (3.5-5.0); Albumin Globulin Ratio 1.8 (1.0-2.8); Alkaline Phosphatase 82 U/L (38-126); Aspartate Aminotransferase 28 IU/L (14-36); BUN Creatinine Ratio 27.1 (6-22); Bilirubin Total 0.6 mg/dL (0.2-1.3); Blood Urea Nitrogen 23 mg/dL (7-17); Calcium 9.5 mg/dL (8.4-10.2); Carbon Dioxide 27 mmol/L (22-32); Chloride 106 mmol/L (98-107); Cholesterol 190 mg/dL (140-199); Estimated Glomerular Filt Rate > 60 mL/min (>60); Globulin 2.8 g/dL (1.7-4.1); Glucose 86 mg/dL (80-110); HDL Cholesterol 49 mg/dL (40-60); HEMOLYSIS 24 (0-50); LDL Cholesterol Calculated 107 mg/dL (<100); Potassium 4.5 mmol/L (3.4-5.1); Sodium 139 mmol/L (137-145); Total Protein 7.9 g/dL (6.3-8.2); Triglycerides 170 mg/dL (35-150)
[2023-07-05 17:25] LABS: Free T4, Direct Thyroxine 1.51 ng/dL (0.78-2.19)
[2023-07-05 17:38] LABS: Thyroid Stimulating Hormone 0.533 uIU/mL (0.47-4.68)
[2023-07-05 17:41] LABS: Appearance Urine UA CLEAR; Bilirubin Urine UA NEGATIVE (NEGATIVE); Color Urine UA YELLOW; Glucose Urine UA NEGATIVE (Negative); Ketones Urine UA NEGATIVE (NEGATIVE); Leukocyte Esterase Urine UA TRACE (NEGATIVE); Nitrite Urine UA POSITIVE (Negative); Occult Blood Urine UA NEGATIVE (Negative); Protein Urine UA NEGATIVE (Negative); Specific Gravity Urine UA 1.015 (1.000-1.035)
[2023-07-05 17:45] LABS: pH Urine UA 7.5 (4.5-8.0)
[2023-07-05 19:02] LABS: Bacteria Urine Many (>30); Culture Indicated Urine Specimen Cultured; RBC Urine 1-5/HPF (0-5/HPF); Squamous Epithelial Cell Urine 1-5 /HPF (0-5/HPF); Urine Volume 10mL (spun); WBC Urine 5-10/HPF (0-5/HPF)
== END ==
PROVIDERS: Family Provider Family Medicine; PCP Family Medicine; Referring Provider Family Medicine; Visit Provider Family Medicine
DX: E03.9 Hypothyroidism, unspecified (principal); I10 Essential (primary) hypertension; R30.0 Dysuria; Z82.49 Family history of ischemic heart disease and other diseases of the circulatory system
CPT/HCPCS: 36415; 80053; 80061; 81001; 84439; 84443; 87077; 87086

== ENCOUNTER → 2023-07-15 16:40 | Outpatient (CLI) | payer MEDICARE, SELFPAY ==
[2023-01-03 09:58] VITALS: BMI 25.0
== END ==
PROVIDERS: Family Provider Family Medicine; PCP Family Medicine; Visit Provider Family Medicine
DX: N39.0 Urinary tract infection, site not specified (principal)
CPT/HCPCS: 87086

== ENCOUNTER → 2023-07-21 12:06 | Outpatient (CLI) | payer MEDICARE, SELFPAY ==
[2023-01-03 09:58] VITALS: BMI 25.0
[2023-07-21 14:37] LABS: Appearance Urine UA SL CLOUDY; Bilirubin Urine UA NEGATIVE (NEGATIVE); Color Urine UA YELLOW; Glucose Urine UA NEGATIVE (Negative); Ketones Urine UA NEGATIVE (NEGATIVE); Leukocyte Esterase Urine UA TRACE (NEGATIVE); Nitrite Urine UA NEGATIVE (Negative); Occult Blood Urine UA NEGATIVE (Negative); Protein Urine UA NEGATIVE (Negative); Urobilinogen Urine UA 0.2 E.U./dL (0.2)
[2023-07-21 14:38] LABS: pH Urine UA 5.5 (4.5-8.0)
[2023-07-21 15:45] LABS: Bacteria Urine Moderate (10-30); Culture Indicated Urine Cult Not Indicated; RBC Urine 0-1/HPF (0-5/HPF); Squamous Epithelial Cell Urine 10-30 /HPF (0-5/HPF); Urine Volume 10mL (spun); WBC Urine 5-10/HPF (0-5/HPF)
== END ==
PROVIDERS: Family Provider Family Medicine; PCP Family Medicine; Referring Provider Family Medicine; Visit Provider Family Medicine
DX: R31.9 Hematuria, unspecified (principal); N39.0 Urinary tract infection, site not specified
CPT/HCPCS: 81001

== ENCOUNTER → 2023-07-28 10:07 | Outpatient (CLI) | payer MEDICARE, SELFPAY ==
[2023-01-03 09:58] VITALS: BMI 25.0
[2023-07-28 13:13] LABS: Appearance Urine UA SL CLOUDY; Bilirubin Urine UA NEGATIVE (NEGATIVE); Color Urine UA YELLOW; Glucose Urine UA NEGATIVE (Negative); Ketones Urine UA NEGATIVE (NEGATIVE); Leukocyte Esterase Urine UA NEGATIVE (NEGATIVE); Nitrite Urine UA NEGATIVE (Negative); Occult Blood Urine UA TRACE-INTACT (Negative); Protein Urine UA NEGATIVE (Negative); Urobilinogen Urine UA 0.2 E.U./dL (0.2)
[2023-07-28 13:16] LABS: Urine Volume 10mL (spun); pH Urine UA 5.5 (4.5-8.0)
[2023-07-28 13:19] LABS: Bacteria Urine Many (>30); Culture Indicated Urine Specimen Cultured; RBC Urine None Seen (0-5/HPF); Squamous Epithelial Cell Urine 1-5 /HPF (0-5/HPF); WBC Urine None Seen (0-5/HPF)
== END ==
PROVIDERS: Family Provider Family Medicine; PCP Family Medicine; Referring Provider Family Medicine; Visit Provider Family Medicine
DX: N30.01 Acute cystitis with hematuria (principal)
CPT/HCPCS: 81001; 87086

== ENCOUNTER → 2023-09-27 08:35 | Outpatient (CLI) | payer MEDICARE, SELFPAY ==
[2023-01-03 09:58] VITALS: BMI 25.0
--- NOTE | 2023-09-27 08:37 | DI.MG.S_ITS ---
BILATERAL DIGITAL SCREENING MAMMOGRAM 3D/2D WITH CAD: 09/27/2023 CLINICAL: Routine screening. Family history of breast cancer. Comparison is made to exams dated: 06/21/2022 mammogram, 02/09/2021 mammogram, and 03/27/2018 mammogram - [facility]. Both breasts are heterogeneously dense, which may obscure small masses (category c / 51-75% glandular tissue). Current study was also evaluated with a Computer Aided Detection (CAD) system. No significant masses, calcifications, or other findings are seen in either breast. There has been no significant interval change. IMPRESSION: NEGATIVE There is no mammographic evidence of malignancy. A 1 year screening mammogram is recommended. Based on the Tyrer Cuzick model (a risk assessment model) the patient's lifetime risk is 7.6% and her 10 year risk is 5.7%. According to the ACR, ACS, and NCCN guidelines, an annual breast MRI exam along with mammogram is recommended if the patient's lifetime risk is 20% or greater. This exam was interpreted at Station ID: [id number]. NOTE: For mammograms, a report in lay terms will be sent to the patient. Approximately 15% of breast malignancies will not be visualized mammographically. In the management of a palpable breast mass, a negative mammogram must not discourage biopsy of a clinically suspicious lesion. Electronically Signed By: Ivan leon/ashley:09/27/2023 11:51:34 letter sent: Normal Exam ACR BI-RADS Category 1: Negative 3341F
== END ==
LOC: MAMMO 08:36
PROVIDERS: Family Provider Family Medicine; PCP Family Medicine; Referring Provider Family Medicine; Visit Provider Family Medicine
DX: Z12.31 Encounter for screening mammogram for malignant neoplasm of breast (principal); Z80.3 Family history of malignant neoplasm of breast; R92.333 Mammographic heterogeneous density, bilateral breasts
CPT/HCPCS: 77063; 77067

== ENCOUNTER → 2024-01-17 09:58 | Outpatient (CLI) | payer MEDICARE, SELFPAY ==
[2023-10-17 16:33] VITALS: BMI 25.0
--- NOTE | 2024-01-17 09:59 | DI.RAD.S_ITS ---
PROCEDURE: XR LUMBAR SPINE MIN 4V INDICATIONS: BACK PAIN TECHNIQUE: 5 views of the lumbar spine were acquired, including bilateral oblique views. COMPARISON: [facility], , XR LUMBAR SPINE MIN 4V, 09/04/2021, 14:57. FINDINGS: Bones: 5 nonrib-bearing vertebrae are present. There is normal bony alignment. No vertebral body compression fractures. No suspicious bony lesions. Disc space narrowing hypertrophic facet joints noted in lower lumbar spine Soft tissues: Large amount fecal debris throughout the colon. Oblique images: No pars defects. IMPRESSION: Degenerative disc disease and arthropathy in the lower lumbar spine fracture malalignment. Approved by: Timbo Constantino M.D. on 01/17/2024 at 12:41
== END ==
PROVIDERS: Family Provider Family Medicine; PCP Family Medicine; Referring Provider Physical Medicine & Rehabilitation; Visit Provider Physical Medicine & Rehabilitation
DX: M47.816 Spondylosis without myelopathy or radiculopathy, lumbar region (principal); M51.26 Other intervertebral disc displacement, lumbar region; M51.369 Other intervertebral disc degeneration, lumbar region without mention of lumbar back pain or lower extremity pain; M96.1 Postlaminectomy syndrome, not elsewhere classified
CPT/HCPCS: 72110

== ENCOUNTER 2024-04-10 12:20 | Emergency (ER) | payer MEDICARE, SELFPAY ==
[2023-10-17 16:33] VITALS: BMI 25.0
[2024-04-10] VITALS (12 sets, daily range): BP systolic 152–198; BP diastolic 66–78; PULSE 57–77; RESP 12–24; TEMP 36.4; O2SAT 96–100; BMI 32.2
--- NOTE | 2024-04-10 12:40 | ED.ABDPAIN ---
HPI - Abdominal Pain General Chief Complaint: Syncope Stated Complaint: abd and back px, vomiting Time Seen by Provider: 04/10/24 12:29 Source: patient and family Mode of arrival: Wheelchair History of Present Illness HPI narrative: Patient here with . Complains of right flank pain nausea sweating. Patient has history of kidney stones and she thinks it feels the same. Denies any chest pain. No urinary complaints. No hematuria. No prior history of heart attack stroke or aortic aneurysm or dissection. Related Data Home Medications Medication Instructions Recorded Confirmed [HOMA RED KRILL OIL] 1 cap PO QDAY ##0 09/29/16 02/07/24 vit C 250 mg-vit E 90 mg-zinc 40 1 cap PO BID ##0 09/29/16 02/07/24 mg-copper 1 [id number] capsule (PreserVision AREDS-2) cholecalciferol (vitamin D3) 25 1,000 unit PO DAILY 03/22/18 02/07/24 mcg (1,000 unit) capsule biotin 2,500 mcg capsule 2,500 mcg PO DAILY 12/25/18 02/07/24 triamcinolone acetonide 0.1 % 1 applic topical DAILY 10/11/22 02/07/24 topical cream Previous Rx's Medication Instructions Recorded estradiol 2 mg (7.5 mcg/24 hour) See Rx Instructions .Route 07/05/23 vaginal ring (Estring) .COMPLEX ##1 losartan 25 mg tablet 25 mg PO ONCE PM #90 tabs 07/05/23 spironolactone 25 mg tablet 25 mg PO DAILY #90 tabs 10/06/23 cyclobenzaprine 10 mg tablet 10 mg PO TID PRN muscle spasm #60 10/11/23 tabs sertraline 50 mg tablet (Zoloft) 75 mg (1.5 x 50 mg) PO QDAY #135 10/11/23 tabs meloxicam 15 mg tablet 15 mg PO DAILY #90 tabs 10/17/23 levothyroxine 88 mcg tablet 88 mcg PO DAILY #90 tabs 02/13/24 oxycodone-acetaminophen 5 mg-325 1 tab PO BID PRN pain #60 tabs 25 mg tablet oxycodone-acetaminophen 5 mg-325 1 tab PO BID PRN pain #60 tabs 25 mg tablet oxycodone-acetaminophen 5 mg-325 1 tab PO BID PRN pain #60 tabs 03/22/24 mg tablet (Percocet) ibuprofen 600 mg tablet 600 mg PO Q6H PRN fever or pain 04/10/24 #24 tabs ondansetron 4 mg disintegrating 4 mg PO Q8H PRN nausea and 04/10/24 tablet vomiting #20 tabs tamsulosin 0.4 mg capsule 0.4 mg PO DAILY #7 caps 04/10/24 Allergies Allergy/AdvReac Type Severity Reaction Status Date / Time Sulfa (Sulfonamide Allergy Severe rash/itchin Verified 02/07/24 09:39 Antibiotics) g [SULFA (SULFONAMIDE ANTIBIOTICS)] hydrocodone [HYDROCODONE] AdvReac Intermediate vomiting Verified 02/07/24 09:39 Review of Systems Review of Systems Narrative: GENERAL: Negative chills, fatigue, malaise, fever, sweats. HEENT: Negative sinus pain, ear pain, sore throat RESPIRATORY: Negative dyspnea, cough CARDIOVASCULAR: Negative chest pain, palpitations GASTROINTESTINAL: Positive flank pain, nausea, vomiting, abdominal pain : Negative dysuria, frequency, hematuria MUSCULOSKELETAL: Negative muscle or bony pain SKIN: Negative rash, skin lesions NEUROLOGIC: Negative weakness, numbness ROS Unobtainable: All systems reviewed & are unremarkable except as noted in HPI and below Patient History Medical History Urinary tract infection Family history of coronary artery disease Family history of colon cancer Facet arthropathy, lumbar Lumbar post-laminectomy syndrome Seborrheic keratosis Depression Breast mass, left Well adult exam Hypertension Herniated nucleus pulposus, L3-4 right Postmenopausal HRT (hormone replacement therapy) Fall Injury of right knee Injury of left lower arm Hypertension (Unknown) Hypothyroidism (Unknown) Allergic rhinitis (1955) Fractures (Unknown) Chronic back pain (2006) Fibromyalgia (1995) Chickenpox (Unknown) Measles (Unknown) Mumps (Unknown) Hemorrhoids (1974) Surgical History History of laminectomy History of bladder surgery (~1972) Status post knee surgery Status post hysterectomy Family History Father Cancer Grandfather Cancer Grandmother Heart disease Mother Age: 100 Endometrium cancer Colon cancer Heart disease Other Hypertension Social History household members: spouse Smoking Status: Never smoker alcohol intake: never Smoking Status: Never smoker alcohol intake frequency: other Exam Narrative Exam Narrative: GENERAL: in no distress, not toxic not dyspneic HEAD: Normocephalic. EYES: Pupils equal round ENT: Mucous membranes moist. NECK: Trachea midline. CARDIOVASCULAR: Regular rate and rhythm RESPIRATORY: Clear to auscultation. Breath sounds equal bilaterally. No wheezes, rales, or rhonchi. GASTROINTESTINAL: Abdomen soft, non-tender, no peritoneal signs bowel sounds are present. No CVA tenderness no guarding no rebound, however patient can not get comfortable position, likely kidney stone EXTREMITIES: No gross deformities. BACK: No flank tenderness. NEURO: AOx4. Clear speech light touch intact bilateral face and hands scrotum equal epic [facility] SKIN: Warm and dry PSYCH: Is moderately anxious, is cooperative Initial Vital Signs Initial Vital Signs: Vital Signs Pulse Rate 62 04/10/24 12:30 Respiratory Rate 24 04/10/24 12:30 Blood Pressure 198/74 H 04/10/24 12:30 Pulse Oximetry 99 04/10/24 12:30 Oxygen Delivery Method Room Air 04/10/24 12:30 Course Orders Ordered: Discontinued Medications Hydromorphone HCl (Hydromorphone 1 Mg Inj) 1 mg IV NOW ONE Stop: 04/10/24 12:30 Last Admin: 04/10/24 12:47 Dose: 1 mg Documented By: BRENDA Hydromorphone HCl (Hydromorphone 1 Mg Inj) 1 mg IV NOW ONE Stop: 04/10/24 13:20 Last Admin: 04/10/24 13:30 Dose: 1 mg Documented By: BRENDA Hydromorphone HCl (Hydromorphone 0.5 Mg Inj) 0.5 mg IV NOW ONE Stop: 04/10/24 14:41 Last Admin: 04/10/24 14:44 Dose: 0.5 mg Documented By: BRENDA Ketorolac Tromethamine (Ketorolac 30 Mg/Ml Vial) 15 mg IV NOW ONE Stop: 04/10/24 14:04 Last Admin: 04/10/24 14:13 Dose: 15 mg Documented By: BRENDA Ondansetron HCl (Ondansetron 4 Mg/2 Ml Inj) 4 mg IV NOW ONE Stop: 04/10/24 12:30 Last Admin: 04/10/24 12:47 Dose: 4 mg Documented By: BRENDA Tamsulosin HCl (Tamsulosin 0.4 Mg Capsule) 0.4 mg PO NOW ONE Stop: 04/10/24 14:08 Last Admin: 04/10/24 14:13 Dose: 0.4 mg Documented By: BRENDA Vital Signs Vital signs: Vital Signs - 8 hr 04/10/24 12:30 04/10/24 12:48 04/10/24 12:59 Pulse Rate 62 66 57 L Respiratory Rate 24 16 Blood Pressure 198/74 H Pulse Oximetry 99 100 99 Oxygen Delivery Method Room Air 04/10/24 12:59 04/10/24 13:00 04/10/24 13:00 Pulse Rate 57 L Respiratory Rate 19 Blood Pressure 152/66 H 160/66 H Pulse Oximetry 98 Oxygen Delivery Method 04/10/24 13:30 04/10/24 13:31 04/10/24 13:31 Pulse Rate 63 64 Respiratory Rate Blood Pressure 155/68 H Pulse Oximetry 97 96 Oxygen Delivery Method 04/10/24 14:04 04/10/24 14:05 04/10/24 14:05 Pulse Rate 77 69 Respiratory Rate 16 12 Blood Pressure 197/77 H Pulse Oximetry 99 97 Oxygen Delivery Method MDM - Abdominal Pain Lab Data 04/10/24 12:45 04/10/24 12:45 Labs: Lab Results 04/10/24 04/10/24 Range/Units 12:45 14:08 WBC 11.8 H (4.5-11.0) X10^3/uL RBC 4.63 (4.0-5.2) X10^6/uL Hgb 13.9 (12.0-16.0) g/dL Hct 41.1 (36-46) % MCV 88.8 (80-100) fL MCH 30.0 (26-34) PG MCHC 33.8 (30-36) % RDW 13.5 (11.6-14.8) % Plt Count 283 (150-400) X10^3/uL Neut % (Auto) 71.1 (50-75) % Lymph % (Auto) 20.9 L (25-40) % [place] % (Auto) 6.3 (3-14) % Eos % (Auto) 1.2 L (2-4) % Baso % (Auto) 0.5 (0-2) % Neut # (Auto) 8400 H (7399-6628) /uL Lymph # (Auto) 2500 (2021-9158) /uL [place] # (Auto) 700 (0-900) /uL Eos # (Auto) 100 (0-450) /uL Baso # (Auto) 100 (0-100) /uL Sodium 140 (137-145) mmol/L Potassium 4.1 (3.4-5.1) mmol/L Chloride 105 (98-107) mmol/L Carbon Dioxide 23 (22-32) mmol/L BUN 27 H (7-17) mg/dL Creatinine 1.20 H (0.52-1.04) mg/dL Estimated GFR 48 L (>60) mL/min BUN/Creatinine Ratio 22.5 H (6-22) Glucose 187 H (80-110) mg/dL Calcium 10.0 (8.4-10.2) mg/dL Total Bilirubin 0.7 (0.2-1.3) mg/dL AST 54 H (14-36) IU/L ALT 104 H (<35) IU/L Alkaline Phosphatase 158 H (38-126) U/L Total Protein 7.8 (6.3-8.2) g/dL Albumin 4.8 (3.5-5.0) g/dL Globulin 3.0 (1.7-4.1) g/dL Albumin/Globulin Ratio 1.6 (1.0-2.8) Urine Color Yellow Urine Appearance Cloudy Urine pH 6.0 (4.5-8.0) Ur Specific [place] 1.025 (1.000-1.035) Urine Protein Trace H (Negative) Urine Glucose (UA) Negative (Negative) g/dL Urine Ketones 1+ H (NEGATIVE) Urine Occult Blood 3+ H (Negative) Urine Nitrate Negative (Negative) Urine Bilirubin Negative (NEGATIVE) Urine Urobilinogen 0.2 (0.2) E.U./dL Ur Leukocyte Esterase Negative (NEGATIVE) Urine RBC 5-10/hpf H (0-5/HPF) Urine WBC 1-5/hpf (0-5/HPF) Ur Squamous Epith Cells 10-30 /hpf H D (0-5/HPF) Urine Bacteria Moderate (10-30) H (None) Ur Culture Indicated? Cult not indicated Vol Urine Centrifuged 10ml (spun) Imaging Data CT scan - abdomen/pelvis: Radiologist's Impression: [address] [address] [address] Scan Report Signed Patient: Moira Mann MR#: [id number] : 1950 Acct:[id number] Age/Sex: 73 / F Date of Service: 04/10/24 Loc: ED Accession Number: [id number] Procedure: CT kidney ureter bladder (KUB) Ordering Provider: Adam Davis MD PROCEDURE: CT KIDNEY URETER BLADDER (KUB) INDICATIONS: Right flank pain TECHNIQUE: Axial sections were acquired from the lung bases to the pubic symphysis. Coronal and sagittal reformats were performed. For radiation dose reduction, the following was used: automated exposure control, adjustment of mA and/or kV according to patient size. COMPARISON: None. FINDINGS: Image quality: Diagnostic. Lower Chest: No significant findings. URINARY: Right Kidney: Multiple nonobstructing stones are seen in mid to lower pole right kidney measures up to 9 mm in size and 1031 Hounsfield unit in density. There is [id number] right-sided hydronephrosis and mild right perinephric fat stranding. Right Ureter: 5 mm stone is seen in proximal right ureter/UPJ and measures 797 Hounsfield unit in density series 2, image 67 and series 4, image 51. More distal right ureter is normal in size. Left Kidney: No obstructing stones or hydronephrosis. Nonobstructing stones are noted in mid to lower pole left kidney measures 3-4 mm in size. Left Ureter: No hydroureter. Bladder: Normal wall thickness. No stones. ABDOMEN: Liver: No contour-deforming solid mass. Hepatic steatosis is seen. Gallbladder: No radiopaque gallstones or wall thickening. Biliary ducts: No biliary dilation. Pancreas: No ductal dilation. Spleen: Size is within normal limits. Adrenal Glands: No adrenal nodules. Stomach and Bowel: There is no bowel obstruction or abnormal bowel wall thickening. No abscess collection. Mild sigmoid diverticulosis without CT evidence of acute diverticulitis. Peritoneum: No abnormal intraperitoneal fluid. No free air. Ventral Wall: No hernia. Abdominal Nodes: No enlarged retroperitoneal or mesenteric lymph nodes. Vessels: Aorta and inferior vena cava are normal in size. PELVIS: Pelvic Organs: Prior hysterectomy and pessary device in place.. Pelvic Nodes: Unremarkable. Miscellaneous: No inguinal hernias are seen. Bones: No aggressive appearing bony lesions. IMPRESSION: 1. 5 mm right UPJ/proximal ureteral stone with dtbr-op-ksyxmnsk right-sided hydronephrosis and perinephric fat stranding. The stone measures 797 Hounsfield unit in density. 2. Bilateral nonobstructing renal calculi. No left-sided hydronephrosis or hydroureter. Normal appearing urinary bladder. 3. No bowel obstruction or abnormal bowel wall thickening. No free fluid or free air. Dictated by: Gerardo Rayo M.D. on 04/10/2024 at 13:10 Approved by: Gerardo Rayo M.D. on 04/10/2024 at 13:16 [facility] Narrative Medical decision making narrative: Patient here with . Complains of right flank pain nausea sweating. Patient has history of kidney stones and she thinks it feels the same. Denies any chest pain. No urinary complaints. No hematuria. No prior history of heart attack stroke or aortic aneurysm or dissection. After history and exam, Dilaudid Zofran CT KUB urinalysis CBC CMP [facility] Medical records reviewed: No recent visit for this complaint Differential considered: Includes but not limited to aortic dissection aortic aneurysm kidney stone ureteral stone Lab Test results independently reviewed as above. Pertinent findings: WBC 11.8 BUN 27 creatinine 1.2, urinalysis negative leukocytes negative nitrate Imaging studies independently reviewed: CT abdomen pelvis 5 mm right UPJ stone Consultations: None indicated at this time Treatments: Dilaudid Toradol Zofran Flomax Re-evaluations: 2:09 p.m.. Patient feeling much better. Pain-free. Return precautions reviewed with patient. at bedside. Referral for Urology provided. Reviewed with her 5 mm stone should be able to pass. Return precautions reviewed. She desires discharge home. She does have oxycodone at home. I will prescribe ibuprofen 800 mg tablets as well as Zofran and Flomax. Discussion: Appropriate for discharge home. Exam is reassuring. Pain is controlled. Return precautions reviewed. She desires discharge home. Diagnosis: Ureteral stone Discharge Plan Departure Patient Disposition: Home Clinical Impression: Right ureteral calculus Instructions: DI for Kidney Stones Activity Restrictions/Additional Instructions: A kidney stone was found on CT scan today that is likely causing your pain. Please call provided urology office for office appointment time re-evaluation within a week. No driving operating machinery today. You may take your home pain medication. Prescription for ibuprofen Zofran and Flomax has been provided for you. Keep well hydrated. Return if worse if any questions or concerns. Prescriptions: New tamsulosin 0.4 mg capsule 0.4 mg PO DAILY Qty: 7 0RF ibuprofen 600 mg tablet 600 mg PO Q6H PRN (Reason: fever or pain) Qty: 24 0RF ondansetron 4 mg tablet,disintegrating 4 mg PO Q8H PRN (Reason: nausea and vomiting) Qty: 20 0RF No Action cholecalciferol (vitamin D3) 1,000 unit capsule 1,000 unit PO DAILY PreserVision AREDS-2 1 EACH capsule 1 cap PO BID Qty: 0 [HOMA RED KRILL OIL] 1 cap PO QDAY Qty: 0 spironolactone 25 mg tablet 25 mg PO DAILY Qty: 90 1RF levothyroxine 88 mcg tablet 88 mcg PO DAILY Qty: 90 3RF Rx Instructions: Take once daily oxycodone-acetaminophen [Percocet] 5-325 mg tablet 1 tab PO BID PRN (Reason: pain) Qty: 60 0RF oxycodone-acetaminophen 5-325 mg tablet 1 tab PO BID PRN (Reason: pain) Qty: 60 0RF Rx Instructions: refill 2 oxycodone-acetaminophen 5-325 mg tablet 1 tab PO BID PRN (Reason: pain) Qty: 60 0RF Rx Instructions: refill 3 biotin 2,500 mcg capsule 2,500 mcg PO DAILY losartan 25 mg tablet 25 mg PO ONCE PM Qty: 90 3RF Estring 2 mg (7.5 mcg /24 hour) ring See Rx Instructions .ROUTE .COMPLEX Qty: 1 3RF Dose Instruction: INSERT 1 RING IN THE VAGINA FOR 3 MONTHS Rx Instructions: INSERT 1 RING IN THE VAGINA FOR 3 MONTHS sertraline [Zoloft] 50 mg tablet 75 mg PO QDAY Qty: 135 3RF cyclobenzaprine 10 mg tablet 10 mg PO TID PRN (Reason: muscle spasm) Qty: 60 1RF triamcinolone acetonide 0.1 % cream 1 applic topical DAILY meloxicam 15 mg tablet 15 mg PO DAILY Qty: 90 2RF Rx Instructions: TAKE WITH FOOD Referrals: Jean Claude Daly DO [Primary Care Provider] - Adam Marroquin MD [Physician] - Stand Alone Forms: Patient Portal/API/Survey
--- NOTE | 2024-04-10 12:43 | DI.CT.S_ITS ---
PROCEDURE: CT KIDNEY URETER BLADDER (KUB) INDICATIONS: Right flank pain TECHNIQUE: Axial sections were acquired from the lung bases to the pubic symphysis. Coronal and sagittal reformats were performed. For radiation dose reduction, the following was used: automated exposure control, adjustment of mA and/or kV according to patient size. COMPARISON: None. FINDINGS: Image quality: Diagnostic. Lower Chest: No significant findings. URINARY: Right Kidney: Multiple nonobstructing stones are seen in mid to lower pole right kidney measures up to 9 mm in size and 1031 Hounsfield unit in density. There is xiio-uo-vbwcyzco right-sided hydronephrosis and mild right perinephric fat stranding. Right Ureter: 5 mm stone is seen in proximal right ureter/UPJ and measures 797 Hounsfield unit in density series 2, image 67 and series 4, image 51. More distal right ureter is normal in size. Left Kidney: No obstructing stones or hydronephrosis. Nonobstructing stones are noted in mid to lower pole left kidney measures 3-4 mm in size. Left Ureter: No hydroureter. Bladder: Normal wall thickness. No stones. ABDOMEN: Liver: No contour-deforming solid mass. Hepatic steatosis is seen. Gallbladder: No radiopaque gallstones or wall thickening. Biliary ducts: No biliary dilation. Pancreas: No ductal dilation. Spleen: Size is within normal limits. Adrenal Glands: No adrenal nodules. Stomach and Bowel: There is no bowel obstruction or abnormal bowel wall thickening. No abscess collection. Mild sigmoid diverticulosis without CT evidence of acute diverticulitis. Peritoneum: No abnormal intraperitoneal fluid. No free air. Ventral Wall: No hernia. Abdominal Nodes: No enlarged retroperitoneal or mesenteric lymph nodes. Vessels: Aorta and inferior vena cava are normal in size. PELVIS: Pelvic Organs: Prior hysterectomy and pessary device in place.. Pelvic Nodes: Unremarkable. Miscellaneous: No inguinal hernias are seen. Bones: No aggressive appearing bony lesions. IMPRESSION: 1. 5 mm right UPJ/proximal ureteral stone with pzki-pk-ibfuolfp right-sided hydronephrosis and perinephric fat stranding. The stone measures 797 Hounsfield unit in density. 2. Bilateral nonobstructing renal calculi. No left-sided hydronephrosis or hydroureter. Normal appearing urinary bladder. 3. No bowel obstruction or abnormal bowel wall thickening. No free fluid or free air. Dictated by: Gerardo Rayo M.D. on 04/10/2024 at 13:10 Approved by: Gerardo Rayo M.D. on 04/10/2024 at 13:16
[2024-04-10] MEDS: ONDANSETRON 4 MG/2 ML INJ IV (12:47)
[2024-04-10] MEDS: HYDROMORPHONE 1 MG INJ IV ×2 (12:47→13:30)
[2024-04-10 13:01] LABS: Add Manual Diff / Slide Review NO; Basophils Absolute Auto 100 /uL (0-100); Basophils Percent Auto 0.5 % (0-2); Eosinophils Absolute Auto 100 /uL (0-450); Eosinophils Percent Auto 1.2 % (2-4); Hematocrit 41.1 % (36-46); Hemoglobin 13.9 g/dL (12.0-16.0); Lymphocytes Absolute Auto 2500 /uL (1100-4500); Lymphocytes Percent Auto 20.9 % (25-40); Mean Corpuscular HGB Conc 33.8 % (30-36); Mean Corpuscular Volume 88.8 fL (80-100); Monocytes Absolute Auto 700 /uL (0-900); Monocytes Percent Auto 6.3 % (3-14); Neutrophils Absolute Auto 8400 /uL (1500-7000); Neutrophils Percent Auto 71.1 % (50-75); Platelet Count 283 X10^3/uL (150-400); Red Blood Cell Count 4.63 X10^6/uL (4.0-5.2); Red Cell Distribution Width 13.5 % (11.6-14.8); White Blood Cell Count 11.8 X10^3/uL (4.5-11.0)
[2024-04-10 13:11] LABS: Alanine Aminotransferase 104 IU/L (<35); Albumin 4.8 g/dL (3.5-5.0); Albumin Globulin Ratio 1.6 (1.0-2.8); Alkaline Phosphatase 158 U/L (38-126); Aspartate Aminotransferase 54 IU/L (14-36); BUN Creatinine Ratio 22.5 (6-22); Bilirubin Total 0.7 mg/dL (0.2-1.3); Blood Urea Nitrogen 27 mg/dL (7-17); Carbon Dioxide 23 mmol/L (22-32); Chloride 105 mmol/L (98-107); Estimated Glomerular Filt Rate 48 mL/min (>60); Glucose 187 mg/dL (80-110); HEMOLYSIS < 15 (0-50); Potassium 4.1 mmol/L (3.4-5.1); Sodium 140 mmol/L (137-145); Total Protein 7.8 g/dL (6.3-8.2)
[2024-04-10 14:11] LABS: Appearance Urine UA CLOUDY; Bilirubin Urine UA NEGATIVE (NEGATIVE); Color Urine UA YELLOW; Glucose Urine UA NEGATIVE (Negative); Ketones Urine UA 1+ (NEGATIVE); Leukocyte Esterase Urine UA NEGATIVE (NEGATIVE); Nitrite Urine UA NEGATIVE (Negative); Occult Blood Urine UA 3+ (Negative); Protein Urine UA TRACE (Negative); Specific Gravity Urine UA 1.025 (1.000-1.035); Urobilinogen Urine UA 0.2 E.U./dL (0.2)
[2024-04-10] MEDS: TAMSULOSIN 0.4 MG CAPSULE PO (14:13)
[2024-04-10] MEDS: KETOROLAC 30 MG/ML VIAL 15 MG IV (14:13)
[2024-04-10 14:43] LABS: Bacteria Urine Moderate (10-30); RBC Urine 5-10/HPF (0-5/HPF); Squamous Epithelial Cell Urine 10-30 /HPF (0-5/HPF); Urine Volume 10mL (spun); WBC Urine 1-5/HPF (0-5/HPF)
[2024-04-10 14:44] LABS: Culture Indicated Urine Cult Not Indicated
[2024-04-10] MEDS: HYDROMORPHONE 0.5 MG INJ IV (14:44)
== END 2024-04-10 15:24 | disposition home or self-care (01) ==
PROVIDERS: Emergency Provider Emergency Medicine; Family Provider Family Medicine; PCP Family Medicine
DX: N20.1 Calculus of ureter (principal); R11.0 Nausea; Z87.440 Personal history of urinary (tract) infections; Z88.2 Allergy status to sulfonamides
CPT/HCPCS: 36415; 74176; 80053; 81001; 85025; 96374; 96375; 96376; 99284; J1171; J1885; J2405

== ENCOUNTER → 2024-04-19 13:43 | Outpatient (CLI) | payer MEDICARE, SELFPAY ==
[2024-04-17 09:10] VITALS: BMI 25.0
== END ==
PROVIDERS: Family Provider Family Medicine; PCP Family Medicine; Visit Provider Urology
DX: N20.1 Calculus of ureter (principal)
CPT/HCPCS: 82365

== ENCOUNTER → 2024-05-14 11:14 | Outpatient (CLI) | payer MEDICARE, SELFPAY ==
[2024-04-17 09:10] VITALS: BMI 25.0
[2024-05-14 11:55] LABS: Add Manual Diff / Slide Review NO; Basophils Absolute Auto 0 /uL (0-100); Basophils Percent Auto 0.6 % (0-2); Eosinophils Absolute Auto 200 /uL (0-450); Eosinophils Percent Auto 5.3 % (2-4); Hematocrit 37.9 % (36-46); Hemoglobin 12.7 g/dL (12.0-16.0); Lymphocytes Absolute Auto 1400 /uL (1100-4500); Lymphocytes Percent Auto 33.1 % (25-40); Mean Corpuscular HGB Conc 33.7 % (30-36); Mean Corpuscular Volume 89.2 fL (80-100); Monocytes Absolute Auto 500 /uL (0-900); Monocytes Percent Auto 11.7 % (3-14); Neutrophils Absolute Auto 2100 /uL (1500-7000); Neutrophils Percent Auto 49.3 % (50-75); Platelet Count 252 X10^3/uL (150-400); Red Blood Cell Count 4.25 X10^6/uL (4.0-5.2); Red Cell Distribution Width 13.4 % (11.6-14.8); White Blood Cell Count 4.4 X10^3/uL (4.5-11.0)
[2024-05-14 12:13] LABS: Alanine Aminotransferase 38 IU/L (<35); Albumin 4.5 g/dL (3.5-5.0); Albumin Globulin Ratio 1.8 (1.0-2.8); Alkaline Phosphatase 100 U/L (38-126); Aspartate Aminotransferase 35 IU/L (14-36); BUN Creatinine Ratio 31.4 (6-22); Bilirubin Total 0.5 mg/dL (0.2-1.3); Blood Urea Nitrogen 33 mg/dL (7-17); Carbon Dioxide 23 mmol/L (22-32); Chloride 105 mmol/L (98-107); Estimated Glomerular Filt Rate 56 mL/min (>60); Globulin 2.5 g/dL (1.7-4.1); Glucose 118 mg/dL (80-110); HEMOLYSIS < 15 (0-50); Potassium 4.4 mmol/L (3.4-5.1); Sodium 138 mmol/L (137-145)
[2024-05-14 12:28] LABS: Free T4, Direct Thyroxine 1.08 ng/dL (0.78-2.19)
== END ==
LOC: LAB 11:15
PROVIDERS: Family Provider Family Medicine; PCP Family Medicine; Referring Provider Family Medicine; Visit Provider Family Medicine
DX: I10 Essential (primary) hypertension (principal); E03.9 Hypothyroidism, unspecified
CPT/HCPCS: 36415; 80053; 84439; 84443; 85025

== ENCOUNTER → 2024-06-03 09:35 | Outpatient (CLI) | payer MEDICARE, SELFPAY ==
[2024-04-17 09:10] VITALS: BMI 25.0
--- NOTE | 2024-06-03 09:37 | DI.CT.S_ITS ---
PROCEDURE: CT PEL WO CON INDICATIONS: 73 y/o F w/ a right UVJ calculus, eval for passage TECHNIQUE: Noncontrast 3 mm axial sections acquired through the bony pelvis, with coronal and sagittal reformatting. COMPARISON: [facility], CT, CT ABDOMEN PELVIS W CON, 11/02/2022, 11:55. [facility], CT, CT KIDNEY URETER BLADDER (KUB), 04/10/2024, 12:50. FINDINGS: Image quality: Excellent. Bones: No suspicious osseous lesion. Soft tissues: No hydronephrosis. Bilateral nonobstructing kidney stones, at least 3 on the left; and 3 on the left. Larger stone on the right measures 0.9 cm. No contour abnormality. Small cyst at the superior pole the left kidney is unchanged. No hydroureter. The previously seen obstructing calculus in the right ureter is no longer present. Possible gallstones. No diverticulitis. Normal appendix. No dilated loops of small bowel. No free fluid. No retroperitoneal adenopathy. No bladder stone. Pessary in the vagina. Uterus is absent. IMPRESSION: 1. No hydronephrosis. No obstructing calculus. The previously seen obstructing right kidney stone is no longer present. 2. Bilateral nonobstructing kidney stones. Dictated by: Mohinder Mejia M.D. on 06/04/2024 at 10:23 Approved by: Mohinder Meija M.D. on 06/04/2024 at 10:30
== END ==
LOC: CT 09:37
PROVIDERS: Family Provider Family Medicine; PCP Family Medicine; Referring Provider Urology; Visit Provider Urology
DX: N20.2 Calculus of kidney with calculus of ureter (principal); N28.1 Cyst of kidney, acquired
CPT/HCPCS: 72192

== ENCOUNTER 2024-07-31 10:43 | Outpatient (CLI) | payer MEDICARE, SELFPAY ==
[2024-04-17 09:10] VITALS: BMI 25.0
[2024-07-31] VITALS (9 sets, daily range): BP systolic 132–188; BP diastolic 60–88; PULSE 72–85; RESP 16–20; TEMP 36.8; O2SAT 97–100
[2024-07-31] MEDS: MIDAZOLAM 2 MG/2 ML VIAL IV ×2 (12:16→12:28)
[2024-07-31] MEDS: LIDOCAINE 1% 20 ML 5 ML INJ (12:24)
[2024-07-31] MEDS: BUPIVACAINE 0.5% (PF) 10 ML VIAL 5 ML INJ (12:29)
[2024-07-31] MEDS: iopamidoL 15 ML VIAL 3 ML INJ (12:29)
--- NOTE | 2024-07-31 12:39 | P.PCN_ITS ---
Date/Time/Diagnoses Date of procedure: 07/31/24 Time of procedure: 12:39 Pre-procedure diagnosis: 1. FACET ARTHROPATHY Post-procedure diagnosis: same Procedure Notes Procedure: 1. BILATERAL- L4, L5 and S1 DIAGNOSTIC MB BLOCKS with LA Anesthetic Indications: Moira is referred by Dr. Daly for treatment of Bilateral Axial LBP. Physician: Reuben Guillory Total Fluoroscopy time (seconds): 10 Total sedation minutes: 18 Complications: none Procedure in detail & Post-procedure care: DESCRIPTION OF PROCEDURE Fluoroscopically guided, contrast-controlled bilateral L4, L5 and S1 medial branch blocks with 0.5cc of 0.5% Marcaine. Following review of allergy and review of potential side effects and complications, including, but not necessarily limited to, infection, allergic reaction, local tissue breakdown, nerve injury, paralysis, stroke and possible , the patient indicated that the patient understood and agreed to proceed. An informed consent document was signed by the patient, witnessed by a nurse, and placed in the patient's chart. After review of previous anaesthesic history and IV conscious sedation the patient was deemed safe to proceed with today's procedure with IV conscious sedation as ASA class II designation. Safety time-out was performed to confirm patient ID, procedure to be performed and site of procedure. IV sedation was accomplished with a combination of 4mg of Versed was administered by the RN after DO order, titrated to patient comfort during the course of the procedure while the patient remained responsive to all verbal commands In the prone position, following sterile prep and drape of the lumbar region, the right L4, L5 and S1 anatomical location of the medial branch of the dorsal ramus was identified fluoroscopically. Subsequently an anesthetic skin wheal using 1% lidocaine solution was initiated at each of the anatomical spots. Subsequently then a 22-gauge 3.5-inch spinal needle was atraumatically introduced and advanced under fluoroscopic guidance at each of the corresponding sites at the right L4, L5 and S1 MB. After negative aspiration, 0.2cc of Isovue 200 was injected, confirming placement without vascular or intrathecal uptake. Subsequently then 0.5cc of 0.5% Marcaine solution was injected at each of the corresponding sites at the right L4, L5 and S1 medial branch locations. The identical procedure was replicated on the left. The patient tolerated the procedure well without signs or symptoms of complications prior to transfer to the recovery area continued monitoring without incident. Post-procedure, the patient was monitored initiating provocative activities to measure the amount of relief from block of the facetogenic pain. The patient reported a VAS of 7 prior to the procedure and a post-procedure VAS of 1. It has been a pleasure to assist in the diagnostic and therapeutic care of your patient. POST OP INSTRUCTIONS The patient was provided with a Pain Log to complete over the next several hours and subsequent days prior to the patient's follow up with the ordering physician. If the patient has administration professional relief to the solution applied, then they may be a candidate for medial branch rhizotomy. The patient is aware, was provided, once again, with a Pain Log and will follow up with the referring physician for review and clinical correlation
== END 2024-07-31 14:05 | disposition home or self-care (01) ==
LOC: RAD 10:44
PROVIDERS: Family Provider Family Medicine; PCP Family Medicine; Referring Provider Physical Medicine & Rehabilitation; Visit Provider Physical Medicine & Rehabilitation
DX: M47.816 Spondylosis without myelopathy or radiculopathy, lumbar region (principal)
CPT/HCPCS: 64493; 64494; 99152; J2250

== ENCOUNTER 2024-08-16 08:10 | Outpatient (CLI) | payer MEDICARE, SELFPAY ==
[2024-04-17 09:10] VITALS: BMI 25.0
[2024-08-16] VITALS (8 sets, daily range): BP systolic 140–183; BP diastolic 56–81; PULSE 66–76; RESP 16–22; TEMP 36.4; O2SAT 97–100
[2024-08-16] MEDS: MIDAZOLAM 2 MG/2 ML VIAL 4 MG IV (09:08)
[2024-08-16] MEDS: LIDOCAINE 2% INJ MDV 20ML 5 ML INJ (09:14)
[2024-08-16] MEDS: iopamidoL 15 ML VIAL 3 ML INJ (09:15)
[2024-08-16] MEDS: LIDOCAINE 1% 20 ML 5 ML INJ (09:15)
--- NOTE | 2024-08-16 09:36 | P.PCN_ITS ---
Date/Time/Diagnoses Date of procedure: 08/16/24 Time of procedure: 09:36 Pre-procedure diagnosis: 1. FACET ARTHROPATHY Post-procedure diagnosis: same Procedure Notes Procedure: 1. BILATERAL- L4, L5 and S1 DIAGNOSTIC MB BLOCKS with SA Anesthetic Indications: Moira is referred by Dr. Daly for treatment of Bilateral Axial LBP. Physician: Reuben Guillory Total Fluoroscopy time (seconds): 12 Total sedation minutes: 17 Complications: none Procedure in detail & Post-procedure care: DESCRIPTION OF PROCEDURE Fluoroscopically guided, contrast-controlled bilateral L4, L5 and S1 medial branch blocks with 0.5cc of 2% Lidocaine. Following review of allergy and review of potential side effects and complications, including, but not necessarily limited to, infection, allergic reaction, local tissue breakdown, nerve injury, paralysis, stroke and possible , the patient indicated that the patient understood and agreed to proceed. An informed consent document was signed by the patient, witnessed by a nurse, and placed in the patient's chart. After review of previous anaesthesic history and IV conscious sedation the patient was deemed safe to proceed with today's procedure with IV conscious sedation as ASA class II designation. Safety time-out was performed to confirm patient ID, procedure to be performed and site of procedure. IV sedation was accomplished with a combination of 4mg of Versed was administered by the RN after DO order, titrated to patient comfort during the course of the procedure while the patient remained responsive to all verbal commands In the prone position, following sterile prep and drape of the lumbar region, the right L4, L5 and S1 anatomical location of the medial branch of the dorsal ramus was identified fluoroscopically. Subsequently an anesthetic skin wheal using 1% lidocaine solution was initiated at each of the anatomical spots. Subsequently then a 22-gauge 3.5-inch spinal needle was atraumatically introduced and advanced under fluoroscopic guidance at each of the corresponding sites at the right L4, L5 and S1 MB. After negative aspiration, 0.2cc of Isovue 200 was injected, confirming placement without vascular or intrathecal uptake. Subsequently then 0.5cc of 2% Lidocaine solution was injected at each of the corresponding sites at the right L4, L5 and S1 medial branch locations. The identical procedure was replicated on the left. The patient tolerated the procedure well without signs or symptoms of complications prior to transfer to the recovery area continued monitoring without incident. Post-procedure, the patient was monitored initiating provocative activities to measure the amount of relief from block of the facetogenic pain. The patient reported a VAS of 7 prior to the procedure and a post-procedure VAS of 1. It has been a pleasure to assist in the diagnostic and therapeutic care of your patient. POST OP INSTRUCTIONS The patient was provided with a Pain Log to complete over the next several hours and subsequent days prior to the patient's follow up with the ordering physician. 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 The patient is aware, was provided, once again, with a Pain Log and will follow up with the referring physician for review and clinical correlation
== END 2024-08-16 09:45 | disposition home or self-care (01) ==
PROVIDERS: Family Provider Family Medicine; PCP Family Medicine; Referring Provider Physical Medicine & Rehabilitation; Visit Provider Physical Medicine & Rehabilitation
DX: M47.816 Spondylosis without myelopathy or radiculopathy, lumbar region (principal); M47.817 Spondylosis without myelopathy or radiculopathy, lumbosacral region
CPT/HCPCS: 64493; 64494; 99152; J2250

== ENCOUNTER 2024-08-24 00:44 | Emergency (ER) | payer MEDICARE, SELFPAY ==
[2024-04-17 09:10] VITALS: BMI 25.0
[2024-08-24] VITALS (9 sets, daily range): BP systolic 143–166; BP diastolic 63–74; PULSE 62–78; RESP 18–24; TEMP 37.2; O2SAT 94–99; BMI 32.7
--- NOTE | 2024-08-24 00:56 | ED.ABDPAIN ---
HPI - Abdominal Pain General Chief Complaint: Back Pain/Injury Stated Complaint: Back Pain, Abdominal Pain Time Seen by Provider: 08/24/24 00:50 History of Present Illness HPI narrative: 73-year-old female past medical history of low back pain, kidney stones comes into the ED for evaluation of right-sided flank pain, states it is similar to when she was diagnosed with a kidney stone few months ago, states it started spontaneously at around 9:00 p.m. yesterday. Has had some nausea and vomiting secondary to this. States he feels exactly like her kidney stone previously. She denies any other injuries at this time Related Data Home Medications ?Medication ?Instructions ?Recorded ?Confirmed [HOMA RED KRILL OIL] 1 cap PO QDAY ##0 09/29/16 08/22/24 vit C 250 mg-vit E 90 mg-zinc 40 1 cap PO BID ##0 09/29/16 08/22/24 mg-copper 1 [id number] capsule (PreserVision AREDS-2) cholecalciferol (vitamin D3) 25 1,000 unit PO DAILY 03/22/18 08/22/24 mcg (1,000 unit) capsule biotin 2,500 mcg capsule 2,500 mcg PO DAILY 12/25/18 08/22/24 Previous Rx's ?Medication ?Instructions ?Recorded cyclobenzaprine 10 mg tablet 10 mg PO TID PRN muscle spasm #60 10/11/23 tabs levothyroxine 88 mcg tablet 88 mcg PO DAILY #90 tabs 02/13/24 spironolactone 25 mg tablet 25 mg PO DAILY #90 tabs 04/16/24 estradiol 2 mg (7.5 mcg/24 hour) See Rx Instructions .Route 05/15/24 vaginal ring (Estring) .COMPLEX ##1 losartan 25 mg tablet 25 mg PO ONCE PM #90 tabs 05/15/24 meloxicam 15 mg tablet 15 mg PO DAILY #90 tabs 07/17/24 oxycodone-acetaminophen 5 mg-325 1 tab PO BID PRN pain #60 tabs 08/14/24 mg tablet oxycodone-acetaminophen 5 mg-325 1 tab PO BID PRN pain #60 tabs 08/14/24 mg tablet oxycodone-acetaminophen 5 mg-325 1 tab PO BID PRN pain #60 tabs 06/10/25 mg tablet (Percocet) sertraline 50 mg tablet (Zoloft) 75 mg (1.5 x 50 mg) PO QDAY #135 08/14/24 tabs cephalexin 500 mg capsule 500 mg PO Q8H 7 days #21 caps 08/24/24 ondansetron 4 mg disintegrating 4 mg PO Q8H PRN nausea and 08/24/24 tablet vomiting 5 days #15 tabs Allergies Allergy/AdvReac Type Severity Reaction Status Date / Time Sulfa (Sulfonamide Allergy Severe rash/itchin Verified 08/24/24 00:58 Antibiotics) (SULFA g (SULFONAMIDE ANTIBIOTICS)) tamsulosin Allergy Severe Anaphylaxis Verified 08/24/24 00:58 hydrocodone (HYDROCODONE) AdvReac Intermediate vomiting Verified 08/24/24 00:58 Review of Systems Review of Systems Narrative: General: Denies fever, chills, weight loss HEENT: Denies headache, eye drainage, eye irritation, head trauma, sore throat, voice change Cardiovascular: Denies any chest pain, palpitations, tachycardia Respiratory: Denies any shortness of breath, cough, wheeze, stridor GI/: Positive right-sided flank pain, Denies any abdominal pain, nausea, vomiting, diarrhea, bright red blood per rectum, melanotic stools, urinary frequency, urinary retention, dysuria, hematuria MSK: Denies any joint pain, muscle pains, swelling Skin: Denies any rashes, lesions, discoloration Neuro: Denies any headache, lightheadedness, dizziness, fainting, weakness Psych: Denies SI/HI Patient History Medical History Allergic rhinitis (1956) Breast mass, left Chickenpox (Unknown) Chronic back pain (2006) Depression Facet arthropathy, lumbar Fall Family history of colon cancer Family history of coronary artery disease Fibromyalgia (1995) Fractures (Unknown) Hemorrhoids (1974) Herniated nucleus pulposus, L3-4 right Hypertension (Unknown) Hypertension Hypothyroidism (Unknown) Injury of left lower arm Injury of right knee Lower urinary tract symptoms (LUTS) Lumbar post-laminectomy syndrome Measles (Unknown) Mumps (Unknown) Postmenopausal HRT (hormone replacement therapy) Seborrheic keratosis Urinary tract infection Well adult exam Surgical History History of bladder surgery (~1972) History of laminectomy Status post hysterectomy Status post knee surgery Family History Father Cancer Grandfather Cancer Grandmother Heart disease Mother Age: 100 Endometrium cancer Colon cancer Heart disease Other Hypertension Social History household members: spouse Smoking Status: Never smoker alcohol intake: never alcohol intake frequency: other Exam Narrative Exam Narrative: General: Patient rocking back pain for stretcher secondary to pain Cooperative, well-developed, not in acute distress HEENT: Normocephalic, atraumatic, PERRLA, normal sclera, eyelids normal Neck: Active full range of motion, atraumatic Chest: Normal to inspection, negative crepitus, no overlying erythema ecchymosis Respiratory: Normal respiratory effort, not in acute respiratory distress, clear to auscultation bilaterally negative cough, wheeze, tachypnea, rhonchi, rales Cardiology: Regular rate rhythm negative gallop, murmur, rubs GI/: Right CVA tenderness No tenderness to palpation, soft, non rigid, normal to inspection, exam deferred MSK: Full active range of motion in all 4 extremities, atraumatic, no tenderness to palpation of any bony prominences Skin: No rashes or lesions noted Neuro: Alert awake oriented x3, moves all 4 extremities spontaneously, cranial nerves intact, able to answer all questions appropriately follows commands appropriately Psych: Cooperative, negative suicidal or homicidal ideations Initial Vital Signs Initial Vital Signs: Vital Signs Temperature 98.9 F 08/24/24 00:57 Pulse Rate 68 08/24/24 00:57 Respiratory Rate 18 08/24/24 00:57 Blood Pressure 151/70 H 08/24/24 00:57 Pulse Oximetry 99 08/24/24 00:57 Oxygen Delivery Method Room Air 08/24/24 00:57 Course Orders Ordered: ED Orders 08/24/24 00:56 CT kidney ureter bladder (KUB) Stat 08/24/24 01:00 Complete Blood Count AUTO DIFF Stat Comprehensive Metabolic Panel Stat Lipase Stat Discontinued Medications Sodium Chloride (Normal Saline 0.9%) 1,000 mls @ 1,000 mls/hr IV BOLUS ONE Stop: 08/24/24 01:55 Last Infusion: 08/24/24 02:03 Dose: Infused Documented By: Admin: 08/24/24 01:09 Dose: 1,000 mls/hr Documented By: LISA Ketorolac Tromethamine (Ketorolac 30 Mg/Ml Vial) 30 mg IV NOW ONE Stop: 08/24/24 00:57 Last Admin: 08/24/24 01:07 Dose: 30 mg Documented By: LISA Morphine Sulfate (Morphine 4 Mg/Ml Inj) 4 mg IV NOW ONE Stop: 08/24/24 02:02 Last Admin: 08/24/24 02:10 Dose: 4 mg Documented By: COLLEEN Ondansetron HCl (Ondansetron 4 Mg/2 Ml Inj) 4 mg IV NOW ONE Stop: 08/24/24 00:57 Last Admin: 08/24/24 01:08 Dose: 4 mg Documented By: LISA Vital Signs Vital signs: Vital Signs - 8 hr 08/24/24 00:57 Temperature 98.9 F Pulse Rate 68 Respiratory Rate 18 Blood Pressure 151/70 H Pulse Oximetry 99 Oxygen Delivery Method Room Air MDM - Abdominal Pain Differential Diagnosis Differential diagnosis: Likely calculus of kidney and other (Urolithiasis, nephrolithiasis, electrolyte abnormality) Lab Data 08/24/24 01:00 08/24/24 01:00 Labs: Lab Results 08/24/24 Range/Units 01:00 WBC 11.0 (4.5-11.0) X10^3/uL RBC 4.30 (4.0-5.2) X10^6/uL Hgb 13.2 (12.0-16.0) g/dL Hct 37.9 (36-46) % MCV 88.2 (80-100) fL MCH 30.6 (26-34) PG MCHC 34.7 (30-36) % RDW 13.2 (11.6-14.8) % Plt Count 224 (150-400) X10^3/uL Neut % (Auto) 78.4 H (50-75) % Lymph % (Auto) 14.3 L (25-40) % Clarke % (Auto) 5.7 (3-14) % Eos % (Auto) 1.1 L (2-4) % Baso % (Auto) 0.5 (0-2) % Neut # (Auto) 8600 H (4732-6393) /uL Lymph # (Auto) 1600 (4751-6119) /uL Clarke # (Auto) 600 (0-900) /uL Eos # (Auto) 100 (0-450) /uL Baso # (Auto) 100 (0-100) /uL Sodium 137 (137-145) mmol/L Potassium 4.7 (3.4-5.1) mmol/L Chloride 103 (98-107) mmol/L Carbon Dioxide 23 (22-32) mmol/L BUN 27 H (7-17) mg/dL Creatinine 1.11 H (0.52-1.04) mg/dL Estimated GFR 52 L (>60) mL/min BUN/Creatinine Ratio 24.3 H (6-22) Glucose 153 H (70-99) mg/dL Calcium 9.4 (8.4-10.2) mg/dL Total Bilirubin 0.5 (0.2-1.3) mg/dL AST 39 H (14-36) IU/L ALT 56 H (<35) IU/L Alkaline Phosphatase 115 (38-126) U/L Total Protein 7.3 (6.3-8.2) g/dL Albumin 4.7 (3.5-5.0) g/dL Globulin 2.6 (1.7-4.1) g/dL Albumin/Globulin Ratio 1.8 (1.0-2.8) Lipase 60 (23-300) U/L Imaging Data CT KUB: Radiologist's Impression: [address] [address] [address] Scan Report Signed Patient: Moira Mann MR#: [id number] : 1950 Acct:[id number] Age/Sex: 73 / F Date of Service: 08/24/24 Loc: ED Accession Number: [id number] Procedure: CT kidney ureter bladder (KUB) Ordering Provider: Leo Redd D.O. PROCEDURE: CT KIDNEY URETER BLADDER (KUB) INDICATIONS: right sided flank pain TECHNIQUE: Axial sections were acquired from the lung bases to the pubic symphysis. Coronal and sagittal reformats were performed. For radiation dose reduction, the following was used: automated exposure control, adjustment of mA and/or kV according to patient size. COMPARISON: [facility], CT, CT KIDNEY URETER BLADDER (KUB), 04/10/2024, 12:50. FINDINGS: Image quality: Diagnostic. Lower Chest: Bibasilar atelectasis. Small hiatal hernia. URINARY: Kidney/ureter: Multiple renal stones noted measuring up to 9 mm in size and measuring approximately 1000 Hounsfield units in density. There is mild right hydronephrosis secondary to a 4 mm stone at the right ureteral pelvic junction. Remainder of the right ureter is normal in course and caliber. No other ureteral stone seen. No hydroureter or periureteral stranding. Mild right perinephric stranding. A few small punctate left renal stones are noted. Largest measures approximately 0.6 cm in size and measuring up to 500 Hounsfield units in density. Left ureter is normal in course and caliber. No hydroureteronephrosis on the left. No perinephric stranding. Bladder: Normal wall thickness. No stones. ABDOMEN: Liver: No contour-deforming solid mass. Gallbladder: No radiopaque gallstones or wall thickening. Biliary ducts: No biliary dilation. Pancreas: No ductal dilation. Spleen: Size is within normal limits. Adrenal Glands: No adrenal nodules. Stomach and Bowel: Normal colonic caliber, without significant wall thickening. Scattered colonic diverticula without acute inflammation. No evidence for small bowel obstruction or associated inflammatory changes. Normal appendix. Peritoneum: No abnormal intraperitoneal fluid. No free air. Ventral Wall: There is a fat-containing umbilical hernia without acute inflammation. Abdominal Nodes: No enlarged retroperitoneal or mesenteric lymph nodes. Vessels: Aorta and inferior vena cava are normal in size. PELVIS: Pelvic Organs: Unremarkable. A pessary ring is visualized. Pelvic Nodes: Unremarkable. Miscellaneous: No inguinal hernias are seen. Bones: Unremarkable. Visualized osseous structures appear intact without acute fracture or focal destructive lesion. No acute compression fractures of the imaged spine. IMPRESSION: Mild right hydronephrosis secondary to a 4 mm stone at the right ureteropelvic junction. No significant perinephric stranding. Additional nonobstructing right renal stones measuring up to 9 mm in size and measuring up 1000 Hounsfield units. Nonobstructing left renal stones measuring up to 7 mm in size and measuring approximately 500 Hounsfield units. No left hydronephrosis. Small hiatal hernia. Colonic diverticulosis without acute diverticulitis. Normal appendix. Other chronic/non-acute findings as above. MDM Narrative Medical decision making narrative: Patient is a 73-year-old female with a past medical history of low back pain as well as nephrolithiasis presenting for right-sided flank pain states it is similar to when she was diagnosed with a nephrolithiasis several months ago, states that she was able to pass this herself. States that her symptoms started abruptly at around 9:00 p.m. yesterday, has had nausea secondary to pain otherwise no other complaints. Patient had lab work imaging and urinalysis performed here in the emergency department. Urinalysis not consistent with acute urinary tract infection, no leukocytosis, creatinine normal, CT scan showing a proximal 4 mm stone to the right, mild hydro but no signs of obstruction. Patient states she has a history of allergic reaction/anaphylaxis to Flomax therefore this was withheld here in the emergency department, did informed patient that she should follow up with Urology in outpatient setting strict return precautions given she verbalized understanding of this and agrees to being discharged home with outpatient follow up Discharge Plan Departure Patient Disposition: Home Clinical Impression: Urolithiasis Instructions: DI for Kidney Stones Activity Restrictions/Additional Instructions: Please follow up with your urologist Please return to the emergency department immediately if the pain becomes unbearable and or you can not take your medicine or if you start developing a fever Please read the discharge instructions sheet carefully and bring all papers to all doctor follow-up visits, as it may contain information that your doctor may want to see. Disease processes change and evolve, if your symptoms worsen or if you develop any new symptoms that are concerning to you please return for evaluation. Your evaluation today does not show any evidence of any life-threatening/serious illnesses requiring admission to the hospital or surgery. Please follow-up with your doctor for re-evaluation in approximately 1 day. Seek immediate medical attention for any worrisome symptoms. *If you do not have a primary care provider please contact the [facility] Resource line at [phone]. They will ask some questions about your medical history and help get you set up with a doctor in the community. Prescriptions: New ondansetron 4 mg tablet,disintegrating 4 mg PO Q8H PRN (Reason: nausea and vomiting) 5 Days Qty: 15 0RF cephalexin 500 mg capsule 500 mg PO Q8H 7 Days Qty: 21 0RF No Action cholecalciferol (vitamin D3) 1,000 unit capsule 1,000 unit PO DAILY PreserVision AREDS-2 1 EACH capsule 1 cap PO BID Qty: 0 [HOMA RED KRILL OIL] 1 cap PO QDAY Qty: 0 levothyroxine 88 mcg tablet 88 mcg PO DAILY Qty: 90 3RF Rx Instructions: Take once daily spironolactone 25 mg tablet 25 mg PO DAILY Qty: 90 3RF meloxicam 15 mg tablet 15 mg PO DAILY Qty: 90 2RF Rx Instructions: TAKE WITH FOOD biotin 2,500 mcg capsule 2,500 mcg PO DAILY losartan 25 mg tablet 25 mg PO ONCE PM Qty: 90 3RF Estring 2 mg (7.5 mcg /24 hour) ring See Rx Instructions .ROUTE .COMPLEX Qty: 1 3RF Dose Instruction: INSERT 1 RING IN THE VAGINA FOR 3 MONTHS Rx Instructions: INSERT 1 RING IN THE VAGINA FOR 3 MONTHS cyclobenzaprine 10 mg tablet 10 mg PO TID PRN (Reason: muscle spasm) Qty: 60 1RF oxycodone-acetaminophen 5-325 mg tablet 1 tab PO BID PRN (Reason: pain) Qty: 60 0RF Rx Instructions: refill 3 oxycodone-acetaminophen 5-325 mg tablet 1 tab PO BID PRN (Reason: pain) Qty: 60 0RF Rx Instructions: refill 2 oxycodone-acetaminophen [Percocet] 5-325 mg tablet 1 tab PO BID PRN (Reason: pain) Qty: 60 0RF sertraline [Zoloft] 50 mg tablet 75 mg PO QDAY Qty: 135 3RF Referrals: Jean Claude Daly DO [Primary Care Provider, Family Practice] Stand Alone Forms: Patient Portal/API
[2024-08-24] MEDS: KETOROLAC 30 MG/ML VIAL IV (01:07)
[2024-08-24 01:08] LABS: Add Manual Diff / Slide Review NO; Basophils Absolute Auto 100 /uL (0-100); Basophils Percent Auto 0.5 % (0-2); Eosinophils Absolute Auto 100 /uL (0-450); Eosinophils Percent Auto 1.1 % (2-4); Hematocrit 37.9 % (36-46); Hemoglobin 13.2 g/dL (12.0-16.0); Lymphocytes Absolute Auto 1600 /uL (1100-4500); Lymphocytes Percent Auto 14.3 % (25-40); Mean Corpuscular HGB Conc 34.7 % (30-36); Mean Corpuscular Hemoglobin 30.6 PG (26-34); Mean Corpuscular Volume 88.2 fL (80-100); Monocytes Absolute Auto 600 /uL (0-900); Monocytes Percent Auto 5.7 % (3-14); Neutrophils Absolute Auto 8600 /uL (1500-7000); Neutrophils Percent Auto 78.4 % (50-75); Platelet Count 224 X10^3/uL (150-400); Red Cell Distribution Width 13.2 % (11.6-14.8)
[2024-08-24] MEDS: ONDANSETRON 4 MG/2 ML INJ IV (01:08)
[2024-08-24] MEDS: SODIUM CHLORIDE 0.9% 1,000 ML 1000 ML IV (01:09)
[2024-08-24 01:18] LABS: Alanine Aminotransferase 56 IU/L (<35); Albumin 4.7 g/dL (3.5-5.0); Albumin Globulin Ratio 1.8 (1.0-2.8); Alkaline Phosphatase 115 U/L (38-126); Aspartate Aminotransferase 39 IU/L (14-36); BUN Creatinine Ratio 24.3 (6-22); Bilirubin Total 0.5 mg/dL (0.2-1.3); Blood Urea Nitrogen 27 mg/dL (7-17); Calcium 9.4 mg/dL (8.4-10.2); Carbon Dioxide 23 mmol/L (22-32); Chloride 103 mmol/L (98-107); Estimated Glomerular Filt Rate 52 mL/min (>60); Globulin 2.6 g/dL (1.7-4.1); Glucose 153 mg/dL (70-99); HEMOLYSIS < 15 (0-50); Lipase 60 U/L (23-300); Potassium 4.7 mmol/L (3.4-5.1); Sodium 137 mmol/L (137-145); Total Protein 7.3 g/dL (6.3-8.2)
[2024-08-24] MEDS: MORPHINE 4 MG/ML INJ IV ×2 (02:10→02:57)
--- NOTE | 2024-08-24 02:19 | EKG_ITS ---
[address] [address] Test Date: 2024-08-24 Pat Name: Moira Mann Department: Room: Gender: Female Huc: tino : 1950 Requested By: Order Number: [id number] Reading MD: Vincent Pimentel MD Measurements Intervals Strawn Rate: 69 P: 58 CT: 148 QRS: -14 QRSD: 76 T: 43 QT: 408 QTc: 437 Interpretive Statements Normal sinus rhythm Minimal voltage criteria for LVH, may be normal variant ( R in aVL ) Electronically Signed On 08-24-2024 11:08:23 PDT by Vincent Pimentel MD
[2024-08-24] MEDS: cephALEXin 250 MG CAPSULE 500 MG PO (02:56)
[2024-08-24] MEDS: ONDANSETRON 4 MG ODT PREPACK 1 BOTTLE MISC (02:57)
[2024-08-24 03:00] LABS: Bacteria Urine Many (>30); RBC Urine 5-10/HPF (0-5/HPF); Squamous Epithelial Cell Urine 10-30 /HPF (0-5/HPF); Urine Volume 10mL (spun)
[2024-08-24 03:01] LABS: WBC Urine 1-5/HPF (0-5/HPF)
== END 2024-08-24 03:21 | disposition home or self-care (01) ==
PROVIDERS: Emergency Provider Student in an Organized Health Care Education/Training Program; Family Provider Family Medicine; PCP Family Medicine
DX: N20.9 Urinary calculus, unspecified (principal); Z87.442 Personal history of urinary calculi; I10 Essential (primary) hypertension
CPT/HCPCS: 36415; 74176; 80053; 81003; 81015; 83690; 85025; 87086; 93005; 93010; 96361; 96374; 96375; 96376; 99284; J1885; J2270; J2405

== ENCOUNTER 2024-09-06 10:41 | Outpatient (CLI) | payer MEDICARE, SELFPAY ==
[2024-04-17 09:10] VITALS: BMI 25.0
[2024-09-06] VITALS (13 sets, daily range): BP systolic 146–177; BP diastolic 65–81; PULSE 66–76; RESP 14–18; TEMP 36.6; O2SAT 97–100
[2024-09-06] MEDS: MIDAZOLAM 2 MG/2 ML VIAL IV (11:59)
[2024-09-06] MEDS: fentaNYL 100 MCG/2 ML INJ 50 MCG IV (12:01)
[2024-09-06] MEDS: MIDAZOLAM 2 MG/2 ML VIAL 1 MG IV ×2 (12:05→12:26)
[2024-09-06] MEDS: BUPIVACAINE 0.5% (PF) 10 ML VIAL 5 ML INJ (12:08)
[2024-09-06] MEDS: LIDOCAINE 1% 20 ML 5 ML INJ (12:09)
[2024-09-06] MEDS: BETAMETHASONE 30 MG/5 ML MDV 6 MG INJ (12:19)
[2024-09-06] MEDS: BETAMETHASONE 30 MG/5 ML MDV 12 MG INJ (12:20)
--- NOTE | 2024-09-06 12:41 | P.PCN_ITS ---
Date/Time/Diagnoses Date of procedure: 09/06/24 Time of procedure: 12:42 Pre-procedure diagnosis: 1. RECALCITRANT FACET ARTHROPATHY Post-procedure diagnosis: same Procedure Notes Procedure: 1. BILATERAL L4 AND L5 MEDIAL BRANCH RADIOFREQUENCY NEUROTOMY AND S1 DORSAL RAMUS BRANCH RADIOFREQUENCY NEUROTOMY Indications: Moira is referred by Dr. Daly for treatment of facet arthropathy. Physician: Reuben Guillory Total Fluoroscopy time (seconds): 20 Total sedation minutes: 38 Complications: none Procedure in detail & Post-procedure care: DESCRIPTION OF PROCEDURE Bilateral L4 and L5 medial branch radiofrequency neurotomy and bilateral S1 dorsal ramus radiofrequency neurotomy under fluoroscopy with conscious sedation. The patient is well known to this clinic having undergone previous facet injections with good but temporary relief. The patient has experienced appropriate, concordant relief with previous facet and median branch blocks but the patient's pain has been recalcitrant to further conservative measures. Therefore, based upon the patient's relief and persistent symptoms, the patient is considered an appropriate candidate for facet rhizotomy. All of the patient's questions regarding the risks versus benefits of the procedure, including, but not limited to, bleeding, infection, temporary as well as lasting nerve injury, paralysis, stroke, and , as well treatment alternatives were answered to satisfaction. After obtaining informed consent, denial of pertinent drug allergies, as well as being made aware of the potential risks of bleeding, infection, spinal cord trauma, paralysis, temporary and permanent nerve damage, seizure, stroke, and possible , the patient was brought to the fluoroscopy suite and positioned prone on the fluoroscopy table. The lumbar region was prepped in usual sterile fashion and covered with a fenestrated drape in the usual sterile fashion. Appropriate monitors applied including pulse oximeter, pulse, and blood pressure for regular monitoring throughout the procedure. After review of previous anaesthesic history and IV conscious sedation the patient was deemed safe to proceed with today's procedure with IV conscious sedation as ASA class II designation. Safety time-out was performed to confirm patient ID, procedure to be performed and site of procedure. IV sedation was accomplished with a combination of 4mg of Versed and 50mcg of Fentanyl was administered by the RN after DO order, titrated to patient comfort during the course of the procedure while the patient remained responsive to all verbal commands. After local infiltration using 1% lidocaine, under fluoroscopic guidance, a 10- cm RF insulated needle with a 10-mm active tip was positioned parallel to the junction of the right sacral ala and the superior articulating process where the S1 dorsal ramus resides. Needle placement was confirmed with motor stimulation of .5v on the right which produced local stimulation without radicular component. The stimulation was then increased to 2v with, once again, only local multifidus stimulation without radicular component. The needle was then removed and the identical procedure was performed along the length of the right L5 medial branch with motor stimulation at .7v on the right. The identical procedure was once again performed along the length of the right L4 medial branch with motor stimulation of .5v on the right. The medial branches were then anesthetised with 0.5% Marcaine. This was then followed by two discreet lesions performed at 80 degrees Celsius for 90 seconds each. The identical procedure was repeated on the left. The patient tolerated the procedure well without signs or symptoms of complications prior to transfer to the recovery area continued monitoring without incident. The patient was then transferred to the recovery area where they were observed for an appropriate period of time after the injection. The patient reported a VAS score of 9 prior to the procedure and a post-procedure VAS of 1. POST OP INSTRUCTIONS The patient was provided a Pain Log to continue to record the patient's response to the target-specific procedure prior to the patient's follow-up visit with the referring physician. Additionally, specific post-injection care instructions and a contact number to our office were provided if concerns arise regarding possible complications associated with the procedure are suspected.
== END 2024-09-06 13:00 | disposition home or self-care (01) ==
PROVIDERS: Family Provider Family Medicine; PCP Family Medicine; Referring Provider Physical Medicine & Rehabilitation; Visit Provider Physical Medicine & Rehabilitation
DX: M47.816 Spondylosis without myelopathy or radiculopathy, lumbar region (principal); M47.817 Spondylosis without myelopathy or radiculopathy, lumbosacral region
CPT/HCPCS: 64635; 64636; 99152; 99153; J0702; J2250; J3010

== ENCOUNTER → 2024-10-01 09:38 | Outpatient (CLI) | payer MEDICARE, SELFPAY ==
[2024-04-17 09:10] VITALS: BMI 25.0
--- NOTE | 2024-10-01 09:40 | DI.CT.S_ITS ---
PROCEDURE: CT KIDNEY URETER BLADDER (KUB) INDICATIONS: 73 y/o F w/ a 4mm right UPJ stone, eval for passage TECHNIQUE: CT of the abdomen and pelvis was obtained without intravenous contrast. Coronal and sagittal reformats were performed. For radiation dose reduction, the following was used: automated exposure control, adjustment of mA and/or kV according to patient size. COMPARISON: [facility], CT, CT KIDNEY URETER BLADDER (KUB), 08/24/2024, 0:59. FINDINGS: Image quality: Diagnostic. Lower Chest: No significant findings. ABDOMEN: Liver: No contour-deforming mass. Steatosis. Gallbladder: Gallbladder sludge versus small stones. No wall thickening or pericholecystic edema to suggest acute cholecystitis. Biliary ducts: No biliary dilation. Pancreas: No ductal dilation. Spleen: Size is within normal limits. Adrenal Glands: No adrenal nodules. Kidneys and Ureters: Moderate burden of bilateral nephrolithiasis . Interval passage of the 5 millimeter stone in the right UPJ. However, there is a new 9 millimeter stone in the right renal pelvis, without hydronephrosis. Stomach and Bowel: Normal colonic caliber, without significant wall thickening. Normal appendix. Peritoneum: No abnormal intraperitoneal fluid. No free air. Ventral Wall: Tiny supraumbilical hernia containing fat. Small umbilical hernia containing fat. Abdominal Nodes: No retroperitoneal or mesenteric adenopathy by size criteria. Vessels: Aorta and inferior vena cava are normal in size. PELVIS: Pelvic Organs: A pessary is present. Hysterectomy. Bladder: Unremarkable. Pelvic Nodes: No enlarged lymph nodes. Miscellaneous: No inguinal hernias are seen. Bones: No aggressive osseous abnormality. Degenerative disc disease of the lumbar spine. IMPRESSION: Interval passage of the 5 millimeter stone in the right UPJ. However, there is a new 9 millimeter stone in the right renal pelvis, without hydronephrosis. Dictated by: Abram Wyatt M.D. on 10/01/2024 at 13:01 Approved by: Abram Wyatt M.D. on 10/01/2024 at 13:07
== END ==
PROVIDERS: Family Provider Family Medicine; PCP Family Medicine; Referring Provider Family Medicine; Visit Provider Urology
DX: N20.0 Calculus of kidney (principal); K76.0 Fatty (change of) liver, not elsewhere classified; K42.9 Umbilical hernia without obstruction or gangrene; M51.369 Other intervertebral disc degeneration, lumbar region without mention of lumbar back pain or lower extremity pain; Z90.710 Acquired absence of both cervix and uterus
CPT/HCPCS: 74176

== ENCOUNTER → 2025-01-09 18:34 | Outpatient (CLI) | payer MEDICARE, SELFPAY ==
[2024-04-17 09:10] VITALS: BMI 25.0
--- NOTE | 2025-01-09 18:37 | DI.MRI.S_ITS ---
PROCEDURE: MR KNEE RT WO CON
--- NOTE | 2025-01-09 18:37 | DI.MRI.S_ITS ---
PROCEDURE: MR KNEE LT WO CON
== END ==
LOC: MRI 18:36
PROVIDERS: PCP Family Medicine; Referring Provider Physical Medicine & Rehabilitation; Visit Provider Physical Medicine & Rehabilitation
DX: S83.272A Complex tear of lateral meniscus, current injury, left knee, initial encounter (principal); S83.281A Other tear of lateral meniscus, current injury, right knee, initial encounter; S83.242A Other tear of medial meniscus, current injury, left knee, initial encounter; M17.11 Unilateral primary osteoarthritis, right knee; M22.2X1 Patellofemoral disorders, right knee; M22.2X2 Patellofemoral disorders, left knee; S83.512A Sprain of anterior cruciate ligament of left knee, initial encounter; S83.511A Sprain of anterior cruciate ligament of right knee, initial encounter; S86.811A Strain of other muscle(s) and tendon(s) at lower leg level, right leg, initial encounter; S80.01XA Contusion of right knee, initial encounter; M71.22 Synovial cyst of popliteal space [Baker], left knee; M67.462 Ganglion, left knee; M25.462 Effusion, left knee; M25.461 Effusion, right knee
CPT/HCPCS: 73721